=== PATIENT | male | born 1945 | race Caucasian/White ===

== ENCOUNTER → 2016-10-17 | Outpatient (CLI) | payer BC ==
[~2016-10-17] VITALS: Ht 172.7 cm; Wt 77.1 kg
[~2016-10-17] MED LIST: AMLO5TAB2 PO; HYDR10TAB PO; HYDR12CA PO; LABETALOL HCL 100 MG/20 ML VIAL As Ordered ONE; LIDOCAINE 2% INJ 100 MG/5 ML SDV (FOR ANES.) As Ordered ONE; LR 1,000 ML IV SCH; METF500T PO; PROPOFOL 200 MG/20 ML VIAL As Ordered ONE; SERT25TA85 PO
--- NOTE | 2016-10-17 09:48 | ROOR ---
Patient Name: Timmy Alonso Procedure Date: 10/17/2016 8:48 AM Date of : 1945 Age: 71 Room: [facility] Gender: Male Note Status: Finalized Procedure: Colonoscopy Indications: Rectal bleeding Providers: Pierce Melchor MD Referring MD: Hermila Barba DO Requesting Provider: Medicines: Monitored Anesthesia Care Complications: No immediate complications. Procedure: Pre-Anesthesia Assessment: - Prior to the procedure, a History and Physical was performed, and patient medications and allergies were reviewed. The patient is competent. The risks and benefits of the procedure and the sedation options and risks were discussed with the patient. All questions were answered and informed consent was obtained. Patient identification and proposed procedure were verified by the physician, the nurse and the ear specialist in the procedure room. Mental Status Examination: alert and oriented. Airway Examination: normal oropharyngeal airway and neck mobility. CV Examination: regular rate and rhythm. Prophylactic Antibiotics: The patient does not require prophylactic antibiotics. Prior Anticoagulants: The patient has taken no previous anticoagulant or antiplatelet agents. ASA Grade Assessment: II - A patient with mild systemic disease. After reviewing the risks and benefits, the patient was deemed in satisfactory condition to undergo the procedure. The anesthesia plan was to use monitored anesthesia care (MAC). Immediately prior to administration of medications, the patient was re-assessed for adequacy to receive sedatives. The heart rate, respiratory rate, oxygen saturations, blood pressure, adequacy of pulmonary ventilation, and response to care were monitored throughout the procedure. The physical status of the patient was re-assessed after the procedure. The Colonoscope was introduced through the anus and advanced to the cecum, identified by the ileocecal valve. The colonoscopy was performed without difficulty. The patient tolerated the procedure well. The quality of the bowel preparation was excellent. Findings: The perianal exam findings include an ulcerated mass at the anal verge at the posterior midline. The digital rectal exam revealed a 4 cm (diameter) firm anal mass palpated from the anal verge to about 3-4 cm above the anal verge. The mass was non-circumferential and located predominantly at the posterior bowel wall. A 10 mm polyp was found in the hepatic flexure. The polyp was sessile. The polyp was removed with a cold snare. Resection and retrieval were complete. Many sessile polyps were found in the rectum. The polyps were small in size. These appear consistent with small hyperplastic polyps. An ulcerated non-obstructing medium-sized mass was found at the anus. The mass was non-circumferential. The mass measured four cm in length. In addition, its diameter measured twenty mm. Oozing was present. Biopsies were taken with a cold forceps for histology. Impression: - An ulcerated mass at the anal verge at the posterior midline. found on perianal exam. - Anal mass from the anal verge to about 3-4 cm above from the anal verge. - One 10 mm polyp at the hepatic flexure, removed with a cold snare. Resected and retrieved. - Many small polyps in the rectum. - Malignant tumor at the anus. Biopsied. Recommendation: - Discharge patient to home. - Resume previous diet. - Continue present medications. - Await pathology results. - Return to endoscopist in 1 week. Pierce Melchor MD 10/17/2016 9:48:15 AM Number of Addenda: 0 Note Initiated On: 10/17/2016 8:48 AM Estimated Blood Loss: Estimated blood loss was minimal.
[2016-10-17 10:25] VITALS: BP 158/73
== END | disposition home or self-care (01) ==
LOC: M OPP 07:18
PROVIDERS: ATTEND Surgery
DX: C21.0 Malignant neoplasm of anus, unspecified (principal); D12.3 Benign neoplasm of transverse colon; K62.1 Rectal polyp; I10 Essential (primary) hypertension; E78.00 Pure hypercholesterolemia, unspecified; E11.9 Type 2 diabetes mellitus without complications; J44.9 Chronic obstructive pulmonary disease, unspecified; F17.200 Nicotine dependence, unspecified, uncomplicated; Z97.2 Presence of dental prosthetic device (complete) (partial); Z88.8 Allergy status to other drugs, medicaments and biological substances; Z79.84 Long term (current) use of oral hypoglycemic drugs; Z91.041 Radiographic dye allergy status; Z91.013 Allergy to seafood

== ENCOUNTER → 2016-11-02 | Outpatient (REF) | payer BC, MEDICARE ==
[~2016-11-02] MED LIST changes: -LABETALOL HCL 100 MG/20 ML VIAL As Ordered ONE; -LIDOCAINE 2% INJ 100 MG/5 ML SDV (FOR ANES.) As Ordered ONE; -LR 1,000 ML IV SCH; -PROPOFOL 200 MG/20 ML VIAL As Ordered ONE
[2016-11-02 19:19] LABS: INR 0.97
== END ==
LOC: M LAB REF 17:24
PROVIDERS: ATTEND Internal Medicine Medical Oncology
DX: C21.1 Malignant neoplasm of anal canal (principal)

== ENCOUNTER → 2016-11-02 | Outpatient (CLI) | payer BC, MEDICARE ==
--- NOTE | 2016-11-07 14:29 | RADONC ---
RADIATION ONCOLOGY CONSULTATION NOTE DATE: 11/02/2016 CHART NUMBER: [id number] DIAGNOSIS: Anal cancer. STAGE: In progress. ECOG PERFORMANCE STATUS: 1 CONSULTATION NOTE: Mr. 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 HISTORY OF PRESENT ILLNESS: The patient was in his usual state of health. 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 The patient received external beam radiation therapy for a dose of 6600 cGy in 33 fractions from 10/15/2013 through 12/03/2013. The patient then was lost to followup by all his physicians. Apparently, sometime approximately 8 months ago, the patient began developing rectal pain. Eventually, he presented to his physician and was referred to Dr. Melchor. Evaluation was undertaken, and a 4 cm firm anal mass was palpated from the anal verge to about 4 cm above the anal verge. The lesion was noncircumferential and predominantly located posterior bowel wall. A biopsy was done on 10/17/2016, and fragments of poorly differentiated squamous cell carcinoma were found. The patient is now being referred to myself as well as to medical oncology for discussion of his therapeutic options. PAST MEDICAL HISTORY: The patient's past medical history, as noted above, is positive for his laryngeal carcinoma. In addition, the patient has hypertension and diabetes. ALLERGIES: The patient reports that he is ALLERGIC to CT DYE. SOCIAL HISTORY: The patient continues to smoke cigarettes. He had smoked approximately three packs a day for least 25 years. He drinks alcohol routinely. FAMILY HISTORY: The patient's family history is positive for a father with lung cancer and a brother with leukemia. REVIEW OF SYSTEMS: The patient's review of systems is positive for some rectal pain and bleeding. It is otherwise noncontributory. He denies nausea, vomiting, fevers, chills, night sweats, diplopia, headaches, anxiety or depression, anorexia, weight loss, visual disturbances, chest pain, urinary or bowel difficulties, bone pain, or neurological problems. PHYSICAL EXAMINATION: The patient is a well-developed, well-nourished male in no acute distress. HEENT exam is normocephalic, atraumatic. Extraocular movements are intact. There is no palpable cervical, supraclavicular, infraclavicular, axillary, or inguinal lymphadenopathy present. Lungs are clear to auscultation and percussion. Heart has a regular rate and rhythm. Abdomen is benign with no hepatosplenomegaly, masses, or tenderness. Rectal examination reveals a mass from the anal verge to approximately 4 cm in the posterior section of the anal canal. It is not circumferential. It is tender. His prostate is smooth with no evidence of nodularity. Skeletal examination reveals no tenderness to pressure or percussion of the bony skeleton. Extremities reveal no clubbing, cyanosis, or edema. Neurologic exam is grossly intact, as is the remainder of the physical examination. ASSESSMENT: Clearly, the patient is a candidate for external beam radiation therapy, and I have so informed him. I have discussed with the patient in detail the potential benefits as well as possible acute and chronic sequelae of external beam radiation therapy. We discussed logistics of treatment planning, simulation, and subsequent fractionated daily radiation treatments. I have scheduled the patient for the next available simulation slot, and radiation treatments will begin subsequently. The patient came in today claiming he was not going to do chemotherapy, but I have explained to the patient that if he chooses not to do chemotherapy then we will not radiate him. The standard of care is chemotherapy and radiation together. I explained to him that this is a much more significant cancer than his previous one. I reminded him of the difficult time we had getting him through the previous radiation therapy. It included multiple phone calls begging him to finish therapy. Those phone calls ended up with him hanging up on us on multiple occasions. Most of the complaints had to do with billing. He did not have many side effects from radiation, but did not want to comply with the course fractionation for daily treatments. I made it clear to him that this is a very serious cancer in no uncertain terms. It is unlikely to cure this cancer if he stops treatment in the middle as he did with this laryngeal carcinoma. It is also unlikely to be cured unless he complies with the combination of chemo and radiation. The patient states that he understands this and will come for all of his treatments as prescribed. Once again, in summary, we discussed logistics of treatment planning, simulation, and subsequent fractionated daily radiation treatments. The patient agrees to undergo all of these treatments as prescribed. He is aware of the acute and chronic side effects. He is also aware of the significance of not controlling this disease. Specifically, I have discussed with the patient the need to have regular followup, and salvage may be a consideration if this treatment does not work. He did not come for his scheduled followups following his laryngeal carcinoma and, indeed, has not been evaluated for that in the past 3 years. We have not fully staged this patient at this point, and I have ordered a PET/CT scan to be undertaken for further evaluation. The patient claimed he did not have an appointment with medical oncology, but we called medical oncology today and spoke with them. They reported that he had an appointment scheduled for this afternoon. We retold the patient that we knew he had an appointment for this afternoon and told him to go directly over to medical oncology so that we can begin to coordinate his care. cc: MD Hermila Jarquin DO Tony Chuang, MD Robert Kimball, MD
== END ==
LOC: M ONCR 08:47
PROVIDERS: ATTEND Radiology Radiation Oncology
DX: C18.9 Malignant neoplasm of colon, unspecified (principal)

== ENCOUNTER → 2016-11-08 | Outpatient (CLI) | payer BC | LOC: M RAD 07:45 | PROVIDERS: ATTEND Radiology Radiation Oncology | DX: C21.1 Malignant neoplasm of anal canal (principal) ==

== ENCOUNTER → 2016-11-15 | Outpatient (CLI) | payer BC ==
--- NOTE | 2016-11-15 19:11 | REP ---
PET/CT: History: Initial staging anal carcinoma. Comparisons: Comparison CT scan from [facility] is from 09/19/2016. TECHNIQUE: 80 minutes following the intravenous injection of a 7.6 mCi dose of F-18 FDG, three-dimensional PET scintigraphy is acquired from the skull base to the proximal thighs. Triplanar noncontrast CT scanning is acquired through the same anatomic range for attenuation correction, and image registration with scan parameters optimized to minimize radiation exposure to the patient. PET scintigraphy and CT datasets were fused and displayed on a workstation with multiplanar and projection display capability. PET/CT Findings: The head and neck soft tissues are unremarkable. There are mucous retention cysts in the right maxillary sinus. There is no abnormal hypermetabolic uptake in the lungs. No hilar or mediastinal hypermetabolic uptake is seen. No abnormal hepatic uptake is observed. The spleen is unremarkable. No abnormal elo uptake is seen within the abdomen or pelvis. There is soft tissue fullness in the distal rectum just above the anal verge which is felt to correspond with the location of the biopsy-proven rectal carcinoma. Maximum SUV value here is 9.9 where as the background left colonic uptake is in the range of 2-6. No pelvic hypermetabolic elo uptake is seen. The prostate is enlarged. Intrarenal nephrolithiasis is noted on the right. No abnormal skeletal uptake is seen. Impression: Hypermetabolic uptake noted in the distal rectum at the site of the described rectal mass lesion. No other abnormal hypermetabolic uptake is appreciated. Signed by Geoff Olsen MD 11/16/2016 10:12 A
== END ==
LOC: M RAD 10:01
PROVIDERS: ATTEND Radiology Radiation Oncology
DX: C21.1 Malignant neoplasm of anal canal (principal)

== ENCOUNTER 2016-11-16 08:00 | Outpatient (RCR) | payer BC ==
[~2016-11-16 08:00] MED LIST changes: +SERT25TA PO; -SERT25TA85 PO
--- NOTE | 2016-12-05 12:14 | RADONC ---
RADIATION ONCOLOGY DATE: 12/04/2016 CHART NO.: [id number] Mr. Alonso was taken to the linear accelerator today and underwent his first fraction of 180 cGy to his anus. He tolerated his first fraction quite well with no difficulties. The patient's review of systems is positive for some anal pain but is otherwise noncontributory. He denies nausea, vomiting, fevers, chills, night sweats, diplopia, headaches, anxiety or depression, anorexia, weight loss, visual disturbances, chest pain, urinary or bowel difficulties, bone pain, or neurological problems. PHYSICAL EXAMINATION: The patient's skin shows no evidence of radiation change present. His physical exam remains otherwise unchanged. Mr. Alonso tolerated his first fraction well and radiation will continue as scheduled.
--- NOTE | 2016-12-12 07:57 | RADONC ---
RADIATION ONCOLOGY PROGRESS NOTE DATE: 12/11/2016 CHART NUMBER: [id number] Mr. Alonso is presently at a dose of 360 cGy to his anus and is tolerating treatments quite well at this point with no complaints at this time related to his radiation therapy. Due to machine breakdown the patient has not been treated since 12/04/2016. The patient continues to complain of anal pain but his review of systems is otherwise noncontributory. He denies nausea, vomiting, fevers, chills, night sweats, diplopia, headaches, anxiety or depression, anorexia, weight loss, visual disturbances, chest pain, urinary or bowel difficulties, bone pain, or neurological problems. PHYSICAL EXAMINATION: The patient's skin is in good condition with no evidence of radiation change present. There is no moist or dry desquamation. The remainder of his physical exam remains unchanged. Mr. Alonso is tolerating treatments quite well and radiation will continue as scheduled.
== END 2016-12-15 ==
LOC: M ONCR 08:00
PROVIDERS: ATTEND Radiology Radiation Oncology
DX: C21.0 Malignant neoplasm of anus, unspecified (principal)

== ENCOUNTER → 2016-11-16 | Outpatient (CLI) | payer BC ==
--- NOTE | 2016-11-16 14:15 | RADONC ---
RADIATION ONCOLOGY SIMULATION NOTE DATE: 11/16/2016 CHART NUMBER: [id number] Mr. Alonso was taken to the CT scan for CT simulation of his anal field. CT was accomplished without difficulty or discomfort. Radiation treatment planning is underway, and radiation treatments will begin subsequently. An immobilization device was created without difficulty or discomfort. It will be used throughout the course of treatment. I was physically present throughout the course of CT simulation. edited: 11/17/2016 0724 rene
== END ==
LOC: M RAD 13:30
PROVIDERS: ATTEND Radiology Radiation Oncology
DX: C21.1 Malignant neoplasm of anal canal (principal)

== ENCOUNTER → 2016-11-21 | Day surgery (SDC) | payer BC ==
[~2016-11-21] VITALS: Ht 172.7 cm; Wt 73.5 kg
[~2016-11-21] MED LIST changes: +HEPARIN SOD (PORCINE) 5000 UNITS/ML VIAL As Ordered ONE; +HEPARIN SOD (PORCINE) 5000 UNITS/ML VIAL XX ONE; +LIDOCAINE 1% SDV INJ 30 ML VIAL As Ordered ONE; +LIDOCAINE 1% SDV INJ 30 ML VIAL SC ONE; +LIDOCAINE 2% INJ 100 MG/5 ML SDV (FOR ANES.) As Ordered ONE; +LR 1,000 ML IV SCH; +MIDAZOLAM INJ 2 MG/2 ML VIAL (J2250) As Ordered ONE; +NORCO, ANEXSIA 5/325MG TABLET (HYDROcodone/ACETAMINOPHEN) As Ordered ONE; +NORCO, ANEXSIA 5/325MG TABLET (HYDROcodone/ACETAMINOPHEN) PO PRN; +PROPOFOL 200 MG/20 ML VIAL As Ordered ONE; +fentaNYL 100 MCG/2 ML INJECTION (J3010) As Ordered ONE
--- NOTE | 2016-11-21 16:50 | ECGEPIP ---
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
[2016-11-21 21:52] VITALS: BP 161/89
--- NOTE | 2016-11-22 06:10 | REP ---
C-ARM VIEW OF THE CHEST: C-arm view of the chest is performed. The image shows the inferior right hemithorax. 3 seconds of fluoroscopy time was utilized. Signed by Samuel Barrera MD 11/22/2016 10:13 A
--- NOTE | 2016-11-24 17:46 | RO ---
DATE OF PROCEDURE: 11/21/2016 PREOPERATIVE DIAGNOSIS: Anal carcinoma and need for chemotherapy access. POSTOPERATIVE DIAGNOSIS: Anal carcinoma and need for chemotherapy access. PROCEDURE PERFORMED: Placement of right internal jugular vein [id number] using ultrasound and fluoroscopic guidance. SURGEON: Dr. Pierce Melchor LODE MINER BLASTING: ANESTHESIA: Local with 1% Xylocaine with monitored anesthesia care INDICATIONS FOR PROCEDURE: The patient is a 71-year-old man who was recently diagnosed with anal carcinoma. He will be undergoing combination chemotherapy and radiation therapy and is now for placement of an infusion port. DESCRIPTION OF PROCEDURE: The patient was placed supine on the operating table. He received sedation from anesthesia. The patient's right neck and upper chest were prepped and draped in a sterile fashion. The ultrasound probe was draped and used to inspect the right side of the neck. The carotid artery and jugular vein were both clearly identified. The patient was tilted to a Trendelenburg position to better expand the jugular vein. The site of the vein was marked and local anesthesia was achieved with 1% Xylocaine. Then using ultrasound guidance, an 18 gauge needle was inserted into the vein without difficulty. The guidewire was passed. The skin was nicked with an #11 blade and the peel-away sheath introducer was inserted. The catheter was then inserted through the sheath and the sheath was removed. The catheter flushed readily and blood returned readily as well. The patient was returned to a flat position. The catheter was withdrawn to approximately 15 cm of the skin surface. Fluoroscopic imaging was used to position the catheter. The catheter appeared to be well placed with the 12 cm maximilian at the skin surface. Additional local anesthesia was achieved in the right infraclavicular fossa. A skin incision was made approximately 3 cm in length and a subcutaneous pocket was created for placement of the port. The catheter was tunneled down to the port site subcutaneously. The port was flushed with heparinized saline. The catheter was then cut to length and attached to the port using the locking ring. The port was placed in the subcutaneous pocket and two #3-0 Vicryl sutures were placed to fix the port in position. The subcutaneous tissues were closed with buried #3-0 Vicryl sutures. The skin incisions were then both closed with buried #5-0 Vicryl. The port was accessed and blood aspirated easily and the port was then flushed with 100 units/mL heparin solution. Steri-Strips and small OpSite dressings were applied to both incisions. The patient tolerated the procedure well without apparent complication. The port placed was a Bard port MRI implantable port, reference number [id number], lot number [id number]. The patient was transported to the recovery room in stable condition.
== END | disposition home or self-care (01) ==
LOC: M SDC 13:08
PROVIDERS: ATTEND Surgery
DX: C21.1 Malignant neoplasm of anal canal (principal); C32.9 Malignant neoplasm of larynx, unspecified; J37.0 Chronic laryngitis; J34.3 Hypertrophy of nasal turbinates; J31.0 Chronic rhinitis; J34.2 Deviated nasal septum; K21.9 Gastro-esophageal reflux disease without esophagitis; K59.00 Constipation, unspecified; K92.1 Melena; K64.8 Other hemorrhoids; D12.6 Benign neoplasm of colon, unspecified; I10 Essential (primary) hypertension; E78.00 Pure hypercholesterolemia, unspecified; E11.9 Type 2 diabetes mellitus without complications; R19.7 Diarrhea, unspecified; J44.9 Chronic obstructive pulmonary disease, unspecified; C44.92 Squamous cell carcinoma of skin, unspecified; R23.3 Spontaneous ecchymoses; F41.9 Anxiety disorder, unspecified; R06.2 Wheezing; Z91.041 Radiographic dye allergy status; Z79.899 Other long term (current) drug therapy; Z92.3 Personal history of irradiation
CPT/HCPCS: 36561; 76000; 93005; C1788; J0690; J2250; J3010

== ENCOUNTER 2016-12-18 08:33 | Outpatient (RCR) | payer BC ==
[~2016-12-18 08:33] MED LIST changes: -HEPARIN SOD (PORCINE) 5000 UNITS/ML VIAL As Ordered ONE; -HEPARIN SOD (PORCINE) 5000 UNITS/ML VIAL XX ONE; -LIDOCAINE 1% SDV INJ 30 ML VIAL As Ordered ONE; -LIDOCAINE 1% SDV INJ 30 ML VIAL SC ONE; -LIDOCAINE 2% INJ 100 MG/5 ML SDV (FOR ANES.) As Ordered ONE; -LR 1,000 ML IV SCH; -MIDAZOLAM INJ 2 MG/2 ML VIAL (J2250) As Ordered ONE; -NORCO, ANEXSIA 5/325MG TABLET (HYDROcodone/ACETAMINOPHEN) As Ordered ONE; -NORCO, ANEXSIA 5/325MG TABLET (HYDROcodone/ACETAMINOPHEN) PO PRN; -PROPOFOL 200 MG/20 ML VIAL As Ordered ONE; -fentaNYL 100 MCG/2 ML INJECTION (J3010) As Ordered ONE
--- NOTE | 2016-12-19 08:31 | RADONC ---
RADIATION ONCOLOGY PROGRESS NOTE DATE: 12/18/2016 CHART NUMBER: [id number]. PROGRESS NOTE: Mr. Alonso is presently at a dose of to 1080 cGy to his anus and was last treated on 12/15/2016. He was not treated today secondary to machine breakdown. As of Sunday, he had been tolerating his treatments quite well without difficulty. Mr. Alonso is scheduled to reinitiate treatment tomorrow.
[2016-12-21] MEDS ORDERED: AMOX-CLAV PO (16:23)
[2016-12-21] MEDS ORDERED: SITA50TAB PO (18:36)
--- NOTE | 2016-12-26 08:00 | RADONC ---
RADIATION ONCOLOGY PROGRESS NOTE DATE: 12/25/2016 CHART NUMBER: [id number] Mr. Alonso initially contacted our office saying he was too dizzy and weak to stand up or come in for radiation or chemotherapy. We instructed him at that time to call an ambulance and come to the emergency room. Throughout the day, we have been calling him periodically. The patient still has not come in. I did contact his medical oncologist, Dr. Pires, and expressed my concern. As of my last phone call with him, he had spoken with Dr. Pires and says he is feeling better. He does not wish to take an ambulance in. He said the dizziness has resolved. Our chief therapist, Chastity Brand, has also called him and instructed him to take an ambulance to come in. At least as of 3:30, during my most recent call, he established that he is feeling much better now and he is keeping food down. He is up and around. He said he felt much better after a nap. He guaranteed me that he would come into the emergency room if his feelings of weakness and dizziness return. I expressed once again my concerns and we will continue to follow him closely. He does report that he is going to be seeing Dr. Barba on Sunday.
--- NOTE | 2016-12-28 11:46 | RADONC ---
RADIATION ONCOLOGY PROGRESS NOTE: DATE OF SERVICE: 12/27/2016 CHART NO: [id number]. Mr. Alonso once again did not show up for treatment today. That is the third time this week. We have been calling him on a daily basis. He is aware that he is losing clinical efficacy of radiation treatments. The nurse Cory Alvarez and myself have tried to call him today. We received an answering machine and he has not yet call back. I am concerned that he is missing significant portions of his treatments at this point. We will continue to follow up with this tomorrow. Clearly we cannot make this patient come in for treatment or for that matter come to the emergency room or to the medical oncology office. Once again in summary, we will continue to contact this patient and leave messages on his machine if necessary. I am concerned with his poor compliance with daily treatments. If this continues we will have a significant decrease in our ability to control his cancer.
[2016-12-28] MEDS ORDERED: TRAZ50TA4 PO (13:13)
[2016-12-28] MEDS ORDERED: HYDR-3713 PO (13:13)
[2016-12-28] MEDS ORDERED: SITA50TAB PO (17:43)
[2016-12-28] MEDS ORDERED: ASPI1TAB PO (17:43)
--- NOTE | 2016-12-30 09:41 | RADONC ---
RADIATION ONCOLOGY DATE: 12/28/2016 PROGRESS NOTE CHART NUMBER: [id number] We contacted Mr. Alonso today and instructed him to come to the emergency room. The patient said he was quite weak and said he felt like he was on his "deathbed". We have checked and the patient is now in our emergency department undergoing workup for syncope. Clearly, he will remain on rest until he stabilizes.
--- NOTE | 2017-01-02 08:01 | RADONC ---
RADIATION ONCOLOGY PROGRESS NOTE DATE: 01/01/2017 CHART NUMBER: PROGRESS NOTE: Mr. Alonso is thus far at a dose of only 1400 cGy to his anus and was last treated on 12/20/2016. He received a total of only 8 fractions of radiation since 12/14/2016 for a total of 8 fractions over the past month. The patient is presently hospitalized with pneumonia. He had been staying home with pneumonia for a significant period of time. We went up to see the patient today and he reported that he did not wish to undergo treatment, specifically he did not wish to undergo chemotherapy treatment. We explained to the patient that his treatment is already compromised. To treat the remainder of the radiation without chemotherapy would be a significant compromising of his potential cure. If the patient really does not wish to continue with these treatments, I have recommended surgical intervention be considered. We would be more than happy to refer him to a client resolution specialist who may be able to deliver curative surgery. I did make clear to the patient however that, that would need a colostomy. After considering the colostomy, the patient reported that he would consider returning to us for chemotherapy and radiation with curative intent. Once again, I am concerned that 8 fractions of radiation of the delivered over a period of 1 month and we are now at great risk of losing efficacy of treatment. Surgery for salvage may be necessary.
[2017-01-02] MEDS ORDERED: AVEL1TAB PO (10:04)
[2017-01-02] MEDS ORDERED: GUAI60TA PO (10:07)
--- NOTE | 2017-01-09 10:04 | RADONC ---
RADIATION ONCOLOGY PROGRESS NOTE DATE: 01/08/2017 CHART NUMBER: [id number] Mr. Alonso is presently at a dose of 2160 cGy to his anus and is tolerating treatments quite well at this point with no complaints at this time related to his radiation treatments. The patient does report he is beginning to not feel well again. He said that he is beginning to feel like he did when he first developed pneumonia. He also says he is coughing up a clear productive sputum. The patient's review of systems is positive for his cough and sputum production but is otherwise noncontributory. Denies nausea, vomiting, fevers, chills, night sweats, diplopia, headaches, anxiety or depression, anorexia, weight loss, visual disturbances, chest pain, urinary or bowel difficulties, bone pain, or neurological problems. PHYSICAL EXAMINATION: The patient's skin is in good condition with no evidence of radiation change present. There is no moist or dry desquamation. His lungs are generally clear to auscultation and percussion. The remainder of his physical exam remains unchanged. Mr. Alonso is tolerating radiation treatments and will continue as scheduled at this point. He has already lost a significant amount of time of these treatments. I explained to him the need to continue with radiation as scheduled or it will be futile. I asked him to immediately contact Dr. Barba as well as his medical oncologist so that this can be worked up. Clearly, if he develops pneumoniae again and the treatments are interrupted, we will have to seek a surgical opinion with regards to his malignancy. The patient did guarantee me that he will be contacting both his primary care physician as well as his medical oncologist to discuss the next step with regards to his lungs.
== END 2017-01-14 ==
LOC: M ONCR 08:33
PROVIDERS: ATTEND Radiology Radiation Oncology
DX: C21.0 Malignant neoplasm of anus, unspecified (principal)

== ENCOUNTER 2016-12-21 13:51 | Emergency (ER) | payer BC ==
[~2016-12-21] VITALS: Ht 172.7 cm; Wt 77.1 kg
--- NOTE | 2016-12-21 15:30 | REP ---
Chest two views HISTORY: Wheezing Comparison: 11/03/2015 The lungs are clear. The heart is normal in size. The pulmonary vasculature is normal in appearance. The bony structure is intact. An Glrxet-Q-Uzni catheter is present in the superior vena cava. IMPRESSION: No acute disease. Signed by Jared Fair MD 12/21/2016 03:21 P
[2016-12-21 15:57] LABS: ALBUMIN 3.4 GM/DL (3.2-5.2); ALKALINE PHOSPHATASE 46 U/L (45-117); ALT/SGPT 24 U/L (12-78); ANION GAP 6 MEQ/L (8-16); AST/SGOT 16 U/L (15-37); BILIRUBIN,TOTAL 1.1 MG/DL (0.2-1.0); BLOOD UREA NITROGEN 15 MG/DL (7-18); CALCIUM LEVEL 8.8 MG/DL (8.8-10.2); CARBON DIOXIDE LEVEL 28 MEQ/L (21-32); CHLORIDE LEVEL 96 MEQ/L (98-107); CREATININE FOR GFR 1.07 MG/DL (0.70-1.30); GLOMERULAR FILTRATION RATE > 60.0 (>42); GLUCOSE, FASTING 341 MG/DL (83-110); POTASSIUM SERUM 4.3 MEQ/L (3.5-5.1); SODIUM LEVEL 130 MEQ/L (136-145); TOTAL PROTEIN 6.8 GM/DL (6.4-8.2)
[2016-12-21 15:59] LABS: DIFF SLIDE NUMBER 259; MEAN CORPUSCULAR HEMOGLOBIN 30.4 pg (27.0-33.0); MEAN CORPUSCULAR HGB CONC 35.7 g/dl (32.0-36.5); PLATELET COUNT, AUTOMATED 106 k/mm3 (150-450); RED CELL DISTRIBUTION WIDTH 13.3 % (11.5-14.5)
[2016-12-21] MEDS ORDERED: NS 1,000 ML IV ONE (16:00)
[2016-12-21] MEDS ORDERED: AMOX-CLAV PO (16:23)
[2016-12-21 16:31] LABS: BANDS 24 % (< 11); NUCLEATED RED BLOOD CELL 3 % (0-0); TOXIC VACUOLATION 1+
[2016-12-21 16:35] LABS: SCHISTOCYTES 1+; TEAR DROP CELLS 1+
[2016-12-21 16:36] LABS: POLYCHROMASIA 1+
[2016-12-21] MEDS ORDERED: SITA50TAB PO (18:36)
[2016-12-21 18:53] VITALS: BP 137/72
--- NOTE | 2016-12-21 19:12 | ECGEPIP ---
Stationary ECG Study 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
== END 2016-12-21 18:54 | disposition home or self-care (01) ==
LOC: M ED 16:16
DX: E11.65 Type 2 diabetes mellitus with hyperglycemia (principal); E86.0 Dehydration; C21.0 Malignant neoplasm of anus, unspecified; I10 Essential (primary) hypertension; Z79.899 Other long term (current) drug therapy; Z79.82 Long term (current) use of aspirin; Z79.84 Long term (current) use of oral hypoglycemic drugs; Z91.013 Allergy to seafood; Z91.041 Radiographic dye allergy status; F17.210 Nicotine dependence, cigarettes, uncomplicated

== ENCOUNTER 2016-12-28 12:58 | Inpatient (IN) | payer MEDICARE, BC ==
[~2016-12-28] VITALS: Ht 172.7 cm; Wt 79.9 kg
[~2016-12-28 12:58] MED LIST changes: +AMOX-CLAV PO; +SITA50TAB PO
[2016-12-28] MEDS ORDERED: TRAZ50TA4 PO (13:13)
[2016-12-28] MEDS ORDERED: HYDR-3713 PO (13:13)
[2016-12-28 14:25] LABS: ABG BASE EXCESS 0.7 (-2.0-2.0); ABG HCO3 22.7 MEQ/L (22.0-26.0); ABG PARTIAL PRESSURE CO2 27.8 mmHg (35.0-45.0); ABG PARTIAL PRESSURE O2 71.3 mmHg (75.0-100.0); ABG STANDARD HCO3 25.1 MEQ/L (22.0-26.0); ABG TOTAL CO2 23.5 MEQ/L (23.0-31.0); ABG pH (ARTERIAL) 7.529 UNITS (7.350-7.450)
[2016-12-28 14:58] LABS: ANION GAP 8 MEQ/L (8-16); BASO % 0.2 % (0.0-1.0); BLOOD UREA NITROGEN 16 MG/DL (7-18); CALCIUM LEVEL 8.5 MG/DL (8.8-10.2); CARBON DIOXIDE LEVEL 28 MEQ/L (21-32); CHLORIDE LEVEL 101 MEQ/L (98-107); CREATININE FOR GFR 0.86 MG/DL (0.70-1.30); EOS % 0.4 % (0.0-3.0); GLOMERULAR FILTRATION RATE > 60.0 (>42); GLUCOSE, FASTING 288 MG/DL (83-110); LARGE UNSTAINED CELL # 0.1 K/mm3 (0.0-0.4); LYMPH # 0.4 K/mm3 (1.5-4.5); LYMPH % 2.8 % (24.0-44.0); MEAN CORPUSCULAR HEMOGLOBIN 30.1 pg (27.0-33.0); MEAN CORPUSCULAR HGB CONC 34.3 g/dl (32.0-36.5); MEAN CORPUSCULAR VOLUME 87.6 fl (80.0-96.0); MONO # 0.5 K/mm3 (0.0-0.8); MONO % 4.1 % (0.0-5.0); NEUTROPHILS # 10.4 K/mm3 (1.8-7.7); NEUTROPHILS % 91.5 % (36.0-66.0); PLATELET COUNT, AUTOMATED 293 k/mm3 (150-450); POTASSIUM SERUM 3.8 MEQ/L (3.5-5.1); RED CELL DISTRIBUTION WIDTH 14.1 % (11.5-14.5); SODIUM LEVEL 137 MEQ/L (136-145); WHITE BLOOD COUNT 11.3 K/mm3 (4.0-10.0)
--- NOTE | 2016-12-28 15:33 | REP ---
TWO VIEW CHEST: Two views of the chest are performed. Comparison 12/21/2016. There is acute left lower lobe infiltrate. Right lung remains clear. Heart is normal in size. Right Mediport catheter is again noted unchanged. There are mild degenerative changes of the spine. IMPRESSION: Left lower lobe infiltrate. Signed by Samuel Barrera MD 12/29/2016 03:17 P
[2016-12-28] MEDS ORDERED: LevoFLOXacin IV 750 MG in APPROPRIATE DILUENT 1 EA IV ONE (15:45)
[2016-12-28] MEDS ORDERED: IPRATROPIUM 0.5MG/ALBUTEROL 2.5MG INH SOL UD 3ML (DUONEB)(J7620) NEB ONE (16:15)
[2016-12-28] MEDS ORDERED: ASPI1TAB PO (17:43)
[2016-12-28] MEDS ORDERED: SITA50TAB PO (17:43)
[2016-12-28] MEDS ORDERED: IPRATROPIUM 0.5MG/ALBUTEROL 2.5MG INH SOL UD 3ML (DUONEB)(J7620) NEB PRN (19:45)
[2016-12-28] MEDS ORDERED: DEXTROSE 50% 50 ML SYRINGE IV PRN (19:45)
[2016-12-28] MEDS ORDERED: GLUCOSE 4 GM CHEW TABLET PO PRN (19:45)
[2016-12-28] MEDS ORDERED: GLUCAGON FOR INJ 1 MG VIAL (J1610) SC PRN (19:45)
[2016-12-28] MEDS ORDERED: NORCO, ANEXSIA 5/325MG TABLET (HYDROcodone/ACETAMINOPHEN) PO PRN (19:45)
[2016-12-28] MEDS: IPRATROPIUM 0.5MG/ALBUTEROL 2.5MG INH SOL UD 3ML (DUONEB)(J7620) NEB SCH (20:00)
[2016-12-28 21:05] VITALS: BP 121/81
[2016-12-28] MEDS: HumaLOG INSULIN (NovoLOG) PER UNIT SC SCH (21:44)
[2016-12-28] MEDS: cefTRIAXone SOD 1 GM in D5W MINI-BAG PLUS 50 ML IV SCH (21:59)
[2016-12-28] MEDS: AZITHROMYCIN INJ 500 MG, VIAL MATE ADAPTER 1 EACH in D5W 250 ML IV SCH (22:39)
--- NOTE | 2016-12-28 22:40 | HPE ---
DATE OF ADMISSION: 12/28/2016 REASON FOR ADMISSION: Shortness of breath. 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 He stated he cannot walk or talk, feeling very weak and faint and is complaining of a cough with productive sputum. The patient presented in the emergency room, underwent a chest x-ray which showed left lower lobe infiltrate. He was started on intravenous (IV) antibiotics and admitted under hospitalist service. REVIEW OF SYSTEMS: 12-point review of systems was obtained all which was negative except for those mentioned above. PAST MEDICAL HISTORY: Significant for: Anal cancer. Vocal cord squamous cell carcinoma. Diabetes. Hypertension. Insomnia. Chronic pain. PAST SURGICAL HISTORY: Significant for: Port placement. Colonoscopy. ALLERGIES: Significant to IV CONTRAST, reaction swelling. SOCIAL HISTORY: The patient smoked 3-1/2 packs for 50 years but currently is cutting back to one cigarette a day. Denies alcohol use. Lives at home alone. MEDICATIONS: Include: - [place] one tablet every 6 hours as needed for pain - amlodipine 10 mg by mouth daily - aspirin 81 mg by mouth daily - Januvia 50 mg at bedtime FAMILY HISTORY: Noncontributory. PHYSICAL FINDINGS: Vital Signs: On admission, temperature 99.7, pulse 97, respiratory rate 16, blood pressure is 130/59, pulse oximetry 91% on room air. HEENT: Pupils equal, round, reactive to light and accommodation. Neck: Supple. No jugular venous distention (JVD). Lungs: Clear to auscultation bilaterally. Abdomen: Soft, nontender, nondistended. Extremities: No clubbing, cyanosis or edema. Neurologic: Cranial nerves II-XII grossly intact. No focal deficits. LABORATORY FINDINGS: Sodium 137, potassium 3.8, chloride 101, BUN 16, creatinine 0.86, fasting glucose 288, lactic acid 1.8, troponin less than 0.02, TSH 1.49. WBC is 11.3, hemoglobin 10.8, hematocrit 31.6, platelet count 293. Urinalysis showed trace leukocyte esterase, 17 WBCs. D-dimer was 3354. Blood gas: pH 7.52, pO2 71.3, pCO2 is 27.8, IMAGING STUDIES: Chest x-ray showed left lower lobe infiltrate. ASSESSMENT AND PLAN: 1. Shortness of breath likely secondary to left lower lobe infiltrate, pneumonia. Will continue ceftriaxone, azithromycin. The patient has elevated D-dimer but we are unable to do a CT angiogram at this time due to allergy to IV contrast. Will continue to monitor. Patient is currently saturating 91% on room air. Continue incentive spirometer and Acapella. Will obtain sputum cultures. 2. 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 The patient follows up with Dr. Pires 3. History of anal cancer, status post radiation. The patient follows up with Dr. Springer. 4. Diabetes. Continue insulin sliding scale and consistent carbohydrate diet. 5. History of hypertension. Continue the patient's amlodipine 10 mg by mouth daily and continue to monitor vital signs. 6. History of chronic pain. We will resume the patient's home medication. 7. Deep vein thrombosis (DVT) prophylaxis. Lovenox subcutaneously daily.
[2016-12-29] MEDS: IPRATROPIUM 0.5MG/ALBUTEROL 2.5MG INH SOL UD 3ML (DUONEB)(J7620) NEB SCH ×4 (01:43→20:26)
[2016-12-29 06:00] VITALS: BP 155/68
[2016-12-29 06:17] LABS: MEAN CORPUSCULAR HGB CONC 33.7 g/dl (32.0-36.5); WHITE BLOOD COUNT 7.5 K/mm3 (4.0-10.0)
[2016-12-29 06:32] LABS: ALBUMIN 2.2 GM/DL (3.2-5.2); ALBUMIN/GLOBULIN RATIO 0.61 (1.00-1.93); ALKALINE PHOSPHATASE 46 U/L (45-117); ALT/SGPT 28 U/L (12-78); ANION GAP 8 MEQ/L (8-16); AST/SGOT 21 U/L (15-37); BILIRUBIN,TOTAL 0.3 MG/DL (0.2-1.0); BLOOD UREA NITROGEN 12 MG/DL (7-18); CALCIUM LEVEL 8.3 MG/DL (8.8-10.2); CARBON DIOXIDE LEVEL 30 MEQ/L (21-32); CHLORIDE LEVEL 102 MEQ/L (98-107); GLOMERULAR FILTRATION RATE > 60.0 (>42); GLUCOSE, FASTING 185 MG/DL (83-110); MAGNESIUM LEVEL 2.2 MG/DL (1.8-2.4); POTASSIUM SERUM 3.4 MEQ/L (3.5-5.1); SODIUM LEVEL 140 MEQ/L (136-145); TOTAL PROTEIN 5.8 GM/DL (6.4-8.2)
[2016-12-29] MEDS ORDERED: POTASSIUM CHLORIDE 10 MEQ SR TABLET PO ONE (07:15)
[2016-12-29] MEDS: ASPIRIN 81 MG ENTERIC TAB PO SCH (08:46)
[2016-12-29] MEDS: HumaLOG INSULIN (NovoLOG) PER UNIT SC SCH ×4 (08:47→20:47)
[2016-12-29] MEDS: ENOXAPARIN 40 MG/0.4 ML SYRINGE (J1650) SC SCH (08:47)
[2016-12-29] MEDS: amLODIPine 10 MG TAB PO SCH (08:53)
[2016-12-29] MEDS ORDERED: ACETAMINOPHEN TAB 650MG DOSE (2X325MG) PO PRN (09:00)
--- NOTE | 2016-12-29 11:35 | IPNPDOC ---
Text Note Date of Service The patient was seen on 12/29/16. NOTE Subjective: Patient is a 71 year old male with a PMHx of Anal Squamaous cell CA ( on chemo and radiation), Vocal cord CA (s/p chemo), NIDDM2, HTN, Insomnia and chronic pain who presented to the ER with complaints of SOB adn productive cough. He was found to have an new LLL infiltrate and admitted for pneumonia. Patient was seen and examined at the bedside. Objective: Vitals (See below) General: Lying in bed, no acute distress, comfortable, AAOx3 HEENT: NC, AT CVS: RRR, +S1S2 Lungs: Poor inspiratory effort, no appreciable wheezing / rhonchi Abdomen: Soft, ND, NT, +BSx4 Extremities: +PPx4, - Edema, - Calf tenderness Assessment and plan: 1. Shortness of breath and productive cough - likely 2/2 LLL infiltrate - likely 2/2 CAP, less likely 2/2 pulmonary embolism - Presented with worsening shortness of breath and productive cough - Physical unrevealing - Mild leukocytosis on admission that has been resolving - Elevation in D-dimer; however he has a history of cancer and clinical picture that is not consistent with pulmonary embolism - CXR 12/28: Left lower lobe infiltrate - Sputum culture pending, Blood culture pending, Respiratory panel negative - Continue to monitor oxygenation - c/w Incentive spirometry and Acapella - c/w Ceftriaxone and Azithromycin (Day #2) 2. Hx of Squamous cell cancer of vocal cords - s/p chemotherapy - Follows with Dr. Pires 3. History of anal squamosu cell carcinoma - On chemotherapy, last session on 12/04/2016 - Receives radiation therapy - Follows with Dr. Springer. 4. NIDDM2 - c/w ISS 5. HTN - c/w amlodipine with holding parameters 6. Chronic pain - c/w Tylenol 7. DVT prophylaxis - c/w Lovenox VS,Fishbone, I+O VS, Fishbone, I+O Laboratory Tests 12/28/16 14:12 Calcium Level 8.5 L, Total Creatine Kinase 324 H, Red Blood Count 3.61 L, Mean Corpuscular Volume 87.6, Mean Corpuscular Hemoglobin 30.1, Mean Corpuscular Hemoglobin Concent 34.3, Red Cell Distribution Width 14.1, Neutrophils (%) (Auto ) 91.5 H, Lymphocytes (%) (Auto) 2.8 L, Monocytes (%) (Auto) 4.1, Eosinophils (% ) (Auto) 0.4, Basophils (%) (Auto) 0.2, Neutrophils # (Auto) 10.4 H, Lymphocytes # (Auto) 0.4 L, Monocytes # (Auto) 0.5, Eosinophils # (Auto) 0.0, Basophils # (Auto) 0.0 12/29/16 05:51 Calcium Level 8.3 L, Total Creatine Kinase 300, Red Blood Count 3.41 L, Mean Corpuscular Volume 89.0, Mean Corpuscular Hemoglobin 30.0, Mean Corpuscular Hemoglobin Concent 33.7, Red Cell Distribution Width 14.0, Aspartate Amino Transf (AST/SGOT) 21, Alanine Aminotransferase (ALT/SGPT) 28, Alkaline Phosphatase 46, Total Bilirubin 0.3, Total Protein 5.8 L, Albumin 2.2 L Vital Signs Date Time Temp Pulse Resp B/P Pulse Ox O2 Delivery O2 Flow Rate FiO2 12/29/16 08:53 98 155/79 12/29/16 06:00 97.7 22 97 Nasal Cannula 2.0 I&O- Last 24 Hours up to 6 AM 12/29/16 06:00 Intake Total 690 ml Output Total 700 ml Balance -10 ml CINDY HOLLAND MD Dec 29, 2016 11:35
[2016-12-29] MEDS: ONDANSETRON 4MG/2ML VIAL (J2405) IV PRN (12:53)
[2016-12-29 14:00] VITALS: BP 133/70
[2016-12-29] MEDS: traZODone 50 MG TAB PO PRN (21:34)
[2016-12-29] MEDS: guaiFENesin ER 600 MG TAB PO SCH (21:34)
[2016-12-29] MEDS: cefTRIAXone SOD 1 GM in D5W MINI-BAG PLUS 50 ML IV SCH (21:34)
[2016-12-29 22:00] VITALS: BP 109/55
[2016-12-29] MEDS: AZITHROMYCIN INJ 500 MG, VIAL MATE ADAPTER 1 EACH in D5W 250 ML IV SCH (22:24)
[2016-12-30] MEDS: IPRATROPIUM 0.5MG/ALBUTEROL 2.5MG INH SOL UD 3ML (DUONEB)(J7620) NEB SCH ×4 (02:00→20:09)
[2016-12-30 06:00] VITALS: BP 112/55
[2016-12-30 06:33] LABS: MEAN CORPUSCULAR HEMOGLOBIN 29.7 pg (27.0-33.0); MEAN CORPUSCULAR VOLUME 90.1 fl (80.0-96.0); RED CELL DISTRIBUTION WIDTH 14.1 % (11.5-14.5); WHITE BLOOD COUNT 6.4 K/mm3 (4.0-10.0)
[2016-12-30 06:53] LABS: ALBUMIN 2.1 GM/DL (3.2-5.2); ALKALINE PHOSPHATASE 42 U/L (45-117); ALT/SGPT 27 U/L (12-78); ANION GAP 6 MEQ/L (8-16); AST/SGOT 17 U/L (15-37); BILIRUBIN,TOTAL 0.3 MG/DL (0.2-1.0); BLOOD UREA NITROGEN 7 MG/DL (7-18); CALCIUM LEVEL 8.3 MG/DL (8.8-10.2); CARBON DIOXIDE LEVEL 29 MEQ/L (21-32); CHLORIDE LEVEL 106 MEQ/L (98-107); CREATININE FOR GFR 0.76 MG/DL (0.70-1.30); GLOMERULAR FILTRATION RATE > 60.0 (>42); GLUCOSE, FASTING 169 MG/DL (83-110); MAGNESIUM LEVEL 2.3 MG/DL (1.8-2.4); POTASSIUM SERUM 3.7 MEQ/L (3.5-5.1); SODIUM LEVEL 141 MEQ/L (136-145); TOTAL PROTEIN 5.6 GM/DL (6.4-8.2)
[2016-12-30 07:24] VITALS: O2SAT 90
[2016-12-30] MEDS: HumaLOG INSULIN (NovoLOG) PER UNIT SC SCH ×4 (07:30→21:00)
[2016-12-30] MEDS: ASPIRIN 81 MG ENTERIC TAB PO SCH (08:55)
[2016-12-30] MEDS: amLODIPine 10 MG TAB PO SCH (08:55)
[2016-12-30] MEDS: guaiFENesin ER 600 MG TAB PO SCH ×2 (08:55→22:13)
[2016-12-30] MEDS: ENOXAPARIN 40 MG/0.4 ML SYRINGE (J1650) SC SCH (08:56)
--- NOTE | 2016-12-30 10:54 | IPNPDOC ---
Text Note Date of Service The patient was seen on 12/30/16. NOTE Subjective: Patient is a 71 year old male with a PMHx of Anal Squamaous cell CA ( on chemo and radiation), Vocal cord CA (s/p chemo), NIDDM2, HTN, Insomnia and chronic pain who presented to the ER with complaints of SOB adn productive cough. He was found to have an new LLL infiltrate and admitted for pneumonia. Patient was seen and examined at the bedside. He reports improvement in his chest congestion, notes that he is able to expectorate more and has a clearer voice now. Objective: Vitals (See below) General: Lying in bed, no acute distress, comfortable, AAOx3 HEENT: NC, AT CVS: RRR, +S1S2 Lungs: Poor inspiratory effort, mild rhonchi appreciated at L lung base Abdomen: Soft, ND, NT, +BSx4 Extremities: +PPx4, - Edema, - Calf tenderness Assessment and plan: 1. Shortness of breath and productive cough - likely 2/2 LLL infiltrate - likely 2/2 CAP, less likely 2/2 pulmonary embolism - Presented with worsening shortness of breath and productive cough - Physical reveals rhonchi at LLL - Leukocytosis continues to resolve - Elevation in D-dimer; less likely PE given clinical picture - CXR 12/28: Left lower lobe infiltrate - Sputum culture, Blood culture pending and Respiratory panel negative - Continue to monitor oxygenation - c/w Incentive spirometry and Acapella - c/w Ceftriaxone and Azithromycin (Day #3) 2. Hx of Squamous cell cancer of vocal cords - s/p chemotherapy - Follows with Dr. Pires 3. History of anal squamosu cell carcinoma - On chemotherapy, last session on 12/04/2016 - Receives radiation therapy - Follows with Dr. Springer. 4. NIDDM2 - c/w ISS 5. HTN - c/w amlodipine with holding parameters 6. Chronic pain - c/w Tylenol 7. DVT prophylaxis - c/w Lovenox Disposition: - Will need home with services when stable - Possible discharge by Sunday GARCIA,Talisha, I+O VS, Talisha, I+O Laboratory Tests 12/30/16 05:55 Calcium Level 8.3 L, Aspartate Amino Transf (AST/SGOT) 17, Alanine Aminotransferase (ALT/SGPT) 27, Alkaline Phosphatase 42 L, Total Bilirubin 0.3, Total Protein 5.6 L, Albumin 2.1 L 12/30/16 05:56 Red Blood Count 3.48 L, Mean Corpuscular Volume 90.1, Mean Corpuscular Hemoglobin 29.7, Mean Corpuscular Hemoglobin Concent 33.0, Red Cell Distribution Width 14.1 Vital Signs Date Time Temp Pulse Resp B/P Pulse Ox O2 Delivery O2 Flow Rate FiO2 12/30/16 08:55 84 112/55 12/30/16 07:24 90 Nasal Cannula 1.0 12/30/16 06:00 98.6 18 I&O- Last 24 Hours up to 6 AM 12/30/16 05:59 Intake Total 1760 ml Output Total 2150 ml Balance -390 ml CINDY HOLLAND MD Dec 30, 2016 10:54
[2016-12-30] MEDS: ONDANSETRON 4MG/2ML VIAL (J2405) IV PRN (11:28)
[2016-12-30 14:00] VITALS: BP 125/66
--- NOTE | 2016-12-30 16:29 | ECGEPIP ---
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
[2016-12-30 22:00] VITALS: BP 117/57
[2016-12-30] MEDS: cefTRIAXone SOD 1 GM in D5W MINI-BAG PLUS 50 ML IV SCH (22:13)
[2016-12-30] MEDS: traZODone 50 MG TAB PO PRN (22:15)
[2016-12-30] MEDS: AZITHROMYCIN INJ 500 MG, VIAL MATE ADAPTER 1 EACH in D5W 250 ML IV SCH (22:56)
[2016-12-31] MEDS: IPRATROPIUM 0.5MG/ALBUTEROL 2.5MG INH SOL UD 3ML (DUONEB)(J7620) NEB SCH ×4 (02:00→19:41)
[2016-12-31 06:00] VITALS: BP 138/67
[2016-12-31] MEDS: ONDANSETRON 4MG/2ML VIAL (J2405) IV PRN (06:15)
[2016-12-31 06:33] LABS: MEAN CORPUSCULAR HEMOGLOBIN 29.5 pg (27.0-33.0); MEAN CORPUSCULAR HGB CONC 33.2 g/dl (32.0-36.5); MEAN CORPUSCULAR VOLUME 88.6 fl (80.0-96.0); RED CELL DISTRIBUTION WIDTH 14.1 % (11.5-14.5); WHITE BLOOD COUNT 5.8 K/mm3 (4.0-10.0)
[2016-12-31 06:55] LABS: ALBUMIN 2.1 GM/DL (3.2-5.2); ALKALINE PHOSPHATASE 40 U/L (45-117); ALT/SGPT 27 U/L (12-78); ANION GAP 7 MEQ/L (8-16); AST/SGOT 20 U/L (15-37); BILIRUBIN,TOTAL 0.3 MG/DL (0.2-1.0); BLOOD UREA NITROGEN 8 MG/DL (7-18); CARBON DIOXIDE LEVEL 29 MEQ/L (21-32); CHLORIDE LEVEL 104 MEQ/L (98-107); CREATININE FOR GFR 0.76 MG/DL (0.70-1.30); GLOMERULAR FILTRATION RATE > 60.0 (>42); GLUCOSE, FASTING 172 MG/DL (83-110); MAGNESIUM LEVEL 2.2 MG/DL (1.8-2.4); POTASSIUM SERUM 3.7 MEQ/L (3.5-5.1); SODIUM LEVEL 140 MEQ/L (136-145); TOTAL PROTEIN 5.6 GM/DL (6.4-8.2)
[2016-12-31] MEDS: ENOXAPARIN 40 MG/0.4 ML SYRINGE (J1650) SC SCH (08:03)
[2016-12-31] MEDS: HumaLOG INSULIN (NovoLOG) PER UNIT SC SCH ×4 (08:04→21:00)
[2016-12-31] MEDS: ASPIRIN 81 MG ENTERIC TAB PO SCH (08:05)
[2016-12-31] MEDS: guaiFENesin ER 600 MG TAB PO SCH ×2 (08:05→21:12)
[2016-12-31] MEDS: amLODIPine 10 MG TAB PO SCH (08:05)
[2016-12-31] MEDS ORDERED: METOCLOPRAMIDE INJ 10MG/2ML VIAL (J2765) IV PRN (09:45)
--- NOTE | 2016-12-31 10:01 | IPNPDOC ---
Text Note Date of Service The patient was seen on 12/31/16. NOTE Subjective: Patient is a 71 year old male with a PMHx of Anal Squamaous cell CA ( on chemo and radiation), Vocal cord CA (s/p chemo), NIDDM2, HTN, Insomnia and chronic pain who presented to the ER with complaints of SOB adn productive cough. He was found to have an new LLL infiltrate and admitted for pneumonia. Patient was seen and examined at the bedside. Patient notes improvement in his breathing. Denies any additional problems today. Objective: Vitals (See below) General: Lying in bed, no acute distress, comfortable, AAOx3 HEENT: NC, AT CVS: RRR, +S1S2 Lungs: Poor inspiratory effort, mild wheezing at bilateral lung bases Abdomen: Soft, ND, NT, +BSx4 Extremities: +PPx4, - Edema, - Calf tenderness Assessment and plan: 1. Shortness of breath and productive cough - likely 2/2 LLL infiltrate - likely 2/2 CAP, less likely 2/2 pulmonary embolism - Presented with worsening shortness of breath and productive cough - Leukocytosis improving - Elevation in D-dimer; less likely PE given clinical picture - CXR 12/28: Left lower lobe infiltrate - Sputum culture, Blood culture pending and Respiratory panel negative - Continue to monitor oxygenation - c/w Incentive spirometry and Acapella - c/w Ceftriaxone and Azithromycin (Day #4) 2. Hx of Squamous cell cancer of vocal cords - s/p chemotherapy - Follows with Dr. Pires 3. History of anal squamous cell carcinoma - On chemotherapy, last session on 12/04/2016 - Receives radiation therapy - Follows with Dr. Springer 4. NIDDM2 - c/w ISS 5. HTN - c/w amlodipine with holding parameters 6. Chronic pain - c/w Tylenol 7. DVT prophylaxis - c/w Lovenox Disposition: - Will need home with services when stable - Continue with antibiotics; will transition to PO on Sunday VS,Fishbone, I+O VS, Fishbone, I+O Laboratory Tests 12/31/16 06:09 Calcium Level 8.0 L, Aspartate Amino Transf (AST/SGOT) 20, Alanine Aminotransferase (ALT/SGPT) 27, Alkaline Phosphatase 40 L, Total Bilirubin 0.3, Total Protein 5.6 L, Albumin 2.1 L, Red Blood Count 3.33 L, Mean Corpuscular Volume 88.6, Mean Corpuscular Hemoglobin 29.5, Mean Corpuscular Hemoglobin Concent 33.2, Red Cell Distribution Width 14.1 Vital Signs Date Time Temp Pulse Resp B/P Pulse Ox O2 Delivery O2 Flow Rate FiO2 12/31/16 08:05 85 138/67 12/31/16 07:28 Nasal Cannula 1.0 12/31/16 06:00 98.9 18 90 I&O- Last 24 Hours up to 6 AM 12/31/16 06:00 Intake Total 2760 ml Output Total 475 ml Balance 2285 ml CINDY HOLLAND MD Dec 31, 2016 10:01
[2016-12-31 14:00] VITALS: BP 119/57
[2016-12-31] MEDS: cefTRIAXone SOD 1 GM in D5W MINI-BAG PLUS 50 ML IV SCH (21:12)
[2016-12-31 22:00] VITALS: BP 136/63
[2016-12-31] MEDS: AZITHROMYCIN INJ 500 MG, VIAL MATE ADAPTER 1 EACH in D5W 250 ML IV SCH (22:02)
[2016-12-31] MEDS: traZODone 50 MG TAB PO PRN (22:07)
[2017-01-01] MEDS: IPRATROPIUM 0.5MG/ALBUTEROL 2.5MG INH SOL UD 3ML (DUONEB)(J7620) NEB SCH ×4 (01:57→20:43)
[2017-01-01 06:00] VITALS: BP 126/59
[2017-01-01 07:17] LABS: MEAN CORPUSCULAR HEMOGLOBIN 30.1 pg (27.0-33.0); MEAN CORPUSCULAR HGB CONC 33.6 g/dl (32.0-36.5); MEAN CORPUSCULAR VOLUME 89.7 fl (80.0-96.0); WHITE BLOOD COUNT 3.8 K/mm3 (4.0-10.0)
[2017-01-01 07:59] LABS: ALBUMIN 2.1 GM/DL (3.2-5.2); ALBUMIN/GLOBULIN RATIO 0.57 (1.00-1.93); ALKALINE PHOSPHATASE 42 U/L (45-117); ALT/SGPT 33 U/L (12-78); ANION GAP 4 MEQ/L (8-16); AST/SGOT 27 U/L (15-37); BILIRUBIN,TOTAL 0.2 MG/DL (0.2-1.0); BLOOD UREA NITROGEN 7 MG/DL (7-18); CALCIUM LEVEL 8.3 MG/DL (8.8-10.2); CARBON DIOXIDE LEVEL 32 MEQ/L (21-32); CHLORIDE LEVEL 106 MEQ/L (98-107); CREATININE FOR GFR 0.75 MG/DL (0.70-1.30); GLOMERULAR FILTRATION RATE > 60.0 (>42); GLUCOSE, FASTING 158 MG/DL (83-110); MAGNESIUM LEVEL 2.4 MG/DL (1.8-2.4); POTASSIUM SERUM 4.4 MEQ/L (3.5-5.1); SODIUM LEVEL 142 MEQ/L (136-145); TOTAL PROTEIN 5.8 GM/DL (6.4-8.2)
[2017-01-01] MEDS: HumaLOG INSULIN (NovoLOG) PER UNIT SC SCH ×4 (08:49→21:00)
[2017-01-01] MEDS: guaiFENesin ER 600 MG TAB PO SCH ×2 (08:50→21:02)
[2017-01-01] MEDS: ASPIRIN 81 MG ENTERIC TAB PO SCH (08:50)
[2017-01-01] MEDS: amLODIPine 10 MG TAB PO SCH (08:52)
[2017-01-01] MEDS: ENOXAPARIN 40 MG/0.4 ML SYRINGE (J1650) SC SCH (08:53)
--- NOTE | 2017-01-01 11:17 | IPNPDOC ---
Text Note Date of Service The patient was seen on 01/01/17. NOTE Subjective: Patient is a 71 year old male with a PMHx of Anal Squamaous cell CA ( on chemo and radiation), Vocal cord CA (s/p chemo), NIDDM2, HTN, Insomnia and chronic pain who presented to the ER with complaints of SOB adn productive cough. He was found to have an new LLL infiltrate and admitted for pneumonia. Patient was seen and examined at the bedside. Is currently off supplementation oxygen while at rest. Will go for physical therapy evaluation and ambulating oxygenation. Objective: Vitals (See below) General: Lying in bed, no acute distress, comfortable, AAOx3 HEENT: NC, AT CVS: RRR, +S1S2 Lungs: Fair air entry b/l, no appreciable wheezing / rhonchi Abdomen: Soft, ND, NT, +BSx4 Extremities: +PPx4, - Edema, - Calf tenderness Assessment and plan: 1. Shortness of breath and productive cough - likely 2/2 LLL infiltrate - likely 2/2 CAP, less likely 2/2 pulmonary embolism - Clinical improvement in cough / SOB; Leukocytosis resolved - Elevation in D-dimer; less likely PE given clinical picture - CXR 12/28: Left lower lobe infiltrate - Sputum culture, Blood culture pending and Respiratory panel negative - Titrate off oxygen today; determine ambulation saturation - c/w Incentive spirometry and Acapella - c/w Ceftriaxone and Azithromycin (Day #5) 2. Hx of Squamous cell cancer of vocal cords - s/p chemotherapy - Follows with Dr. Pires 3. History of anal squamous cell carcinoma - Last session of chemotherapy on 12/04/2016 - s/p radiation therapy - Advised that he does not want any further chemotherapy - Follows with Dr. Springer 4. NIDDM2 - c/w ISS 5. HTN - c/w amlodipine with holding parameters 6. Chronic pain - c/w Tylenol 7. DVT prophylaxis - c/w Lovenox Disposition: - Will need home with services when stable - Evaluation with PT / OT - Continue with antibiotics; will transition to Levaquin upon discharge VS,Fishbone, I+O VS, Fishbone, I+O Laboratory Tests 01/01/17 06:59 Calcium Level 8.3 L, Aspartate Amino Transf (AST/SGOT) 27, Alanine Aminotransferase (ALT/SGPT) 33, Alkaline Phosphatase 42 L, Total Bilirubin 0.2, Total Protein 5.8 L, Albumin 2.1 L, Red Blood Count 3.32 L, Mean Corpuscular Volume 89.7, Mean Corpuscular Hemoglobin 30.1, Mean Corpuscular Hemoglobin Concent 33.6, Red Cell Distribution Width 14.0 Vital Signs Date Time Temp Pulse Resp B/P Pulse Ox O2 Delivery O2 Flow Rate FiO2 01/01/17 11:06 91 Room Air 01/01/17 08:52 86 112/54 01/01/17 06:00 97.9 17 2.0 I&O- Last 24 Hours up to 6 AM 01/01/17 06:00 Intake Total 2100 ml Output Total 1125 ml Balance 975 ml CINDY HOLLAND MD Jan 01, 2017 11:17
[2017-01-01] MEDS: AZITHROMYCIN 250 MG TAB PO SCH (13:26)
[2017-01-01 14:00] VITALS: BP 114/59
[2017-01-01] MEDS: cefTRIAXone SOD 1 GM in D5W MINI-BAG PLUS 50 ML IV SCH (21:02)
[2017-01-01 22:00] VITALS: BP 136/64
[2017-01-02] MEDS: traZODone 50 MG TAB PO PRN (00:08)
[2017-01-02] MEDS: IPRATROPIUM 0.5MG/ALBUTEROL 2.5MG INH SOL UD 3ML (DUONEB)(J7620) NEB SCH ×2 (02:07→08:44)
[2017-01-02 06:00] VITALS: BP 112/56
[2017-01-02 06:52] LABS: MEAN CORPUSCULAR HEMOGLOBIN 29.5 pg (27.0-33.0); MEAN CORPUSCULAR HGB CONC 32.9 g/dl (32.0-36.5); MEAN CORPUSCULAR VOLUME 89.6 fl (80.0-96.0); WHITE BLOOD COUNT 3.4 K/mm3 (4.0-10.0)
[2017-01-02 07:12] LABS: ALBUMIN 2.2 GM/DL (3.2-5.2); ALBUMIN/GLOBULIN RATIO 0.63 (1.00-1.93); ALKALINE PHOSPHATASE 45 U/L (45-117); ALT/SGPT 32 U/L (12-78); ANION GAP 8 MEQ/L (8-16); AST/SGOT 21 U/L (15-37); BILIRUBIN,TOTAL 0.2 MG/DL (0.2-1.0); BLOOD UREA NITROGEN 6 MG/DL (7-18); CALCIUM LEVEL 8.1 MG/DL (8.8-10.2); CARBON DIOXIDE LEVEL 28 MEQ/L (21-32); CHLORIDE LEVEL 107 MEQ/L (98-107); CREATININE FOR GFR 0.77 MG/DL (0.70-1.30); GLOMERULAR FILTRATION RATE > 60.0 (>42); GLUCOSE, FASTING 174 MG/DL (83-110); MAGNESIUM LEVEL 2.1 MG/DL (1.8-2.4); POTASSIUM SERUM 4.2 MEQ/L (3.5-5.1); SODIUM LEVEL 143 MEQ/L (136-145); TOTAL PROTEIN 5.7 GM/DL (6.4-8.2)
--- NOTE | 2017-01-02 09:23 | IPN ---
DATE OF SERVICE: 01/02/2017 The patient seen and examined at the bedside. Chart has been reviewed. This morning, the patient complains of generalized weakness. "I'm already to go home." He denies any worsening shortness of breath, chest pain, pressure, tightness, cough productive of sputum. Denies dizziness, lightheadedness, and decreased oral intake. No diarrhea, bright red blood per rectum. Currently, on room air 91% to 97%. Temperature 96.6, pulse 91, respiratory rate 16, blood pressure is 112/56, 93% on room air. Generally, awake, alert, oriented times three. Answering questions appropriately. Anicteric sclerae. No jaundice. Lying in bed. In no distress. No respiratory accessory muscle use. Speaks in full sentences. Heart: S1, S2. Sinus rhythm. Regular rate and rhythm. Lungs: Decreased air entry bilaterally. No wheezing. Abdomen is soft, nontender, nondistended. Positive bowel sounds. Extremities: No cyanosis or clubbing. No pitting edema or calf tenderness. LABORATORY DATA: White count 3.4, hemoglobin 10, hematocrit 30, platelet count 342. Sodium 142, potassium 4.2, chloride 107, bicarbonate 28, BUN 6, creatinine 0.77, glucose 174, calcium 8.1, magnesium 2.1, total bilirubin 0.2, AST 21, ALT 32, alkaline phosphatase 45. MICROBIOLOGY: 12/30/2016 urine culture: No growth. Two sets of blood cultures 12/28/2016 no growth after 72 hours. Respiratory panel on 12/28/2016 shows negative by multiplexed nucleic acid. Sputum culture: Normal paul present. IMAGING STUDIES: Chest x-ray 12/28/2016: Left lower lobe infiltrate. ASSESSMENT AND PLAN: This is a 71-year-old male with history of anal squamous cell carcinoma on chemotherapy and radiation, vocal cord cancer status post chemotherapy, noninsulin type 2 diabetes, hypertension, insomnia, and chronic pain, presented to the emergency room (ER) with shortness of breath and productive cough and was found to have a new left lower lobe infiltrate, admitted for pneumonia. The patient had completed 6 days of antibiotics, still with generalized weakness. IMPRESSION: 1. Left lower lobe pneumonia, community-acquired. His sputum culture is negative. Blood cultures are negative. Respiratory panel negative. The patient is off of oxygen. Currently, on day #6 of ceftriaxone, azithromycin. Continue with incentive spirometry and acapella. 2. History of squamous cell cancer of the vocal cords, status post chemotherapy. Follows with Dr. Pires, medical oncologist, as outpatient. 3. History of anal squamous cell cancer. Last session of chemotherapy was on 12/04/2016, status post radiation. Advised that he does not want any further chemotherapy. Follows with Dr. Springer. 4. Type 2 diabetes. Continue with consistent-carbohydrate diet and insulin sliding scale for now. Fingersticks have been adequate at 107-232. The patient's oral intake has been stable. 5. Hypertension. Continue with Norvasc with holding parameters. 6. Chronic pain. As-needed pain medications. 7. Deep venous thrombosis (DVT) prophylaxis with Lovenox. DISPOSITION: Awaiting physical therapy (PT) clearance prior to discharge home. The patient lives alone and is quite reluctant to be discharged, as he would not have any help. He is not interested in home care referral as outpatient. TIMOTHY
[2017-01-02] MEDS: HumaLOG INSULIN (NovoLOG) PER UNIT SC SCH (09:27)
[2017-01-02 09:28] VITALS: BP 134/65
[2017-01-02] MEDS: ASPIRIN 81 MG ENTERIC TAB PO SCH (09:28)
[2017-01-02] MEDS: ENOXAPARIN 40 MG/0.4 ML SYRINGE (J1650) SC SCH (09:28)
[2017-01-02] MEDS: AZITHROMYCIN 250 MG TAB PO SCH (09:28)
[2017-01-02] MEDS: guaiFENesin ER 600 MG TAB PO SCH (09:28)
[2017-01-02] MEDS: amLODIPine 10 MG TAB PO SCH (09:28)
[2017-01-02] MEDS ORDERED: AVEL1TAB PO (10:04)
[2017-01-02] MEDS ORDERED: GUAI60TA PO (10:07)
[2017-01-02] MEDS ORDERED: MOXIFLOXACIN 400 MG TAB PO ONE (10:30)
--- NOTE | 2017-01-02 11:32 | DSES ---
DATE OF ADMISSION: 12/28/2016 DATE OF DISCHARGE: 01/02/2017 PRIMARY DISCHARGE DIAGNOSIS: 1. Left lower lobe community acquired pneumonia. 2. Acute hypoxic respiratory failure requiring supplemental oxygen on admission secondary to community acquired pneumonia. 3. History of anal squamous cell cancer. 4. History of vocal cord cancer. 5. Type 2 diabetes. 6. Hypertension. 7. Chronic pain. DISCHARGE MEDICATIONS: - Avelox 400 mg daily - Mucinex 600 mg twice a day - hydrocodone/acetaminophen one tablet every 6 as needed - Norvasc 10 daily - aspirin 81 daily - Januvia 50 at bedtime HOSPITAL COURSE: This is a 71-year-old male with history of anal squamous cell cancer and chemotherapy and radiation of vocal cord cancer status post chemotherapy, type 2 diabetes, hypertension, insomnia, chronic pain presents with shortness of breath and productive cough and was found to have a left lower lobe infiltrate. Patient was initially hypoxic and required supplement oxygen, currently at 93-97% on room air. Patient has had no fevers. White count of 11.3 improved to 5.8 and 3.4 on discharge. Blood sputum and urine cultures were negative. Respiratory panel was also negative. Chest x-ray showed left lower lobe infiltrate. Patient passed a home safety evaluation and was safely discharged to home. He has refused home care referral. White count 3.4, hemoglobin 10, hematocrit 30, platelet count 342, sodium 143, potassium 4.2, chloride 107, bicarbonate 28, BUN 6, creatinine 0.77, glucose 174, calcium 8.1. MICROBIOLOGY: Urine culture negative. Sputum culture negative. Two sets of blood cultures negative after 72 hours. RSV panel negative. Chest x-ray 12/28 left lower lobe infiltrate. TIME SPENT ON DISCHARGE: 30 minutes.
== END 2017-01-02 11:10 | disposition home or self-care (01) | DRG 194 ==
LOC: EDBD 12:58 → M ED 13:46 → M ED INP 19:32 → M MSPAV 21:03
PROVIDERS: ADMIT Internal Medicine; ATTEND General Practice
DX: J18.9 Pneumonia, unspecified organism (principal); C21.0 Malignant neoplasm of anus, unspecified; E11.9 Type 2 diabetes mellitus without complications; I10 Essential (primary) hypertension; D72.829 Elevated white blood cell count, unspecified; G47.00 Insomnia, unspecified; G89.29 Other chronic pain; Z85.818 Personal history of malignant neoplasm of other sites of lip, oral cavity, and pharynx; Z91.041 Radiographic dye allergy status; Z79.891 Long term (current) use of opiate analgesic; Z79.82 Long term (current) use of aspirin; Z79.84 Long term (current) use of oral hypoglycemic drugs; Z79.899 Other long term (current) drug therapy

== ENCOUNTER 2017-01-15 10:39 | Outpatient (RCR) | payer MEDICARE, BC ==
[~2017-01-15 10:39] MED LIST changes: +ASPI1TAB PO; +AVEL1TAB PO; +GUAI60TA PO; +HYDR-3713 PO; +TRAZ50TA4 PO
--- NOTE | 2017-01-16 07:15 | RADONC ---
RADIATION ONCOLOGY PROGRESS NOTE: DATE OF SERVICE: 01/15/2017 CHART NO: [id number] Mr. Alonso is presently at a dose of 3060 cGy to his anus and is tolerating treatments quite well at this point with no complaints related to his radiation therapy other than fatigue and weakness. The patient's review of systems is positive for to be fatigue and weakness but is otherwise largely noncontributory. He denies nausea, vomiting, fevers, chills, night sweats, diplopia, headaches, anxiety or depression, anorexia, weight loss, visual disturbances, chest pain, urinary or bowel difficulties, bone pain, or neurological problems. PHYSICAL EXAMINATION: The patient's skin overall is in good condition with no evidence of moist or dry desquamation. The remainder of his physical exam remains unchanged. Mr. Alonso is tolerating treatments quite well and radiation will continue as scheduled. He is receiving chemotherapy at this time.
--- NOTE | 2017-01-22 14:44 | RADONC ---
RADIATION ONCOLOGY PROGRESS NOTE DATE: 01/22/2017 CHART NUMBER: [id number] Mr. Alonso is thus far at a dose of only 3780 cGy to his anus for a total of 21 fractions over 46 elapsed days from 12/04/2016 through 01/19/2017. Over the past month or so I have had innumerable conversations with this patient with regards to the need for compliance with his daily treatment schedule. I have continuously made clear to the patient the loss of the efficacy of treatment if there are continued treatment breaks and a protracted treatment course. Apparently the patient showed up at his medical oncologists office today saying that he could not handle any more radiation for at least the next week or so. He told the medical oncologist that he did not wish to speak to me at this point because he was aware I would tell him he needed to come in for treatment and he does not wish to do so. The patient is fully aware of the risks of not continuing as scheduled with his therapy. Indeed we have gone through this very issue in the past when we treated his larynx. I cannot force the patient to come in and continue his treatments as planned. Last week he wanted to discontinue treatment for a week and we had a very lengthy discussion where I outlined the risks of local failure and the need for resection and a colostomy. At that time he seemed to begrudgingly continue with treatment. Clearly we cannot make this patient come in on a daily basis. We will be here and hopefully he will change his mind and come in for further radiation later this week. My staff and I at this point feel we can do nothing much further but to continue to encourage him to come in as scheduled. What makes this more frustrating is the fact that this is a quite curable disease.
[2017-01-29] MEDS ORDERED: SILV-4 TOP (14:02)
--- NOTE | 2017-01-29 14:43 | RADONC ---
RADIATION ONCOLOGY PROGRESS NOTE DATE: 01/29/2017 CHART NUMBER: [id number] Mr. Alonso is thus far at a dose of 3780 cGy to his anus and was last treated on January 19, 2017. He has so far had 21 fractions in almost 2 months time. He took off all of last week and is now presenting complaining of skin reaction in the perianal area, the perineum and the inner thighs. PHYSICAL EXAMINATION: On physical exam, there is erythema and some dry desquamation as well as some areas of moist desquamation in these regions. I asked the patient if he had pain medicine and he does, but he does not wish to take it. He appears to be in quite a bit of discomfort at this time. He reports that he has been in pain since September and has been incontinent of stool since that time. I asked the patient if he wishes to restart radiation at this point. He only has seven fractions left. The patient reported that when he feels he has to stop he has to stop and he does not want to treatments to kill him. Unfortunately at this point I am quite pessimistic with regards to the curative potential of this treatment. Indeed, he has had the equivalent of 4-5 weeks off already throughout the course of this short therapy. Unfortunately, the patient does not come in to see us when he has issues. This occurred with his pneumonia when he refused to come in or come to the emergency room for a significant period of time. Apparently the patient has had desquamation of the skin and has not come in to see me. He is therefore not using any Silvadene. I am now sending in a prescription for Silvadene to be applied topically if he picks it up and complies. Once again, the patient has only seven fractions left and hopefully he will come consistently to receive his treatments.
--- NOTE | 2017-02-06 06:41 | RADONC ---
RADIATION ONCOLOGY PROGRESS NOTE DATE: 02/05/2017 CHART NUMBER: [id number] Mr. Alonso is presently at a dose of 4860 cGy to his anus and has been tolerating his treatments with difficulty. He continues to have perianal and perineal pain as well as some fecal discharge. The patient's review of systems is positive for her head anal and perianal pain as well as discomfort of the skin over the treated blanchard but is otherwise noncontributory. Denies nausea, vomiting, fevers, chills, night sweats, diplopia, headaches, anxiety or depression, anorexia, weight loss, visual disturbances, chest pain, urinary or bowel difficulties, bone pain, or neurological problems. PHYSICAL EXAMINATION: The patient's skin shows erythema and brisk reaction throughout the area of treatment. His physical exam is otherwise unchanged. Mr. Alonso is scheduled for completion tomorrow.
--- NOTE | 2017-02-07 08:37 | RADONC ---
RADIATION ONCOLOGY TREATMENT SUMMARY: DATE: 02/06/2017 CHART NUMBER: [id number]. DIAGNOSIS: Anal cancer. STAGE: II, T2N0M0. ECOG PERFORMANCE STATUS: 1. TREATMENT SUMMARY: Mr. 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 We treated the patient to his anus for a total dose of 5040 cGy delivered in 28 fractions of 180 cGy each over 64 elapsed days from 12/04/2016 through 02/06/2017. The patient's anus was treated on a linear accelerator utilizing a 6MV photon beam via IMRT/IGRT. In addition, the patient's lymph nodes were treated for a total dose of 4200 cGy concurrently at a dose of 150 cGy each also utilizing the 6MV photon beam for via IMRT/IGRT. Mr. Alonso developed many issues and difficulty tolerating treatments throughout the course of therapy for which multiple treatment interruptions were taken. Indeed for period of time the patient did not come in, apparently had pneumonia, but would not come to be seen or seen by his primary care doctor or medical oncologist. This went on for at least 10 days or so before he finally presented to the emergency room. He subsequently developed a brisk skin reaction and refused come in for treatments at that point as well. I attempted to make clear to him that these issues should be addressed early so that they can be treated rather than before they get out of hand. I also expressed on multiple occasions my concern with the interruption of treatment and the loss of local control. He was able to complete therapy, however and the last 7 fractions were delivered uninterrupted. I have scheduled the patient to see me again in 1 month for routine followup and he is scheduled to see his other physicians for followup as well. I have made clear the patient the need for followup especially in this compromised radiation area. 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 He did not therefore undergo any routine laryngoscopic evaluations. Fortunately, he appears to be tumor free and has done quite well nonetheless. I have made clear to him that this is a much more serious issue and that intervention may be needed if we have not achieved optimum result. He is to be seen by his other physicians as well. cc: MD Hermila Jarquin DO Tony Chuang, MD Robert Kimball, MD
== END 2017-02-14 ==
LOC: M ONCR 10:39
PROVIDERS: ATTEND Radiology Radiation Oncology
DX: C21.0 Malignant neoplasm of anus, unspecified (principal)

== ENCOUNTER → 2017-03-08 | Outpatient (REF) | payer BC ==
[~2017-03-08] MED LIST changes: +SILV-4 TOP
[2017-03-08 14:28] LABS: BASOPHILS 1 % (0-4); EOSINOPHILS 8 % (0-5)
== END ==
LOC: M LAB REF 13:29
PROVIDERS: ATTEND Internal Medicine
DX: D72.9 Disorder of white blood cells, unspecified (principal)

== ENCOUNTER → 2017-03-14 | Outpatient (CLI) | payer BC ==
[~2017-03-14] MED LIST changes: -AVEL1TAB PO; +AVEL1TAB3 PO; -GUAI60TA PO; -METF500T PO; +METF500T13 PO; +MUCI600T31 PO; +TRAZ50TA11 PO; -TRAZ50TA4 PO
--- NOTE | 2017-03-15 09:59 | RADONC ---
RADIATION ONCOLOGY FOLLOWUP NOTE: DATE: 03/14/2017 CHART NUMBER: [id number]. DIAGNOSIS: Anal cancer. STAGE: II, T2N0M0. ECOG PERFORMANCE STATUS: 1. FOLLOWUP NOTE: Mr. Alonso is a very pleasant, 71-year-old white male with the diagnosis of a stage II, T2N0M0, poorly differentiated squamous cell carcinoma of the anus who is presenting to us today for routine followup visit 1 month post completion of external beam radiation therapy. The patient presents today reporting that generally he is doing much better. He does still have some discomfort upon bowel movements. REVIEW OF SYSTEMS: The patient's review of systems is positive for some discomfort with bowel movements but is otherwise noncontributory. Denies nausea, vomiting, fevers, chills, night sweats, diplopia, headaches, anxiety or depression, anorexia, weight loss, visual disturbances, chest pain, urinary or bowel difficulties, bone pain, or neurological problems. PHYSICAL EXAMINATION: The patient is a well-developed, well-nourished male in no acute distress. HEENT exam is normocephalic, atraumatic. Extraocular movements are intact. There is no palpable cervical, supraclavicular, infraclavicular, axillary, or inguinal lymphadenopathy present. Lungs are clear to auscultation and percussion. Heart has a regular rate and rhythm. Abdomen is benign with no hepatosplenomegaly, masses, or tenderness. Rectal examination reveals the perianal skin to be smooth with no evidence of nodularity or evidence of disease. There is no moist or dry desquamation and his skin has healed nicely. The anal canal is free of nodularity. I do not appreciate any lesion at this time. Skeletal examination reveals no tenderness to pressure or percussion of the bony skeleton. Extremities reveal no clubbing, cyanosis, or edema. Neurologic exam is grossly intact, as is the remainder of the physical examination. ASSESSMENT: The patient is clinically doing quite well now 4 weeks post radiation. He has what appears to be a complete response. I have scheduled the patient to see me again in 3 months for further followup. I have instructed him that he needs continued followup with his medical oncologist and other physicians as well. Apparently, he is scheduled to see Dr. Melchor in the near future. He also has an appointment to see Dr. Garcia. cc: MD Hermila Jarquin DO Tony Chuang, MD Robert Kimball, MD
== END ==
LOC: M ONCR 13:14
PROVIDERS: ATTEND Radiology Radiation Oncology
DX: C21.0 Malignant neoplasm of anus, unspecified (principal)

== ENCOUNTER → 2017-06-20 | Outpatient (CLI) | payer BC ==
--- NOTE | 2017-06-21 07:08 | RADONC ---
RADIATION ONCOLOGY FOLLOWUP NOTE DATE: 06/20/2017 CHART NUMBER: [id number] DIAGNOSIS: Anal cancer. STAGE: II, T2N0M0. ECOG PERFORMANCE STATUS: 1 FOLLOWUP NOTE: Mr. 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 The patient came in today complaining about various issues with his knees and legs, that he relates to agent orange, but having no complaints according to the patient with regards to his anal cancer. He does not report any bleeding. REVIEW OF SYSTEMS: The patient's review of systems is positive for some time knee and joint pain and some difficulty that he has had since he is exposed to agent orange, but does not have any complaints related to his radiation at this point. He denies nausea, vomiting, fevers, chills, night sweats, diplopia, headaches, anxiety, depression, anorexia, visual disturbances, chest pain. PHYSICAL EXAMINATION: The patient absolutely refused any physical examination. ASSESSMENT: I am not quite sure why the patient came in for followup. He refuses to see any of his other physicians including his medical oncologist to discuss the anal cancer. He does not wish to discuss the anal cancer. He absolutely refuses to undergo physical examination, or any type of anal evaluation. I made clear to him that he is here for evaluation of his anal cancer and that if there is residual or recurrent disease, this needs to be addressed without delay. He nonetheless has decided against any further followup at this time for his anal cancer, although he has asked to come back to our office in six months' time. Since he has requested to come back here in 6 months time, I have set up a followup for him although I really am not doing anything at this point. He does not wish to discuss the issue, nor does he wish to have any observation or analysis of what is going on in the treated area. cc: MD Hermila Jarquin DO Tony Chuang, MD Robert Kimball, MD
== END ==
LOC: M ONCR 13:34
PROVIDERS: ATTEND Radiology Radiation Oncology
DX: C21.0 Malignant neoplasm of anus, unspecified (principal)

== ENCOUNTER → 2017-08-29 | Outpatient (CLI) | payer BC ==
--- NOTE | 2017-08-29 16:51 | RADONC ---
RADIATION ONCOLOGY FOLLOWUP NOTE DATE: 08/29/2017 CHART NUMBER: [id number]. DIAGNOSIS: Anal cancer. STAGE: II, T2N0M0. ECOG PERFORMANCE STATUS: Zero. FOLLOWUP NOTE: Mr. 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 Of note, the patient was quite noncompliant with his radiation treatments. Despite numerous long conversations of the need to come in for routine therapy, the patient did not show up and the treatment was quite protracted. He was made aware on practically a daily basis when he did show up of the need to come in and the risks of not controlling his rectal carcinoma. The same occurred during his laryngeal treatments in 2013, but fortunately he did overall well with that. Following completion of therapy, the patient did show up to a followup visit in June but refused all physical examination. For further information, please refer to my previous notes. We received a call from this patient the other day reporting that he believes the cancer is back and he is having pain. He is therefore, presenting to us now for complaints of possible recurrence. REVIEW OF SYSTEMS: The patient's review of systems is positive for some anal/rectal discomfort. It is otherwise positive for some upon swallowing. It is otherwise noncontributory. REVIEW OF SYSTEMS: The patient's review of systems is noncontributory. Denies nausea, vomiting, fevers, chills, night sweats, diplopia, headaches, anxiety or depression, anorexia, weight loss, visual disturbances, chest pain, urinary or bowel difficulties, bone pain, or neurological problems. PHYSICAL EXAMINATION: The patient is a well-developed, well-nourished male in no acute distress. HEENT exam is normocephalic, atraumatic. Extraocular movements are intact. There is no palpable cervical, supraclavicular, infraclavicular, axillary, or inguinal lymphadenopathy present. Lungs are clear to auscultation and percussion. Heart has a regular rate and rhythm. Abdomen is benign with no hepatosplenomegaly, masses, or tenderness. Rectal examination reveals normal skin in the perirectal area. There is however what appears to be a lesion in the anal canal posteriorly, which may be several centimeters in size. It is quite tender. Skeletal examination reveals no tenderness to pressure or percussion of the bony skeleton. Extremities reveal no clubbing, cyanosis, or edema. Neurologic exam is grossly intact, as is the remainder of the physical examination. ASSESSMENT: I suspect this patient has a local recurrence of his squamous cell anal carcinoma. I am referring him to the [facility] in [place] for further evaluation, workup and treatment as indicated. In the meantime, I have set this patient up for routine followup in our office. He will continue his followup with his other physicians as well. cc: [facility] cc: MD Hermila Jarquin DO Tony Chuang, MD Robert Kimball, MD
== END ==
LOC: M ONCR 08:25
PROVIDERS: ATTEND Radiology Radiation Oncology
DX: C21.0 Malignant neoplasm of anus, unspecified (principal)

== ENCOUNTER → 2017-08-31 | Outpatient (CLI) | payer BC ==
--- NOTE | 2017-08-31 08:58 | REP ---
CT internal auditory canal without contrast: History: Pulsatile tinnitus right ear. Comparison is made with images from CT study of the neck dated May 27, 2013. Technique: Helical scanning is acquired and 1 mm axial images are reformatted. Bone targeted high resolution axial and coronal images are generated. CT findings: There are two mucous retention cysts occupying the lower half of the right maxillary sinus. The left maxillary sinus is clear. No ethmoid, frontal or sphenoid opacification is seen. Mastoid air cells are symmetrically aerated and clear. There is vascular calcification in the distal carotid artery bilaterally, moderate in degree. Incidental note is made of a leftward deviated lower nasal septum with a septal beak. There is mild diffuse intracranial atrophy. No intraorbital abnormality is seen. The internal auditory canals are normal in size and shape and symmetric. Cochlear and vestibular apparatus appear intact on both sides. Middle ear cavity is fully aerated bilaterally. No bony erosion or abnormal soft tissue density is seen. External auditory canals are unremarkable and symmetric. Internal jugular foramina are symmetric. Impression: Bilateral distal internal carotid artery vascular calcification at the skull base. Nasal septal deviation. Mucous retention cysts in the right maxillary sinus. Otherwise negative CT study of the petrous bones and internal auditory canals. Signed by Geoff Olsen MD 08/31/2017 04:13 P
== END ==
LOC: M RAD 07:27
PROVIDERS: ATTEND Otolaryngology
DX: H93.A1 Pulsatile tinnitus, right ear (principal); I65.23 Occlusion and stenosis of bilateral carotid arteries; J34.2 Deviated nasal septum; J34.1 Cyst and mucocele of nose and nasal sinus

== ENCOUNTER → 2017-11-09 | Outpatient (CLI) | payer BC ==
[~2017-11-09] MED LIST changes: -AMLO5TAB2 PO; -AMOX-CLAV PO; -ASPI1TAB PO; -AVEL1TAB3 PO; +GASTROGRAFIN SOLUTION 30ML (Q9963) As Ordered; -HYDR-3713 PO; -HYDR10TAB PO; -HYDR12CA PO; +ISOVUE-370 76% 100ML VIAL (Q9967) As Ordered; -METF500T13 PO; -MUCI600T31 PO; -SERT25TA PO; -SILV-4 TOP; -SITA50TAB PO; -TRAZ50TA11 PO
== END ==
LOC: M RAD 12:04
DX: C21.0 Malignant neoplasm of anus, unspecified (principal)
CPT/HCPCS: Q9963

== ENCOUNTER → 2019-03-18 | Outpatient (CLI) | payer OTHER ==
[~2019-03-18] MED LIST changes: +AMLO5TAB6 PO; +AMOX-CLAV PO; +ASPI81TA26 PO; +AVEL1TAB3 PO; -GASTROGRAFIN SOLUTION 30ML (Q9963) As Ordered; +HYDR-3713 PO; +HYDR10TAB PO; +HYDR12CA PO; -ISOVUE-370 76% 100ML VIAL (Q9967) As Ordered; +METF500T13 PO; +MUCI600T31 PO; +SERT25TA85 PO; +SILV-4 TOP; +SITA50TAB PO; +TRAZ-252 PO
--- NOTE | 2019-03-31 15:08 | REP ---
PET/CT: HISTORY: Diagnosing lung nodule. COMPARISONS: Comparison CT study of the abdomen pelvis is retrieved from the [facility] dated February 06, 2019. This was read as showing a 3 cm mass in the right posterior lung sulcus new from prior CT study. Comparison CT study is also reviewed from November 09, 2017. Comparison PET/CT study is reviewed from November 15, 2016. TECHNIQUE: 46 minutes following the intravenous injection of a 7.89 mCi dose of F-18 FDG, three-dimensional PET scintigraphy is acquired from the skull base to the proximal thighs. Triplanar noncontrast CT scanning is acquired through the same anatomic range for attenuation correction, and image registration with scan parameters optimized to minimize radiation exposure to the patient. PET scintigraphy and CT datasets were fused and displayed on a workstation with multiplanar and projection display capability. PET/CT FINDINGS: There is mildly hypermetabolic uptake in the cavitary oval-shaped density seen in the right lower lobe in the posterior lung sulcus on today's PET/CT. Maximum standard uptake value is 3.05. There are some parenchymal opacities medial and lateral to this. There are small air bubbles within this lesion. There is also an infiltrate in the left lower lobe posterolaterally which is hypermetabolic as well. Maximum standard uptake value is 3.17. This left lower lobe infiltrate was not present on CT study February 06, 2019 and may be inflammatory. There is no other abnormal hypermetabolic uptake in the thorax. No other infiltrate is appreciated. There is no abnormal uptake in either adrenal gland. There is a right renal cyst. No abnormal hypermetabolic uptake is seen within the liver. No retroperitoneal or abdominal adenopathy is seen. Left lower quadrant colostomy and abdominoperineal resection is visualized. No abnormal hypermetabolic uptake seen in the abdomen or pelvis. IMPRESSION: The right posterior lung lower lobe opacity shows mildly hypermetabolic uptake. This is nonspecific. There is a infiltrate in the left lower lobe today, which shows mildly hypermetabolic uptake as well. This was not present on recent chest CT and is presumed to be an inflammatory infiltrate. Electronically Signed by Geoff Olsen MD 03/31/2019 03:10 P
== END ==
LOC: M PLARAD 09:13
PROVIDERS: ATTEND Physician Assistant Medical
DX: R91.8 Other nonspecific abnormal finding of lung field (principal)
CPT/HCPCS: 78815; A9552

== ENCOUNTER 2019-06-05 16:54 | Inpatient (IN) | payer OTHER, MEDICARE, BC ==
[~2019-06-05] VITALS: Ht 172.7 cm; Wt 75.6 kg
[2019-06-05] MEDS ORDERED: OXYC1TAB23 PO (17:20)
[2019-06-05] MEDS ORDERED: TRAZ-252 PO (17:20)
[2019-06-05] MEDS ORDERED: CILO100T PO (17:20)
--- NOTE | 2019-06-05 17:43 | REP ---
CHEST, PORTABLE: AP portable view of the chest is performed. There appears to be a moderate to large right effusion with associated right basilar consolidation. Right apex is sparred. Left lung is clear. Heart size is not well evaluated. Electronically Signed by Samuel Barrera MD 06/05/2019 05:59 P
[2019-06-05] MEDS ORDERED: NS 500 ML IV ONE (17:45)
[2019-06-05 17:48] LABS: VENOUS BASE EXCESS -3.9 (-2.0-2.0); VENOUS HCO3 19.6 MEQ/L (23.0-27.0); VENOUS O2 SATURATION 93.7 % (60.0-80.0); VENOUS PARTIAL PRESSURE CO2 31.4 mmHg (38.0-50.0); VENOUS PH 7.413 UNITS (7.330-7.430); VENOUS STANDARD HCO3 21.1 MEQ/L; VENOUS TOTAL CO2 20.6 MEQ/L (24.0-28.0)
[2019-06-05 17:52] LABS: BASO % 0.4 % (0.0-1.0); EOS % 0.1 % (0.0-3.0); HEMATOCRIT 35.8 % (42.0-52.0); HEMOGLOBIN 11.9 g/dl (13.5-17.5); LYMPH # 0.4 10^3/uL (1.5-5.0); LYMPH % 4.1 % (24.0-44.0); MEAN CORPUSCULAR HEMOGLOBIN 26.9 pg (27.0-33.0); MEAN CORPUSCULAR HGB CONC 33.2 g/dl (32.0-36.5); MEAN CORPUSCULAR VOLUME 80.8 fl (80.0-96.0); MONO # 0.7 10^3/uL (0.0-0.8); MONO % 7.4 % (0.0-5.0); NEUTROPHILS # 8.3 10^3/uL (1.5-8.5); NEUTROPHILS % 83.9 % (36.0-66.0); PLATELET COUNT, AUTOMATED 416 10^3/uL (150-450); RED BLOOD COUNT 4.43 10^6/uL (4.30-6.10); WHITE BLOOD COUNT 9.8 10^3/uL (4.0-10.0)
[2019-06-05 18:03] LABS: INR 1.2; PROTHROMBIN TIME 14.9 SECONDS (11.8-14.0)
[2019-06-05] MEDS ORDERED: AMLO10TA5 PO (18:14)
[2019-06-05] MEDS ORDERED: METF-839 PO (18:14)
[2019-06-05] MEDS ORDERED: HYDR12CA PO (18:15)
[2019-06-05 18:19] LABS: INFLUENZA A AMPLIFICATION NEGATIVE (NEGATIVE); INFLUENZA B AMPLIFICATION NEGATIVE (NEGATIVE)
[2019-06-05 18:34] LABS: ALT/SGPT 40 U/L (12-78); BILIRUBIN,DIRECT < 0.1 MG/DL (0.0-0.2); BILIRUBIN,TOTAL 0.4 MG/DL (0.2-1.0); BLOOD UREA NITROGEN 10 MG/DL (7-18); CALCIUM LEVEL 8.5 MG/DL (8.8-10.2); CARBON DIOXIDE LEVEL 19 MEQ/L (21-32); CHLORIDE LEVEL 96 MEQ/L (98-107); CK-MB VALUE MASS < 1.0 NG/ML (<3.6); CPK CREATINE PHOSPHOKINASE 41 U/L (39-308); GLOMERULAR FILTRATION RATE > 60.0 (>42); GLUCOSE, FASTING 312 MG/DL (70-100); MB/CK RELATIVE INDEX 2.44 (< OR =4); NT-PRO BNP 111 PG/ML (<450); POTASSIUM SERUM 3.8 MEQ/L (3.5-5.1); SODIUM LEVEL 135 MEQ/L (136-145); TOTAL PROTEIN 5.8 GM/DL (6.4-8.2); TROPONIN I < 0.02 NG/ML (< 0.10)
--- NOTE | 2019-06-05 18:55 | REPVR ---
PROCEDURE INFORMATION: Exam: CT Chest Without Contrast Exam date and time: 06/05/2019 5:51 PM Clinical history: 74 years old, male; Other: Pleural effusion TECHNIQUE: Imaging protocol: Computed tomography of the chest without contrast. 3D rendering: MIP reconstructed images were created and reviewed. Radiation optimization: All CT scans at this facility use at least one of these dose optimization techniques: automated exposure control; mA and/or kV adjustment per patient size (includes targeted exams where dose is matched to clinical indication); or iterative reconstruction. COMPARISON: CT Chest with contrast 11/09/2017 1:28 PM FINDINGS: Lungs: Large complex fluid collection in the right hemithorax with scatterd gas locules, air fluid levels, and surrounding wall thickening measuring approximately 18 cm, concerning for large right sided pulmonary/pleural abscess. Near complete atelectatic collapse of the right middle lower lobes with scattered pleural-parenchymal calcifications throughout the right lower lobe. Centrilobular emphysematous changes. Heart: Moderate calcifications of the coronary arteries. Aorta: Moderate atherosclerotic calcifications of the aorta. Lymph nodes: No enlarged lymph nodes. Bones/joints: No acute osseus lesion or fracture. Multilevel degenerative changes of the visualized spine. Soft tissues: Unremarkable. Kidneys and ureters: 4.7 cm fluid density cyst in the right kidney. Non-obstructive calculus in the right kidney. IMPRESSION: 1. Findings concerning for large 18 cm complex right pulmonary/pleural abscess with air-fluid levels. Recommend thoracic surgery consultation. 2. Near complete atelectatic collapse of the right middle and lower lobes with scattered pleural-parenchymal calcifications throughout the right lower lobe. 3. Other chronic findings, as above. Electronically signed by: Jordy Bartlett On 06/05/2019 18:55:28 PM
[2019-06-05] MEDS ORDERED: MAALOX 30 ML SUSP *UDC PO PRN (20:00)
[2019-06-05] MEDS ORDERED: MOM 30ML SUSPENSION UDC PO PRN (20:00)
[2019-06-05] MEDS ORDERED: hydroCHLOROthiazide 12.5 MG CAPSULE PO PRN (20:00)
--- NOTE | 2019-06-05 21:44 | ECGEPIP ---
[facility] - ED Test Date: 2019-06-05 Pat Name: ROXY HENDERSON Department: Room: - Gender: Male [employer]per: : 1945 Requested By: Slime Thorpe Order Number: [id number] Reading MD: Slime Thorpe Measurements Intervals [place] Rate: 125 P: 35 CA: 153 QRS: 243 QRSD: 90 T: 44 QT: 312 QTc: 450 Interpretive Statements SINUS TACHYCARDIA POSSIBLE RIGHT VENTRICULAR HYPERTROPHY LOW VOLTAGE LIMB INCREASED RATE 12/28/16 Electronically Signed on 06-05-2019 21:44:07 EDT by Slime Thorpe
--- NOTE | 2019-06-05 22:04 | HPEPDOC ---
General Date of Admission Jun 05, 2019 at 16:55 Date of Service: Jun 05, 2019 Chief Complaint The patient is a 74-year-old male admitted with a reason for visit of Pleural Effusion. Source: Patient Exam Limitations: No limitations Timing/Duration: Week(s) Severity: Moderate History of Present Illness Mr. Guardado is a 74 years old man who presents to Er with c/o progressive SOB for about 2 weeks. He also reports cough productive of white sputum which is not new. Denies chest pain, fever or chills. In the ER, CXR showed moderate-large right pleural effusion. He had mild sinus tachycardia; normal BP;; afebrile. O2 sat was 96% in RA. CT chest from Oct 2017 was normal, without any effusion. PAST MEDICAL HISTORY: Anal cancer. Vocal cord squamous cell carcinoma. Diabetes. Hypertension. Insomnia. Chronic pain. PAST SURGICAL HISTORY: Port placement. Colonoscopy. ALLERGIES: Significant to IV CONTRAST, reaction swelling. SOCIAL HISTORY: The patient smoked 3-1/2 packs for 50 years. Denies alcohol use. Lives at home alone. Home Medications Scheduled Amlodipine Besylate (Amlodipine Besylate) 10 Mg Tablet, 10 MG PO DAILY, (Reported) Aspirin (Aspirin EC) 81 Mg Tab, 81 MG PO DAILY, (Reported) Cilostazol (Cilostazol) 100 Mg Tablet, 100 MG PO BID, (Reported) Metformin HCl (Metformin HCl) 500 Mg Tablet, 500 MG PO BID, (Reported) Trazodone HCl (Trazodone HCl) 50 Mg Tablet, 50 MG PO QHS, (Reported) Scheduled PRN Hydrochlorothiazide (Hydrochlorothiazide) 12.5 Mg Capsule, 12.5 MG PO DAILY PRN for EDEMA, (Reported) Oxycodone HCl/Acetaminophen (Oxycodone-Acetaminophen 5-325) 1 Each Tablet, 0.5 TAB PO TID PRN for PAIN, (Reported) Allergies Coded Allergies: Contrast Media (Verified Allergy, Unknown, 10/06/16) SEAFOOD (Verified Allergy, Unknown, 10/06/16) A-FIB/CHADSVASC A-FIB History Current/History of A-Fib/PAF?: No Review of Systems Constitutional: Denies: Chills, Fever, Malaise Eyes: Denies: Pain ENT: Denies: Head Aches, Ear Pain Skin: Denies: Rash, Lesions Pulmonary: Reports: Dyspnea, Cough; Denies: Pleuritic Chest Pain Cardiovascular: Denies: Chest Pain, Palpitations, Edema Gastrointestinal: Denies: Nausea, Vomiting, Abdominal Pain, Diarrhea Genitourinary: Denies: Dysuria, Frequency Hematologic: Denies: Bruising Endocrine: Denies: Polydipsia, Polyphagia Musculoskeletal: Denies: Neck Pain, Back Pain Neurological: Denies: Weakness, Numbness, Change in speech, Confusion, Seizures Psych: Reports: Mood Normal, Anxiety; Denies: Depression Physical Examination General Exam: Positive: Alert, Cooperative, No Acute Distress Eye Exam: Positive: PERRLA, Conjunctiva & lids normal ENT Exam: Positive: Atraumatic Neck Exam: Positive: Supple; Negative: JVD Chest Exam: Positive: Diminished (on RLL) Heart Exam: Positive: Tachycardic, Regular Rhythm Abdomen Exam: Positive: Normal bowel sounds, Soft; Negative: Tenderness Extremity Exam: Positive: Normal pulses; Negative: Edema Skin Exam: Positive: Nl turgor and temperature; Negative: Rash, Breakdown Neuro Exam: Positive: Normal Speech, Strength at 5/5 X4 ext, Normal Tone Psych Exam: Positive: Mental status NL, Mood NL, Anxiety Vital Signs Vital Signs Date Time Temp Pulse Resp B/P (MAP) Pulse Ox O2 Delivery O2 Flow Rate FiO2 06/05/19 21:00 102 141/62 (88) 96 06/05/19 20:30 98.6 22 06/05/19 16:54 Room Air Laboratory Data Labs 24H Laboratory Tests 2 06/05/19 17:32: Immature Granulocyte % (Auto) 4.1H, White Blood Count 9.8, Red Blood Count 4.43, Hemoglobin 11.9L, Hematocrit 35.8L, Mean Corpuscular Volume 80.8, Mean Corpuscular Hemoglobin 26.9L, Mean Corpuscular Hemoglobin Concent 33.2, Red Cell Distribution Width 14.6H, Platelet Count 416, Neutrophils (%) (Auto) 83.9H, Lymphocytes (%) (Auto) 4.1L, Monocytes (%) (Auto) 7.4H, Eosinophils (%) (Auto) 0.1, Basophils (%) (Auto) 0.4, Neutrophils # (Auto) 8.3, Lymphocytes # (Auto) 0.4L, Monocytes # (Auto) 0.7, Eosinophils # (Auto) 0.0, Basophils # (Auto) 0.0, Nucleated Red Blood Cells % (auto) 0.0, Prothrombin Time 14.9H, Prothromb Time International Ratio 1.20, Blood Gas Bicarbonate Standard 21.1, Venous Blood pH 7.413, Venous Blood Partial Pressure CO2 31.4L, Venous Blood Partial Pressure O2 69.0H, Venous Blood Total Carbon Dioxide 20.6L, Venous Blood HCO3 19.6L, Venous Blood Oxygen Saturation 93.7H, Venous Blood Base Excess -3.9L, Anion Gap 20H, Glomerular Filtration Rate > 60.0, Lactic Acid Level 2.0, Calcium Level 8.5L, Aspartate Amino Transf (AST/SGOT) 22, Alanine Aminotransferase (ALT/SGPT) 40, Alkaline Phosphatase 126H, Total Bilirubin 0.4, Direct Bilirubin < 0.1, Total Creatine Kinase 41, Creatine Kinase MB < 1.0, Creatine Kinase MB Relative Index 2.44, Troponin I < 0.02, CD-Rgy-D-Type Natriuretic Peptide 111, Total Protein 5.8L, Albumin 2.0L, Albumin/Globulin Ratio 0.53L, Thyroid Stimulating Hormone (TSH) 2.390, Influenza Type A (RT-PCR) NEGATIVE, Influenza Type B (RT-PCR) NEGATIVE CBC/BMP Laboratory Tests 06/05/19 17:32 Red Blood Count 4.43, Mean Corpuscular Volume 80.8, Mean Corpuscular Hemoglobin 26.9 L, Mean Corpuscular Hemoglobin Concent 33.2, Red Cell Distribution Width 14 .6 H, Neutrophils (%) (Auto) 83.9 H, Lymphocytes (%) (Auto) 4.1 L, Monocytes (%) (Auto) 7.4 H, Eosinophils (%) (Auto) 0.1, Basophils (%) (Auto) 0.4, Neutrophils # (Auto) 8.3, Lymphocytes # (Auto) 0.4 L, Monocytes # (Auto) 0.7, Eosinophils # (Auto) 0.0, Basophils # (Auto) 0.0 Microbiology Microbiology 06/05/19 Blood Culture, Received Pending 06/05/19 Blood Culture, Received Pending Assessment/Plan Symptomatic Right Pleural Effusion - keep in Observation overnight - Diagnostic and therapeutic thoracentesis tomorrow AM - No signs of infectious process; will hold antibiotic for now Continue home meds for other chronic conditions. Plan / VTE VTE Prophylaxis Ordered?: No VTE Exclusion Mechanical Proph: Low Risk for VTE VTE Exclusion Pharmacological: At Low Risk for VTE Plan Activity: Encourage Ambulation Anticipated Discharge: Home ALEX KAUR MD Jun 05, 2019 22:04
[2019-06-05] MEDS: traZODone 50 MG TAB PO SCH (22:15)
[2019-06-05] MEDS: CILOSTAZOL 100 MG TAB (PLETAL) PO SCH (22:15)
[2019-06-05 22:50] VITALS: BP 142/78
[2019-06-06] MEDS: PERCOCET 5MG/325MG TAB PO PRN ×3 (03:18→22:24)
[2019-06-06 06:00] VITALS: BP 141/78
[2019-06-06 06:48] LABS: BASO # 0.1 10^3/uL (0.0-0.2); BASO % 0.7 % (0.0-1.0); EOS % 0.1 % (0.0-3.0); HEMATOCRIT 33.8 % (42.0-52.0); HEMOGLOBIN 11.3 g/dl (13.5-17.5); LYMPH # 0.6 10^3/uL (1.5-5.0); MEAN CORPUSCULAR HEMOGLOBIN 27.4 pg (27.0-33.0); MEAN CORPUSCULAR HGB CONC 33.4 g/dl (32.0-36.5); MONO # 0.9 10^3/uL (0.0-0.8); MONO % 9.6 % (0.0-5.0); NEUTROPHILS # 7.2 10^3/uL (1.5-8.5); NEUTROPHILS % 79.6 % (36.0-66.0); PLATELET COUNT, AUTOMATED 335 10^3/uL (150-450); RED BLOOD COUNT 4.12 10^6/uL (4.30-6.10)
[2019-06-06 07:15] LABS: ALBUMIN 1.7 GM/DL (3.2-5.2); ALT/SGPT 32 U/L (12-78); BILIRUBIN,TOTAL 0.3 MG/DL (0.2-1.0); BLOOD UREA NITROGEN 10 MG/DL (7-18); CALCIUM LEVEL 8.4 MG/DL (8.8-10.2); CARBON DIOXIDE LEVEL 23 MEQ/L (21-32); CHLORIDE LEVEL 97 MEQ/L (98-107); CREATININE FOR GFR 0.61 MG/DL (0.70-1.30); GLOMERULAR FILTRATION RATE > 60.0 (>42); GLUCOSE, FASTING 271 MG/DL (70-100); LDH LACTATE DEHYDROGENASE 147 U/L (87-241); POTASSIUM SERUM 3.1 MEQ/L (3.5-5.1); SODIUM LEVEL 133 MEQ/L (136-145)
[2019-06-06] MEDS ORDERED: POTASSIUM CHLORIDE 10 MEQ SR TABLET PO ONE (08:00)
[2019-06-06] MEDS: CILOSTAZOL 100 MG TAB (PLETAL) PO SCH ×2 (09:28→22:24)
[2019-06-06] MEDS: ASPIRIN 81 MG ENTERIC TAB PO SCH (09:28)
[2019-06-06] MEDS: ACETAMINOPHEN TAB 650MG DOSE (2X325MG) PO PRN ×2 (09:29→18:19)
[2019-06-06] MEDS: amLODIPine 10 MG TAB PO SCH (09:30)
[2019-06-06 10:00] VITALS: BP 162/82
[2019-06-06] MEDS: AMPICILLIN SOD/SULBACTAM SOD 3 GM in D5W MINI-BAG PLUS 100 ML IV SCH ×3 (11:38→22:23)
[2019-06-06] MEDS ORDERED: DEXTROSE 50% 50 ML SYRINGE IV PRN (11:45)
[2019-06-06] MEDS ORDERED: GLUCOSE 4 GM CHEW TABLET PO PRN (11:45)
[2019-06-06] MEDS ORDERED: GLUCAGON FOR INJ 1 MG VIAL (J1610) SC PRN (11:45)
[2019-06-06] MEDS: HumaLOG INSULIN (NovoLOG) PER UNIT SC SCH ×3 (13:33→22:25)
[2019-06-06 14:00] VITALS: BP 154/88
--- NOTE | 2019-06-06 18:13 | IPN ---
DATE: 06/06/2019 ADDENDUM I agree with the history and physical exam already dictated by Elton REGAN after my personal interview and physical exam. Mr. Alonso is a very pleasant 74-year-old male with a large abnormality in the right lower lobe. He presented yesterday with increased shortness of breath and chest discomfort, feeling as if he could not breathe. He had a recent episode of self-limited hemoptysis. Currently he is not having hemoptysis. My overall impression is that this is likely a very large abscess. It is intraparenchymal. It is not a pleural effusion. I feel this is an anaerobic abscess versus staphylococcal abscess. He does have a history of having Clostridium (C) difficile, so we will place him on c.diff therapy to avoid complications. Therefore, I have added per tube vancomycin. He has already been started on ampicillin sulbactam, which I agree with. We will continue to follow him radiologically. There is a possibility bronchoscopy may be needed if this does not improve over time. He does not recall choking on food. It does not appear that there is an endobronchial obstructing lesion. If there is continued improvement, can be converted to oral or per tube medications later in the week. In the meantime, will perform chest physiotherapy, nebulized therapy, Acapella, obtain sputum cultures. Also obtain sputum cytology in the rare instance that this could be malignancy. I am performing tuberculosis testing, although this would be atypical for a tuberculosis presentation, as it is mostly in the base of the lung, although does have some parenchymal destruction. Going back to a PET scan in March, I believe the patient has had a focus of infection at that time in the right lower lobe, and it has basically formed into a very large abscess. He had not been on any antibiotics in March that he can recall. I will continue to follow this patient on a daily basis. Will continue to follow imaging. The patient is at risk for developing sepsis and will be monitored. TIMOTHY
--- NOTE | 2019-06-06 18:18 | IPNPDOC ---
Subjective Date Seen The patient was seen on 06/06/19. Subjective Chief Complaint/HPI Timmy is resting in bed, he has a non-productive cough. c/o hemoptysis. Afebrile. Pulmonary: Reports: Dyspnea, Cough, Pleuritic Chest Pain, Other Symptoms (hemoptysis) Objective Physical Examination General Exam: Positive: Alert, Cooperative, No Acute Distress Eye Exam: Positive: PERRLA, Conjunctiva & lids normal ENT Exam: Positive: Atraumatic Neck Exam: Positive: Supple; Negative: JVD Chest Exam: Positive: Diminished (on RLL) Heart Exam: Positive: Tachycardic, Regular Rhythm Abdomen Exam: Positive: Normal bowel sounds, Soft; Negative: Tenderness Extremity Exam: Positive: Normal pulses; Negative: Edema Skin Exam: Positive: Nl turgor and temperature; Negative: Rash, Breakdown Neuro Exam: Positive: Normal Speech, Strength at 5/5 X4 ext, Normal Tone Psych Exam: Positive: Mental status NL, Mood NL, Anxiety Assessment /Plan Assessment # Large Left lung Abscess with pleuritic CP - start unasyn 3 gm IV q6 - Pulmonary consulted work up in progress, case d/w Dr. Ocampo - Patient does not have a drainable pleural effusion - sputum cx, cytology, and afb smears pending - norco prn # NIDDM type 2 - metformin on hold - continue with humalog sliding scale, check a1c level # HTN - holding HCTZ due to hypokalemia, monitor SBP - continue norvasc - bmp in am # Hypokalemia - kDur 40 MEQ x 1 today - BM in am # Chronic pain syndrome - norco prn # H/o C. Diff - on prophylactic oral vancomycin while receiving IV abx - # Hx of anal and vocal cancers # DVT prophylaxis - SCDs Plan/VTE VTE Prophylaxis Ordered?: Yes VTE Exclusion Mechanical Proph: N/A:VTE Prophy Ordered VTE Exclusion Pharmacological: Active Bleeding (hemoptysis associated with large lung abscess) Plan Anticipated Discharge: Home VS, I&O, 24H, [place] Vital Signs/I&O Vital Signs Date Time Temp Pulse Resp B/P (MAP) Pulse Ox O2 Delivery O2 Flow Rate FiO2 06/06/19 12:07 16 06/06/19 10:00 97.9 92 162/82 (108) 94 06/05/19 16:54 Room Air I&O- Last 24 Hours up to 6 AM 06/06/19 05:59 Intake Total 920 ml Output Total 600 ml Balance 320 ml Laboratory Data 24H LABS Laboratory Tests 2 06/05/19 21:59: Bedside Glucose (Misc Panel) 290H 06/06/19 05:57: Immature Granulocyte % (Auto) 3.0, White Blood Count 9.0, Red Blood Count 4.12L, Hemoglobin 11.3L, Hematocrit 33.8L, Mean Corpuscular Volume 82.0, Mean Corpuscular Hemoglobin 27.4, Mean Corpuscular Hemoglobin Concent 33.4, Red Cell Distribution Width 14.6H, Platelet Count 335, Neutrophils (%) (Auto) 79.6H, Lymphocytes (%) (Auto) 7.0L, Monocytes (%) (Auto) 9.6H, Eosinophils (%) (Auto) 0.1, Basophils (%) (Auto) 0.7, Neutrophils # (Auto) 7.2, Lymphocytes # (Auto) 0.6L, Monocytes # (Auto) 0.9H, Eosinophils # (Auto) 0.0, Basophils # (Auto) 0.1, Nucleated Red Blood Cells % (auto) 0.0, Anion Gap 13, Glomerular Filtration Rate > 60.0, Blood Urea Nitrogen 10, Creatinine 0.61L, Sodium Level 133L, Potassium Level 3.1L, Chloride Level 97L, Carbon Dioxide Level 23, Calcium Level 8.4L, Aspartate Amino Transf (AST/SGOT) 28, Alanine Aminotransferase (ALT/SGPT) 32, Lactate Dehydrogenase 147, Alkaline Phosphatase 98, Total Bilirubin 0.3, Total Protein 6.0L, Albumin 1.7L, Albumin/Globulin Ratio 0.40L 06/06/19 07:44: Bedside Glucose (Misc Panel) 280H 06/06/19 11:46: Bedside Glucose (Misc Panel) 388H 06/06/19 16:37: 06/06/19 17:23: Bedside Glucose (Misc Panel) 218H CBC/BMP Laboratory Tests 06/06/19 05:57 Red Blood Count 4.12 L, Mean Corpuscular Volume 82.0, Mean Corpuscular Hemoglobin 27.4, Mean Corpuscular Hemoglobin Concent 33.4, Red Cell Distribution Width 14.6 H, Neutrophils (%) (Auto) 79.6 H, Lymphocytes (%) (Auto) 7.0 L, Monocytes (%) (Auto) 9.6 H, Eosinophils (%) (Auto) 0.1, Basophils (%) (Auto) 0.7, Neutrophils # (Auto) 7.2, Lymphocytes # (Auto) 0.6 L, Monocytes # (Auto) 0.9 H, Eosinophils # (Auto) 0.0, Basophils # (Auto) 0.1, Calcium Level 8.4 L, Aspartate Amino Transf (AST/SGOT) 28, Alanine Aminotransferase (ALT/SGPT) 32, Lactate Dehydrogenase 147, Alkaline Phosphatase 98, Total Bilirubin 0.3, Total Protein 6.0 L, Albumin 1.7 L Microbiology Microbiology 06/05/19 Blood Culture - Preliminary, Resulted No growth after 24 hours . All specim... 06/05/19 Blood Culture - Preliminary, Resulted No growth after 24 hours . All specim... SELAM GARCIA MD Jun 06, 2019 18:18
[2019-06-06] MEDS: VANCOMYCIN ORAL SOL 250MG/5ML ORAL SYRINGE PO SCH ×2 (18:19→23:11)
[2019-06-06 19:05] LABS: HEMOGLOBIN A1c 11.1 %
[2019-06-06] MEDS: ALBUTEROL SULFATE 2.5 MG/0.5 ML INH NEB SOLN NEB SCH (20:05)
[2019-06-06 22:00] VITALS: BP 155/87
[2019-06-06] MEDS: traZODone 50 MG TAB PO SCH (22:25)
[2019-06-07] MEDS: ALBUTEROL SULFATE 2.5 MG/0.5 ML INH NEB SOLN NEB SCH ×4 (00:48→19:40)
[2019-06-07] MEDS: VANCOMYCIN ORAL SOL 250MG/5ML ORAL SYRINGE PO SCH ×4 (05:25→23:14)
[2019-06-07] MEDS: MORPHINE 4 MG/ML 1ML VIAL/SYRINGE (J2270) IV PRN (05:26)
[2019-06-07] MEDS: AMPICILLIN SOD/SULBACTAM SOD 3 GM in D5W MINI-BAG PLUS 100 ML IV SCH ×4 (05:27→22:18)
[2019-06-07 06:00] VITALS: BP 156/77
[2019-06-07] MEDS: CILOSTAZOL 100 MG TAB (PLETAL) PO SCH ×2 (06:28→22:17)
[2019-06-07 06:46] LABS: HEMATOCRIT 35.3 % (42.0-52.0); HEMOGLOBIN 11.5 g/dl (13.5-17.5); MEAN CORPUSCULAR HEMOGLOBIN 26.3 pg (27.0-33.0); MEAN CORPUSCULAR HGB CONC 32.6 g/dl (32.0-36.5); MEAN CORPUSCULAR VOLUME 80.6 fl (80.0-96.0); PLATELET COUNT, AUTOMATED 339 10^3/uL (150-450); RED BLOOD COUNT 4.38 10^6/uL (4.30-6.10); WHITE BLOOD COUNT 8.4 10^3/uL (4.0-10.0)
[2019-06-07 07:09] LABS: BLOOD UREA NITROGEN 8 MG/DL (7-18); CALCIUM LEVEL 8.3 MG/DL (8.8-10.2); CARBON DIOXIDE LEVEL 25 MEQ/L (21-32); CHLORIDE LEVEL 95 MEQ/L (98-107); CREATININE FOR GFR 0.74 MG/DL (0.70-1.30); GLOMERULAR FILTRATION RATE > 60.0 (>42); GLUCOSE, FASTING 296 MG/DL (70-100); POTASSIUM SERUM 3.3 MEQ/L (3.5-5.1); SODIUM LEVEL 133 MEQ/L (136-145)
[2019-06-07] MEDS ORDERED: POTASSIUM CHLORIDE 10 MEQ SR TABLET PO ONE (07:45)
[2019-06-07] MEDS: ASPIRIN 81 MG ENTERIC TAB PO SCH (08:07)
[2019-06-07] MEDS: PERCOCET 5MG/325MG TAB PO PRN ×2 (08:08→17:30)
[2019-06-07] MEDS: amLODIPine 10 MG TAB PO SCH (08:08)
[2019-06-07] MEDS: HumaLOG INSULIN (NovoLOG) PER UNIT SC SCH ×4 (08:09→22:18)
--- NOTE | 2019-06-07 10:01 | REP ---
CHEST, TWO VIEWS: Two views of the chest are performed. Air fluid collection in the right lower hemithorax appears essentially unchanged. Left lung is clear. There is calcification of the thoracic aorta. IMPRESSION: Stable exam. Electronically Signed by Samuel Barrera MD 06/08/2019 05:49 P
[2019-06-07 14:00] VITALS: BP 143/78
--- NOTE | 2019-06-07 15:31 | IPNPDOC ---
Subjective Date Seen The patient was seen on 06/07/19. Subjective Chief Complaint/HPI Patient expressed passive suicidal ideation during his visit with Dr. Ocampo, he tells me that he was just kidding. Reports that pleurisy pain is better, remains sob. Lying in the left lateral decub position General: Reports: Fatigue; Denies: Chills, Night Sweats Skin: Denies: Rash Pulmonary: Reports: Dyspnea, Cough, Pleuritic Chest Pain Endocrine: Reports: Polydipsia, Polyuria Objective Physical Examination General Exam: Positive: Alert, Cooperative, No Acute Distress, Other (temoral and proximal muscle wasting) Eye Exam: Positive: PERRLA, Conjunctiva & lids normal ENT Exam: Positive: Atraumatic Neck Exam: Positive: Supple; Negative: JVD Chest Exam: Positive: Clear to auscultation (Left lung only), Diminished (RLL ) Heart Exam: Positive: Tachycardic, Regular Rhythm Abdomen Exam: Positive: Normal bowel sounds, Soft; Negative: Tenderness Extremity Exam: Positive: Normal pulses; Negative: Edema Skin Exam: Positive: Nl turgor and temperature; Negative: Rash, Breakdown Neuro Exam: Positive: Normal Speech, Strength at 5/5 X4 ext, Normal Tone Psych Exam: Positive: Mental status NL, Mood NL, Anxiety RAD Interpretation STUDY: CXR Rad Actions: Report Reviewed, Films Reviewed RAD Interpretation: Other Result Comments: (internal improvement) Assessment /Plan Assessment Assessment # Large Left lung Abscess with pleuritic CP - Day # 2 unasyn 3 gm IV q6 - d/w Dr. Ocampo this am - Gram stain + GPC in pairs, AFB smear is negative - sputum cx, cytology, Fungal smear, fungal cx, Mycoplasma cx, Quantiferon gold- TB test and afb cultures are pending - norco prn pleurisy # Passive Suicidal Ideation/Depression - Dr Pineda consulted - no active plan, I don't feel that the patient is a threat to himself at this time. # NIDDM type 2 poorly controlled (A1c 11.1%) - start antus 10 units qhs, uptitrate as needed - metformin on hold - continue with humalog sliding scale - add vasotec 5 mg for DM renal protection # HTN - holding HCTZ due to hypokalemia, monitor SBP - continue norvasc - added vasotec 5 mg day # Hypokalemia - K 3.1 to 3.3 - given an additional K-Dur 40 mEQ x 1 today - BMP in am # Chronic pain syndrome - norco prn # H/o C. Diff - on prophylactic oral vancomycin (day # 2)while receiving IV abx - # Hx of anal and vocal cancers # Moderate to Severe Protein Calorie Malnutrition - Dietary consult # DVT prophylaxis - SCDs + lovenox Plan/VTE VTE Prophylaxis Ordered?: Yes VTE Exclusion Mechanical Proph: N/A:VTE Prophy Ordered VTE Exclusion Pharmacological: N/A:VTE Prophy Ordered Plan Anticipated Discharge: Home VS, I&O, 24H, [place] Vital Signs/I&O Vital Signs Date Time Temp Pulse Resp B/P (MAP) Pulse Ox O2 Delivery O2 Flow Rate FiO2 06/07/19 10:03 Room Air 06/07/19 08:38 16 06/07/19 08:08 116 152/77 06/07/19 06:00 97.6 95 I&O- Last 24 Hours up to 6 AM 06/07/19 06:00 Intake Total 660 ml Output Total 1200 ml Balance -540 ml Laboratory Data 24H LABS Laboratory Tests 2 06/06/19 16:37: 06/06/19 17:23: Bedside Glucose (Misc Panel) 218H 06/06/19 18:20: Estimated Mean Plasma Glucose 272H, Hemoglobin A1c 11.1 06/06/19 22:03: Bedside Glucose (Misc Panel) 304H 06/07/19 05:56: Nucleated Red Blood Cells % (auto) 0.0, Anion Gap 13, Glomerular Filtration Rate > 60.0, Blood Urea Nitrogen 8, Creatinine 0.74, Sodium Level 133L, Potassium Level 3.3L, Chloride Level 95L, Carbon Dioxide Level 25, Calcium Level 8.3L 06/07/19 12:56: Bedside Glucose (Misc Panel) 295H CBC/BMP Laboratory Tests 06/07/19 05:56 Red Blood Count 4.38, Mean Corpuscular Volume 80.6, Mean Corpuscular Hemoglobin 26.3 L, Mean Corpuscular Hemoglobin Concent 32.6, Red Cell Distribution Width 14.6 H, Calcium Level 8.3 L Microbiology Microbiology 06/05/19 Blood Culture - Preliminary, Resulted No growth after 24 hours . All specim... 06/05/19 Blood Culture - Preliminary, Resulted No growth after 24 hours . All specim... 06/06/19 Acid Fast Stain - Final, Resulted 06/06/19 Mycobacterial Culture, Resulted Pending 06/06/19 Fungal Smear, Resulted Pending 06/06/19 Fungal Culture, Resulted Pending 06/06/19 Mycoplasma pneumoniae Culture, Resulted Pending 06/06/19 Gram Stain - Final, Resulted 06/06/19 Sputum Culture, Resulted Pending SELAM GARCIA MD Jun 07, 2019 15:31
[2019-06-07] MEDS: ENOXAPARIN 40 MG/0.4 ML SYRINGE (J1650) SC SCH (15:44)
[2019-06-07] MEDS: ACETAMINOPHEN TAB 650MG DOSE (2X325MG) PO PRN (15:44)
--- NOTE | 2019-06-07 18:21 | CCN ---
DATE: 06/06/2019 HISTORY OF PRESENT ILLNESS: On my arrival to the room, the patient is actually receiving chest physiotherapy and nebulizing. He states he had an episode where he felt he cannot breathe at night. He states he just wanted to be put out and Percocet. I am not sure if this was reported or not . This morning he states he is breathing okay. Currently, not having any productive sputum, but was able to provide sputum samples yesterday. The patient expresses some depressive symptoms. He does not have a suicidal plan and has not attempted suicide in the past; but at times, he states he just feels like ending it. He did say to me that he would not attempted suicide; and that if he felt suicidal, he would let me know. Therefore, I had a discussion with the primary attending, requesting a psychiatric evaluation for recommendations for treatment and management. PHYSICAL EXAM: He continues to remain afebrile with a temperature of 97.6, pulse is slightly elevated at 116; however this is during a time of nebulized therapy, respiratory rate is 16, blood pressure is slightly elevated at 152/77, oxygen saturation is 95% on room air. General: Awake, alert, appears slightly anxious this morning, but consolable. He has no tangential speech and thought pattern is fairly normal. HEENT: Sclerae clear and anicteric. Pupils equal and react to light. Mucous membranes are moist without lesion. Tongue is midline. Neck is supple. No tracheal deviation or mass. Lymph: No cervical, supraclavicular, axillary adenopathy. Cardiac: Distant S1-S2 without murmur, rub or gallop. I do not see any elevated JVP. No systemic edema. Pulmonary: No breath sounds 2/3 of the right base. There is dullness to percussion 2/3 of the right base. I do not auscultate any rales, rhonchi or wheezes in the other lung blanchard. Of note, the exam was done just after his nebulized therapy. There is no accessory muscle use at this point in time. AP diameter is fairly normal. Abdomen: Soft, nontender, has a colostomy. No blood in colostomy. Extremities: No cyanosis, clubbing or edema. LABORATORY EVALUATION: White blood cell count is down to 8.4, hemoglobin 11.5, platelet count of 339. He remains hyponatremia with a sodium 133, potassium of 3.3 chloride 95, BUN of 8, creatinine of 0.74, fasting glucose of 296 and a calcium 8.3. IMPRESSION: 1. Lung abscess probable underlying staphylococcal infection. Extensive involvement on the right nearly 2/3 of his lung field. He is at risk for pneumothorax. He is at risk for sepsis. He has been having intermittent symptoms of feeling impending doom. Will therefore continue to monitor him in the hospital, continue IV antibiotics, likely repeat CT imaging early next week. Chest x-ray this morning does show some more air fluid level likely a good sign of improvement. Will continue mucociliary clearance measures, continue monitoring results of sputum cultures. 2. Hyponatremia may be secondary to pneumonic process. There have been no significant swings in sodium level. 3. Nicotine dependence. Consulted on the need to quit smoking. 4. Depression with possible suicidal thoughts without suicidal plan. Recommend psychiatric consultation. TIMOTHY
[2019-06-07] MEDS ORDERED: LEVEMIR (INSULIN DETEMIR) 1 UNITS/0.01ML SC SCH (21:00)
[2019-06-07 22:00] VITALS: BP 149/62
[2019-06-07] MEDS: traZODone 50 MG TAB PO SCH (22:17)
--- NOTE | 2019-06-08 00:06 | ECGEPIP ---
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
[2019-06-08] MEDS ORDERED: NS 250 ML IV ONE (00:15)
[2019-06-08] MEDS ORDERED: METOPROLOL TART 25 MG TABLET PO ONE (01:15)
[2019-06-08] MEDS: ALBUTEROL SULFATE 2.5 MG/0.5 ML INH NEB SOLN NEB SCH ×4 (02:55→20:14)
[2019-06-08] MEDS: PERCOCET 5MG/325MG TAB PO PRN ×2 (03:20→20:47)
[2019-06-08] MEDS: AMPICILLIN SOD/SULBACTAM SOD 3 GM in D5W MINI-BAG PLUS 100 ML IV SCH ×4 (05:49→23:27)
[2019-06-08] MEDS: VANCOMYCIN ORAL SOL 250MG/5ML ORAL SYRINGE PO SCH ×3 (05:50→17:39)
[2019-06-08 06:00] VITALS: BP 141/81
[2019-06-08 06:27] LABS: HEMOGLOBIN 11.4 g/dl (13.5-17.5); MEAN CORPUSCULAR HEMOGLOBIN 26.3 pg (27.0-33.0); MEAN CORPUSCULAR HGB CONC 32.6 g/dl (32.0-36.5); MEAN CORPUSCULAR VOLUME 80.6 fl (80.0-96.0); PLATELET COUNT, AUTOMATED 299 10^3/uL (150-450); RED BLOOD COUNT 4.34 10^6/uL (4.30-6.10); WHITE BLOOD COUNT 8.1 10^3/uL (4.0-10.0)
[2019-06-08] MEDS: CILOSTAZOL 100 MG TAB (PLETAL) PO SCH ×2 (06:53→20:45)
[2019-06-08 06:54] LABS: BLOOD UREA NITROGEN 8 MG/DL (7-18); CALCIUM LEVEL 8.6 MG/DL (8.8-10.2); CARBON DIOXIDE LEVEL 29 MEQ/L (21-32); CHLORIDE LEVEL 97 MEQ/L (98-107); CREATININE FOR GFR 0.76 MG/DL (0.70-1.30); GLOMERULAR FILTRATION RATE > 60.0 (>42); GLUCOSE, FASTING 202 MG/DL (70-100); POTASSIUM SERUM 3.6 MEQ/L (3.5-5.1); SODIUM LEVEL 134 MEQ/L (136-145)
[2019-06-08] MEDS: ENOXAPARIN 40 MG/0.4 ML SYRINGE (J1650) SC SCH (09:19)
[2019-06-08] MEDS: HumaLOG INSULIN (NovoLOG) PER UNIT SC SCH ×4 (09:19→20:52)
[2019-06-08] MEDS: amLODIPine 10 MG TAB PO SCH (09:20)
[2019-06-08] MEDS: ASPIRIN 81 MG ENTERIC TAB PO SCH (09:20)
[2019-06-08] MEDS: ACETAMINOPHEN TAB 650MG DOSE (2X325MG) PO PRN (09:20)
--- NOTE | 2019-06-08 09:29 | REP ---
CHEST, TWO VIEWS: Two views of the chest are performed and compared to prior study of 06/07/2019. Large air fluid collection in the right lower hemithorax is essentially unchanged. No acute infiltrate is seen on the left. Heart and mediastinum are unchanged. IMPRESSION: Stable exam. Electronically Signed by Samuel Barrera MD 06/08/2019 05:57 P
[2019-06-08] MEDS: MORPHINE 4 MG/ML 1ML VIAL/SYRINGE (J2270) IV PRN (10:37)
--- NOTE | 2019-06-08 11:10 | IPNPDOC ---
Subjective Date Seen The patient was seen on 06/08/19. Subjective Chief Complaint/HPI c/o pleurisy. has not seen psychiatrist yet. afebrile, tachy per RN. Ostomy with output. Objective Physical Examination General Exam: Positive: Alert, Cooperative, No Acute Distress, Other (temoral and proximal muscle wasting) Eye Exam: Positive: PERRLA, Conjunctiva & lids normal ENT Exam: Positive: Atraumatic Neck Exam: Positive: Supple; Negative: JVD Chest Exam: Positive: Clear to auscultation (Left lung only), Diminished (RLL ) Heart Exam: Positive: Tachycardic, Regular Rhythm Abdomen Exam: Positive: Normal bowel sounds, Soft, Other (ostomy bag with fecal matter); Negative: Tenderness Extremity Exam: Positive: Normal pulses; Negative: Edema Skin Exam: Positive: Nl turgor and temperature; Negative: Rash, Breakdown Neuro Exam: Positive: Normal Speech, Strength at 5/5 X4 ext, Normal Tone Psych Exam: Positive: Mental status NL, Mood NL, Anxiety Assessment /Plan Assessment # Large Right lung Abscess with pleuritic CP - Day # 3 unasyn 3 gm IV q6 - d/w pulmonary, plan for CT chest in am - Gram stain + GPC in pairs, AFB smear is negative - sputum cx, cytology, Fungal smear, fungal cx, Mycoplasma cx, Quantiferon gold- TB test and afb cultures are pending - percocet, and morphine prn pleurisy # Passive Suicidal Ideation/Depression - Dr Pineda consulted - no active plan, I don't feel that the patient is a threat to himself at this time. # NIDDM type 2 poorly controlled (A1c 11.1%) - increase antus 15 units qhs, uptitrate as needed - metformin on hold - continue with humalog sliding scale - add vasotec 5 mg for DM renal protection # HTN - holding HCTZ due to hypokalemia, monitor SBP - continue norvasc - added vasotec 5 mg day # Hypokalemia - K 3.6 - resolved # Chronic pain syndrome - norco prn # H/o C. Diff - on prophylactic oral vancomycin (day # 3)while receiving IV abx - # Hx of anal and vocal cancers # Moderate to Severe Protein Calorie Malnutrition with poorly controlled DM type 2, and muscle wasting - Dietary consult # Sinus Tachy - likely physiologic due to acute infection and pain - TSH 2.3 on admission - start NS with 20 KCL at 75 ml/hr # DVT prophylaxis - SCDs + lovenox Plan/VTE VTE Prophylaxis Ordered?: Yes VTE Exclusion Mechanical Proph: N/A:VTE Prophy Ordered VTE Exclusion Pharmacological: N/A:VTE Prophy Ordered Plan Anticipated Discharge: Home VS, I&O, 24H, Fishbone Vital Signs/I&O Vital Signs Date Time Temp Pulse Resp B/P (MAP) Pulse Ox O2 Delivery O2 Flow Rate FiO2 06/08/19 10:37 16 06/08/19 09:20 124 119/76 06/08/19 06:00 98.4 98 06/07/19 10:03 Room Air I&O- Last 24 Hours up to 6 AM 06/08/19 06:00 Intake Total 1610 ml Output Total 700 ml Balance 910 ml Laboratory Data 24H LABS Laboratory Tests 2 06/07/19 12:56: Bedside Glucose (Misc Panel) 295H 06/07/19 16:32: Bedside Glucose (Misc Panel) 313H 06/07/19 20:46: Bedside Glucose (Misc Panel) 328H 06/08/19 05:56: Nucleated Red Blood Cells % (auto) 0.0, Anion Gap 8, Glomerular Filtration Rate > 60.0, Blood Urea Nitrogen 8, Creatinine 0.76, Sodium Level 134L, Potassium Level 3.6, Chloride Level 97L, Carbon Dioxide Level 29, Calcium Level 8.6L CBC/BMP Laboratory Tests 06/08/19 05:56 Red Blood Count 4.34, Mean Corpuscular Volume 80.6, Mean Corpuscular Hemoglobin 26.3 L, Mean Corpuscular Hemoglobin Concent 32.6, Red Cell Distribution Width 14.9 H, Calcium Level 8.6 L Microbiology Microbiology 06/05/19 Blood Culture - Preliminary, Resulted No Growth after 48 hours. All Specime... 06/05/19 Blood Culture - Preliminary, Resulted No Growth after 48 hours. All Specime... 06/06/19 Acid Fast Stain - Final, Resulted 06/06/19 Mycobacterial Culture, Resulted Pending 06/06/19 Fungal Smear, Resulted Pending 06/06/19 Fungal Culture, Resulted Pending 06/06/19 Mycoplasma pneumoniae Culture, Resulted Pending 06/06/19 Gram Stain - Final, Resulted 06/06/19 Sputum Culture, Resulted Pending SELAM GARCIA MD Jun 08, 2019 11:10
--- NOTE | 2019-06-08 12:12 | IPN ---
DATE OF SERVICE: 06/08/2019 At bedside this morning the patient was awake, appeared slightly anxious. He states he had a good night but is having continued pain on the right side of his chest that radiates into his right shoulder. He has been afebrile overnight. He continues with cough, is having chest PT and nebulized therapy. Chest x-ray obtained this morning reviewed as outlined below. The patient has complained that his ostomy requires changing. PHYSICAL EXAM: Temperature 98.4, pulse is 104, respiratory rate is 19, blood pressure is 141/81 with oxygen saturation 98% on room air. General: Patient anxious, has pressured speech. Speech is non-tangential. HEENT: Sclerae are clear, anicteric. Pupils equal, round, react to light. Mucous membranes are moist without lesions. Tongue is midline. Neck is supple. No tracheal deviation or mass. Lymphs: No cervical, supraclavicular or axillary adenopathy. Cardiac: Distant S1, S2 without audible murmur or gallop. No elevated jugular venous pulse (JVP). Pulmonary: Fairly clear on the left side without rales, rhonchi or wheezes. On the right there is no air entry into the base of the lung approximately two-thirds of the posterior thorax. There is dullness to percussion two-thirds of the posterior thorax. There is actually decreased tactile fremitus on the right. I do not auscultate any rhonchi. No wheeze. No accessory muscle use. Abdomen: Soft, nontender, nondistended. There is an ostomy on the left. No erythema. Extremities: No cyanosis, clubbing or edema. Skin is pale without rash, jaundice, bruising. Laboratory evaluation shows a white blood cell count of 8.1, hemoglobin 11.4, hematocrit of 35.0 with a platelet count of 299. Sodium is 134, potassium of 3.6, chloride 97, bicarbonate is 29, BUN is 8, creatinine is 0.76 with a glucose of 202. As of now AFB staining shows no evidence of Mycobacterium. No evidence of fungal mycoplasma has been negative. QuantiFERON Gold is pending. Calcium is 8.6. Sputum culture gram stain showing gram-positive cocci in pairs. Chest x-ray shows a persistent air fluid level, which is slightly more air and possibly minimal decrease in infiltrate compared to yesterday. IMPRESSION: 74-year-old male with 1. lung abscess likely Staphylococcus lung abscess. Awaiting further culture data. On antibiotics with ampicillin-sulbactam. Having clinical improvement. No fever. No evidence of sepsis. No hypotension. He remains at risk for developing sepsis. He remains at risk for developing pneumothorax, and therefore, should be monitored in the hospital. Pain treated with narcotic therapy due to the severity of the pain. This will help promote better inhalation and pulmonary mechanics. Due to the severity of the abscess and the changes on the chest x-ray, chest CT will be performed tomorrow to evaluate for extension or pleural disease. No contrast needed for the study. 2. Hyponatremia, unchanged. No significant swings in sodium. May be from pulmonary process. Patient appears euvolemic. Will continue to follow the patient due to the severity of this lung abscess. Overall the patient will require at least 6 weeks of antibiotic therapy due to his history of Clostridium (C) difficile remains on po vancomycin. MTDD
[2019-06-08] MEDS: KCL 20MEQ in NS 1000ML 1,000 ML IV SCH (12:38)
[2019-06-08 14:00] VITALS: BP 138/78
[2019-06-08] MEDS ORDERED: SERT-155 PO (14:41)
[2019-06-08] MEDS: SERTRALINE HCL 25 MG TABLET PO SCH (17:39)
[2019-06-08] MEDS: traZODone 50 MG TAB PO SCH (20:45)
[2019-06-08] MEDS: LEVEMIR (INSULIN DETEMIR) 1 UNITS/0.01ML SC SCH (20:59)
[2019-06-09] MEDS: VANCOMYCIN ORAL SOL 250MG/5ML ORAL SYRINGE PO SCH ×5 (00:05→23:35)
[2019-06-09] MEDS: ALBUTEROL SULFATE 2.5 MG/0.5 ML INH NEB SOLN NEB SCH ×4 (00:57→20:59)
[2019-06-09] MEDS: KCL 20MEQ in NS 1000ML 1,000 ML IV SCH ×2 (02:57→19:24)
[2019-06-09] MEDS: AMPICILLIN SOD/SULBACTAM SOD 3 GM in D5W MINI-BAG PLUS 100 ML IV SCH ×4 (05:49→22:53)
[2019-06-09] MEDS: PERCOCET 5MG/325MG TAB PO PRN ×3 (05:51→21:35)
[2019-06-09 06:00] VITALS: BP 117/76
[2019-06-09 06:50] LABS: HEMATOCRIT 32.1 % (42.0-52.0); HEMOGLOBIN 10.5 g/dl (13.5-17.5); MEAN CORPUSCULAR HEMOGLOBIN 26.8 pg (27.0-33.0); MEAN CORPUSCULAR HGB CONC 32.7 g/dl (32.0-36.5); MEAN CORPUSCULAR VOLUME 81.9 fl (80.0-96.0); PLATELET COUNT, AUTOMATED 292 10^3/uL (150-450); RED BLOOD COUNT 3.92 10^6/uL (4.30-6.10)
[2019-06-09 07:15] LABS: BLOOD UREA NITROGEN 9 MG/DL (7-18); CARBON DIOXIDE LEVEL 26 MEQ/L (21-32); CHLORIDE LEVEL 100 MEQ/L (98-107); CREATININE FOR GFR 0.65 MG/DL (0.70-1.30); GLOMERULAR FILTRATION RATE > 60.0 (>42); GLUCOSE, FASTING 158 MG/DL (70-100); POTASSIUM SERUM 3.4 MEQ/L (3.5-5.1); SODIUM LEVEL 135 MEQ/L (136-145)
[2019-06-09] MEDS ORDERED: POTASSIUM CHLORIDE 10 MEQ SR TABLET PO ONE (07:30)
[2019-06-09] MEDS: amLODIPine 10 MG TAB PO SCH (07:47)
[2019-06-09] MEDS: ASPIRIN 81 MG ENTERIC TAB PO SCH (07:47)
[2019-06-09] MEDS: SERTRALINE HCL 25 MG TABLET PO SCH (07:47)
[2019-06-09] MEDS: HumaLOG INSULIN (NovoLOG) PER UNIT SC SCH ×4 (07:48→21:33)
[2019-06-09] MEDS: CILOSTAZOL 100 MG TAB (PLETAL) PO SCH ×2 (07:48→21:33)
[2019-06-09] MEDS: ENOXAPARIN 40 MG/0.4 ML SYRINGE (J1650) SC SCH (07:49)
--- NOTE | 2019-06-09 08:27 | REP ---
PA and PA and lateral chest: Comparison is 06/08/2019. The large air-fluid collection inferiorly in the right hemithorax is unchanged. Lung blanchard otherwise clear and unchanged. The andrea, mediastinum, skeletal structures are unremarkable. Cardiac size cannot be determined, the right cardiac margin is obscured. Impression: There is no interval change. Electronically Signed by Samuel Brewer MD 06/09/2019 08:19 A
--- NOTE | 2019-06-09 08:33 | REP ---
CT of the chest without IV contrast: Comparison is 06/05/2019. There is a large fluid collection in the right lower lobe and a air-fluid level at multiple tiny air bubbles. This is unchanged. There is compression atelectasis of the right middle lobe and right upper lobe. This is unchanged. Left lung is clear. This is unchanged. The ascending thoracic aorta is dilated measuring up to 4.6 cm diameter. This is unchanged. The unenhanced thoracic aorta is otherwise, unremarkable except for calcified atheroma. Cardiac size is normal. There is no pericardial effusion. Calcified atheroma is noted in the coronary arteries, unchanged. Upper abdomen: There is a right renal upper pole 4.90 cm cyst, unchanged. There is a non obstructive right renal calculus, unchanged. There is vascular atheroma in the renal arteries bilaterally, unchanged. There is a left renal cyst, partially visualized measuring 2.0 cm, unchanged. The visualized liver, gallbladder, pancreas and spleen are unremarkable. Impression: The large right pleural fluid collection containing an air-fluid level and multiple air bubbles resulting in compression atelectasis of the right middle lobe and right upper lobe is unchanged. Electronically Signed by Samuel Brewer MD 06/09/2019 08:25 A
--- NOTE | 2019-06-09 09:30 | CCN ---
DATE OF SERVICE: 06/09/2019 Mr. Alonso is seen on the medical floor. He is being treated for a pleural abscess and is on ampicillin. He does report that he slowly feels that he is starting to improve with less shortness of breath. He is using a vest as well as Acapella and getting nebulized therapy. He still does have some right upper chest discomfort which he states improves with pain meds. He has been afebrile. Sputum culture showed normal paul. Fungal culture, mycoplasma culture and AFB cultures are all currently pending. The patient just returned from CT. PHYSICAL EXAMINATION: Vitals: Temperature is 97.4, pulse 115, respiratory rate 16, blood pressure 117/76, pulse ox 95% on room air. General: The patient is alert and oriented. He is sitting up on the side of his bed. He speaks in complete sentences. HEENT: Head is normocephalic, atraumatic. Sclerae clear. Mucous membranes are moist. Tongue is midline. Neck: Neck is supple. No cervical lymphadenopathy. Trachea is midline. Pulmonary: Diminished breath sounds on the right with clear breath sounds on the left. Without wheezing, rales or rhonchi. There is dullness to percussion to approximately 2/3 of the posterior thorax on the right side. No accessory muscle use. Heart: Regular rate and rhythm. No murmurs. Abdomen: Positive bowel sounds. Soft. Nontender. No rebound or guarding. The patient has ostomy on the left side. Extremities: No edema. Skin: Skin is warm and dry. LABORATORY DATA: WBC 7.0, hemoglobin 10.5, hematocrit 32.1, platelets 292. Chemistry: Sodium is 135, potassium 3.4, chloride 100, carbon dioxide is 26, BUN 9, creatinine 0.65, glucose is 15, calcium is 8.0. Blood cultures are negative after 72 hours times two. Sputum cultures showed normal paul. Fungal culture, mycoplasma and AFB cultures are all pending currently. Chest CT done today on 06/09/2019 continues to show a large right pleural abscess with some minimal improvement with more aeration within the abscess compared to prior chest CT from 06/05/2019. ASSESSMENT AND PLAN: Lung abscess. Likely Staphylococcus lung abscess. The patient remains on IV ampicillin and will continue with IV antibiotics. He is also getting oral vancomycin for history of Clostridium difficile and will continue with that. No indication of sepsis at present time, but he does continue to remain at risk for developing sepsis. Continue monitoring closely. Continue with the nebs as well Kevin.
--- NOTE | 2019-06-09 09:32 | CR ---
DATE OF CONSULTATION: 06/06/2019 PULMONARY CRITICAL CARE NOTE REASON FOR CONSULTATION: Pulmonary critical care team were asked by medicine team to consult on Mr. Timmy Alonso for a pleural abscess. HISTORY OF PRESENT ILLNESS: Mr. Alonso is a 74-year-old male who was admitted with shortness of breath and possible right-sided chest pain. Patient states that he has been having increasing shortness of breath. He was kind of unclear as to how long it has been going on, but states it has been worse at least over the last week or so. 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 Patient was uncertain as to what actually was being worked up, but he states that about five or six weeks ago he had hemoptysis for a period of time, but was unclear as to how long it had lasted. He states he has not had any more recent hemoptysis. He states that he has had intermittent dyspnea that has been progressively worsening and it culminated in him contacting a friend to take him to the emergency room yesterday, when he states he felt like he was dying from difficulty breathing. Patient states that he does not think that he has had fevers or chills, but he was somewhat of a poor historian in recalling his exact medical history or even recent medical complaints. Chest imaging studies that were done in the emergency room (ER) including a CT did show a large right pleural abscess with air fluid levels mostly at the base. There was also emphysema. Patient states that he was told many years ago that he had chronic obstructive pulmonary disease (COPD), but he states he had been on inhaled therapy for a very brief period time and had no further issues and for one reason or another, was not continued on inhaled therapy. He is a former smoker, stating that he quit two or three years ago after smoking 3-1/2 packs a day for about 50 years. He was in [place] and states he was exposed to agent orange. 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 Patient also underwent radiation and chemotherapy treatment. 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 He apparently did have a PET scan of his chest done on 03/18/2019 in which the radiologist noted a right posterior lower lobe opacity showing mildly hypermetabolic uptake and a left lower lobe infiltrate with mild hypermetabolic uptake in which the radiologist stated that these were not present on a prior CT and they are presumed to be inflammatory infiltrates. Patient was admitted for the dyspnea and the abscess that was not a pleural effusion. Pulmonary Medicine was consulted as noted. REVIEW OF SYSTEMS: GENERAL: Patient denies fevers, chills. He states that his appetite has been poor, although he does not know if he has had any significant weight loss recently. HEENT: Patient denies headaches or changes in vision. Denies sore throat or difficulty swallowing. PULMONARY: Patient does have shortness of breath and coughing. Does have some intermittent right-sided chest discomfort that radiates into the right shoulder. CARDIAC: Patient denies any current anginal symptoms. Denies any diaphoresis or paroxysmal nocturnal dyspnea (PND). GASTROINTESTINAL (GI): Patient states that he was nauseated and vomiting yesterday prior to coming in. He denies any hematemesis. Patient does have a colostomy. He states his stool has been normal with no blood or diarrhea. GENITOURINARY (): Patient denies any urinary symptoms. Denies dysuria or hematuria. HEMATOLOGY: Patient denies any bleeding issues. 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 Denies any seizures, but states he has been very lethargic and has been falling. MUSCULOSKELETAL: Patient denies any joint swelling. PAST MEDICAL HISTORY: 1. 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 Also treated with chemotherapy and radiation therapy. 2. History of vocal cord squamous cell carcinoma. 3. Diabetes. 4. Hypertension. 5. History of tobacco use. SOCIAL HISTORY: Patient former smoker who quit 2 years ago after smoking 3-1/2 packs a day for 50 years. Patient drinks 3-4 beers a night. Patient denies any illicit drug use. Patient had been in the in [place] and states he was exposed to agent orange in the 1960s. FAMILY MEDICAL HISTORY: Noncontributory. MEDICATIONS: Current medications: - Norvasc 10 mg by mouth daily - aspirin 81mg by mouth daily - Pletal 100 mg by mouth twice a day - trazodone 50 mg at bedtime as needed - Tylenol as needed - milk of magnesia as needed - Mylanta as needed - morphine 2 mg every 3 hours intravenous (IV) as needed - Percocet as needed - insulin sliding scale - ampicillin 3 grams IV every 6 hours - Zofran as needed ALLERGIES: CONTRAST MEDIA and SEAFOOD. PHYSICAL EXAMINATION: VITAL SIGNS: Temperature 97.9, pulse 92, respiratory rate 16, blood pressure is 162/82, pulse oximetry 94% on room air. GENERAL: Patient is alert and oriented. He knows the year. He knows where he is. He is sitting upright in bed. Somewhat difficult to elicit specifics, but overall patient is able to answer most questions and does speak in complete sentences. HEENT: Head is normocephalic, atraumatic. Patient is edentulous on top. Bottom teeth are in fair dental condition. Posterior pharynx without erythema. Mallampati 1. Tongue is midline. NECK: Neck is supple. No cervical lymphadenopathy. No jugular venous distention (JVD). No carotid bruits. CHEST: No tenderness to palpation over the chest wall. Patient is dull to percussion at the right base, up about 2[address] the right side. Patient does have diminished breath sounds on the right, most notably at the right base. Good breath sounds on the left. No wheezes, rales, rhonchi or crackles appreciated. Patient does have some decreased tactile fremitus on the right. CARDIAC: Regular rate and rhythm. S1, S2. No murmurs, rubs or gallops. ABDOMEN: Positive bowel sounds. Soft, nontender. No rebound or guarding. Patient has a colostomy bag on the left. No erythema of the skin around the colostomy. EXTREMITIES: No clubbing, cyanosis or edema. SKIN: Skin is warm and dry. NEUROLOGIC: Neuro is nonfocal grossly. LABORATORY DATA: WBC 9.0, hemoglobin 11.3, hematocrit 33.8, platelets 335. Sodium is 133, potassium 3.1, chloride is 97, carbon dioxide is 23, BUN 10, creatinine is 0.61, glucose 271, calcium is 8.4. Total bilirubin 0.3, AST is 28, ALT is 32, alkaline phosphatase 98, LD is 147, total protein 6.0, albumin 1.7. Chest CT shows a right pleural abscess at the base with air fluid levels noted. Emphysema noted. There is some pretracheal lymphadenopathy. Chest x-ray shows a large right effusion. Blood cultures are pending. ASSESSMENT AND PLAN: Right pleural abscess. Patient has a large right pleural abscess. He has been started on Unasyn. He does have a history of Clostridium (C) difficile infection and therefore we will add oral vancomycin. Blood cultures are pending. We will add orders for sputum culture as well as sputum cytology given the fact that there is some concern of an abnormal chest CT and concern for malignancy based on patient's history, although patient's respiratory issues may be all from the pleural abscess. Plan will be to see how he responds to the antibiotics. May consider bronchoscopy depending on how he does and if there is any concern for malignancy after treatment for the abscess is initiated. Additionally, to the sputum culture and sputum cytology, we will order fungal studies as well as acid-fast bacilli (AFB) and mycoplasma studies on the sputum. Will order QuantiFERON Gold testing. Patient will be started on nebulizers as well as acapella. We will also ordered chest PT. We will follow along with this patient on the floor. Thank you for this consultation. TIMOTHY
[2019-06-09] MEDS: ACETAMINOPHEN TAB 650MG DOSE (2X325MG) PO PRN (10:26)
[2019-06-09 14:00] VITALS: BP 124/75
[2019-06-09 14:44] LABS: MAGNESIUM LEVEL 1.8 MG/DL (1.8-2.4); POTASSIUM SERUM 4.2 MEQ/L (3.5-5.1)
--- NOTE | 2019-06-09 14:46 | IPNPDOC ---
Subjective Date Seen The patient was seen on 06/09/19. Subjective Chief Complaint/HPI Feels alot better today than when he arrived. States that the pulm vest makes him feel worse, then he has to spend a few hours recovering. Pleurisy controlled with meds. Tells me that he has to leave by this in order to exercise his stock options otherwise he is at risk for a significant financial loss. Objective Physical Examination General Exam: Positive: Alert, No Acute Distress, Other (temporal and proximal muscle wasting) Eye Exam: Positive: PERRLA, Conjunctiva & lids normal ENT Exam: Positive: Atraumatic, Mucous membr. moist/pink, Pharynx Normal Neck Exam: Positive: Supple; Negative: JVD Chest Exam: Positive: Clear to auscultation (Left lung only), Diminished (RLL ) Heart Exam: Positive: Tachycardic, Regular Rhythm Abdomen Exam: Positive: Normal bowel sounds, Soft, Other (ostomy bag with fecal matter); Negative: Tenderness Extremity Exam: Positive: Normal pulses; Negative: Edema Skin Exam: Positive: Nl turgor and temperature; Negative: Rash, Breakdown Neuro Exam: Positive: Normal Speech, Strength at 5/5 X4 ext, Normal Tone Psych Exam: Positive: Mental status NL, Anxiety Assessment /Plan Assessment # Large Right lung Abscess with pleuritic CP - Day # 4 unasyn 3 gm IV q6 - d/w pulmonary this morning, repeat CT chest (06/09) There is a large fluid collection in the right lower lobe and a air-fluid level at multiple tiny air bubbles. This is unchanged. There is compression atelectasis of the right middle lobe and right upper lobe. This is unchanged. - Gram stain + GPC in pairs, AFB smear is negative, and sputum cx final (normal paul) - cytology, Fungal smear, fungal cx, Mycoplasma cx, Quantiferon gold-TB test and afb cultures are pending - percocet, and morphine prn pleurisy - Chest PT - nebs prn # Asymptomatic NSVT 3 beats - check ECHO - recheck K + mag levels now # Passive Suicidal Ideation/Depression - Dr Pineda consulted, Zoloft increased from 25 mg to 75 mg daily yesterday. - not threat to himself or others # NIDDM type 2 poorly controlled (A1c 11.1%) - lantus 15 units qhs has brought down BG 118 this am - metformin on hold - continue with humalog sliding scale - added vasotec 5 mg for DM renal protection # HTN - holding HCTZ due to hypokalemia, monitor SBP - continue norvasc - added vasotec 5 mg day # Hypokalemia - K 3.4, K-dur 40 mEQ ordered # Chronic pain syndrome - norco prn # H/o C. Diff - on prophylactic oral vancomycin (day # 4)while receiving IV abx - # Hx of anal and vocal cancers - previously treated # Moderate to Severe Protein Calorie Malnutrition with poorly controlled DM type 2, and muscle wasting - Dietary consult # Sinus Tachy - likely physiologic due to acute infection and pain, less tachy this am - TSH 2.3 on admission - NS with 20 KCL at 75 ml/hr # DVT prophylaxis - SCDs + lovenox Plan/VTE VTE Prophylaxis Ordered?: Yes VTE Exclusion Mechanical Proph: N/A:VTE Prophy Ordered VTE Exclusion Pharmacological: N/A:VTE Prophy Ordered Plan Anticipated Discharge: Home VS, I&O, 24H, [facility] Vital Signs/I&O Vital Signs Date Time Temp Pulse Resp B/P (MAP) Pulse Ox O2 Delivery O2 Flow Rate FiO2 06/09/19 13:45 18 06/09/19 07:47 115 117/76 06/09/19 06:00 97.4 95 06/07/19 10:03 Room Air I&O- Last 24 Hours up to 6 AM 06/09/19 06:00 Intake Total 2847.5 ml Output Total 550 ml Balance 2297.5 ml Laboratory Data 24H LABS Laboratory Tests 2 06/08/19 16:47: Bedside Glucose (Misc Panel) 224H 06/08/19 20:33: Bedside Glucose (Misc Panel) 176H 06/09/19 06:26: Nucleated Red Blood Cells % (auto) 0.0, Anion Gap 9, Glomerular Filtration Rate > 60.0, Blood Urea Nitrogen 9, Creatinine 0.65L, Sodium Level 135L, Potassium Level 3.4L, Chloride Level 100, Carbon Dioxide Level 26, Calcium Level 8.0L 06/09/19 11:12: Bedside Glucose (Misc Panel) 118H 06/09/19 14:08: CBC/BMP Laboratory Tests 06/09/19 06:26 Red Blood Count 3.92 L, Mean Corpuscular Volume 81.9, Mean Corpuscular Hemoglobin 26.8 L, Mean Corpuscular Hemoglobin Concent 32.7, Red Cell Distribution Width 14.9 H, Calcium Level 8.0 L Microbiology Microbiology 06/05/19 Blood Culture - Preliminary, Resulted No Growth after 72 hours. All specime... 06/05/19 Blood Culture - Preliminary, Resulted No Growth after 72 hours. All specime... 06/06/19 Acid Fast Stain - Final, Resulted 06/06/19 Mycobacterial Culture, Resulted Pending 06/06/19 Fungal Smear, Resulted Pending 06/06/19 Fungal Culture, Resulted Pending 06/06/19 Mycoplasma pneumoniae Culture, Resulted Pending 06/06/19 Gram Stain - Final, Complete 06/06/19 Sputum Culture - Final, Complete SELAM GARCIA MD Jun 09, 2019 14:46
[2019-06-09] MEDS ORDERED: MAG SULF 1GM/100ML (MAG RUN) 2 GM in IV 1 EA IV SCH (15:15)
--- NOTE | 2019-06-09 19:12 | CR ---
DATE OF CONSULTATION: 06/08/2019 CHIEF COMPLAINT: Feels depressed. SUBJECTIVE: He is 74 years old, is single, has a son, who he is estranged from. The patient lives on his own. I have been asked to see him by the hospitalist, to make an assessment regarding the patient's emotional state, as he had mentioned to Dr. Ocampo, the railway patrol officer, that he had suicidal thoughts occasionally, did not suggest any plans. The chart is reviewed, the patient is interviewed. He has several medical problems, several cancers, was diagnosed with post-traumatic stress disorder from his [place] experiences. He says he does not see any therapist or psychiatrist, and he is not sure if he has in the past either. Does say he has been on Zoloft, prescribed by Dr. Barba, his primary care, he is not sure of the dose, but he takes a half a tablet. He suggests it may be half a tablet of 100 mg (in other words 50 mg a day). The Zoloft is not included in the medication regimen from the emergency room (ER) from review of the chart, as far as I can tell. He says he has not received it since he has been here. Also says he has noted that it has tended to help. Has been more depressed, as his health has deteriorated, says at times feels hopeless, and that he gets suicidal thoughts, but generally distracts himself; for example, turning on the television or may start to cook something. He denies that he has had active plans of taking his own life, does say he had had some thoughts about a few weeks ago, when he was on the floor at home and had a hard time with mobility. Has a history of cancers, has been treated for colon cancer, anal cancer, cancer of the vocal cords. Has had surgery this year, says it took place in January, with colostomy, has also had radiation therapy for the cancers. Has been diagnosed with a lung abscess, which is why he has been admitted, with pleural effusion. Has pains as well. He does not think that he would act on the thoughts of hurting himself, says the thoughts come and go, denies any at present. Says he stays on his own, and as his health is deteriorating, has been making arrangements regarding his , including a will, and organizing his belongings. He says he plans to write his son, asking him what to do with the possessions he has. He and his son have been estranged for the last 20 years. The patient did not want to go into any of those details, reasons for estrangement, or the difficulties. He says he suspects his son is aware that the patient is in the hospital, "through my ex." He says he tended to do his own cooking, and has had help come in via the PA, for a few weeks. He seems to suggest that none come in now. Says his operation was performed early in the summer for anal cancer, this was at [facility], and upon his return home, was readmitted, as he says there was infection. He says he has friends, maintains some contact with them, but no one visits. He says he has what he suggests are nightmares, related to his experiences in [place], and suggests there are times when he gets the impression that he , and then wakes up with a startle, says that tends to happen fairly often. He also suggests that some of those symptoms have tended to increase in the last few months, as he has been struggling with his health. [place] is also making arrangements to prepare for the aftermath of his , in terms of a Will, and belongings, says is estranged from his son, who lives near [place], and he suggests they have not had any relationship for 20 years, but he plans to write to him, also indicating how he would wish to dispose of the belongings. PAST PSYCHIATRIC HISTORY: As indicated above. No history of inpatient hospitalizations nor of any suicide attempts. MEDICAL HISTORY: Please see above. Has several medical problems, currently pleural effusion, lung abscess, history of cancers, anal cancer, vocal cord squamous cell carcinoma, diabetes, hypertension, chronic pain. He had a colonoscopy as well. ALLERGIES: IV CONTRAST. SOCIAL HISTORY: Stays on his own. He suggested that he does not have a partner, and has a son, who he does not have any contact with for the last 20 years. The patient suggests that there were things that had happened, but he did not go into details. MEDICATIONS: These show amlodipine, aspirin, metformin, trazodone, cilostazol. He also takes oxycodone as needed. He is neat, lying in bed, then tends to sit up, appears in some mild distress, because of pain. No agitation, no psychomotor retardation, good eye contact. He is coherent, affect is restricted but reactive, at times mildly tearful. Denies any suicidal thoughts or intent. No homicidal ideas or intents. No evidence of any psychosis. Does not appear to be internally preoccupied. No delusional ideations elicited. Intellect average. No fluctuation of consciousness. He is alert, oriented to place and person, almost fully to time - he knew he had his birthday a few days ago. Cognition grossly intact, though I did not formally test for short-term recall. Judgment is good. Insight is good overall. VITAL SIGNS: Blood pressure 119/76, pulse was 124 early today, temperature 98.4. ASSESSMENT: Other specified depressive disorder. Post-traumatic stress disorder. History of several cancers. Lung abscess. Limited supports. He has a history of post-traumatic stress disorder from his [place] experience, and several cancers, apparently secondary to that as well, herbicides, Agent Trigg, etc. Deterioration in his health, his pain all have an impact on his emotional state. A recent sense of helplessness, and mostly passive suicidal thoughts. Denies any active thoughts of harming himself, or any such plans at present. Has poor social supports, limited ones, and this also exacerbates his situation. He is estranged from his son, he suggests it is for about 20 years. Says has been taking Zoloft, prescribed by Dr. Barba, and that he has been on it for awhile, and that it has helped. He is not sure of the dose, thinks it may be 50 mg (100 mg half a tablet). He has not been receiving it here, and it does not show in the ER record either. RECOMMENDATIONS: Optimize current care and pain. Confirm if he is on the Zoloft. If he is, increase the dose by 50 mg daily. The daily dose of Zoloft should not exceed 200 mg. Consider supports when he is discharged, such as social worker psychiatric visiting him at home; for example, from [facility], or any other agencies that may be available. He would consider an outpatient referral to see a counselor or psychiatry, but does not wish to be referred to a [facility] facility. Thank you for the consult. If there are any questions, please call. The assessment took 45 minutes.
[2019-06-09] MEDS: traZODone 50 MG TAB PO SCH (21:32)
[2019-06-09] MEDS: LEVEMIR (INSULIN DETEMIR) 1 UNITS/0.01ML SC SCH (21:34)
[2019-06-09 22:00] VITALS: BP 140/70
[2019-06-10] VITALS (8 sets, daily range): BP systolic 107–153; BP diastolic 56–71
[2019-06-10] MEDS: ALBUTEROL SULFATE 2.5 MG/0.5 ML INH NEB SOLN NEB SCH ×4 (01:46→19:43)
[2019-06-10 02:12] LABS: BLOOD UREA NITROGEN 9 MG/DL (7-18); CARBON DIOXIDE LEVEL 29 MEQ/L (21-32); CHLORIDE LEVEL 99 MEQ/L (98-107); CREATININE FOR GFR 0.78 MG/DL (0.70-1.30); GLOMERULAR FILTRATION RATE > 60.0 (>42); GLUCOSE, FASTING 243 MG/DL (70-100); MAGNESIUM LEVEL 2.3 MG/DL (1.8-2.4); POTASSIUM SERUM 4.2 MEQ/L (3.5-5.1); SODIUM LEVEL 134 MEQ/L (136-145)
[2019-06-10] MEDS ORDERED: METOPROLOL 5 MG/5 ML VIAL IV STA (02:17)
--- NOTE | 2019-06-10 02:33 | IPNPDOC ---
Date Seen The patient was seen on 06/10/19. Progress Note Was called for patient having multiple beats non NSVT longest was 32 beats for 9 seconds. EKG was done three printed , one showed afib with heart rate of 111bpm. ordered 5mg iv metoprolol and 25mg po q6h . ordered bmp, cardiac markers and mag pending result. consider cardio consult in the AM. will continue to monitor in case patient need to be started on Amiodarone. If he continues to have nsvt despite receiving BB, will start 400mg po amiodarone. ordered echo VS, I&O, 24H, Fishbone Vital Signs/I&O Vital Signs Date Time Temp Pulse Resp B/P (MAP) Pulse Ox O2 Delivery O2 Flow Rate FiO2 06/09/19 22:05 16 06/09/19 14:00 97.1 98 124/75 (91) 94 06/07/19 10:03 Room Air I&O- Last 24 Hours up to 6 AM 06/10/19 06:00 Intake Total 1775 ml Output Total 2400 ml Balance -625 ml Laboratory Data 24H LABS Laboratory Tests 2 06/09/19 06:26: Nucleated Red Blood Cells % (auto) 0.0, Anion Gap 9, Glomerular Filtration Rate > 60.0, Blood Urea Nitrogen 9, Creatinine 0.65L, Sodium Level 135L, Potassium Level 3.4L, Chloride Level 100, Carbon Dioxide Level 26, Calcium Level 8.0L 06/09/19 11:12: Bedside Glucose (Misc Panel) 118H 06/09/19 14:08: Magnesium Level 1.8 06/09/19 16:34: Bedside Glucose (Misc Panel) 193H 06/09/19 20:32: Bedside Glucose (Misc Panel) 277H 06/10/19 01:43: Anion Gap 6L, Glomerular Filtration Rate > 60.0, Blood Urea Nitrogen 9, Creatinine 0.78, Sodium Level 134L, Potassium Level 4.2, Chloride Level 99, Carbon Dioxide Level 29, Calcium Level 8.0L, Magnesium Level 2.3 CBC/BMP Laboratory Tests 06/09/19 06:26 Red Blood Count 3.92 L, Mean Corpuscular Volume 81.9, Mean Corpuscular Hemoglobin 26.8 L, Mean Corpuscular Hemoglobin Concent 32.7, Red Cell Distribution Width 14.9 H, Calcium Level 8.0 L 06/09/19 14:08 06/10/19 01:43 Calcium Level 8.0 L Microbiology Microbiology 06/05/19 Blood Culture - Preliminary, Resulted No Growth after 72 hours. All specime... 06/05/19 Blood Culture - Preliminary, Resulted No Growth after 72 hours. All specime... 06/06/19 Acid Fast Stain - Final, Resulted 06/06/19 Mycobacterial Culture, Resulted Pending 06/06/19 Fungal Smear, Resulted Pending 06/06/19 Fungal Culture, Resulted Pending 06/06/19 Mycoplasma pneumoniae Culture, Resulted Pending 06/06/19 Gram Stain - Final, Complete 06/06/19 Sputum Culture - Final, Complete ALLY HOLLY MD Jun 10, 2019 02:33
[2019-06-10 02:59] LABS: CPK CREATINE PHOSPHOKINASE 52 U/L (39-308); MB/CK RELATIVE INDEX 1.92 (< OR =4); TROPONIN I < 0.02 NG/ML (< 0.10)
[2019-06-10] MEDS: AMPICILLIN SOD/SULBACTAM SOD 3 GM in D5W MINI-BAG PLUS 100 ML IV SCH ×4 (05:27→22:58)
[2019-06-10] MEDS: VANCOMYCIN ORAL SOL 250MG/5ML ORAL SYRINGE PO SCH ×4 (05:27→23:42)
[2019-06-10 05:38] LABS: HEMATOCRIT 31.9 % (42.0-52.0); HEMOGLOBIN 10.6 g/dl (13.5-17.5); MEAN CORPUSCULAR HEMOGLOBIN 26.8 pg (27.0-33.0); MEAN CORPUSCULAR HGB CONC 33.2 g/dl (32.0-36.5); MEAN CORPUSCULAR VOLUME 80.8 fl (80.0-96.0); PLATELET COUNT, AUTOMATED 318 10^3/uL (150-450); RED BLOOD COUNT 3.95 10^6/uL (4.30-6.10); WHITE BLOOD COUNT 6.9 10^3/uL (4.0-10.0)
[2019-06-10 05:52] LABS: BLOOD UREA NITROGEN 9 MG/DL (7-18); CALCIUM LEVEL 7.9 MG/DL (8.8-10.2); CARBON DIOXIDE LEVEL 25 MEQ/L (21-32); CHLORIDE LEVEL 101 MEQ/L (98-107); CREATININE FOR GFR 0.72 MG/DL (0.70-1.30); GLOMERULAR FILTRATION RATE > 60.0 (>42); GLUCOSE, FASTING 175 MG/DL (70-100); POTASSIUM SERUM 4.4 MEQ/L (3.5-5.1); SODIUM LEVEL 133 MEQ/L (136-145)
[2019-06-10] MEDS: PERCOCET 5MG/325MG TAB PO PRN ×3 (06:06→22:15)
[2019-06-10] MEDS: METOPROLOL TART 25 MG TABLET PO SCH ×4 (06:06→23:42)
[2019-06-10] MEDS: CILOSTAZOL 100 MG TAB (PLETAL) PO SCH ×2 (07:30→21:00)
--- NOTE | 2019-06-10 08:24 | REP ---
PA and lateral chest: Comparison is 06/09/2019. The large air-fluid level inferiorly in the right hemithorax as a change. The right upper lung zone is clear. Left lung is clear. Mediastinum and skeletal structures are unremarkable. Left hilus is unremarkable. The right hilus and right cardiac margin are obscured. Impression: There is no interval change. Electronically Signed by Samuel Brewer MD 06/10/2019 08:15 A
[2019-06-10] MEDS: HumaLOG INSULIN (NovoLOG) PER UNIT SC SCH ×4 (08:56→21:00)
[2019-06-10] MEDS: SERTRALINE HCL 25 MG TABLET PO SCH (08:57)
[2019-06-10] MEDS: ENOXAPARIN 40 MG/0.4 ML SYRINGE (J1650) SC SCH (08:57)
[2019-06-10] MEDS: ASPIRIN 81 MG ENTERIC TAB PO SCH (08:57)
[2019-06-10] MEDS: amLODIPine 10 MG TAB PO SCH (08:58)
[2019-06-10] MEDS: ONDANSETRON 4MG/2ML VIAL (J2405) IV PRN (09:12)
[2019-06-10] MEDS: KCL 20MEQ in NS 1000ML 1,000 ML IV SCH ×2 (10:00→22:17)
--- NOTE | 2019-06-10 12:00 | CCN ---
DATE OF SERVICE: 06/10/2019 Mr. Alonso is seen in the progressive care unit (PCU). He denies any new issues. However, in reviewing the progress note from the medicine team, it was noted by the medicine team that he had 32 beats of V-tach sometime during the night and was given metoprolol and an echocardiogram has been ordered as well. The patient denies any current chest pain or palpitations. He states he still will have intermittent chest pain that is relieved by pain medications. He also continues to have shortness of breath which he states has been progressively improving. He is being treated for a pleural abscess and is on Unasyn. He has had no fevers or chills. The patient is very concerned about trying to go home on as he states he needs to make a financial transaction. Patient and Family Service (PFS) has been consulted to help discuss options with the patient in order for him to figure out a plan. PHYSICAL EXAMINATION: Vitals: Temperature 96.8, pulse 93, respiratory rate 20, blood pressure 146/68, pulse ox 94%. General: The patient is alert and oriented. He speaks in complete sentences. HEENT: Head is normocephalic, atraumatic. Moist mucous membranes. Tongue is midline. Neck: Neck is supple. No cervical lymphadenopathy. Trachea is midline. Pulmonary: Diminished breath sounds on the right with a little bit better movement of air, but still significantly reduced compared to that of the left which is normal. Slight rhonchi on the right. No wheezing, rales or rhonchi on the left. Dullness to percussion on the right to approximately 2/3 up the posterior thorax on the right side. No accessory muscle use. Heart: Regular rate and rhythm. S1 and S2. No murmurs. Abdomen: Positive bowel sounds, soft, nontender No rebound or guarding. The patient has ostomy on the left side. Extremities: No edema. Skin: Skin is warm and dry. LABORATORY DATA: WBC 6.9, hemoglobin 10.6, hematocrit 31.9, platelets 318. Sodium is 133, potassium 4.4, chloride 101, carbon dioxide 25, BUN 9, creatinine 0.72, glucose 175, calcium 7.9. A chest x-ray from 06/10/2019 shows a large right pulmonary abscess with a large air-fluid level. No significant change compared to 06/09/2019. ASSESSMENT/PLAN: Right lung abscess, likely Staphylococcus lung abscess. The patient is on IV ampicillin. He is also getting oral vancomycin for history of Clostridium difficile. There is no indication of sepsis at the present time. He does continue to remain at risk for developing sepsis. Continue to monitor closely. Mycoplasma culture pending, fungal culture pending, AFB culture pending.
--- NOTE | 2019-06-10 14:59 | IPNPDOC ---
Text Note Date of Service The patient was seen on 06/10/19. NOTE Subjective: -had an episode of NSVT (32 beats) overnight that lasted 9 sec, asymptomatic, hemodynamically stable, lytes within normal limits, EKG with AF given metop - Feels better today, however with continued pleurisy that is kept under control by meds. Reports that pain control is adequate at this time. - Otherwise afebrile, no new cough, no hypoxemia, no hemoptysis 12 point ROS was reviewed and grossly negative Objective Physical Examination General Exam: Alert, No Acute Distress Eye Exam: PERRLA, EOMI, anicteric, no pallor ENT Exam: Atraumatic, MMM, Pharynx Normal Neck Exam: Supple; no JVD Chest Exam: Left lung clear to auscultation, the right remains diminished Heart Exam: RRR Abdomen Exam: Normoactivel bowel sounds, soft, ostomy bag with brown well formed soft fecal matter, nontender Extremity Exam: 2+ DP pulses, no edema Neuro Exam: Normal Speech, Strength at 5/5 X4 extremities Psych Exam: AOx3, normal affect, reports better mood since he has had better pleurisy pain control Assessment /Plan 74 yo M with a history of Vocal cord squamous cell carcinoma, Anal cancer, Diabetes and Chronic pain who presented with progressive SOB and pleurisy and found to have a large right lung abscess who remains hemodynamically stable on room air while on unasyn, with pending pulm infectious studies whose course has been c/b asymptomatic NSVT now pending repeat EKG, TTE and cardiology consult. Assessment # Large Right lung Abscess with pleuritic CP - Day # 5 unasyn 3 gm IV q6 - repeat CT chest (06/09) showed stable unchanged large fluid collection in the right lower lobe and a air-fluid level and multiple tiny air bubbles, as well as compression atelectasis of the right middle lobe and right upper lobe - Gram stain + GPC in pairs, AFB smear is negative, and sputum cx final (normal paul) - cytology, Fungal smear, fungal cx, Mycoplasma cx, Quantiferon gold-TB test and afb cultures are pending - percocet, and morphine prn pleurisy - Chest PT - nebs prn -pulm onboard, appreciate recs # Asymptomatic NSVT, 32 beats for 9 sec. - follow up EKG, since AFib was noted by overnight team and TTE - cardiology consult -replete lytes aggressively PRN # Passive Suicidal Ideation/Depression - Dr Pineda consulted, Per Dr. Barba, was last on Zoloft 50 in November. Agrees with increase to 75 mg - no SI or HI at this time # NIDDM type 2 poorly controlled (A1c 11.1%) - lantus 15 units qhs - metformin on hold - continue with humalog sliding scale - vasotec 5 mg for DM renal protection # HTN - holding HCTZ in the setting of hypokalemia, monitor SBP - continue norvasc - added vasotec 5 mg day # Hypokalemia - repleted # Chronic pain syndrome - norco prn # H/o C. Diff - on prophylactic oral vancomycin (day # 4)while receiving IV abx - # Hx of anal and vocal cancers - previously treated # Moderate to Severe Protein Calorie Malnutrition with poorly controlled DM type 2, and muscle wasting - Dietary consult placed # DVT prophylaxis - SCDs + lovenox Plan Anticipated Discharge: Home after cardiology consult, TTE and switch to augmentin. VS,Fishbone, I+O VS, Fishbone, I+O Laboratory Tests 06/09/19 14:08 06/10/19 01:43 Calcium Level 8.0 L, Total Creatine Kinase 52 06/10/19 05:08 Calcium Level 7.9 L, Red Blood Count 3.95 L, Mean Corpuscular Volume 80.8, Mean Corpuscular Hemoglobin 26.8 L, Mean Corpuscular Hemoglobin Concent 33.2, Red Cell Distribution Width 15.0 H Vital Signs Date Time Temp Pulse Resp B/P (MAP) Pulse Ox O2 Delivery O2 Flow Rate FiO2 06/10/19 13:49 16 06/10/19 12:00 98.3 94 127/64 (85) 92 06/07/19 10:03 Room Air I&O- Last 24 Hours up to 6 AM 06/10/19 06:00 Intake Total 2287.5 ml Output Total 2400 ml Balance -112.5 ml TORY RUIZ MD Jun 10, 2019 14:59
[2019-06-10] MEDS: MORPHINE 4 MG/ML 1ML VIAL/SYRINGE (J2270) IV PRN (20:46)
[2019-06-10] MEDS: traZODone 50 MG TAB PO SCH (22:16)
[2019-06-10] MEDS: LEVEMIR (INSULIN DETEMIR) 1 UNITS/0.01ML SC SCH (22:17)
[2019-06-11] MEDS: ALBUTEROL SULFATE 2.5 MG/0.5 ML INH NEB SOLN NEB SCH ×4 (00:36→20:00)
[2019-06-11 04:00] VITALS: BP 143/75
[2019-06-11] MEDS: AMPICILLIN SOD/SULBACTAM SOD 3 GM in D5W MINI-BAG PLUS 100 ML IV SCH (04:35)
[2019-06-11] MEDS: MORPHINE 4 MG/ML 1ML VIAL/SYRINGE (J2270) IV PRN ×3 (04:35→19:12)
[2019-06-11] MEDS: KCL 20MEQ in NS 1000ML 1,000 ML IV SCH ×2 (05:55→12:49)
[2019-06-11 05:57] LABS: HEMATOCRIT 32.7 % (42.0-52.0); HEMOGLOBIN 10.3 g/dl (13.5-17.5); MEAN CORPUSCULAR HGB CONC 31.5 g/dl (32.0-36.5); MEAN CORPUSCULAR VOLUME 82.6 fl (80.0-96.0); PLATELET COUNT, AUTOMATED 360 10^3/uL (150-450); RED BLOOD COUNT 3.96 10^6/uL (4.30-6.10)
--- NOTE | 2019-06-11 05:58 | ECGEPIP ---
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
--- NOTE | 2019-06-11 06:10 | ECGEPIP ---
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
[2019-06-11 06:20] LABS: BLOOD UREA NITROGEN 7 MG/DL (7-18); CARBON DIOXIDE LEVEL 26 MEQ/L (21-32); CHLORIDE LEVEL 102 MEQ/L (98-107); CREATININE FOR GFR 0.79 MG/DL (0.70-1.30); GLOMERULAR FILTRATION RATE > 60.0 (>42); GLUCOSE, FASTING 129 MG/DL (70-100); MAGNESIUM LEVEL 2.1 MG/DL (1.8-2.4); POTASSIUM SERUM 4.1 MEQ/L (3.5-5.1); SODIUM LEVEL 136 MEQ/L (136-145)
[2019-06-11 07:00] VITALS: BP 146/76
--- NOTE | 2019-06-11 07:22 | IPNPDOC ---
Text Note Date of Service The patient was seen on 06/11/19. NOTE Subjective: - asymptomatic - Feels better about the same as yesterday. Anxious about discharge by tomorrow to handle finances - Otherwise afebrile, no new cough, no hypoxemia, no hemoptysis 12 point ROS was reviewed and grossly negative Objective Physical Examination General Exam: Alert, No Acute Distress Eye Exam: PERRLA, EOMI, anicteric, no pallor ENT Exam: Atraumatic, MMM, Pharynx Normal Neck Exam: Supple; no JVD Chest Exam: Left lung clear to auscultation, the right remains diminished Heart Exam: RRR, no murmurs, rubs or gallops Abdomen Exam: Normoactivel bowel sounds, soft, ostomy bag with brown formed soft stool, nontender Extremity Exam: 2+ DP pulses, no edema Neuro Exam: Normal Speech, Strength at 5/5 X4 extremities, walking in his room with normal gait Psych Exam: AOx3, normal affect, anxious about discharge plan Assessment /Plan 74 yo M with a history of Vocal cord squamous cell carcinoma, Anal cancer, Diabetes and Chronic pain who presented with progressive SOB and pleurisy and found to have a large right lung abscess who remains hemodynamically stable on room air while on unasyn, with pending pulm infectious studies, thus far sputum with GPCs in pairs and negative AFB smear whose course has been c/b asymptomatic NSVT with repeat EKG in NSR, TTE pending and cardiology consulted. Assessment # Large Right lung Abscess with pleuritic CP: CT chest (06/09) showed stable unchanged large fluid collection in the right lower lobe and a air-fluid level and multiple tiny air bubbles, as well as compression atelectasis of the right middle lobe and right upper lobe - Day # 6 unasyn 3 gm IV q6 --> consider switch to augmentin today - Gram stain + GPC in pairs, AFB smear is negative, and sputum cx final (normal paul) - cytology, Fungal smear, fungal cx, Mycoplasma cx, Quantiferon gold-TB test and afb cultures are pending - percocet, and morphine prn for pleurisy - Chest PT - nebs prn - pulm onboard, appreciate recs # Asymptomatic NSVT - EKG showing NSR, although AFib was reported on night of 06/09 - cardiology consulted given significant ectopy, suggested 200 Q6H amio if ectopy persists but has been stably in NSR on telemetry so will watch closely for now. Appreciate recs. - replete lytes aggressively PRN # Passive Suicidal Ideation/Depression - Dr Pineda consulted, Per Dr. Barba, was last on Zoloft 50 in November, increased to 75 mg - no SI or HI at this time # NIDDM type 2 poorly controlled (A1c 11.1%) - lantus 15 units qhs - metformin on hold - continue with humalog sliding scale - vasotec 5 mg for DM renal protection # HTN - holding HCTZ in the setting of hypokalemia, monitor SBP - continue norvasc - added vasotec 5 mg day # Hypokalemia - repleted # Chronic pain syndrome - norco prn # H/o C. Diff - on prophylactic oral vancomycin (day # 5)while receiving IV abx - # Hx of anal and vocal cancers - previously treated # Moderate to Severe Protein Calorie Malnutrition with poorly controlled DM type 2, and muscle wasting - Dietary consult placed # DVT prophylaxis - SCDs + lovenox Plan Anticipated Discharge: Home after cardiology consult evaluation, TTE and switch to augmentin. VS,Fishbone, I+O VS, Fishbone, I+O Laboratory Tests 06/11/19 05:30 Red Blood Count 3.96 L, Mean Corpuscular Volume 82.6, Mean Corpuscular Hemoglobin 26.0 L, Mean Corpuscular Hemoglobin Concent 31.5 L, Red Cell Distribution Width 15.2 H, Calcium Level 8.0 L Vital Signs Date Time Temp Pulse Resp B/P (MAP) Pulse Ox O2 Delivery O2 Flow Rate FiO2 06/11/19 04:45 18 1.0 06/11/19 04:00 97.5 83 143/75 (97) 92 06/07/19 10:03 Room Air I&O- Last 24 Hours up to 6 AM 06/11/19 06:00 Intake Total 2375 ml Output Total 1675 ml Balance 700 ml TORY RUIZ MD Jun 11, 2019 07:22
[2019-06-11] MEDS: PERCOCET 5MG/325MG TAB PO PRN ×2 (07:32→21:31)
[2019-06-11] MEDS: METOPROLOL TART 25 MG TABLET PO SCH ×4 (07:33→23:58)
[2019-06-11] MEDS: VANCOMYCIN ORAL SOL 250MG/5ML ORAL SYRINGE PO SCH ×4 (07:33→23:57)
[2019-06-11] MEDS: ONDANSETRON 4MG/2ML VIAL (J2405) IV PRN (08:27)
[2019-06-11] MEDS: ASPIRIN 81 MG ENTERIC TAB PO SCH (08:52)
[2019-06-11] MEDS: HumaLOG INSULIN (NovoLOG) PER UNIT SC SCH ×4 (08:52→20:48)
[2019-06-11] MEDS: ENOXAPARIN 40 MG/0.4 ML SYRINGE (J1650) SC SCH (08:53)
[2019-06-11] MEDS: SERTRALINE HCL 25 MG TABLET PO SCH (08:53)
[2019-06-11] MEDS: amLODIPine 10 MG TAB PO SCH (08:53)
[2019-06-11] MEDS: CILOSTAZOL 100 MG TAB (PLETAL) PO SCH ×2 (08:53→21:32)
--- NOTE | 2019-06-11 09:27 | REP ---
CHEST X-RAY: Two views. HISTORY: Lung abscess. COMPARISON CHEST X-RAY: June 10, 2019. Comparison chest CT June 09, 2019. CHEST X-RAY FINDINGS: A large air-fluid level persists in the known right chest abscess cavity. This occupies the lower two-thirds of the right hemithorax in a "lower lobe" distribution. There is pleural thickening along the remaining aerated upper lobe laterally and posteriorly. This is unchanged. Left lung remains clear. The size of the air-fluid level and its accompanying opacity are unchanged. IMPRESSION: Large right thoracic abscess with a large air-fluid level persists essentially unchanged. Electronically Signed by Geoff Olsen MD 06/11/2019 11:12 A
--- NOTE | 2019-06-11 09:43 | CCN ---
DATE OF SERVICE: 06/11/2019 Mr. Alonso is seen in the progressive care unit (PCU). He is being monitored on telemetry and has had some nonsustained ventricular tachycardiac (V-tach). The hospitalist from the medical team has consulted cardiology. Apparently, the patient had a couple more unsustained beats of V-tach throughout the night and this morning. He denies any other new symptoms with the exception of some gagging and nausea, but no vomiting. He is being followed for a large right lung abscess and is currently on IV ampicillin. He is also getting oral vancomycin due to his history of Clostridium difficile. The patient has been afebrile. His white count has been within normal limits. Additionally, the patient does have some swelling in his right upper extremity, but denies any significant pain. PHYSICAL EXAMINATION: Vitals: Temperature 98.0, pulse 101, respiratory rate 18, blood pressure is 146/76, pulse oximetry 96% on 1 liter. General: The patient is alert and oriented. He speaks in complete sentences. HEENT: Head is normocephalic, atraumatic. Moist mucous membranes. Tongue is midline. Neck: Neck is supple. No cervical lymphadenopathy. No jugular venous distention (JVD). Trachea is midline. Pulmonary: Diminished breath sounds on the right. No wheezing, rales or rhonchi appreciated. Heart: Regular rate and rhythm. S1 and S2. No murmurs. Abdomen: Positive bowel sounds, soft, nontender. No rebound or guarding. The patient does have an ostomy on the left side. Lower Extremities: No edema. Right upper extremity is with some edema. No significant erythema. LABORATORY DATA: WBC 7.0, hemoglobin 10.3, hematocrit 32.7, platelets 360. Sodium 136, potassium 4.1, chloride 102, carbon dioxide 26, BUN 7, creatinine 0.79, glucose 129, calcium 8.0, magnesium 2.1. Chest x-ray done on 06/11/2019 was reviewed and appears to be unchanged compared to chest x-ray from yesterday. There remains a significant right-sided pleural abscess with air fluid level that is unchanged compared to yesterday's chest x-ray. ASSESSMENT/PLAN: 1. Right lung abscess. This is likely Staphylococcus lung abscess. Sputum cultures for mycoplasma, fungus and AFB are currently pending. The patient is getting IV ampicillin. Plan will be to change him to oral Augmentin today. He will need to be oral Augmentin for a total of 6 weeks. He is also getting oral vancomycin for his history of Clostridium difficile. He will need to be on that for 6 weeks as well. No indication for sepsis at the present time. The patient is being worked up for the V-tach and apparently cardiology has been consulted. From a pulmonary standpoint, if the patient continues show some improvement and has no further respiratory issues and if he is stable from a cardiology perspectivem, he can possibly be discharged home tomorrow with instructions for 6 weeks of antibiotic therapy with Augmentin along with 6 weeks of oral vancomycin with close followup with pulmonary. The patient would need to see Dr. Ocampo within 2 weeks of discharge and likely will need continued close followup every couple weeks to continue monitoring his lung abscess. The patient was also instructed if he is discharged and goes home, he will need to go immediately to the emergency room if he develops any chest pain. Dr. Ocampo discussed the possibility of rupture from the abscess which would require the patient to seek out immediate medical attention in the emergency department. The patient voiced understanding. The patient will need to be stable and doing well from the rest of his medical standpoint in order to consider discharge home tomorrow.
[2019-06-11 12:00] VITALS: BP 136/67
[2019-06-11] MEDS ORDERED: AMIODARONE 200 MG TAB (PACERONE) PO SCH (12:00)
--- NOTE | 2019-06-11 13:36 | REP ---
RIGHT UPPER EXTREMITY DUPLEX DOPPLER VENOUS ULTRASOUND: Real-time sonographic evaluation and duplex Doppler interrogation of right upper extremity deep venous system is performed. The jugular, subclavian, axillary, and brachial veins are fully compressible where accessible with transducer pressure and demonstrate normal internal flow with no evidence of intraluminal thrombus. There is thrombus seen in the peripheral right cephalic vein at the site of a prior IV site. IMPRESSION: No DVT right upper extremity. There is thrombus in the peripheral right cephalic vein. Electronically Signed by Samuel Barrera MD 06/11/2019 03:21 P
[2019-06-11 16:00] VITALS: BP 110/60
[2019-06-11] MEDS: AMIODARONE 200 MG TAB (PACERONE) PO SCH ×2 (17:30→23:58)
--- NOTE | 2019-06-11 19:52 | ECHO ---
DATE OF PROCEDURE: 06/11/2019 AGE: 74 GENDER: Male HEIGHT: 68 inches WEIGHT: 165 pounds BODY SURFACE AREA: 1.89 m2 PATIENT LOCATION: Inpatient, PCU, room 3211 REFERRING PHYSICIAN: Char Sutherland MD INDICATION: Cardiac dysrhythmias. 2-D MEASUREMENTS: RV: 4.3 cm LV: 4.5 cm Septum: 1.1 cm Posterior wall: 1.0 cm Aortic root: 3.7 cm LA: 3.6 cm LVEF: 75% DOPPLER MEASUREMENTS: AV: 1.24 m/s LVOT: 0.89 m/s LVOT diameter: 2.0 cm MV-E: 111, A: 116, EA ratio: 1.0 Early mitral deceleration time: 190 ms E prime: 5, A prime: 10, E/E prime ratio: 22 PCWP: 24 mmHg PV: 0.9 m/s Pulmonary artery acceleration time: 100 ms PASP: 37 mmHg IVC: 1.7 cm COMMENTS Normal sinus rhythm without interventricular conduction disturbance. M-mode and two-dimensional echocardiography was performed with pulsed, continuous wave, color flow and tissue Doppler studies. Normal left ventricular size and wall thickness with subtle septal flattening but other left ventricular schaeffer were hyperkinetic. Left atrial size upper limits of normal with Doppler evidence of an impairment of LV diastolic function and currently elevated mean left atrial pressure. Mildly dilated right heart chambers with normal wall motion and at least mild pulmonary hypertension. Normal IVC size and collapse against an elevated central venous pressure at this time. Mild aortic valvular sclerosis without stenosis and only very mild insufficiency. Moderate mitral annular calcification without inflow tract obstruction or insufficiency. Normal appearing tricuspid valve with mild insufficiency. No apparent intracardiac mass or pericardial effusion.
[2019-06-11 20:00] VITALS: BP 132/67
[2019-06-11] MEDS: AUGMENTIN 875 MG TAB PO SCH (21:31)
[2019-06-11] MEDS: LEVEMIR (INSULIN DETEMIR) 1 UNITS/0.01ML SC SCH (21:31)
[2019-06-11] MEDS: traZODone 50 MG TAB PO SCH (21:31)
[2019-06-11 23:59] VITALS: BP 119/64
[2019-06-12] MEDS: ALBUTEROL SULFATE 2.5 MG/0.5 ML INH NEB SOLN NEB SCH ×4 (02:00→20:00)
[2019-06-12] MEDS: MORPHINE 4 MG/ML 1ML VIAL/SYRINGE (J2270) IV PRN ×3 (02:22→17:53)
[2019-06-12 04:00] VITALS: BP 107/53
[2019-06-12] MEDS: VANCOMYCIN ORAL SOL 250MG/5ML ORAL SYRINGE PO SCH ×4 (05:51→23:06)
[2019-06-12] MEDS: AMIODARONE 200 MG TAB (PACERONE) PO SCH ×4 (05:51→23:05)
[2019-06-12] MEDS: PERCOCET 5MG/325MG TAB PO PRN ×3 (05:51→22:37)
[2019-06-12] MEDS: METOPROLOL TART 25 MG TABLET PO SCH ×4 (05:57→23:05)
[2019-06-12] MEDS: ONDANSETRON 4MG/2ML VIAL (J2405) IV PRN (06:03)
[2019-06-12 07:00] LABS: HEMATOCRIT 31.3 % (42.0-52.0); HEMOGLOBIN 9.9 g/dl (13.5-17.5); MEAN CORPUSCULAR HEMOGLOBIN 27.1 pg (27.0-33.0); MEAN CORPUSCULAR HGB CONC 31.6 g/dl (32.0-36.5); MEAN CORPUSCULAR VOLUME 85.8 fl (80.0-96.0); PLATELET COUNT, AUTOMATED 318 10^3/uL (150-450); RED BLOOD COUNT 3.65 10^6/uL (4.30-6.10)
[2019-06-12 07:25] LABS: BLOOD UREA NITROGEN 7 MG/DL (7-18); CALCIUM LEVEL 8.2 MG/DL (8.8-10.2); CARBON DIOXIDE LEVEL 26 MEQ/L (21-32); CHLORIDE LEVEL 106 MEQ/L (98-107); CREATININE FOR GFR 0.62 MG/DL (0.70-1.30); GLOMERULAR FILTRATION RATE > 60.0 (>42); GLUCOSE, FASTING 102 MG/DL (70-100); SODIUM LEVEL 138 MEQ/L (136-145)
[2019-06-12] MEDS: HumaLOG INSULIN (NovoLOG) PER UNIT SC SCH ×4 (07:48→21:00)
[2019-06-12] MEDS: CILOSTAZOL 100 MG TAB (PLETAL) PO SCH ×2 (07:49→20:35)
[2019-06-12 08:00] VITALS: BP 134/58
[2019-06-12] MEDS ORDERED: AMOX875T2 PO (08:10)
[2019-06-12] MEDS ORDERED: FIRV50SO PO (08:10)
[2019-06-12] MEDS: AUGMENTIN 875 MG TAB PO SCH ×2 (08:16→22:34)
[2019-06-12] MEDS: ASPIRIN 81 MG ENTERIC TAB PO SCH (08:16)
[2019-06-12] MEDS: ENOXAPARIN 40 MG/0.4 ML SYRINGE (J1650) SC SCH (08:16)
[2019-06-12] MEDS: SERTRALINE HCL 25 MG TABLET PO SCH (08:17)
[2019-06-12] MEDS: KCL 20MEQ in NS 1000ML 1,000 ML IV SCH (08:19)
[2019-06-12] MEDS: amLODIPine 10 MG TAB PO SCH (08:19)
[2019-06-12] MEDS ORDERED: LOSARTAN 25 MG TAB PO SCH (09:00)
--- NOTE | 2019-06-12 09:30 | CCN ---
DATE: 06/12/2019 Mr. Alonso is seen on progressive care unit (PCU). He reports that he is not doing well this morning. He still is having some shortness of breath and is overall somewhat agitated this morning. He denies fevers or chills. He is being treated for a large right lung abscess and was switched over from IV ampicillin to oral Augmentin yesterday. He does have a history of Clostridium difficile and has been on oral vancomycin due to the history of the C diff. Medical team has been following for ventricular tachycardia (V-tach). The patient did have an ultrasound of the right upper extremity for swelling yesterday that was negative for deep venous thrombosis (DVT) but did show a thrombosis at the former IV site. The patient is getting heat applied to the area of thrombus. PHYSICAL EXAMINATION: Vital signs: Temperature is 96.5, pulse 83, respiratory rate 20, blood pressure is 138/52, pulse oximetry 95% on room air. General: The patient is alert and oriented. He is speaking in complete sentences. He is somewhat anxious. HEENT: Head is normocephalic, atraumatic. Moist mucous membranes. Tongue is midline. Neck: Neck is supple. No cervical lymphadenopathy. No jugular venous distention (JVD). Trachea is midline. Pulmonary: Diminished breath sounds on the right. No wheezing, rales or rhonchi. Heart: Regular rate and rhythm. S1, S2. No murmurs. Abdomen: Positive bowel sounds. Soft. Nontender., No rebound or guarding. Ostomy on the left. Extremities: No lower extremity edema. The right upper extremity with trace edema. ASSESSMENT AND PLAN: Right lung abscess. Likely Staphylococcus lung abscess. Sputum cultures for mycoplasma fungus and AFB are currently pending. A sputum culture grew normal paul. The patient had been on IV ampicillin and was changed to oral Augmentin yesterday. The plan will be for antibiotic therapy for a total of 6 weeks. He is also getting oral vancomycin for his history of Clostridium difficile and should be on the oral vancomycin for the 6 week total as well. No indication for sepsis at present time. The patient has been afebrile and white count has been within normal limits. From a pulmonary standpoint, if the patient continues to show improvement and has no further respiratory issues then he will likely be able to be discharged home when he is cleared from a medical standpoint for his other medical issues, with close followup, and therefore, should be seen by Dr. Ocampo within 2 weeks of discharge with a chest x-ray. He will need continued close followup for continued monitoring of the lung abscess. The patient has also been instructed that upon discharge if he develops any significant chest pain he needs to go immediately to the emergency department for a possibility of rupture from the abscess. The medicine team will continue to determine when the patient will be safe for discharge from a medical standpoint. We will order a chest x-ray for review for tomorrow.
[2019-06-12 12:00] VITALS: BP 131/66
[2019-06-12] MEDS ORDERED: SLF 3 ML SYR IV PRN (14:15)
[2019-06-12 16:00] VITALS: BP 141/67
[2019-06-12 20:00] VITALS: BP 96/55
[2019-06-12] MEDS: traZODone 50 MG TAB PO SCH (20:34)
[2019-06-12] MEDS: LEVEMIR (INSULIN DETEMIR) 1 UNITS/0.01ML SC SCH (20:36)
--- NOTE | 2019-06-12 22:08 | CR ---
DATE OF CONSULTATION: 06/12/2019 CARDIOLOGY CONSULTATION REFERRING PHYSICIAN: Dr. Diana Olson INDICATION: Recurrent nonsustained ventricular tachycardia. HISTORY: This 74-year-old father of one, estranged son, lives by himself in [place], [place]. Despite his multiple medical problems, including smoking-induced chronic bronchitis, cancer of the colon and cancer of the vocal cords, continues to live by himself and does his own cooking. Has home therapy clinician through the [employer] [facility] that comes several times a week.. History of abnormal EKG dating back to at least August 2013, but denies any history of angina, prior heart attack, known cardiac enlargement or heart failure. Claims to have never been aware of his heart action. No previously documented rhythm disturbance. Presented to the emergency room June 05, 2019 with a 4-week history of increasing shortness of breath, cough and cough syncope. Admitted with radiographic evidence of right lower lobe consolidation/effusion/abscess with initial vital signs showing a pulse rate of 125 beats per minute, blood pressure 133/97, respiratory rate 32, oxygen (O2) saturation 96% on supplemental oxygen. EKG showed sinus tachycardia with evidence suggestive of pulmonary disease but could not rule out prior septal or inferior infarction. The appearance was unchanged from December 28, 2016 other than faster rate. He was placed on monitor/telemetry. Serial EKGs showed no evolutionary changes and serial Troponin I levels were negative. Pulmonary consultation was placed for possible pleurocentesis, but procedure not performed following review of his radiographic studies, which showed a large pulmonary abscess without drainable pleural effusion. He was placed on combination antibiotic therapy. June 09, 2019, his monitor showed recurrent nonsustained runs of monomorphic ventricular tachycardia with up to 12 beats. Admission potassium was normal at 3.8, but he developed a degree of hypokalemia with IV fluids and his hydrochlorothiazide therapy. Despite correcting his hypokalemia, he continued to have recurrent bouts prompting cardiology consultation. The patient himself was not aware of any rhythm disturbance. EKG did not show a prolonged QT interval or repolarization abnormalities. Serum potassium measured 4.2, magnesium 1.8. KNOWN PAST CARDIAC DISEASE/EVENTS/TESTS: As mentioned, the patient has not been aware of his abnormal EKG that has dated back at least 6 years. Despite history of hypertension, no clinical or radiographic cardiomegaly but chest CT scan October 2017 reportedly showed evidence of coronary artery calcification and ascending thoracic aortic aneurysm of 4.6 cm. CORONARY RISK FACTORS: Male gender, advanced age, longstanding heavy smoker, hypertension, hypercholesterolemia, type 2 diabetes mellitus. FAMILY HISTORY: Not relevant. OTHER PAST MEDICAL HISTORY: Degenerative disc disease. Kidney stones. 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 Insomnia, long-term use of opiates for chronic pain. Hemoptysis. REVIEW OF SYSTEMS: Unfortunately it was challenging to try obtain a history from the patient who appeared to be slightly confused and moaning having received analgesic therapy, but according to his admission history and consultants, he apparently had been free of fevers, chills or night sweats despite his pulmonary abscess. Claims his appetite has been poor but unaware of any weight loss. Denies lateralizing neurological symptoms. Chronic hoarseness. Denies dysphagia. Shortness of breath, coughing and intermittent pleuritic right-sided chest pain that will radiate into his right shoulder. Denies orthopnea or nocturnal dyspnea. Denies any urinary complaints. 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 Admits to drinking 3-4 bottles of beer a night. Smoked for 50 years up to three packs daily, quit 2 years ago. CURRENT MEDICATIONS: Amiodarone 200 mg four times a day, metoprolol tartrate 25 mg by mouth every 6 hours, aspirin 81 mg daily, insulin Levemir 15 units subcu nightly and Humalog insulin according to sliding scale, fingersticks before food and bedtime. Lovenox 40 mg subcu daily, Augmentin 875 mg by mouth twice a day, Zoloft 75 mg daily, vancomycin 125 mg by mouth every 6 hours, Norvasc 10 mg by mouth daily, Pletal 100 mg by mouth twice a day, trazodone 50 mg nightly, morphine sulfate 2 mg IV every 3 hours as needed for pain with Percocet one-half tablet by mouth three times a day for pain, Zofran 4 mg every 6 hours IV as needed for nausea and milk of magnesia. ALLERGIES: IV CONTRAST DYE. SEAFOOD. PHYSICAL EXAMINATION: Constitutional: Elderly male, appearing in some distress - moaning, complaining of shortness of breath and some right-sided chest pain. Extremely vague and tangential historian. Vital signs: Heart rate 82 beats per minute and regular, blood pressure 126/76 supine, unchanged upon sitting with legs dependent, respiratory rate 18 per minute, O2 saturation 91% on room air. Afebrile. Weight 184 pounds, height 68 inches. According to the electronic medical record (EMR), he has gained some 12 kg with IV fluid in hospital. Eyes: Normal conjunctivae without pallor or icterus. No xanthelasma. ENT/mouth: Normal oral moisture. No central cyanosis. Neck: Trachea midline. Neck veins appeared to be elevated 6 cm above the sternal angle. Thyroid was not enlarged. Respiratory: Increased anteroposterior chest diameter with reduced chest excursion. Obvious well-healed vena port site from prior chemotherapy, right subclavian region. Dullness and reduced air entry over the entire right lower lobe, slight prolongation of expiration but no current audible wheeze. Cardiovascular: Apical impulse not palpable. Heart sounds slightly distant. Unable to detect S2 splitting. S4 gallop but no murmur. No pericardial rub. Normal carotid upstrokes and volume with no bruits. Upper extremity and femoral pulses were symmetrical and normal. Pedal pulses were challenging in light of dependent edema. Abdominal aorta was not palpable. No abdominal bruits. Fairly gross systemic edema of both lower extremities, sacrum, lumbar spine and upper arms. No obvious varicose veins. Extremities: No clubbing, peripheral cyanosis or splinter hemorrhages. Skin: Degenerative skin changes both lower legs and forearms. Erythema over IV site, currently bandaged. GI: Soft, nontender with normal bowel sounds, palpable liver edge right costal margin, uncertain of the upper border with his right lower lobe abscess/consolidation. No palpable spleen. Rectal examination not appropriate. Has colostomy. Neuro/psych: Somewhat tangential historian, moaning. Eye, facial, and extremity movements appear to be symmetrical and normal. No involuntary movements. Musculoskeletal: No obvious joint deformities. Muscular strength and tone appear to be normal. Normal spine curvature. INVESTIGATIONS: Chest x-ray on admission, June 05, 2019, showed obvious consolidated right lower lobe, unable to assess heart size, slightly unfolded thoracic aorta. Pulmonary vasculature appeared to be normal. The left lung was clear with no pleural effusion. Chest x-ray June 11, 2019 again shows opacification of the right lower lung with air-filled abscess cavity, unable to specify cardiac chamber size. Slightly unfolded thoracic aorta with some calcification of the aortic arch. No evidence of pulmonary venous congestion. Left lung remains clear without pleural effusion. Chest CT scan: Reviewed independently from June 09, 2019 shows atherosclerotic change of the thoracic aorta with aneurysmal dilatation of the ascending aorta measuring 4.4 cm-4.6 cm in diameter. The pulmonary trunk was also slightly dilated at 2.7 cm. The left atrium and left ventricles appeared to be normal in size with right ventricle upper limits of normal, right atrium upper limits of normal and inferior vena cava mildly dilated at 2.3 cm. There was no pericardial effusion but obvious calcification of the coronary arteries. There was a large right pleural fluid collection with air fluid level and compressive atelectasis. The left lung was clear. Serial EKGs: Studies from June 05 to June 10 were reviewed and showed no evolutionary repolarization changes. Heart rate slowing from 125 on admission to 97, reduced voltages in keeping with his lung disease, poor precordial R wave progression. Echocardiogram: June 11, 2019 performed because of his cardiac arrhythmias and abnormal EKG, showed normal left ventricular size, wall thickness with septal wall motion abnormality suspected to be a reflection of right ventricular pressure overload, yet preserved global resting left ventricular systolic function. Ejection fraction estimated 75%. Left atrium was normal in size with degree of impaired left ventricular (LV) diastolic dysfunction and elevated mean left atrial pressure. Mildly dilated right heart chambers with normal motion and at least mild pulmonary hypertension at the time of the study. His inferior vena cava was upper limits of normal in size. There was moderate mitral annular calcification and mild aortic valvular sclerosis with no more than very mild aortic insufficiency. No pericardial effusion. LABORATORY DATA: Blood work today shows a hemoglobin of 9.9 down from 11.9 on admission, likely dilutional. Normocytic, normochromic. Normal white blood cell count of 6000 and platelet count. Admission PT/INR showed a PT of 14.9/1.2. Chemistry today shows electrolyte balance with potassium 4.0, magnesium 2.0, BUN down from 10 on admission to 7, creatinine 0.62, fasting glucose 102. Calcium 8.2, last albumin 1.7 June 06, 2019. Other liver function studies were normal. Normal ultrasensitive TSH of 2.34. Admission BNP level was normal. Serology for influenza was negative. TB test was negative. Blood cultures were negative. Sputum culture showed few gram-positive cocci in pairs, the culture was normal paul. Acid-fast smear was negative. IMPRESSION/PLAN: 1. Recurrent nonsustained ventricular tachycardia: Monomorphic in nature that persisted despite correction of mild hypokalemia. Suspected to be related to his intrathoracic infectious process and respiratory distress. Have recommended empiric amiodarone 200 mg four times a day in light of these findings and evidence of structural heart disease. I do not believe his coughing-induced near syncope/syncope is related to his arrhythmia but his chronic bronchitis. Long-term antiarrhythmic therapy would not be deemed necessary. 2. Heart failure (diastolic/acute on chronic). With IV fluid, has gained an impressive amount of weight - at least 10 pounds. This may well be due to congestive failure, but his albumin of 1.7 is certainly not helping. I have placed him on a modest salt and fluid intake restriction and have ordered low-dose diuretic, torsemide, to start tonight. He will be also started on low-dose spironolactone 12.5 mg daily. His calcium channel damaris, amlodipine, will be discontinued in favor of at least low-dose losartan. 3. Abnormal EKG: Despite his impressive coronary artery calcification and multiple coronary risk factors, has no symptom to suggest angina pectoris. Serial EKGs have failed to show any significant repolarization change and Troponin I levels have been negative. Remains on low-dose protective metoprolol and aspirin and will be starting him on losartan. 4. Hypertensive heart disease (benign with heart failure): Shortness of breath is primarily believed to be related to his pulmonary disease but could not discount an element of congestion with his recent echocardiographic/Doppler findings. Likely aggravated by IV fluid administration in hospital. Current blood pressure would be considered adequately controlled, and I am convinced combination metoprolol and losartan with low-dose spirolactone and torsemide will achieve similar adequate control off nifedipine. His chemistry will be monitored closely. 6. Cor pulmonale/right heart failure: Has CT scan and echocardiographic evidence of significant pulmonary hypertension accounting for the disparity in his congested (more obvious systemic and pulmonary edema). [facility] management remains that of his pulmonary disease. We will plan on following him closely with you for the time being and appreciate the opportunity to participate in his care. TIMOTHY
[2019-06-12] MEDS: SLF 3 ML SYR IV SCH (22:35)
[2019-06-12] MEDS: TORSEMIDE 10 MG TABLET PO SCH (22:51)
[2019-06-12] MEDS: SPIRONOLACTONE 12.5MG PER 1/2 TABLET PO SCH (22:51)
[2019-06-12 23:14] VITALS: BP 166/88
[2019-06-13] MEDS: ALBUTEROL SULFATE 2.5 MG/0.5 ML INH NEB SOLN NEB SCH ×4 (01:25→19:54)
[2019-06-13 03:55] VITALS: BP 131/62
[2019-06-13] MEDS: MORPHINE 4 MG/ML 1ML VIAL/SYRINGE (J2270) IV PRN (04:15)
[2019-06-13] MEDS: AMIODARONE 200 MG TAB (PACERONE) PO SCH ×4 (05:24→23:57)
[2019-06-13] MEDS: VANCOMYCIN ORAL SOL 250MG/5ML ORAL SYRINGE PO SCH ×4 (05:24→23:58)
[2019-06-13] MEDS: METOPROLOL TART 25 MG TABLET PO SCH ×4 (05:24→23:57)
[2019-06-13] MEDS: SLF 3 ML SYR IV SCH ×3 (05:26→21:42)
[2019-06-13 06:12] LABS: ALBUMIN 1.6 GM/DL (3.2-5.2); BLOOD UREA NITROGEN 7 MG/DL (7-18); CARBON DIOXIDE LEVEL 30 MEQ/L (21-32); CHLORIDE LEVEL 102 MEQ/L (98-107); CREATININE FOR GFR 0.74 MG/DL (0.70-1.30); GLOMERULAR FILTRATION RATE > 60.0 (>42); GLUCOSE, FASTING 103 MG/DL (70-100); MAGNESIUM LEVEL 2.1 MG/DL (1.8-2.4); NT-PRO BNP 180 PG/ML (<450); PHOSPHORUS LEVEL 3.6 MG/DL (2.5-4.9); POTASSIUM SERUM 4.5 MEQ/L (3.5-5.1); SODIUM LEVEL 137 MEQ/L (136-145)
[2019-06-13 08:00] VITALS: BP 136/61
--- NOTE | 2019-06-13 08:44 | IPNPDOC ---
Text Note Date of Service The patient was seen on 06/12/19. NOTE THIS IS A NOTE FOR SERVICES RENDERED ON 06/12 Subjective: - asymptomatic - Feels better about the same as yesterday. Anxious about discharge, handled his finances, would rather stay, worried about ostomy bag full this AM concerned that he might get C.diff again and feels too weak to go home. - Otherwise afebrile, no new cough, no hypoxemia, no hemoptysis 12 point ROS was reviewed and grossly negative Objective Physical Examination General Exam: Alert, No Acute Distress Eye Exam: PERRLA, EOMI, anicteric, no pallor ENT Exam: Atraumatic, MMM, Pharynx Normal Neck Exam: Supple; no JVD Chest Exam: Left lung clear to auscultation, the right remains diminished Heart Exam: RRR, no murmurs, rubs or gallops Abdomen Exam: Normoactivel bowel sounds, soft, ostomy bag with brown formed soft stool, nontender Extremity Exam: 2+ DP pulses, no edema Neuro Exam: Normal Speech, Strength at 5/5 X4 extremities, walking in his room with normal gait Psych Exam: AOx3, normal affect, anxious about discharge plan Assessment /Plan 74 yo M with a history of Vocal cord squamous cell carcinoma, Anal cancer, Diabetes and Chronic pain who presented with progressive SOB and pleurisy and found to have a large right lung abscess who remains hemodynamically stable on room air on augmentin with thus far sputum with GPCs in pairs and negative AFB smear whose course has been c/b asymptomatic NSVT with repeat EKG in NSR, TTE without maddy acute pathology. Assessment # Large Right lung Abscess with pleuritic CP: CT chest (06/09) showed stable unchanged large fluid collection in the right lower lobe and a air-fluid level and multiple tiny air bubbles, as well as compression atelectasis of the right middle lobe and right upper lobe - Day # 8 of antibiotics, will take for 6 weeks per pulm, will follow him outpatient, Q2W - Gram stain + GPC in pairs, AFB smear is negative, and sputum cx final (normal paul) - cytology, Fungal smear, fungal cx, Mycoplasma cx, Quantiferon gold-TB test and afb cultures are pending - percocet, and morphine prn for pleurisy - Chest PT - nebs prn - pulm onboard, appreciate recs # Asymptomatic NSVT - EKG showing NSR, although AFib was reported on night of 06/09 - cardiology consulted given significant ectopy, suggested 200 Q6H amio.. Appreciate recs. - replete lytes aggressively PRN # Passive Suicidal Ideation/Depression - Dr Pineda consulted, Per Dr. Barba, was last on Zoloft 50 in November, increased to 75 mg - no SI or HI at this time # NIDDM type 2 poorly controlled (A1c 11.1%) - lantus 15 units qhs - metformin on hold - continue with humalog sliding scale - vasotec 5 mg for DM renal protection # HTN - holding HCTZ in the setting of hypokalemia, monitor SBP - continue norvasc - added vasotec 5 mg day # Hypokalemia - repleted # Chronic pain syndrome - norco prn # H/o C. Diff - on prophylactic oral vancomycin (day # 5)while receiving IV abx - # Hx of anal and vocal cancers - previously treated # Moderate to Severe Protein Calorie Malnutrition with poorly controlled DM type 2, and muscle wasting - Dietary consult placed # DVT prophylaxis - SCDs + lovenox Plan Anticipated Discharge: Home after cardiology consult evaluation and PT evaluation VS,Fishbone, I+O VS, Fishbone, I+O Laboratory Tests 06/13/19 05:02 Anion Gap 5 L Vital Signs Date Time Temp Pulse Resp B/P (MAP) Pulse Ox O2 Delivery O2 Flow Rate FiO2 06/13/19 05:24 87 131/62 06/13/19 04:25 20 06/13/19 03:55 97.3 95 06/11/19 19:12 2.0 06/07/19 10:03 Room Air I&O- Last 24 Hours up to 6 AM 06/13/19 05:59 Intake Total 1500 ml Output Total 1350 ml Balance 150 ml TORY RUIZ MD Jun 13, 2019 08:44
--- NOTE | 2019-06-13 08:52 | IPNPDOC ---
Text Note Date of Service The patient was seen on 06/13/19. NOTE Subjective: - asymptomatic - Feels better about the same as yesterday. - Otherwise afebrile, no new cough, no hypoxemia, no hemoptysis 12 point ROS was reviewed and grossly negative Objective Physical Examination General Exam: Alert, No Acute Distress Eye Exam: PERRLA, EOMI, anicteric, no pallor ENT Exam: Atraumatic, MMM, Pharynx Normal Neck Exam: Supple; no JVD Chest Exam: Left lung clear to auscultation, the right remains diminished Heart Exam: RRR, no murmurs, rubs or gallops Abdomen Exam: Normoactivel bowel sounds, soft, ostomy bag with brown formed soft stool, nontender Extremity Exam: 2+ DP pulses, no edema Neuro Exam: Normal Speech, Strength at 5/5 X4 extremities, walking in his room with normal gait Psych Exam: AOx3, normal affect, anxious about discharge plan Assessment /Plan 74 yo M with a history of Vocal cord squamous cell carcinoma, Anal cancer, Diabetes and Chronic pain who presented with progressive SOB and pleurisy and found to have a large right lung abscess who remains hemodynamically stable on room air on augmentin with thus far sputum with GPCs in pairs and negative AFB smear whose course has been c/b asymptomatic NSVT with repeat EKG in NSR, TTE without maddy acute pathology. Assessment # Large Right lung Abscess with pleuritic CP: CT chest (06/09) showed stable unchanged large fluid collection in the right lower lobe and a air-fluid level and multiple tiny air bubbles, as well as compression atelectasis of the right middle lobe and right upper lobe - Day # 8 of antibiotics, will take for 6 weeks per pulm, will follow him outpatient, Q2W - Gram stain + GPC in pairs, AFB smear is negative, and sputum cx final (normal paul) - cytology, Fungal smear, fungal cx, Mycoplasma cx, Quantiferon gold-TB test and afb cultures are pending - percocet, and morphine prn for pleurisy - Chest PT - nebs prn - pulm onboard, appreciate recs # Asymptomatic NSVT - EKG showing NSR, although AFib was reported on night of 06/09 - Was seen by cardiology, given significant ectopy, suggested 200 Q6H amio. Appreciate recs. -On metop 25Q6 - replete lytes aggressively PRN #Acute on chronic diastolic heart failure: s/p IV fluid, as well as hypoalbuminemic -Was placed on 2g salt diet and fluid intake restriction per cardiology -Also started on torsemide 20 QD by cardiolog as well as spironolactone 12.5 mg daily. -Dc'd amlodipine and started on losartan 25 QD. # Passive Suicidal Ideation/Depression - Dr Pineda consulted, Per Dr. Barba, was last on Zoloft 50 in November, increased to 75 mg - no SI or HI at this time # NIDDM type 2 poorly controlled (A1c 11.1%) - lantus 15 units qhs - metformin on hold - continue with humalog sliding scale - vasotec 5 mg for DM renal protection # HTN - holding HCTZ in the setting of hypokalemia, monitor SBP - continue norvasc - added vasotec 5 mg day # Hypokalemia - repleted # Chronic pain syndrome - norco prn # H/o C. Diff - on prophylactic oral vancomycin (day # 6)while receiving abx for pulm infection - # Hx of anal and vocal cancers - previously treated # Moderate to Severe Protein Calorie Malnutrition with poorly controlled DM type 2, and muscle wasting - Dietary consult placed # DVT prophylaxis - SCDs + lovenox Plan Anticipated Discharge: Home per PT evaluation VS,Talisha, I+O VS, Talisha I+O Laboratory Tests 06/13/19 05:02 Anion Gap 5 L Vital Signs Date Time Temp Pulse Resp B/P (MAP) Pulse Ox O2 Delivery O2 Flow Rate FiO2 06/13/19 05:24 87 131/62 06/13/19 04:25 20 06/13/19 03:55 97.3 95 06/11/19 19:12 2.0 06/07/19 10:03 Room Air I&O- Last 24 Hours up to 6 AM 06/13/19 05:59 Intake Total 1500 ml Output Total 1350 ml Balance 150 ml TORY RUIZ MD Jun 13, 2019 08:45
[2019-06-13] MEDS: ASPIRIN 81 MG ENTERIC TAB PO SCH (08:58)
[2019-06-13] MEDS: CILOSTAZOL 100 MG TAB (PLETAL) PO SCH ×2 (08:58→20:32)
[2019-06-13] MEDS: AUGMENTIN 875 MG TAB PO SCH ×2 (08:58→20:32)
[2019-06-13] MEDS: SPIRONOLACTONE 12.5MG PER 1/2 TABLET PO SCH (08:58)
[2019-06-13] MEDS: LOSARTAN 25 MG TAB PO SCH (08:59)
[2019-06-13] MEDS: TORSEMIDE 10 MG TABLET PO SCH (08:59)
[2019-06-13] MEDS: SERTRALINE HCL 25 MG TABLET PO SCH (08:59)
[2019-06-13] MEDS: ENOXAPARIN 40 MG/0.4 ML SYRINGE (J1650) SC SCH (08:59)
[2019-06-13] MEDS: HumaLOG INSULIN (NovoLOG) PER UNIT SC SCH ×4 (09:00→20:33)
[2019-06-13] MEDS: PERCOCET 5MG/325MG TAB PO PRN ×2 (09:06→23:56)
--- NOTE | 2019-06-13 09:25 | REP ---
PA and lateral chest: Comparisons are the PA and lateral chest of 06/11/[address] of 06/09/2019. There is a persisting large right hydropneumothorax, unchanged. There is widening of the pleural stripe along the right lateral chest wall in the right upper lobe, above the hydropneumothorax, possibly fluid in the pleural space. This is unchanged from the comparison PA and lateral chest. The left lung is clear. Left cardiac margin is unremarkable. Mediastinum and skeletal structures are unremarkable. Impression: No significant interval change from 06/11/2019. Electronically Signed by Samuel Brewer MD 06/13/2019 09:17 A
[2019-06-13 12:00] VITALS: BP 171/75
[2019-06-13 15:00] VITALS: BP 135/71
--- NOTE | 2019-06-13 15:34 | CCN ---
CRITICAL CARE PROGRESS NOTE DATE: 06/13/2019 The patient was seen and examined this morning during rounds. The patient appeared anxious and was complaining of pain despite receiving his as needed dose of Percocet. He was asking for his as needed morphine as he felt that it worked quicker and gave him more relief. He reports once he received the pain medication then his pain and anxiety improved and his shortness of breath also improves. He reports his cough has significantly improved. Has not had any fever or chills. He continues to have edema in his upper extremities as well as mild lower extremity edema. Denies any abdominal pain. No nausea and vomiting recently although he has reported some intermittent nausea episodes. PHYSICAL EXAM: Temperature 97.3, pulse 87, respirations 20, blood pressure 131/62, O2 sat 95% on room air. General: The patient is lying in bed, appears anxious but is alert and oriented times three and in no acute respiratory distress. HEENT: Is normocephalic, atraumatic. Mucous membranes are moist. Tongue is midline. Neck: Supple. No palpable adenopathy. Cardiovascular: There is regular rate and rhythm. Normal S1-S2. No murmurs auscultated. Pulmonary: Diminished breath sounds on the right lung with a few crackles at the left base. No wheezing or rhonchi. Abdomen: Was soft, nontender, nondistended. There is an ostomy in place on the left. Lower extremities: There is mild pitting edema in the lower extremities with more significant pitting edema in the upper extremities bilaterally. LABORATORY DATA: WBC 6.0, hemoglobin is 9.9, platelets are 318. Chemistry - sodium 137, potassium 4.5, chloride 102, bicarb 30, BUN 7, creatinine 0.74, glucose is 103. Micro QuantiFERON was negative. Sputum AFB negative. Sputum culture showed normal paul. Chest x-ray appears unchanged from previous with a large abscess with an air-fluid level in the right lower lobe. There is no infiltrates or opacities in the left lung. ASSESSMENT AND PLAN: Mr. 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 The patient was found on admission to have a large right right-sided abscess almost completely involving his right lower lobe with a significant air fluid level. The patient's sputum cultures and blood cultures have been negative. He does have a previous history of C. difficile. The patient was started on IV antibiotics initially with Unasyn as well as oral vancomycin given his history of C. Difficile. With the antibiotics his cough and hemoptysis has improved. The patient has remained afebrile without any significant leukocytosis. He was deescalated from Unasyn to Augmentin. The patient will need a prolonged course of antibiotics for his lung abscess. - The patient is to continue with Augmentin for at least a 6-week course of antibiotics, possibly longer depending on imaging resolution of his abscess. He would need followup chest x-rays every 2 weeks once discharged and close followup with pulmonary. - would continue with his by mouth vancomycin while on the antibiotics given the risk for recurrent C. Difficile. - Given his significant smoking history can give as needed albuterol nebulizers for shortness of breath. - The patient reports that he has been having desaturation with ambulation. He is currently saturating well on room air. Would ambulate him prior to discharge to see if the patient would require supplemental oxygen. - Continue the rest of his cardiac medications for episodes recurrent nonsustained ventricular tachycardia (NSVT) as per cardiology - continue with diuresis as per cardiology as well. Deep venous thrombosis (DVT) prophylaxis. Lovenox. FULL CODE. The patient can followup with pulmonary in 2 weeks with a repeat chest x-ray after his discharge. While inpatient he does not need daily x-rays. Please do not hesitate to call if any further questions or concerns. MTDD
[2019-06-13] MEDS ORDERED: hydrOXYzine 25 MG TAB PO ONE (16:00)
--- NOTE | 2019-06-13 18:08 | IPN ---
DATE: 06/13/2019 CARDIOLOGY PROGRESS NOTE SUBJECTIVE: The patient feels more relaxed with adjustment of his sedative/analgesic therapy. Continues to have considerable anxiety regarding his large pulmonary abscess. Has remained free of any awareness of his heart action. Is happy with the reduction in his cyst systemic edema with the introduction of diuretic therapy earlier today. OBJECTIVE: Elderly male, slightly barrel-chested and mildly overweight, but much more comfortable lying in bed today. Heart rate 83 bpm and regular, blood pressure 135/71, oxygen saturation 98% with respiratory rate 20 per minute. Remains afebrile. Has generated a negative fluid balance of approximately 1 liter today. Weight earlier was 84.8 kg. Continues to have elevated neck veins and obvious lumbar, sacral and lower leg swelling. Stony dullness and reduced air entry right lower lobe posteriorly. [employer]: On his current amiodarone therapy, his rhythm has considerably regularized. Fortunately, he is tolerating this medication without adverse effect. CHEST X-RAY: PA and left lateral study reviewed earlier today shows impressive opacification of two-thirds of his right chest with air fluid level. Unable to determine precise heart size. Ongoing very clear left lung. BLOOD WORK: No followup of complete blood count today. Electrolytes earlier today showed balance with potassium 4.5, magnesium level 2.1, BUN 7, creatinine 0.7. Curiously his pro-BNP level was normal, despite his obvious congested state. Serum albumin is only 1.6. IMPRESSION/PLAN: 1. Recurrent nonsustained ventricular tachycardia: As mentioned, I believe this is related to his acute complicated pulmonary process and underlying structural heart disease. Continues to tolerate his amiodarone 200 mg four times a day with good effect. As previously mentioned, we anticipate this antiarrhythmic will be able to be discontinued once his pulmonary process has been successfully treated. 2. Heart failure (diastolic/acute on chronic): Continues to have impressive systemic edema attributed to multiple factors including his left ventricular (LV) diastolic dysfunction, cor pulmonale and hypoalbuminemia. Is happy with his response to low-dose diuretic therapy started this morning. Will continue on the same with close monitoring of his chemistry. 3. Abnormal EKG: Remains free of symptoms to suggest myocardial ischemia. Continues on protective low-dose metoprolol, losartan, and aspirin. 4. Hypertensive heart disease (benign with heart failure): As previously mentioned, his shortness of breath is believed to be primarily related to his pulmonary problems, but likely has an element of pulmonary vascular congestion despite his chest x-ray and pro-BNP level, as suggested from his recent echocardiogram/Doppler study showing at least a mildly elevated mean left atrial pressure. His current blood pressure is controlled on his combination medical therapy. Hopefully, with improved nutrition, his hypoalbuminemia will also improve. 5. Cor pulmonale/right heart failure: Aggressive management of his pulmonary abscess continues. At this point, Dr. Yanes, my associate, will be following his cardiology issues.
[2019-06-13 20:00] VITALS: BP 131/65
[2019-06-13] MEDS: traZODone 50 MG TAB PO SCH (20:32)
[2019-06-13] MEDS: LEVEMIR (INSULIN DETEMIR) 1 UNITS/0.01ML SC SCH (20:33)
[2019-06-14] VITALS (7 sets, daily range): BP systolic 126–152; BP diastolic 57–88
[2019-06-14] MEDS: AMIODARONE 200 MG TAB (PACERONE) PO SCH ×4 (05:21→23:24)
[2019-06-14] MEDS: VANCOMYCIN ORAL SOL 250MG/5ML ORAL SYRINGE PO SCH ×4 (05:21→23:23)
[2019-06-14] MEDS: METOPROLOL TART 25 MG TABLET PO SCH ×4 (05:21→23:24)
[2019-06-14] MEDS: SLF 3 ML SYR IV SCH ×3 (05:23→22:13)
[2019-06-14 05:51] LABS: HEMATOCRIT 30.8 % (42.0-52.0); HEMOGLOBIN 9.7 g/dl (13.5-17.5); MEAN CORPUSCULAR HEMOGLOBIN 26.3 pg (27.0-33.0); MEAN CORPUSCULAR HGB CONC 31.5 g/dl (32.0-36.5); MEAN CORPUSCULAR VOLUME 83.5 fl (80.0-96.0); PLATELET COUNT, AUTOMATED 369 10^3/uL (150-450); RED BLOOD COUNT 3.69 10^6/uL (4.30-6.10); WHITE BLOOD COUNT 7.5 10^3/uL (4.0-10.0)
[2019-06-14 06:17] LABS: ALBUMIN 1.6 GM/DL (3.2-5.2); BLOOD UREA NITROGEN 6 MG/DL (7-18); CALCIUM LEVEL 8.5 MG/DL (8.8-10.2); CARBON DIOXIDE LEVEL 31 MEQ/L (21-32); CHLORIDE LEVEL 101 MEQ/L (98-107); CREATININE FOR GFR 0.87 MG/DL (0.70-1.30); GLOMERULAR FILTRATION RATE > 60.0 (>42); GLUCOSE, FASTING 135 MG/DL (70-100); PHOSPHORUS LEVEL 4.1 MG/DL (2.5-4.9); POTASSIUM SERUM 3.4 MEQ/L (3.5-5.1); SODIUM LEVEL 138 MEQ/L (136-145)
[2019-06-14] MEDS: HumaLOG INSULIN (NovoLOG) PER UNIT SC SCH ×5 (07:30→20:30)
[2019-06-14] MEDS: ALBUTEROL SULFATE 2.5 MG/0.5 ML INH NEB SOLN NEB SCH ×3 (08:00→20:11)
--- NOTE | 2019-06-14 08:10 | IPNPDOC ---
Text Note Date of Service The patient was seen on 06/14/19. NOTE Subjective: - had episodes of high anxiety yesterday, was requesting morphine for it to nursing, spoke with him that this was not the best strategy, agreed to hydroxyzine, improved after hydroxyzine 25mg -Worked with PT and walked 25 feet -No complaints this morning -Otherwise afebrile, no new cough, back on minimal supplemental oxygen, no hemoptysis 12 point ROS was reviewed and grossly negative Objective Physical Examination General Exam: Alert, No Acute Distress Eye Exam: PERRLA, EOMI, anicteric, no pallor ENT Exam: Atraumatic, MMM, Pharynx Normal Neck Exam: Supple; no JVD Chest Exam: Left lung clear to auscultation, the right remains diminished, nasal canula in place Heart Exam: RRR, no murmurs, rubs or gallops Abdomen Exam: Normoactive bowel sounds, soft, ostomy bag with brown formed soft stool, nontender Extremity Exam: 2+ DP pulses, bilateral UE edema much improved and LE without edema at this time Neuro Exam: Normal Speech, Strength at 5/5 X4 extremities Psych Exam: AOx3, normal affect, anxious Assessment /Plan 74 yo M with a history of Vocal cord squamous cell carcinoma, Anal cancer, Diabetes and Chronic pain who presented with progressive SOB and pleurisy and found to have a large right lung abscess who remains hemodynamically on augment in with thus far sputum with GPCs in pairs and negative TB workup whose course has been c/b asymptomatic NSVT with repeat EKG in NSR, TTE with some diastolic dysfunction and high anxiety that improved with hydroxyzine. Assessment # Large Right lung Abscess with pleuritic CP: CT chest (06/09) showed stable unchanged large fluid collection in the right lower lobe and a air-fluid level and multiple tiny air bubbles, as well as compression atelectasis of the right middle lobe and right upper lobe - Day # 9 of antibiotics, will take for 6 weeks per pulm, will follow him outpatient Q2W - Gram stain + GPC in pairs, AFB smear and quant gold negative, sputum cx with normal paul - cytology, Fungal smear, fungal cx, Mycoplasma cx and afb cultures are pending - percocet, and morphine prn for pleurisy - Chest PT - nebs prn - pulm onboard, appreciate recs # Asymptomatic NSVT - EKG showing NSR, although AFib was reported on night of 06/09 - Was seen by cardiology, given significant ectopy, placed 200 Q6H amio. Appreciate recs. -On metop 25Q6 - replete lytes aggressively PRN #Acute on chronic diastolic heart failure: s/p IV fluid, as well as hypoalbuminemic -continue 2g salt diet and fluid intake restriction per cardiology -continue torsemide 20 QD per cardiology as well as spironolactone 12.5 mg daily. -continue losartan 25 QD. # Passive Suicidal Ideation/Depression - Dr Pineda consulted, Per Dr. Barba, was last on Zoloft 50 in November, increased to 75 mg - no SI or HI at this time - quite anxious, will place on PRN hydroxyzine 25 BID PRN # NIDDM type 2 poorly controlled (A1c 11.1%) - lantus 15 units qhs - metformin on hold - continue with humalog sliding scale - vasotec 5 mg for DM renal protection # HTN - holding HCTZ in the setting of hypokalemia, monitor SBP - continue norvasc - added vasotec 5 mg day # Hypokalemia - repleted # Chronic pain syndrome - norco prn # H/o C. Diff - on prophylactic oral vancomycin (day # 7)while receiving abx for pulm infection - # Hx of anal and vocal cancers - previously treated # Moderate to Severe Protein Calorie Malnutrition with poorly controlled DM type 2, and muscle wasting - Dietary consult placed # DVT prophylaxis - SCDs + lovenox Plan Anticipated Discharge: per PT evaluation, was able to do 25 feet yesterday. VS,Jasbone, I+O VS, Fishbone, I+O Laboratory Tests 06/14/19 05:27 Red Blood Count 3.69 L, Mean Corpuscular Volume 83.5, Mean Corpuscular Hemoglobin 26.3 L, Mean Corpuscular Hemoglobin Concent 31.5 L, Red Cell Distribution Width 15.4 H, Anion Gap 6 L Vital Signs Date Time Temp Pulse Resp B/P (MAP) Pulse Ox O2 Delivery O2 Flow Rate FiO2 06/14/19 05:21 84 126/66 06/14/19 04:08 2.0 06/14/19 04:00 97.5 20 95 I&O- Last 24 Hours up to 6 AM 06/14/19 05:59 Intake Total 1352 ml Output Total 2200 ml Balance -848 ml TORY RUIZ MD Jun 14, 2019 08:10
[2019-06-14] MEDS ORDERED: POTASSIUM CHLORIDE 10 MEQ SR TABLET PO ONE (08:15)
[2019-06-14] MEDS: ASPIRIN 81 MG ENTERIC TAB PO SCH (08:19)
[2019-06-14] MEDS: CILOSTAZOL 100 MG TAB (PLETAL) PO SCH ×2 (08:20→20:38)
[2019-06-14] MEDS: AUGMENTIN 875 MG TAB PO SCH ×2 (08:20→20:38)
[2019-06-14] MEDS: SERTRALINE HCL 25 MG TABLET PO SCH (08:21)
[2019-06-14] MEDS: LOSARTAN 25 MG TAB PO SCH (08:21)
[2019-06-14] MEDS: TORSEMIDE 10 MG TABLET PO SCH (08:21)
[2019-06-14] MEDS: SPIRONOLACTONE 12.5MG PER 1/2 TABLET PO SCH (08:21)
[2019-06-14] MEDS: hydrOXYzine 25 MG TAB PO PRN ×2 (08:22→23:24)
[2019-06-14] MEDS: ENOXAPARIN 40 MG/0.4 ML SYRINGE (J1650) SC SCH (08:22)
[2019-06-14] MEDS: PERCOCET 5MG/325MG TAB PO PRN ×2 (17:09→23:25)
[2019-06-14] MEDS: traZODone 50 MG TAB PO SCH (20:38)
[2019-06-14] MEDS: LEVEMIR (INSULIN DETEMIR) 1 UNITS/0.01ML SC SCH (20:41)
[2019-06-15] MEDS: ALBUTEROL SULFATE 2.5 MG/0.5 ML INH NEB SOLN NEB SCH ×4 (00:51→19:21)
[2019-06-15 04:00] VITALS: BP 128/60
[2019-06-15 05:32] LABS: HEMATOCRIT 31.6 % (42.0-52.0); HEMOGLOBIN 9.9 g/dl (13.5-17.5); MEAN CORPUSCULAR HEMOGLOBIN 26.7 pg (27.0-33.0); MEAN CORPUSCULAR HGB CONC 31.3 g/dl (32.0-36.5); MEAN CORPUSCULAR VOLUME 85.2 fl (80.0-96.0); PLATELET COUNT, AUTOMATED 345 10^3/uL (150-450); RED BLOOD COUNT 3.71 10^6/uL (4.30-6.10)
[2019-06-15 05:48] LABS: ALBUMIN 1.5 GM/DL (3.2-5.2); BLOOD UREA NITROGEN 6 MG/DL (7-18); CALCIUM LEVEL 8.7 MG/DL (8.8-10.2); CARBON DIOXIDE LEVEL 29 MEQ/L (21-32); CHLORIDE LEVEL 103 MEQ/L (98-107); CREATININE FOR GFR 0.74 MG/DL (0.70-1.30); GLOMERULAR FILTRATION RATE > 60.0 (>42); GLUCOSE, FASTING 129 MG/DL (70-100); MAGNESIUM LEVEL 1.9 MG/DL (1.8-2.4); PHOSPHORUS LEVEL 3.5 MG/DL (2.5-4.9); SODIUM LEVEL 138 MEQ/L (136-145)
[2019-06-15] MEDS: VANCOMYCIN ORAL SOL 250MG/5ML ORAL SYRINGE PO SCH ×3 (05:53→17:40)
[2019-06-15] MEDS: AMIODARONE 200 MG TAB (PACERONE) PO SCH ×3 (05:54→17:39)
[2019-06-15] MEDS: METOPROLOL TART 25 MG TABLET PO SCH ×3 (05:55→17:40)
[2019-06-15] MEDS: SLF 3 ML SYR IV SCH ×3 (05:56→20:53)
[2019-06-15 07:33] VITALS: BP 130/63
[2019-06-15] MEDS: hydrOXYzine 25 MG TAB PO PRN ×2 (07:50→20:53)
[2019-06-15] MEDS: PERCOCET 5MG/325MG TAB PO PRN (07:51)
[2019-06-15] MEDS: HumaLOG INSULIN (NovoLOG) PER UNIT SC SCH ×4 (07:52→20:44)
[2019-06-15] MEDS: AUGMENTIN 875 MG TAB PO SCH ×2 (07:53→20:53)
[2019-06-15] MEDS: ENOXAPARIN 40 MG/0.4 ML SYRINGE (J1650) SC SCH (08:16)
[2019-06-15] MEDS: ASPIRIN 81 MG ENTERIC TAB PO SCH (08:16)
[2019-06-15] MEDS: CILOSTAZOL 100 MG TAB (PLETAL) PO SCH ×2 (08:17→20:53)
[2019-06-15] MEDS: TORSEMIDE 10 MG TABLET PO SCH (08:18)
[2019-06-15] MEDS: LOSARTAN 25 MG TAB PO SCH (08:18)
[2019-06-15] MEDS: SPIRONOLACTONE 12.5MG PER 1/2 TABLET PO SCH (08:18)
[2019-06-15] MEDS: SERTRALINE HCL 25 MG TABLET PO SCH (08:24)
--- NOTE | 2019-06-15 08:39 | IPNPDOC ---
Text Note Date of Service The patient was seen on 06/15/19. NOTE Subjective: -High degree of anxiety, placed on hydroxyzine 25 BID PRN -No complaints this morning, agreeable to STR as he realizes that he will need rehabilitation to get home safely -Otherwise afebrile, no new cough, back on minimal supplemental oxygen, no hemoptysis 12 point ROS was reviewed and grossly negative Objective Physical Examination General Exam: Alert, No Acute Distress Eye Exam: PERRLA, EOMI, anicteric, no pallor ENT Exam: Atraumatic, MMM, Pharynx Normal Neck Exam: Supple; no JVD Chest Exam: Left lung clear to auscultation, the right remains diminished, nasal canula in place Heart Exam: RRR, no murmurs, rubs or gallops Abdomen Exam: Normoactive bowel sounds, soft, ostomy bag with brown formed soft stool, nontender Extremity Exam: 2+ DP pulses, bilateral UE edema much improved and LE without edema at this time Neuro Exam: Normal Speech, Strength at 5/5 X4 extremities Psych Exam: AOx3, normal affect, anxious Assessment /Plan 74 yo M with a history of Vocal cord squamous cell carcinoma, Anal cancer, Diabetes and Chronic pain who presented with progressive SOB and pleurisy and found to have a large right lung abscess who remains hemodynamically on augmentin with thus far sputum with GPCs in pairs and negative TB workup whose course has been c/b asymptomatic NSVT with repeat EKG in NSR, TTE with some diastolic dysfunction and high anxiety that has improved with hydroxyzine. Assessment # Large Right lung Abscess with pleuritic CP: CT chest (06/09) showed stable unchanged large fluid collection in the right lower lobe and a air-fluid level and multiple tiny air bubbles, as well as compression atelectasis of the right middle lobe and right upper lobe - Day # 10 of antibiotics, will take for 6 weeks per pulm, will follow him outpatient Q2W - Gram stain + GPC in pairs, AFB smear and quant gold negative, sputum cx with normal paul - cytology, Fungal smear, fungal cx, Mycoplasma cx and afb cultures are pending - percocet, and morphine prn for pleurisy - Chest PT - nebs prn - pulm onboard, appreciate recs # Asymptomatic NSVT - EKG showing NSR, although AFib was reported on night of 06/09 - Was seen by cardiology, given significant ectopy, placed 200 Q6H amio. Appreciate recs. -On metop 25Q6 - replete lytes aggressively PRN #Acute on chronic diastolic heart failure: s/p IV fluid, as well as hypoalbuminemic -continue 2g salt diet and fluid intake restriction per cardiology -continue torsemide 20 QD per cardiology as well as spironolactone 12.5 mg daily. -continue losartan 25 QD. # Passive Suicidal Ideation/Depression - Dr Pineda consulted, Per Dr. Barba, was last on Zoloft 50 in November, increased to 75 mg - no SI or HI at this time - quite anxious, started on hydroxyzine 25 BID PRN # NIDDM type 2 poorly controlled (A1c 11.1%) - lantus 15 units qhs - metformin on hold - continue with humalog sliding scale - vasotec 5 mg for DM renal protection # HTN - holding HCTZ in the setting of hypokalemia, monitor SBP - continue norvasc - added vasotec 5 mg day # Hypokalemia - repleted # Chronic pain syndrome - norco prn # H/o C. Diff - on prophylactic oral vancomycin (day # 8)while receiving abx for pulm infection - # Hx of anal and vocal cancers - previously treated # Moderate to Severe Protein Calorie Malnutrition with poorly controlled DM type 2, and muscle wasting - Dietary consult placed # DVT prophylaxis - SCDs + lovenox Plan Anticipated Discharge: per PT evaluation, likely STR given deconditioned state VS,Fishbone, I+O VS, Fishbone, I+O Laboratory Tests 06/15/19 04:58 Red Blood Count 3.71 L, Mean Corpuscular Volume 85.2, Mean Corpuscular Hemoglobin 26.7 L, Mean Corpuscular Hemoglobin Concent 31.3 L, Red Cell Distribution Width 15.6 H, Anion Gap 6 L Vital Signs Date Time Temp Pulse Resp B/P (MAP) Pulse Ox O2 Delivery O2 Flow Rate FiO2 06/15/19 07:51 18 06/15/19 07:33 97.5 74 130/63 (85) 100 06/15/19 04:01 2.0 I&O- Last 24 Hours up to 6 AM 06/15/19 06:00 Intake Total 1260 ml Output Total 2800 ml Balance -1540 ml TORY RUIZ MD Jun 15, 2019 08:39
[2019-06-15 11:17] VITALS: BP 123/58
[2019-06-15 15:51] VITALS: BP 118/78
[2019-06-15 20:00] VITALS: BP 115/59
[2019-06-15] MEDS: traZODone 50 MG TAB PO SCH (20:53)
[2019-06-15] MEDS: LEVEMIR (INSULIN DETEMIR) 1 UNITS/0.01ML SC SCH (20:53)
[2019-06-16] VITALS (7 sets, daily range): BP systolic 103–158; BP diastolic 54–74
[2019-06-16] MEDS: VANCOMYCIN ORAL SOL 250MG/5ML ORAL SYRINGE PO SCH ×5 (00:39→23:44)
[2019-06-16] MEDS: PERCOCET 5MG/325MG TAB PO PRN ×3 (00:40→14:25)
[2019-06-16] MEDS: METOPROLOL TART 25 MG TABLET PO SCH ×5 (00:42→23:45)
[2019-06-16] MEDS: ALBUTEROL SULFATE 2.5 MG/0.5 ML INH NEB SOLN NEB SCH ×4 (02:45→19:48)
[2019-06-16] MEDS: SLF 3 ML SYR IV SCH ×3 (05:46→20:19)
[2019-06-16 05:47] LABS: HEMATOCRIT 30.4 % (42.0-52.0); HEMOGLOBIN 9.6 g/dl (13.5-17.5); MEAN CORPUSCULAR HEMOGLOBIN 26.8 pg (27.0-33.0); MEAN CORPUSCULAR HGB CONC 31.6 g/dl (32.0-36.5); MEAN CORPUSCULAR VOLUME 84.9 fl (80.0-96.0); PLATELET COUNT, AUTOMATED 343 10^3/uL (150-450); RED BLOOD COUNT 3.58 10^6/uL (4.30-6.10); WHITE BLOOD COUNT 5.8 10^3/uL (4.0-10.0)
[2019-06-16 06:09] LABS: ALBUMIN 1.6 GM/DL (3.2-5.2); BLOOD UREA NITROGEN 6 MG/DL (7-18); CALCIUM LEVEL 8.6 MG/DL (8.8-10.2); CARBON DIOXIDE LEVEL 28 MEQ/L (21-32); CHLORIDE LEVEL 102 MEQ/L (98-107); CREATININE FOR GFR 0.77 MG/DL (0.70-1.30); GLOMERULAR FILTRATION RATE > 60.0 (>42); GLUCOSE, FASTING 130 MG/DL (70-100); PHOSPHORUS LEVEL 3.7 MG/DL (2.5-4.9); POTASSIUM SERUM 3.4 MEQ/L (3.5-5.1); SODIUM LEVEL 138 MEQ/L (136-145)
[2019-06-16] MEDS: hydrOXYzine 25 MG TAB PO PRN ×2 (08:06→20:17)
[2019-06-16] MEDS ORDERED: POTASSIUM CHLORIDE 10 MEQ SR TABLET PO ONE (09:00)
[2019-06-16] MEDS: ENOXAPARIN 40 MG/0.4 ML SYRINGE (J1650) SC SCH (09:09)
[2019-06-16] MEDS: SERTRALINE HCL 25 MG TABLET PO SCH (09:10)
[2019-06-16] MEDS: HumaLOG INSULIN (NovoLOG) PER UNIT SC SCH ×4 (09:10→20:09)
[2019-06-16] MEDS: SPIRONOLACTONE 12.5MG PER 1/2 TABLET PO SCH (09:11)
[2019-06-16] MEDS: AMIODARONE 200 MG TAB (PACERONE) PO SCH (09:11)
[2019-06-16] MEDS: AUGMENTIN 875 MG TAB PO SCH ×2 (09:11→20:18)
[2019-06-16] MEDS: LOSARTAN 25 MG TAB PO SCH (09:11)
[2019-06-16] MEDS: ASPIRIN 81 MG ENTERIC TAB PO SCH (09:12)
[2019-06-16] MEDS: TORSEMIDE 10 MG TABLET PO SCH (09:12)
[2019-06-16] MEDS: CILOSTAZOL 100 MG TAB (PLETAL) PO SCH ×2 (09:17→20:17)
[2019-06-16] MEDS: ANALGESIC BALM CRM 120 GM TOP PRN ×2 (14:25→23:42)
--- NOTE | 2019-06-16 16:05 | IPNPDOC ---
Text Note Date of Service The patient was seen on 06/16/19. NOTE Subjective: -No complaints this morning, poor sleep in the early part of the night but better by this morning -Otherwise afebrile, no new cough, back on minimal supplemental oxygen, no hemoptysis 12 point ROS was reviewed and grossly negative Objective Physical Examination General Exam: Alert, No Acute Distress Eye Exam: PERRLA, EOMI, anicteric, no pallor ENT Exam: Atraumatic, MMM, Pharynx Normal Neck Exam: Supple; no JVD Chest Exam: Left lung clear to auscultation, the right remains diminished, nasal canula in place Heart Exam: RRR, no murmurs, rubs or gallops Abdomen Exam: Normoactive bowel sounds, soft, ostomy bag with some formed brown stool, nontender Extremity Exam: 2+ DP pulses, bilateral UE edema much improved and LE without edema at this time Neuro Exam: Normal Speech, Strength at 5/5 X4 extremities Psych Exam: AOx3, normal affect, calm, pleasant Assessment /Plan 74 yo M with a history of Vocal cord squamous cell carcinoma, Anal cancer, Diabetes and Chronic pain who presented with progressive SOB and pleurisy and found to have a large right lung abscess who remains hemodynamically on augmentin with sputum growing mixed paul and negative TB workup whose course has been c/b asymptomatic NSVT with repeat EKG in NSR, TTE with some diastolic dysfunction and high anxiety that has improved with hydroxyzine, now pending final PT recs for discharge planning and likely STR placement. Assessment # Large Right lung Abscess with pleuritic CP: CT chest (06/09) showed stable unchanged large fluid collection in the right lower lobe and a air-fluid level and multiple tiny air bubbles, as well as compression atelectasis of the right middle lobe and right upper lobe - Day # 11 of antibiotics, will take for 6 weeks per pulm, will follow him outpatient Q2W - Gram stain + GPC in pairs, AFB smear and quant gold negative, sputum cx with normal paul - cytology, Fungal smear, fungal cx, Mycoplasma cx and afb cultures are pending - percocet, and morphine prn for pleurisy - Chest PT - nebs prn - pulm onboard, appreciate recs # Asymptomatic NSVT - EKG showing NSR, although AFib was reported on night of 06/09 - Was seen by cardiology, given significant ectopy, placed on 200 Q6H amio. Appreciate recs. -Continue metop 25Q6 - replete lytes aggressively PRN #Acute on chronic diastolic heart failure: s/p IV fluid, as well as hypoalbuminemic -continue 2g salt diet and fluid intake restriction per cardiology -continue torsemide 20 QD per cardiology as well as spironolactone 12.5 mg daily. -continue losartan 25 QD. # Passive Suicidal Ideation/Depression - Dr Pineda consulted, Per Dr. Barba, was last on Zoloft 50 in November, increased to 75 mg - no SI or HI at this time - quite anxious, continue on hydroxyzine 25 BID PRN # NIDDM type 2 poorly controlled (A1c 11.1%) - lantus 15 units qhs - metformin on hold - continue with humalog sliding scale - vasotec 5 mg for DM renal protection # HTN - holding HCTZ in the setting of hypokalemia, monitor SBP - continue norvasc - added vasotec 5 mg day # Hypokalemia - repleted # Chronic pain syndrome - norco prn # H/o C. Diff - on prophylactic oral vancomycin (day # 8)while receiving abx for pulm i nfection - # Hx of anal and vocal cancers - previously treated # Moderate to Severe Protein Calorie Malnutrition with poorly controlled DM type 2, and muscle wasting - Dietary consult placed # DVT prophylaxis - SCDs + lovenox Plan Anticipated Discharge: per PT evaluation, likely STR given deconditioned state VS,Fishbone, I+O VS, Fishbone, I+O Laboratory Tests 06/16/19 05:16 Red Blood Count 3.58 L, Mean Corpuscular Volume 84.9, Mean Corpuscular Hemoglobin 26.8 L, Mean Corpuscular Hemoglobin Concent 31.6 L, Red Cell Distribution Width 15.7 H, Anion Gap 8 Vital Signs Date Time Temp Pulse Resp B/P (MAP) Pulse Ox O2 Delivery O2 Flow Rate FiO2 06/16/19 14:25 18 06/16/19 12:45 70 158/70 06/16/19 12:00 97.3 97 2.0 I&O- Last 24 Hours up to 6 AM 06/16/19 06:00 Intake Total 1990 ml Output Total 2650 ml Balance -660 ml TORY RUIZ MD Jun 16, 2019 16:05
[2019-06-16] MEDS: traZODone 50 MG TAB PO SCH (20:17)
[2019-06-16] MEDS: LEVEMIR (INSULIN DETEMIR) 1 UNITS/0.01ML SC SCH (20:19)
[2019-06-17] MEDS: PERCOCET 5MG/325MG TAB PO PRN ×3 (01:02→17:00)
[2019-06-17] MEDS: ALBUTEROL SULFATE 2.5 MG/0.5 ML INH NEB SOLN NEB SCH ×4 (01:43→20:00)
[2019-06-17 04:00] VITALS: BP 152/66
[2019-06-17] MEDS: SLF 3 ML SYR IV SCH ×3 (05:13→20:48)
[2019-06-17] MEDS: METOPROLOL TART 25 MG TABLET PO SCH ×3 (05:13→17:55)
[2019-06-17] MEDS: VANCOMYCIN ORAL SOL 250MG/5ML ORAL SYRINGE PO SCH ×3 (05:13→17:55)
[2019-06-17 06:16] LABS: HEMATOCRIT 31.4 % (42.0-52.0); MEAN CORPUSCULAR HEMOGLOBIN 26.7 pg (27.0-33.0); MEAN CORPUSCULAR HGB CONC 31.8 g/dl (32.0-36.5); MEAN CORPUSCULAR VOLUME 83.7 fl (80.0-96.0); PLATELET COUNT, AUTOMATED 354 10^3/uL (150-450); RED BLOOD COUNT 3.75 10^6/uL (4.30-6.10); WHITE BLOOD COUNT 5.3 10^3/uL (4.0-10.0)
[2019-06-17 06:31] LABS: BLOOD UREA NITROGEN 6 MG/DL (7-18); CALCIUM LEVEL 8.6 MG/DL (8.8-10.2); CARBON DIOXIDE LEVEL 27 MEQ/L (21-32); CHLORIDE LEVEL 105 MEQ/L (98-107); CREATININE FOR GFR 0.69 MG/DL (0.70-1.30); GLOMERULAR FILTRATION RATE > 60.0 (>42); GLUCOSE, FASTING 68 MG/DL (70-100); SODIUM LEVEL 139 MEQ/L (136-145)
[2019-06-17] MEDS: HumaLOG INSULIN (NovoLOG) PER UNIT SC SCH ×4 (07:30→20:41)
[2019-06-17] MEDS: CILOSTAZOL 100 MG TAB (PLETAL) PO SCH ×2 (07:57→20:47)
[2019-06-17 08:00] VITALS: BP 123/62
--- NOTE | 2019-06-17 08:03 | IPNPDOC ---
Text Note Date of Service The patient was seen on 06/17/19. NOTE Subjective: Patient seen and examined at bedside. Anxious this morning. Concerned about his morning blood glucose levels, and shortness of breath. Objective: General Exam: NAD, lying comfortably in bed, anxious HEENT: NC/AT, EOMI, PERRL Neck Exam: Supple; no JVD Chest Exam: CTA B/L, somewhat diminished breath sounds Heart Exam: RRR, no murmurs, rubs or gallops, +S1S2 Abdomen Exam: soft, NT, +BS, ostomy bag with some formed brown stool Extremity Exam: trace peripheral edema, bandages in place RUE forearm Assessment /Plan: 74 yo M with a history of Vocal cord squamous cell carcinoma, Anal cancer, Diabetes and Chronic pain who presented with progressive SOB and pleurisy and found to have a large right lung abscess, with sputum growing mixed paul and negative TB workup. Hospital stay complicated with asymptomatic NSVT, TTE shows some diastolic dysfunction, and anxiety that has improved with hydroxyzine. Now pending final PT recs for discharge planning and likely STR placement. # Large Right lung Abscess with pleuritic CP - CT chest (06/09) showed stable unchanged large fluid collection in the right lower lobe and a air-fluid level and multiple tiny air bubbles, as well as compression atelectasis of the right middle lobe and right upper lobe - Day # 12 of antibiotics - duration 6 weeks per pulm, will follow him outpatient Q2W - Gram stain + GPC in pairs, AFB smear and quant gold negative, sputum cx with normal paul - cytology, Fungal smear, fungal cx, Mycoplasma cx and afb cultures are pending - percocet, and morphine prn for pleurisy - Chest PT - nebs prn - pulm onboard, appreciate recs # Asymptomatic NSVT - EKG showing NSR, although AFib was reported on night of 06/09 - Was seen by cardiology, given significant ectopy, placed on 200 Q6H amio. Appreciate recs. -Continue metop 25Q6 - replete lytes aggressively PRN #Acute on chronic diastolic heart failure: s/p IV fluid, as well as hypoalbuminemic -continue 2g salt diet and fluid intake restriction per cardiology -continue torsemide 20 QD per cardiology as well as spironolactone 12.5 mg daily. -continue losartan 25 QD. # Passive Suicidal Ideation/Depression - Dr Pineda consulted, Per Dr. Barba, was last on Zoloft 50 in November, increased to 75 mg - no SI or HI at this time - quite anxious, continue on hydroxyzine 25 BID PRN # NIDDM type 2 poorly controlled (A1c 11.1%) - lantus 15 units qhs - metformin on hold - continue with humalog sliding scale - vasotec 5 mg for DM renal protection # HTN - holding HCTZ in the setting of hypokalemia, monitor SBP - continue norvasc, vasotec 5 mg day # Hypokalemia - repleted # Chronic pain syndrome - norco prn # H/o C. Diff - on prophylactic oral vancomycin (day # 8)while receiving abx for pulm infection - # Hx of anal and vocal cancers - previously treated # Moderate to Severe Protein Calorie Malnutrition with poorly controlled DM type 2, and muscle wasting - Dietary consult placed # DVT prophylaxis - SCDs + lovenox Plan Anticipated Discharge: per PT evaluation, likely STR given deconditioned state VS,Fishbone, I+O VS, Fishbone, I+O Laboratory Tests 06/17/19 05:21 Calcium Level 8.6 L 06/17/19 06:00 Red Blood Count 3.75 L, Mean Corpuscular Volume 83.7, Mean Corpuscular Hemoglobin 26.7 L, Mean Corpuscular Hemoglobin Concent 31.8 L, Red Cell Distribution Width 15.6 H Vital Signs Date Time Temp Pulse Resp B/P (MAP) Pulse Ox O2 Delivery O2 Flow Rate FiO2 06/17/19 05:13 84 152/66 06/17/19 04:00 97.9 18 94 06/16/19 12:00 2.0 I&O- Last 24 Hours up to 6 AM 06/17/19 05:59 Intake Total 1470 ml Output Total 2050 ml Balance -580 ml THERESA BOWER MD Jun 17, 2019 08:03
[2019-06-17] MEDS: SPIRONOLACTONE 12.5MG PER 1/2 TABLET PO SCH (09:07)
[2019-06-17] MEDS: ASPIRIN 81 MG ENTERIC TAB PO SCH (09:07)
[2019-06-17] MEDS: AUGMENTIN 875 MG TAB PO SCH ×2 (09:07→20:48)
[2019-06-17] MEDS: ENOXAPARIN 40 MG/0.4 ML SYRINGE (J1650) SC SCH (09:07)
[2019-06-17] MEDS: SERTRALINE HCL 25 MG TABLET PO SCH (09:07)
[2019-06-17] MEDS: TORSEMIDE 10 MG TABLET PO SCH (09:08)
[2019-06-17] MEDS: AMIODARONE 200 MG TAB (PACERONE) PO SCH (09:08)
[2019-06-17] MEDS: LOSARTAN 25 MG TAB PO SCH (09:08)
[2019-06-17 12:00] VITALS: BP 115/67
[2019-06-17] MEDS: hydrOXYzine 25 MG TAB PO PRN (12:07)
[2019-06-17 16:00] VITALS: BP 110/55
[2019-06-17 20:00] VITALS: BP 110/64
[2019-06-17] MEDS: LEVEMIR (INSULIN DETEMIR) 1 UNITS/0.01ML SC SCH (20:47)
[2019-06-17] MEDS: traZODone 50 MG TAB PO SCH (20:47)
[2019-06-17 23:59] VITALS: BP 106/55
[2019-06-18] MEDS: VANCOMYCIN ORAL SOL 250MG/5ML ORAL SYRINGE PO SCH ×3 (00:27→12:27)
[2019-06-18] MEDS: hydrOXYzine 25 MG TAB PO PRN (00:27)
[2019-06-18] MEDS: ALBUTEROL SULFATE 2.5 MG/0.5 ML INH NEB SOLN NEB SCH (01:46)
[2019-06-18 04:00] VITALS: BP 124/67
[2019-06-18 05:21] LABS: HEMATOCRIT 31.3 % (42.0-52.0); HEMOGLOBIN 9.7 g/dl (13.5-17.5); MEAN CORPUSCULAR HEMOGLOBIN 25.8 pg (27.0-33.0); MEAN CORPUSCULAR VOLUME 83.2 fl (80.0-96.0); PLATELET COUNT, AUTOMATED 365 10^3/uL (150-450); RED BLOOD COUNT 3.76 10^6/uL (4.30-6.10); WHITE BLOOD COUNT 5.3 10^3/uL (4.0-10.0)
[2019-06-18] MEDS: METOPROLOL TART 25 MG TABLET PO SCH ×3 (06:09→12:27)
[2019-06-18] MEDS: SLF 3 ML SYR IV SCH (06:09)
[2019-06-18] MEDS: PERCOCET 5MG/325MG TAB PO PRN (06:10)
[2019-06-18 08:00] VITALS: BP 133/67
--- NOTE | 2019-06-18 08:01 | IPNPDOC ---
Text Note Date of Service The patient was seen on 06/18/19. NOTE Subjective: Patient seen and examined at bedside. Anxious this morning. Concerned about his morning blood glucose levels, and shortness of breath. Objective: General Exam: NAD, lying comfortably in bed, anxious HEENT: NC/AT, EOMI, PERRL Neck Exam: Supple; no JVD Chest Exam: CTA B/L, somewhat diminished breath sounds Heart Exam: RRR, no murmurs, rubs or gallops, +S1S2 Abdomen Exam: soft, NT, +BS, ostomy bag with some formed brown stool Extremity Exam: trace peripheral edema, bandages in place RUE forearm Assessment /Plan: 74 yo M with a history of Vocal cord squamous cell carcinoma, Anal cancer, Diabetes and Chronic pain who presented with progressive SOB and pleurisy and found to have a large right lung abscess, with sputum growing mixed paul and negative TB workup. Hospital stay complicated with asymptomatic NSVT, TTE shows some diastolic dysfunction, and anxiety that has improved with hydroxyzine. Now pending final PT recs for discharge planning and likely STR placement. # Large Right lung Abscess with pleuritic CP - CT chest (06/09) showed stable unchanged large fluid collection in the right lower lobe and a air-fluid level and multiple tiny air bubbles, as well as compression atelectasis of the right middle lobe and right upper lobe - Day # 13 of antibiotics (Augmentin) - duration 6 weeks per pulm, will follow him outpatient Q2W - Gram stain + GPC in pairs, AFB smear and quant gold negative, sputum cx with normal pual - cytology, Fungal smear, fungal cx, Mycoplasma cx and afb cultures are pending - percocet, and morphine prn for pleurisy - Chest PT - nebs prn - pulm onboard, appreciate recs # Asymptomatic NSVT - EKG showing NSR, although AFib was reported on night of 06/09 - Was seen by cardiology, given significant ectopy, placed on 200 Q6H amio. Appreciate recs. - continue metop 25Q6 - replete lytes aggressively PRN #Acute on chronic diastolic heart failure: s/p IV fluid, as well as hypoalbuminemic -continue 2g salt diet and fluid intake restriction per cardiology -continue torsemide 20 QD per cardiology as well as spironolactone 12.5 mg daily. -continue losartan 25 QD. # Passive Suicidal Ideation/Depression - Dr Pineda consulted, Per Dr. Barba, was last on Zoloft 50 in November, increased to 75 mg - no SI or HI at this time - quite anxious, continue on hydroxyzine 25 BID PRN # NIDDM type 2 poorly controlled (A1c 11.1%) - lantus 15 units qhs - metformin on hold - continue with humalog sliding scale - vasotec 5 mg for DM renal protection # HTN - holding HCTZ in the setting of hypokalemia, monitor SBP - continue norvasc, vasotec 5 mg day # Hypokalemia - repleted # Chronic pain syndrome - norco prn # H/o C. Diff - on prophylactic oral vancomycin (day # 8)while receiving abx for pulm infection - # Hx of anal and vocal cancers - previously treated # Moderate to Severe Protein Calorie Malnutrition with poorly controlled DM type 2, and muscle wasting - Dietary consult placed # DVT prophylaxis - SCDs + lovenox Dispo: per PT evaluation, likely STR given deconditioned state VS,Fishbone, I+O VS, Fishbone, I+O Laboratory Tests 06/18/19 04:51 Red Blood Count 3.76 L, Mean Corpuscular Volume 83.2, Mean Corpuscular Hemoglobin 25.8 L, Mean Corpuscular Hemoglobin Concent 31.0 L, Red Cell Distribution Width 15.6 H Vital Signs Date Time Temp Pulse Resp B/P (MAP) Pulse Ox O2 Delivery O2 Flow Rate FiO2 06/18/19 06:40 18 06/18/19 06:09 86 130/64 06/18/19 04:00 98.3 100 06/17/19 20:01 Room Air 06/16/19 12:00 2.0 I&O- Last 24 Hours up to 6 AM 06/18/19 05:59 Intake Total 1470 ml Output Total 3400 ml Balance -1930 ml THERESA BOWER MD Jun 18, 2019 08:01
[2019-06-18 08:19] LABS: BLOOD UREA NITROGEN 7 MG/DL (7-18); CALCIUM LEVEL 8.4 MG/DL (8.8-10.2); CARBON DIOXIDE LEVEL 29 MEQ/L (21-32); CHLORIDE LEVEL 102 MEQ/L (98-107); CREATININE FOR GFR 0.78 MG/DL (0.70-1.30); GLOMERULAR FILTRATION RATE > 60.0 (>42); GLUCOSE, FASTING 103 MG/DL (70-100); POTASSIUM SERUM 4.1 MEQ/L (3.5-5.1); SODIUM LEVEL 139 MEQ/L (136-145)
[2019-06-18] MEDS: ENOXAPARIN 40 MG/0.4 ML SYRINGE (J1650) SC SCH (08:36)
[2019-06-18] MEDS: HumaLOG INSULIN (NovoLOG) PER UNIT SC SCH ×2 (08:36→12:00)
[2019-06-18] MEDS: SERTRALINE HCL 25 MG TABLET PO SCH (08:37)
[2019-06-18] MEDS: AUGMENTIN 875 MG TAB PO SCH (08:37)
[2019-06-18] MEDS: SPIRONOLACTONE 12.5MG PER 1/2 TABLET PO SCH (08:37)
[2019-06-18] MEDS: AMIODARONE 200 MG TAB (PACERONE) PO SCH (08:37)
[2019-06-18] MEDS: ASPIRIN 81 MG ENTERIC TAB PO SCH (08:37)
[2019-06-18] MEDS: TORSEMIDE 10 MG TABLET PO SCH (08:38)
[2019-06-18] MEDS: LOSARTAN 25 MG TAB PO SCH (08:38)
[2019-06-18] MEDS: ANALGESIC BALM CRM 120 GM TOP PRN (08:43)
[2019-06-18] MEDS ORDERED: hydrOXYzine 25 MG TAB PO PRN (08:45)
[2019-06-18] MEDS: CILOSTAZOL 100 MG TAB (PLETAL) PO SCH (10:36)
[2019-06-18 12:00] VITALS: BP 126/61
--- NOTE | 2019-06-18 12:18 | DS.PDOC ---
Discharge Summary General Date of Admission Jun 06, 2019 at 12:36 Date of Discharge 06/18/19 Specialist/Consultants Involve pulmonology, psychiatry, cardiology dr. desai, dr. phelps, dr. mcmullen Discharge Summary PROCEDURES PERFORMED DURING STAY: thoracentesis ADMITTING DIAGNOSES: Symptomatic right pleural effusion Right lung abscess s/p thoracentesis DISCHARGE DIAGNOSES: Anal cancer. Vocal cord squamous cell carcinoma. Diabetes. Hypertension. Insomnia. Chronic pain. anxiety/depression COMPLICATIONS/CHIEF COMPLAINT: Pleural Effusion. HOSPITAL COURSE: 74 yo M with a history of left vocal cord squamous cell carcinoma, anal cancer s/p resection with colostomy, GERD, depression/anxiety, diabetes and chronic pain presented with progressive SOB, cough, hemoptysis and pleurisy and found to have a large right lung abscess almost completely involving his right lower lobe with a significant air fluid level. Sputum cultures were growing mixed paul and TB workup was negative. He does have a previous history of C.difficile. The patient was started on IV antibiotics initially with Unasyn as well as oral vancomycin given his history of C. Difficile. With the antibiotics his cough and hemoptysis has improved. The patient has remained afebrile without any significant leukocytosis. He was deescalated from Unasyn to Augmentin. He will need a prolonged course of antibiotics for his lung abscess, and is to continue with Augmentin for at least a 6-week course, possibly longer depending on imaging resolution of his abscess. He would need followup chest x-rays every 2 weeks once discharged and close followup with pulmonary. Will continue with his by mouth vancomycin while on the antibiotics given the risk for recurrent C. Difficile. His hospital course was complicated with asymptomatic NSVT, a TTE showed some diastolic dysfunction, and anxiety which improved with hydroxyzine. # Large Right lung Abscess with pleuritic CP: CT chest (06/09) showed stable unchanged large fluid collection in the right lower lobe and a air-fluid level and multiple tiny air bubbles, as well as compression atelectasis of the right middle lobe and right upper lobe - Augmentin - will take for 6 weeks per pulm, will follow him outpatient Q2W including interim chest x-rays - Gram stain + GPC in pairs, AFB smear and quant gold negative, sputum cx with normal paul - cytology, Fungal smear, fungal cx, Mycoplasma cx and afb cultures are pending - percocet, and morphine prn for pleurisy - Chest PT - nebs prn # Asymptomatic NSVT - EKG showing NSR, although AFib was reported on night of 06/09 - Was seen by cardiology, given significant ectopy, placed on 200 Q6H amio. Appreciate recs. -Continue metop 25Q6 #Acute on chronic diastolic heart failure: s/p IV fluid, as well as hypoalbumi nemic -continue 2g salt diet and fluid intake restriction per cardiology -continue torsemide 20 QD per cardiology as well as spironolactone 12.5 mg daily. -continue losartan 25 QD. # Passive Suicidal Ideation/Depression - Dr Pineda consulted, Per Dr. Barba, was last on Zoloft 50 in November, increased to 75 mg - no SI or HI at this time - quite anxious, continue on hydroxyzine 25 TID PRN # NIDDM type 2 poorly controlled (A1c 11.1%) - vasotec 5 mg for DM renal protection # HTN - holding HCTZ in the setting of hypokalemia, monitor SBP - continue norvasc - added vasotec 5 mg day # Hypokalemia # Chronic pain syndrome - norco prn # H/o C. Diff - on prophylactic oral vancomycin while receiving abx for pulm infection # Hx of anal and vocal cancers - previously treated # Moderate to Severe Protein Calorie Malnutrition with poorly controlled DM type 2, and muscle wasting DISCHARGE MEDICATIONS: Please see below. ALLERGIES: Please see below. PHYSICAL EXAMINATION ON DISCHARGE: VITAL SIGNS: Please see below. General Exam: Alert, No Acute Distress Eye Exam: PERRLA, EOMI, anicteric, no pallor ENT Exam: Atraumatic, MMM, Pharynx Normal Neck Exam: Supple; no JVD Chest Exam: Left lung clear to auscultation, the right remains diminished, nasal canula in place Heart Exam: RRR, no murmurs, rubs or gallops Abdomen Exam: Normoactive bowel sounds, soft, ostomy bag with some formed brown stool, nontender Extremity Exam: no edema LABORATORY DATA: Please see below. PROGNOSIS: Guarded ACTIVITY: [As tolerated]. DIET: 2 gram sodium, carb consistent, 1500 cc daily fluid restriction DISPOSITION: Discharge to [facility] DISCHARGE INSTRUCTIONS: 1. Follow up PCP within one week 2. Follow up pulmonary within one week, and every two weeks or as per pulm. DISCHARGE CONDITION: [Stable]. TIME SPENT ON DISCHARGE: 45 minutes. Vital Signs/I&Os Vital Signs Date Time Temp Pulse Resp B/P (MAP) Pulse Ox O2 Delivery O2 Flow Rate FiO2 06/18/19 08:38 133/67 06/18/19 08:00 1.0 06/18/19 08:00 97.3 78 18 92 06/17/19 20:01 Room Air I&O- Last 24 Hours up to 6 AM 06/18/19 05:59 Intake Total 1470 ml Output Total 3400 ml Balance -1930 ml Laboratory Data Labs 24H Laboratory Tests 2 06/17/19 16:58: Bedside Glucose (Misc Panel) 157H 06/17/19 20:34: Bedside Glucose (Misc Panel) 191H 06/18/19 04:51: Nucleated Red Blood Cells % (auto) 0.0, Anion Gap 8, Glomerular Filtration Rate > 60.0, Blood Urea Nitrogen 7, Creatinine 0.78, Sodium Level 139, Potassium Level 4.1, Chloride Level 102, Carbon Dioxide Level 29, Calcium Level 8.4L 06/18/19 11:49: Bedside Glucose (Misc Panel) 93 CBC/BMP Laboratory Tests 06/18/19 04:51 Red Blood Count 3.76 L, Mean Corpuscular Volume 83.2, Mean Corpuscular Hemoglobin 25.8 L, Mean Corpuscular Hemoglobin Concent 31.0 L, Red Cell Distribution Width 15.6 H, Calcium Level 8.4 L FSBS Laboratory Tests Test 06/17/19 16:58 06/17/19 20:34 06/18/19 11:49 Range/Units Bedside Glucose (Misc Panel) 157 191 93 83-110 MG/DL Discharge Medications Scheduled Amlodipine Besylate (Amlodipine Besylate) 10 Mg Tablet, 10 MG PO DAILY, (Reported) Amoxicillin/Potassium Clav (Amox-Clav 875-125 mg Tablet) 1 Each Tablet, 875 MG PO BID Aspirin (Aspirin EC) 81 Mg Tab, 81 MG PO DAILY, (Reported) Cilostazol (Cilostazol) 100 Mg Tablet, 100 MG PO BID, (Reported) Metformin HCl (Metformin HCl) 500 Mg Tablet, 500 MG PO BID, (Reported) Sertraline HCl (Sertraline HCl) 50 Mg Tablet, 25 MG PO DAILY, (Reported) Trazodone HCl (Trazodone HCl) 50 Mg Tablet, 50 MG PO QHS, (Reported) Vancomycin HCl (Firvanq) 50 Mg/1 Ml Soln.recon, 125 MG PO Q6H Scheduled PRN Hydrochlorothiazide (Hydrochlorothiazide) 12.5 Mg Capsule, 12.5 MG PO DAILY PRN for EDEMA, (Reported) Oxycodone HCl/Acetaminophen (Oxycodone-Acetaminophen 5-325) 1 Each Tablet, 0.5 TAB PO TID PRN for PAIN, (Reported) Allergies Coded Allergies: Contrast Media (Verified Allergy, Unknown, 10/06/16) SEAFOOD (Verified Allergy, Unknown, 10/06/16) THERESA BOWER MD Jun 18, 2019 12:18
[2019-06-18 12:27] VITALS: BP 118/63
[2019-06-18] MEDS: ACETAMINOPHEN TAB 650MG DOSE (2X325MG) PO PRN (12:39)
[2019-06-18] MEDS ORDERED: ZOLO25TA PO (15:18)
[2019-06-18] MEDS ORDERED: TORS10TA3 PO (15:18)
== END 2019-06-18 13:21 | DRG 177 ==
LOC: M ED 16:54 → M ED INP 16:55 → M MSPAV 21:37 → OBSVTOIN 06-06 12:36 → M PCU 06-10 03:44
PROVIDERS: ADMIT Internal Medicine; ATTEND Internal Medicine
DX: J86.9 Pyothorax without fistula (principal); E43 Unspecified severe protein-calorie malnutrition; I50.33 Acute on chronic diastolic (congestive) heart failure; R45.851 Suicidal ideations; E87.1 Hypo-osmolality and hyponatremia; I47.2 Ventricular tachycardia; I11.0 Hypertensive heart disease with heart failure; E11.9 Type 2 diabetes mellitus without complications; F41.9 Anxiety disorder, unspecified; F32.9 Major depressive disorder, single episode, unspecified; G47.00 Insomnia, unspecified; K21.9 Gastro-esophageal reflux disease without esophagitis; Z85.21 Personal history of malignant neoplasm of larynx; E87.6 Hypokalemia; G89.29 Other chronic pain; Z79.82 Long term (current) use of aspirin; Z79.899 Other long term (current) drug therapy; Z91.041 Radiographic dye allergy status; Z91.013 Allergy to seafood; Z85.048 Personal history of other malignant neoplasm of rectum, rectosigmoid junction, and anus; Z87.891 Personal history of nicotine dependence; Z93.3 Colostomy status; I27.81 Cor pulmonale (chronic)

== ENCOUNTER → 2019-06-20 | Outpatient (REF) ==
[~2019-06-20] MED LIST changes: +AMLO10TA5 PO; +AMOX875T2 PO; +CILO100T PO; +FARX1TAB3 PO; +FIRV50SO PO; +HYDR-3363 PO; +METF-791 PO; +METF-839 PO; +OXYC1TAB23 PO; +PATIENT COMMENT; +SERT50TA29 PO; +TORS10TA3 PO; +VANC125C3 PO; +ZOLO25TA PO
--- NOTE | 2019-06-20 12:24 | REP ---
RIGHT DECUBITUS FILM: Followup right sided hydropneumothorax. There is a right sided intrathoracic air fluid level which is large and consistent with the patient's known hydropneumothorax. Electronically Signed by Keagan Banegas DO 06/20/2019 02:06 P
--- NOTE | 2019-06-20 13:56 | REP ---
REASON FOR EXAM: Followup. COMPARISON: 06/13/2019 which showed a large right sided hydropneumothorax. PA and lateral views of the chest today show no significant change in appearance of the large right sided hydropneumothorax. Cardiomediastinal silhouette and left lung are unchanged. The left lung remains clear. There is no change in the osseous structures. IMPRESSION: No significant change compared to the prior exam. Electronically Signed by Keagan Banegas DO 06/20/2019 02:07 P
== END ==
LOC: SKLAB2 07:14
PROVIDERS: ATTEND Internal Medicine
DX: J94.8 Other specified pleural conditions (principal)

== ENCOUNTER → 2019-06-23 | Outpatient (REF) ==
[~2019-06-23] MED LIST changes: -FARX1TAB3 PO; -HYDR-3363 PO; -METF-791 PO; -PATIENT COMMENT; +SERT-155 PO; -SERT50TA29 PO; -VANC125C3 PO
[2019-06-23 07:36] LABS: HEMATOCRIT 33.6 % (42.0-52.0); HEMOGLOBIN 10.5 g/dl (13.5-17.5); MEAN CORPUSCULAR HEMOGLOBIN 25.8 pg (27.0-33.0); MEAN CORPUSCULAR HGB CONC 31.3 g/dl (32.0-36.5); MEAN CORPUSCULAR VOLUME 82.6 fl (80.0-96.0); PLATELET COUNT, AUTOMATED 390 10^3/uL (150-450); RED BLOOD COUNT 4.07 10^6/uL (4.30-6.10); WHITE BLOOD COUNT 6.1 10^3/uL (4.0-10.0)
[2019-06-23 07:55] LABS: HEMOGLOBIN A1c 10.6 %
[2019-06-23 07:57] LABS: BLOOD UREA NITROGEN 7 MG/DL (7-18); CALCIUM LEVEL 8.4 MG/DL (8.8-10.2); CARBON DIOXIDE LEVEL 29 MEQ/L (21-32); CHLORIDE LEVEL 103 MEQ/L (98-107); CREATININE FOR GFR 0.77 MG/DL (0.70-1.30); GLOMERULAR FILTRATION RATE > 60.0 (>42); GLUCOSE, FASTING 151 MG/DL (70-100); POTASSIUM SERUM 4.1 MEQ/L (3.5-5.1); SODIUM LEVEL 138 MEQ/L (136-145)
== END ==
LOC: SKLAB2 07:00
PROVIDERS: ATTEND Internal Medicine
DX: E11.9 Type 2 diabetes mellitus without complications (principal); I10 Essential (primary) hypertension; D64.9 Anemia, unspecified

== ENCOUNTER → 2019-06-30 | Outpatient (REF) ==
--- NOTE | 2019-06-30 13:41 | REP ---
INDICATION: Pleural effusion. PROCEDURE: Two-view CXR. 06/30/2019 13:31 COMPARISON STUDIES: 06/20/2019 FINDINGS: The large right hydropneumothorax is stable in. No new fluid levels are detected. The left lung remains clear and stable. CONCLUSION: No significant change compared to earlier this month. Stable right hydropneumothorax. Electronically Signed by Elton Avila DO 06/30/2019 01:33 P
== END ==
LOC: SKLAB2 09:49
PROVIDERS: ATTEND Internal Medicine
DX: I50.9 Heart failure, unspecified (principal); J91.8 Pleural effusion in other conditions classified elsewhere

== ENCOUNTER → 2019-07-14 | Outpatient (CLI) | payer OTHER, MEDICARE, BC ==
[~2019-07-14] MED LIST changes: -SERT-155 PO; +SERT50TA29 PO
--- NOTE | 2019-07-14 09:38 | REP ---
Two-view chest: 07/14/2019. Indication: Hydropneumothorax. Comparison: 06/30/2019. Findings: The right-sided hydropneumothorax has mildly decreased in size. There is a small right upper lobe air space consolidation which is new. The left lung is clear. There is no left-sided pneumothorax. Cardiac silhouette appears normal in size. Impression: Mildly decreased size of the right sided hydropneumothorax. New small right upper lobe air space consolidation which may represent focal pneumonitis. Electronically Signed by Elton Avila DO 07/14/2019 09:29 A
== END ==
LOC: M RAD 08:58
PROVIDERS: ATTEND Nurse Practitioner Family
DX: J94.8 Other specified pleural conditions (principal); J91.8 Pleural effusion in other conditions classified elsewhere

== ENCOUNTER 2019-08-08 10:36 | Inpatient (IN) | payer MEDICARE, BC ==
[~2019-08-08] VITALS: Ht 172.7 cm; Wt 71.8 kg
[2019-08-08] MEDS ORDERED: HYDR-3363 PO (10:47)
[2019-08-08] MEDS ORDERED: FARX1TAB3 PO (10:47)
--- NOTE | 2019-08-08 11:18 | REP ---
Two-view chest: New 08/08/2019. Indication: Dyspnea. Comparison: Chest x-ray dated 07/14/[address] chest dated 06/09/2019. Findings: The right-sided hydropneumothorax is unchanged. There is no shift of the midline structures. There is a new left lower lobe small air space consolidation. The cardiomediastinal silhouette is unremarkable. Impression: Stable right sided hydropneumothorax. Small left lower lobe consolidation consistent with pneumonia. Electronically Signed by Elton Avila DO 08/08/2019 11:10 A
[2019-08-08 11:19] LABS: ABG BASE EXCESS -0.5 (-2.0-2.0); ABG HCO3 23.6 MEQ/L (22.0-26.0); ABG O2 SATURATION 95.9 % (95.0-99.0); ABG PARTIAL PRESSURE CO2 36.9 mmHg (35.0-45.0); ABG PARTIAL PRESSURE O2 82.6 mmHg (75.0-100.0); ABG STANDARD HCO3 24.1 MEQ/L (22.0-26.0); ABG TOTAL CO2 24.7 MEQ/L (23.0-31.0); ABG pH (ARTERIAL) 7.424 UNITS (7.350-7.450)
[2019-08-08 12:09] LABS: BASO % 0.5 % (0.0-1.0); EOS # 0.1 10^3/uL (0.0-0.5); EOS % 1.2 % (0.0-3.0); HEMATOCRIT 38.8 % (42.0-52.0); HEMOGLOBIN 11.9 g/dl (13.5-17.5); LYMPH # 0.7 10^3/uL (1.5-5.0); MEAN CORPUSCULAR HEMOGLOBIN 25.4 pg (27.0-33.0); MEAN CORPUSCULAR HGB CONC 30.7 g/dl (32.0-36.5); MEAN CORPUSCULAR VOLUME 82.7 fl (80.0-96.0); MONO # 0.5 10^3/uL (0.0-0.8); MONO % 7.9 % (0.0-5.0); NEUTROPHILS # 5.1 10^3/uL (1.5-8.5); NEUTROPHILS % 78.9 % (36.0-66.0); PLATELET COUNT, AUTOMATED 377 10^3/uL (150-450); RED BLOOD COUNT 4.69 10^6/uL (4.30-6.10); WHITE BLOOD COUNT 6.4 10^3/uL (4.0-10.0)
[2019-08-08 12:34] LABS: BLOOD UREA NITROGEN 8 MG/DL (7-18); CARBON DIOXIDE LEVEL 30 MEQ/L (21-32); CHLORIDE LEVEL 104 MEQ/L (98-107); CREATININE FOR GFR 0.84 MG/DL (0.70-1.30); GLOMERULAR FILTRATION RATE > 60.0 (>42); GLUCOSE, FASTING 295 MG/DL (70-100); POTASSIUM SERUM 4.3 MEQ/L (3.5-5.1); SODIUM LEVEL 138 MEQ/L (136-145)
[2019-08-08] MEDS ORDERED: PIPERACILLIN/TAZOBACTAM SOD 3.375 GM in D5W MINI-BAG PLUS 50 ML IV ONE (13:00)
[2019-08-08] MEDS ORDERED: METF-791 PO (13:13)
[2019-08-08] MEDS ORDERED: TORS10TA3 PO (13:13)
[2019-08-08] MEDS ORDERED: PATIENT COMMENT (13:13)
[2019-08-08] MEDS ORDERED: SERT50TA29 PO (13:13)
[2019-08-08] MEDS ORDERED: AMOX875T2 PO (13:13)
--- NOTE | 2019-08-08 13:13 | ECGEPIP ---
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
--- NOTE | 2019-08-08 13:19 | REP ---
CT CHEST WITHOUT CONTRAST: HISTORY: Lung abscess. Persistent right hydropneumothorax. Comparison chest x-ray, August 08, 2019. Comparison CT study, June 09, 2019. CT FINDINGS: There is a persistent large abscess cavity in the right inferior hemithorax. This appears to be an intraparenchymal abscess. It contains a large amount of fluid and some air producing an air-fluid level. It is 11.2 cm craniocaudal x 12.3 cm anterior to posterior x 10.8 cm right to left on today's study. Equivalent measurements on the prior chest CT study from June 09, 2019 are 19.1 cm craniocaudal x 16.9 cm anterior to posterior x 14.3 cm right to left. The lesion has decreased somewhat in size. There is a rind of enhancing pleural or parenchymal thickening surrounding the lesion. There is compressive atelectasis in the right lower lobe anteromedial to the lesion. There is an infiltrate in the left lower lobe, which is a new finding, consistent with superimposed pneumonia. Lastly, there is a spiculated nodular density in the right upper lobe measuring 1.5 cm in greatest diameter. This is a new finding. There is a stable subcentimeter nodule more anteriorly in the right upper lobe. Followup imaging is warranted. The ascending aorta is again noted to be dilated 4.7 cm in AP dimension. Vascular calcification is noted. There are cysts in the upper pole of the right kidney. IMPRESSION: 1. Gradually improving large right lower lobe lung abscess. 2. New infiltrate left lower lobe consistent with superimposed pneumonia. 3. New 1.5 cm spiculated nodule right, upper lobe posteriorly. Stable smaller nodule anteriorly in the right upper lobe. 4. Dilated ascending aorta, 4.7 cm AP dimension. Electronically Signed by Geoff Olsen MD 08/08/2019 02:12 P
[2019-08-08 15:18] VITALS: BP 137/73
[2019-08-08] MEDS ORDERED: TORSEMIDE 10 MG TABLET PO PRN (15:30)
[2019-08-08] MEDS ORDERED: PILL CUTTER 1 EACH XX PRN (15:45)
--- NOTE | 2019-08-08 16:20 | CR ---
DATE OF CONSULTATION: 08/08/2019 PULMONARY CONSULTATION: Mr. 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 At that admission, the patient was found to have a large right lower lobe abscess almost completely involving his right lower lobe with a large fluid level. The patient's initial sputum cultures and blood cultures were negative and he was initially on intravenous (IV) antibiotics with Unasyn, which was later de-escalated to Augmentin, and he was discharged with at least a 6 week course of Augmentin with possibly longer depending on imaging resolution and followup with pulmonary as an outpatient. The patient was also on oral vancomycin for prophylaxis given his history of Clostridium (C) difficile. The patient was discharged to [facility] where he was there until the middle of June. Since being discharged from [facility], he has noted episodes of increased coughing fits where he would continue to produce yellow or green mucus. He would have these episodes twice a day he notes where he will have increased rhinorrhea as well as sneezing usually noticing after he takes his Augmentin antibiotics. He has also had some weight loss and decreased appetite during all of this. The patient was seen in our pulmonary office earlier in July with a plan for repeat CT chest for evaluation. He was to have the CT chest done earlier this week but he was unable to make the appointment as he was noticing increased coughing and shortness of breath. The patient has also continued to note significant anxiety symptoms. He denies any significant fevers or chills. Although, he does sometimes report subjective sweats. He denied any increased lower extremity edema. He does continue to have some loose stool in his colostomy bag but does not feel it has significantly worsened recently. He denies noticing any change in the stool odor. The patient does have a history of diabetes as well, which is poorly controlled. He was unable to afford the cost of his previous diabetes medications and so has not been taking it. He did get a new prescription but he has not started them yet. The patient denies any chest pain but he does have some chest pressure when he is lying supine. He has not had any abdominal pain but he does have some nausea, which he was attributing to the prophylactic vancomycin oral as well as some regurgitation, and he has discontinued the oral vancomycin on his own. 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 Status post chemotherapy and radiation. History of vocal cord squamous cell carcinoma. Diabetes, hypertension, history of nicotine dependence. Possible chronic obstructive pulmonary disease (COPD). Right lung abscess. History of nonsustained ventricular tachycardia (NSVT). SOCIAL HISTORY: The patient is a former smoker of 3-1/2 packs a day for 50 years. Reportedly quit 2 years ago. He drinks 3 or 4 beers a night. Denies any illicit drug use. Was previously in the in [place] and was reported exposed Agent [place]. FAMILY HISTORY: Noncontributory. HOME MEDICATIONS: - amlodipine - Augmentin 875 mg twice a day - aspirin - Farxiga - hydroxyzine as needed - metformin - Percocet as needed - sertraline - torsemide 10 mg daily as needed - trazodone 50 mg nightly ALLERGIES: To CONTRAST MEDIA, SEAFOOD. PHYSICAL EXAMINATION: Temperature 98.1, pulse 93, respirations 14, blood pressure 160/74, oxygen saturation 93% on room air. General: The patient is an elderly male, is lying in bed, appears anxious and somewhat agitated. Has some pressured speech noted. The patient will also have tears occasionally during conversation. HEENT: Normocephalic, atraumatic. Mucous membranes are moist. Oropharynx without erythema or exudate. The patient has some coarse voice, which he reports is chronic since his focal cord cancer. Neck: Trachea is midline. No palpable thyroid nodules or cervical adenopathy. Cardiac: Regular, S1, S2. No appreciable murmurs. Pulmonary: There is diminished breath sounds on the right base. On the left, there are a few crackles at the bases but no significant wheezing or rhonchi. Abdomen is soft, nontender, nondistended. There is a possible hernia on the right side where his colostomy is. Colostomy bag appears full of stool. Extremities: There is trace lower extremity edema bilaterally. LABORATORY DATA: WBC 6.4, hemoglobin 11.9, platelets 377. Chemistry: Sodium is 138, potassium 4.3, chloride is 104, bicarbonate is 30, BUN 8, creatinine 0.84, glucose is 295. Lactic acid was 2.7. TSH was 11.7. ABG pH 7.424, pCO2 of 36.9, pO2 of 82.6. IMAGING: CT chest compared to previous CT in and May 2019 the large right lower lobe abscess appears to be improving in size. It is currently measuring 11.2 x 12.3 x 10.8 cm, where previously it had been measuring 19.1 x 16.9 x 14.3 cm. There is some compressive atelectasis in the right lower lobe anterior medially to the lesion with some mild pleural thickening around it. In the right upper lobe there is a resolving infiltrate when compared to the previous CT and not a new spiculated nodule. Suspect this is just a resolving opacity and is actually improving on the CT. The previous subcentimeter nodule more anteriorly to this lesion in the right upper lobe is unchanged from previous imaging. In the left lower lobe there are some new increased alveolar opacities suggestive of possible infectious process. 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 There is some vascular calcification noted and a cyst in the upper pole right kidney. IMPRESSION: Mr. 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 The patient was discharged with Augmentin, which he has taken for 6 weeks and as well as oral vancomycin for his history of C diff for prophylaxis. The patient had self-discontinued the vancomycin on his own but reportedly was compliant with the Augmentin. He presents now with increasing cough and shortness of breath productive of some yellow and green sputum. He denies any fevers or chills. On admission, the patient is afebrile. Does not have any leukocytosis. He did have a repeat CT chest done, which shows improvement in his right lower lobe abscess. There was mention of a possible spiculated lesion in the right upper lobe which is new, but upon review of previous imaging this looks to be actually left over from resolving opacity in the right upper lobe. He does have some new alveolar opacities in the left lower lobe however when compared to previous imaging and suspect he may have an additional infectious process ongoing. As he has been on Augmentin this may represent a possible atypical infectious process. The patient was in [facility] and he did have some possible sick contacts as well. - Would continue with antibiotics for his RLL abscess with anaerobic coverage such as Unasyn while he is admitted. Can always transition him back to Augmentin prior to discharge. Would add azithromycin for atypical coverage. - Would check atypical pneumonia workup with Mycoplasma, Legionella urine antigen. - Would check a sputum culture as well. His respiratory panel swab was negative. - The patient has a history of C diff, was previously on oral vancomycin for prophylaxis, which he self-discontinued. Would restart him on oral vancomycin for prophylaxis. - Continue with nasal cannula oxygen supplementation as needed. Suspect he may need nasal cannula oxygen more with exertion and potentially at night. - As his lung abscess appears to be slowly improving, the patient is afebrile with no leukocytosis and he has not had any episodes of hemoptysis. The patient does not have any indications clinically for any percutaneous drainage or bronchoscopic drainage. With any sort of drainage procedure of his lung abscess there is a risk for bronchopleural fistula with a percutaneous drainage as well as with reseeding with the bronchial drainage into his other lung segments and potentially worsening the infection. The patient will need a prolonged course of antibiotics until there is resolution on imaging. He will also need continued close followup with pulmonary as an outpatient. Deep venous thrombosis (DVT) prophylaxis. FULL CODE. MTDD
[2019-08-08] MEDS: VANCOMYCIN ORAL SOL 250MG/5ML ORAL SYRINGE PO SCH ×2 (16:30→20:50)
[2019-08-08] MEDS: ENOXAPARIN 40 MG/0.4 ML SYRINGE (J1650) SC SCH (17:36)
[2019-08-08] MEDS: AZITHROMYCIN 250 MG TAB PO SCH (17:36)
--- NOTE | 2019-08-08 18:05 | HPE ---
DATE OF ADMISSION: 08/08/2019 CHIEF COMPLAINT: Shortness of breath, sent from Dr. Barba' office. This is a 74-year-old male who was originally admitted to [facility] in May for a right-sided lung abscess. During the patient's stay, he did not have a thoracentesis because, according to the medical record, there was no significant pleural effusion for tapping. He was placed on Augmentin for a total of 6 weeks because of the large pulmonary abscess. He was also put on prophylactic vancomycin because of his history of recurrent Clostridium difficile (C diff) colitis. He was discharged from [facility] and admitted to the [facility] for short-term rehabilitation. He was discharged on 07/04 2019. He states that since his discharge, he has lost 25 pounds. He has been having fits of hacking coughing twice a day around the time that he takes Augmentin. He describes these coughing fits as significant, where he gets watery eyes, coughs up a load of green stuff, starts to choke, and that they last for 6 hours. Today he called his son because he was actually feeling well, went to a local diner for breakfast, and then when he was on his way to Dr. Barba' office, started coughing at the quick stop. He states that he brought up a ton of yellow stuff without blood, and since then has had repeated coughing fits as well as a headache. He was sent directly from Dr. Barba' office to [facility]. PAST MEDICAL HISTORY: Right-sided lung abscess Poorly differentiated squamous cell carcinoma of the anus, status post colostomy. History of vocal cord squamous cell carcinoma. Diabetes. Hypertension. Chronic pain Insomnia. Probable underlying chronic obstructive pulmonary disease (COPD). History of nicotine dependence. HOME MEDICATIONS: - amlodipine 10 mg by mouth daily - Augmentin 875 mg by mouth twice a day - aspirin 81 mg by mouth daily - Farxiga 10 mg by mouth daily (the patient has not started this medication yet, he only picked it up from the pharmacy this morning). - hydroxyzine 25 mg by mouth daily as needed - metformin 500 mg by mouth twice a day - Percocet 5-325, 0.5 tablet by mouth three times a day as needed - sertraline 75 mg by mouth daily - torsemide 10 mg by mouth daily as needed - trazodone 50 mg by mouth nightly ALLERGIES: IV CONTRAST, SHRIMP. SOCIAL HISTORY: He smoked 3-1/2 packs a day for about 50 years and quit 2 years ago. Denies any alcohol use. He lives alone at home. Negative for hepatitis, tuberculosis, HIV, sexually transmitted diseases (STDs) or intravenous (IV) drug use. REVIEW OF SYSTEMS: Constitutional: Denies fevers, chills. Admits to being mildly clammy this morning and a 25-pound weight loss since discharge from the [facility] about a month ago. Eyes: Denies any vision changes, double vision, floaters or feeling like a curtain got pulled down. Ears, Nose, Mouth and Throat: Denies runny nose, epistaxis, sinus pain, tinnitus, gingival bleeding, sore throat or odynophagia. Cardiovascular: Denies chest pain, paroxysmal nocturnal dyspnea (PND), orthopnea, edema, palpitations or claudication. Respiratory: Positive for productive cough with green sputum and shortness of breath. Negative for hemoptysis. Gastrointestinal: Positive for a 25-pound unintentional weight loss. Denies difficulty swallowing, nausea, diarrhea or constipation. Denies obstipation, hematemesis, hematochezia, melena or tenesmus. He does have an ostomy. He does also have some nausea when he coughs, as well as dry heaves. Genitourinary: Denies dysuria, incontinence, nocturia, polyuria, hesitancy or dribbling. Musculoskeletal: Positive for chronic pain. Denies any new stiffness, joint swelling, crepitus or decreased range of motion. Integumentary: Denies any new rashes, pruritus, striae, lesions or wounds. Neurologic: Denies any changes to sight, smell, hearing, taste, seizures, anesthesias or paresthesias. Positive for a headache. Psychiatric: Positive for severe anxiety, post-traumatic stress disorder (PTSD), as well as depression. Denies any paranoia, anhedonia or lack of energy. Denies episodes of radha. Endocrine: Denies mood swings, diarrhea, tremor, palpitations, constipation, dry skin, polydipsia or polyphagia. Hematologic: Denies any anemia, purpura or petechiae. Lymphatic: Denies any new lumps or bumps anywhere. PHYSICAL EXAMINATION: Temperature 98.1 degrees, pulse is 92 and regular, respiratory rate is 14. Blood pressure 146/71. Pulse oximetry is 98% on 2 liters via nasal cannula. General: The patient appears stated age, he is quite agitated in the stretcher in the emergency department. He does not seem to have a position of comfort, he is constantly changing position and fidgeting. He speaks with pressured speech, and seems to have vague and tangential thought processes. Speaks in six-word sentences with a hoarse voice. HEENT: Atraumatic, normocephalic. No conjunctival pallor. No facial drooping. Extraocular eye movements are intact. Posterior pharynx is free of exudates or erythema. The patient has his own teeth and dentition is fair. Neck: No stridor, tracheal deviation or mass. Jugular veins are not distended. Carotid upstroke is brisk without bruits. Thyroid is normal in size. No cervical, supraclavicular or submandibular adenopathy is palpated. Cardiac: Regular rate and rhythm. No murmurs, gallops or rubs. Point of maximum impulse (PMI) is nondisplaced. Pulmonary: The left upper lobe is clear to auscultation as is the apex of the right upper lobe. There are no audible breath sounds in the right base to approximately half of the posterior chest. There is dullness to percussion on the right. The left base has some faint crackles. Abdomen: Soft, nontender, nondistended. No pain to palpation. There is a colostomy in the left upper quadrant full of stool, which is a light brown in color, no blood was noted. Extremities: No peripheral edema is noted in the bilateral lower extremities. Peripheral pulses are 2+ in all four extremities and symmetric. There is no clubbing or cyanosis. Skin: No rashes, jaundice or bruising. Neurological: No focal deficits are noted. He does answer questions appropriately. No diminished sensation. Muscle strength is 5/5 throughout. Psychiatric: Talks with pressured speech, is clearly agitated,. Psychomotor activity is increased, but there are no tics, no paranoia is noted. However, the patient does fixate on how terrible he thinks his condition is and says multiple times throughout the interview that he thinks it is going to kill him. LABORATORY DATA: CBC: WBC 6.4, hemoglobin 11.9, hematocrit 38.3, platelets 377. Differential: Neutrophils 79%, lymphocytes 11%, monocytes 8%. Chemistry: Sodium 138, potassium 4.3, chloride 104, carbon dioxide 30, anion gap 4, BUN 8, creatinine 0.84, fasting glucose 295, lactic acid 2.7, calcium 9.0, procalcitonin pending. TSH 11.7. Free T4 pending. ABG: pH 7.42, pCO2 of 37, pO2 of 83, base access -0.5. Microbiology: Respiratory virus panel negative. Blood culture is pending. Chest x-ray: Stable right-sided hydropneumothorax. No shift of the midline structures. New left lower lobe small air space consolidation consistent with pneumonia. Chest CT: Independently reviewed with Dr. Ontiveros. In comparison to CT study June 09, 2019, shows a new Infiltrate in the left lower lobe, improvement of the right lung abscess, as well as resolving right upper lobe pneumonia from the one he had in May. EKG compared to 06/10/2019. Sinus rhythm at 81 beats per minute, normal axis, normal MD, QT intervals, poor R-wave progression in the precordial leads. Unchanged from 06/10/2019. No alarming ST-segment changes. ASSESSMENT: This is a 74-year-old male with a history of right lung abscess who has been on continuous Augmentin, with new onset left lower lobe pneumonia. PLAN: 1. Left lower lobe pneumonia. May be seeded from his right lung abscess, however, as there has been an outbreak of Mycoplasma pneumonia in the community, will cover him for atypicals. Sputum culture, Mycoplasma and Legionella have been ordered. Will continue on Zosyn for anaerobe coverage as well. Oxygen orders to maintain saturation 88-92%, however, can be increased for patient comfort. Currently he is afebrile and does not have leukocytosis, most likely because of his long course of Augmentin. Respiratory virus panel was negative, though he did have exposure at [facility] on the second, which did recently undergo quarantine for a respiratory outbreak. 2. Right lung abscess. Clinically improved from CT scan in May. According to the medical record, at the time it was discovered there was no significant pleural effusion for tapping. Work up in May was negative for acid-fast bacilli, Mycoplasma pneumonia, fungal causes. We have consulted pulmonology to see if he would be a candidate for drainage. Continue with antibiotic coverage as above. 3. Lactic acidosis. Probably from underlying lung infection. Will obtain repeat to see if there is a trend. Procalcitonin has been ordered by Dr. Ontiveros. The patient does not look septic on exam, he is not tachycardiac, nor is he tachypneic. He is quite agitated, however, that may be due to underlying anxiety. He does not have leukocytosis, nor is he febrile. 4. Anxiety. The patient is quite agitated on exam with pressured speech. We will continue his home sertraline, and I have increased his Atarax to 25 mg three times a day. He was seen in consultation with psych during his last visit. I may be able to increase his Zoloft if this does not help, he is not sure the last time he took his medication. He also has an extensive history of PTSD as he was in the [place] and says he got exposed to Agent [place]. Because he has a lung abscess and has had cancer, he is understandably depressed, however I do not think that benzodiazepines would be helpful just in case they suppresses his cough reflex and sedate him too much. Will try to manage with other medications at this time. 5. History of diabetes, apparently this has not been very well controlled. Last hemoglobin A1c was 11.1 in May. His primary care doctor initiated him on , however, he did not pick it up until today. He states that during his last hospitalization, he became very hypoglycemic because he was not eating after his before food (a.c.) coverage was given to him. Will start with basal insulin nightly with fingersticks at bedtime and first thing in the morning fasting. Will adjust his coverage from there. 6. Hypertension, blood pressure seemed relatively well controlled in the emergency department, will continue his home amlodipine 10 mg daily as well as his 10 mg torsemide daily. 7. Insomnia. The patient has been on trazodone for sleep, will continue this. 8. Peripheral vascular disease, continue aspirin 81 mg. 9. Deep vein thrombosis (DVT) prophylaxis. Lovenox 40 mg subcutaneous daily. DISPOSITION: We expect the patient to be here for greater than two midnights, so he will be admitted to medical-surgical. Patient was seen and examined by me this morning with the residents. Agree with the above assessment and plan This is an elderly patient who was diagnosed with lung abscess and was put on oral antibiotics with Augmentin which he has it for 8 weeks. He went to the PCPs office. He was complaining of shortness of breath and then they sent him to the hospital. Apparently patient has had a big abscess in the lung which was worked up initially he has more than 6 cm of this lung abscess. CT surgery and Pulm. He had seen the patient in the remote past and just recommended oral antibiotics. This time the patient comes and gets a repeat CAT scan done which is also showing continued big abscess, stable from the last time. The patient is hemodynamically stable and has been coughing up Big M amounts of sputum which is greenish in color. CT surgery and pulmonary were consulted from the ER as in my opinion, the patient might require an intervention because of the size of the abscess. Current data the patient has been kept on IV vancomycin and azithromycin. MRSA screen will be done and if positive. Vancomycin will be started. We will continue to follow the pulmonary and CT surgery medications. Chest physiotherapy to induce the sputum.. Continue following the cultures NUZHAT AGUIRRE
[2019-08-08] MEDS ORDERED: AMPICILLIN SOD/SULBACTAM SOD 3 GM in D5W MINI-BAG PLUS 100 ML IV SCH (19:30)
[2019-08-08] MEDS: traZODone 50 MG TAB PO SCH (20:49)
[2019-08-08] MEDS: PIPERACILLIN/TAZOBACTAM SOD 3.375 GM in D5W MINI-BAG PLUS 50 ML IV SCH (20:50)
[2019-08-08] MEDS: LEVEMIR (INSULIN DETEMIR) 1 UNITS/0.01ML SC SCH (21:44)
[2019-08-08 22:00] VITALS: BP 136/70
[2019-08-08 22:41] LABS: FREE T4 0.99 NG/DL (0.76-1.46)
[2019-08-08] MEDS: PERCOCET 5MG/325MG TAB PO PRN (23:34)
[2019-08-08] MEDS: hydrOXYzine 25 MG TAB PO PRN (23:35)
[2019-08-09] MEDS: PIPERACILLIN/TAZOBACTAM SOD 3.375 GM in D5W MINI-BAG PLUS 50 ML IV SCH ×4 (02:26→20:41)
[2019-08-09 06:00] VITALS: BP 111/57
[2019-08-09 06:05] LABS: HEMATOCRIT 36.6 % (42.0-52.0); HEMOGLOBIN 11.4 g/dl (13.5-17.5); MEAN CORPUSCULAR HEMOGLOBIN 25.3 pg (27.0-33.0); MEAN CORPUSCULAR HGB CONC 31.1 g/dl (32.0-36.5); MEAN CORPUSCULAR VOLUME 81.2 fl (80.0-96.0); PLATELET COUNT, AUTOMATED 361 10^3/uL (150-450); RED BLOOD COUNT 4.51 10^6/uL (4.30-6.10); WHITE BLOOD COUNT 5.9 10^3/uL (4.0-10.0)
[2019-08-09 06:24] LABS: BLOOD UREA NITROGEN 5 MG/DL (7-18); CARBON DIOXIDE LEVEL 29 MEQ/L (21-32); CHLORIDE LEVEL 105 MEQ/L (98-107); GLOMERULAR FILTRATION RATE > 60.0 (>42); GLUCOSE, FASTING 108 MG/DL (70-100); POTASSIUM SERUM 3.6 MEQ/L (3.5-5.1); SODIUM LEVEL 140 MEQ/L (136-145)
[2019-08-09 08:42] LABS: C REACTIVE PROTEIN QUANTITATIV 5.84 MG/DL (0.00-0.30)
[2019-08-09] MEDS: ASPIRIN 81 MG ENTERIC TAB PO SCH (09:26)
[2019-08-09] MEDS: guaiFENesin ER 600 MG TAB PO SCH ×2 (09:26→20:41)
[2019-08-09] MEDS: SERTRALINE HCL 25 MG TABLET PO SCH (09:26)
[2019-08-09] MEDS: VANCOMYCIN ORAL SOL 250MG/5ML ORAL SYRINGE PO SCH ×2 (09:26→20:42)
[2019-08-09] MEDS: ENOXAPARIN 40 MG/0.4 ML SYRINGE (J1650) SC SCH (09:26)
[2019-08-09] MEDS: AZITHROMYCIN 250 MG TAB PO SCH (09:26)
[2019-08-09] MEDS: amLODIPine 10 MG TAB PO SCH (10:22)
--- NOTE | 2019-08-09 11:36 | IPNPDOC ---
Text Note Date of Service The patient was seen on 08/09/19. NOTE SUBJECTIVE: Mr. Alonso is seen at bedside on [facility]. He states that he continues to have a productive cough with green sputum but no blood, and would like some Mucinex. He has been afebrile overnight, and his anxiety is better on his antianxiety medication, which he has been able to keep down. He denies fevers, chills, nausea, vomiting. OBJECTIVE: Vitals: as below Pulse oximetry is 98% on 2 liters via nasal cannula. General: Resting comfortably in bed, in no acute distress. Is able to speak in full and complete sentences. HEENT: Atraumatic, normocephalic. No conjunctival pallor. Neck: No stridor, tracheal deviation or mass. Jugular veins are not distended. Cardiac: Regular rate and rhythm. No murmurs, gallops or rubs. Pulmonary: Left and right upper lobes are clear to auscultation bilaterally. There are no audible breath sounds in the right base to approximately half of the posterior chest with dullness to percussion. The left base still has some faint crackles. Abdomen: Soft, nontender, nondistended. No pain to palpation. There is a colostomy in the left upper quadrant full of stool, which is a light brown in color, no blood was noted. Extremities: No peripheral edema, clubbing, or cyanosis. Skin: No skin lesions Neurological: No focal deficits are noted Psychiatric: Talks with normal speech, mood is much better today Laboratory data: Repeat lactic acid to 1.8. CRP is elevated at 5.84. Pro- calcitonin still pending. MRSA screen negative, so vancomycin is not indicated. Sputum Gram stain showed few gram-positive cocci in pairs, chains and clusters as well as few gram-negative rods. Culture pending. ASSESSMENT: This is a 74-year-old male with a history of right lung abscess who has been on continuous Augmentin, with new onset left lower lobe pneumonia. Hospital day #2, IV antibiotics day #2 with IV Zosyn and azithromycin. PLAN: 1. Left lower lobe pneumonia. May be seeded from his right lung abscess. Sputum culture is pending, Gram stain positive for gram-positive cocci in pairs, chains, and clusters as well as few gram-negative rods. MRSA screen negative, will continue on Zosyn for anaerobe coverage as well as azithromycin for atypical coverage. Mycoplasma pending. Oxygen orders to maintain saturation 88-92%, however on Venturi mask for comfort. Currently he is afebrile and does not have leukocytosis, most likely because of his long course of Augmentin. Respiratory virus panel was negative. Pulmonology consulted, appreciate their help. Because of his coughing and bringing up sputum, he has requested Mucinex, this has been added for him. 2. Right lung abscess. Clinically improved from CT scan in May. According to the medical record, at the time it was discovered there was no significant pleural effusion for tapping. Work up in May was negative for acid-fast bacilli, Mycoplasma pneumonia, fungal causes. Pulmonology on board, discussed with Dr. Mercer (thoracic surgery) who would prefer to treat with antibiotics rather than drain the abscess (no official consultation for thoracic surgery). 3. Elevated lactic acid. Probably from underlying lung infection. Repeat was within normal limits. Procalcitonin has been ordered by Dr. Ontiveros. The patient does not look septic on initial exam, he is not tachycardiac, nor is he tachypneic. He does not have leukocytosis, nor has he been febrile since admission. 4. Anxiety. Improved on his home medications. He has an extensive history of PTSD from serving in [place]. Because he has a lung abscess and has had cancer, he is understandably depressed, however his affect is much improved this morning. 5. History of diabetes. 10 units of basal insulin was started last night. His morning blood glucose was 108. Of note, he has lost approximately 25 pounds since his heaviest weight during his last admission. We'll continue twice a day fingersticks and adjust basal insulin accordingly. At this point I do not think that he needs sliding scale coverage. 6. Hypertension, blood pressure seems relatively well controlled, will continue his home amlodipine 10 mg daily with holding parameters, as well as his prn 10 mg torsemide daily. 7. Insomnia. The patient has been on trazodone for sleep, will continue this. 8. Peripheral vascular disease, continue aspirin 81 mg. 9. Deep vein thrombosis (DVT) prophylaxis. Lovenox 40 mg subcutaneous daily. DISPOSITION: Pending sputum culture and clinical improvement VS,Talisha, I+O VS, Talisha, I+O Laboratory Tests 08/08/19 11:41 08/09/19 05:36 Vital Signs Date Time Temp Pulse Resp B/P (MAP) Pulse Ox O2 Delivery O2 Flow Rate FiO2 08/09/19 10:22 91 108/58 08/09/19 06:00 97.3 22 97 Venturi Mask 3.0 24 I&O- Last 24 Hours up to 6 AM 08/09/19 06:00 Intake Total 870 ml Output Total 1310 ml Balance -440 ml GME ATTESTATION GME ATTESTATION My faculty preceptor for this patient encounter was physically present during the encounter and was fully available. All aspects of the patient interview, examination, medical decision making process, and medical care plan development were reviewed and approved by the faculty preceptor. The faculty preceptor is aware and concurs with the plan as stated in the body of this note and will attest to such by his/her cosignature. GME ATTESTATION GME ATTESTATION My faculty preceptor for this patient encounter was physically present during the encounter and was fully available. All aspects of the patient interview, examination, medical decision making process, and medical care plan development were reviewed and approved by the faculty preceptor. The faculty preceptor is aware and concurs with the plan as stated in the body of this note and will attest to such by his/her cosignature. ATTENDING NOTE Patient was seen and examined by me this morning with the residents. Agree with the above assessment and plan This is an elderly patient who was diagnosed with lung abscess and was put on oral antibiotics with Augmentin which he has it for 8 weeks. He went to the PCPs office. He was complaining of shortness of breath and then they sent him to the hospital. Apparently patient has had a big abscess in the lung which was worked up initially he has more than 6 cm of this lung abscess. CT surgery and Pulm. He had seen the patient in the remote past and just recommended oral antibiotics. This time the patient comes and gets a repeat CAT scan done which is also showing continued big abscess, stable from the last time. The patient is hemodynamically stable and has been coughing up Big M amounts of sputum which is greenish in color. CT surgery and pulmonary were consulted from the ER as in my opinion, the patient might require an intervention because of the size of the abscess. Current data the patient has been kept on IV vancomycin and azithromycin. MRSA screen is negative . we will continue to follow the pulmonary and CT surgery medications. Chest physiotherapy to induce the sputum.. Continue following the cultures BERNARDO CEBALLOS MD, D.O. Aug 09, 2019 11:36 AMARIS NOLAND MD Aug 09, 2019 14:09
[2019-08-09 14:00] VITALS: BP 146/75
--- NOTE | 2019-08-09 17:11 | CCN ---
DATE: 08/09/2019 The patient was seen, examined this morning during bedside rounds. He reports feeling better overnight. He was given Mucinex, and he thinks his cough has loosened up a bit and he is not noticing asthma, shortness of breath, or difficulty breathing. The patient is on a Venturi mask, which he is using intermittently. He places it over part of his face, as he feels suffocation with something covering his face entirely. PHYSICAL EXAMINATION: Temperature 97.3, pulse 71, respirations 22, blood pressure 111/57, oxygen saturation 97% on 24% FiO2, in 770 out 1310. GENERAL: The patient is an elderly male who is lying in bed. Appears awake, alert, and oriented. Is calm today. HEENT: Normocephalic, atraumatic. Mucous membranes are moist. Oropharynx without erythema or exudate. The patient has a hoarse voice, which is chronic. NECK: Trachea is midline. No palpable thyroid nodules or cervical adenopathy. CARDIAC: Regular rate and rhythm. Normal S1, S2. No appreciable murmurs. PULMONARY: Decreased breath sounds on the right base. On the left there are improved breath sounds with no wheezing, rhonchi, or crackles noted. ABDOMEN: Soft, nontender, nondistended. There is a right-sided colostomy bag in place. EXTREMITIES: There is no significant lower extremity edema bilaterally. LABORATORY DATA: WBC 5.90, hemoglobin 11.4, platelets 361. Chemistry: Sodium is 140, potassium 3.6, chloride is 105, bicarbonate 29, BUN 5, creatinine 0.80, glucose is 108. Lactic acid trending down to 1.8. Microbiology:; Methicillin-resistant Staphylococcus aureus (MRSA) screen negative. Sputum culture is pending. Procalcitonin is pending. ASSESSMENT AND PLAN: Mr. 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 The patient was discharged with Augmentin for a prolonged course, which he has been on for 6 weeks, as well as with oral vancomycin for prophylaxis with his history of Clostridium (C) difficile The patient presents now with increased cough and shortness of breath as well as with increased sputum productive of yellow and green color. He denied any fevers or chills. The patient was afebrile on admission without any significant leukocytosis. A repeat CT chest done on this admission showed improvement in the size of his right lower lobe abscess. There was mention of a possible spiculated lesion in his right upper lobe, which upon review shows this to be residual resolving opacity in the right upper lobe from a previous consolidation. He does have some new alveolar opacities in the left lower lobe, however, when compared to previous imaging and suspect he may have additional infectious process ongoing or additional aspiration in that left lower lobe. Continue with antibiotics for his right lower lobe abscess with anaerobic coverage. He was started on Zosyn intravenous (IV). He can always be transitioned back to Augmentin prior to his discharge. Continue with azithromycin for atypical pneumonia coverage and followup results for Mycoplasma and Legionella urine antigen Followup results of sputum culture. His respiratory panel swab was negative. Continue with aspiration precautions. Continue with oral vancomycin for prophylaxis given his history of C. diff and with his long-term antibiotic use currently. Continue with oxygen supplementation with Venturi mask or nasal cannula supplementation as needed. As he continues to be slowly improving clinically without any fever, no leukocytosis or hemoptysis, and his right lung abscess appears to be improving on imaging, the patient is not indicated at this time for any percutaneous drainage procedures given the increased risk of more permanent complications, such as a chronic bronchopleural fistula. The patient will need a prolonged course of antibiotics until there is resolution on imaging with continued followup with pulmonary as an outpatient. Deep vein thrombosis (DVT) prophylaxis. Full code.
[2019-08-09] MEDS: traZODone 50 MG TAB PO SCH (20:42)
[2019-08-09] MEDS: LEVEMIR (INSULIN DETEMIR) 1 UNITS/0.01ML SC SCH (20:44)
[2019-08-09 22:00] VITALS: BP 147/57
[2019-08-09] MEDS: hydrOXYzine 25 MG TAB PO PRN (23:24)
[2019-08-09] MEDS: PERCOCET 5MG/325MG TAB PO PRN (23:25)
[2019-08-10] MEDS: PIPERACILLIN/TAZOBACTAM SOD 3.375 GM in D5W MINI-BAG PLUS 50 ML IV SCH ×4 (01:59→19:50)
[2019-08-10 06:00] VITALS: BP 143/57
[2019-08-10 06:43] LABS: HEMATOCRIT 38.4 % (42.0-52.0); HEMOGLOBIN 11.9 g/dl (13.5-17.5); MEAN CORPUSCULAR HEMOGLOBIN 25.5 pg (27.0-33.0); MEAN CORPUSCULAR VOLUME 82.4 fl (80.0-96.0); PLATELET COUNT, AUTOMATED 355 10^3/uL (150-450); RED BLOOD COUNT 4.66 10^6/uL (4.30-6.10)
[2019-08-10 07:02] LABS: BLOOD UREA NITROGEN 8 MG/DL (7-18); CALCIUM LEVEL 9.2 MG/DL (8.8-10.2); CARBON DIOXIDE LEVEL 30 MEQ/L (21-32); CHLORIDE LEVEL 103 MEQ/L (98-107); CREATININE FOR GFR 0.84 MG/DL (0.70-1.30); GLOMERULAR FILTRATION RATE > 60.0 (>42); GLUCOSE, FASTING 197 MG/DL (70-100); POTASSIUM SERUM 3.9 MEQ/L (3.5-5.1); SODIUM LEVEL 140 MEQ/L (136-145)
[2019-08-10] MEDS: AZITHROMYCIN 250 MG TAB PO SCH (09:02)
[2019-08-10] MEDS: guaiFENesin ER 600 MG TAB PO SCH ×2 (09:02→20:55)
[2019-08-10] MEDS: VANCOMYCIN ORAL SOL 250MG/5ML ORAL SYRINGE PO SCH ×2 (09:02→20:55)
[2019-08-10] MEDS: ASPIRIN 81 MG ENTERIC TAB PO SCH (09:02)
[2019-08-10] MEDS: SERTRALINE HCL 25 MG TABLET PO SCH (09:02)
[2019-08-10] MEDS: ENOXAPARIN 40 MG/0.4 ML SYRINGE (J1650) SC SCH (09:03)
[2019-08-10] MEDS: amLODIPine 10 MG TAB PO SCH (09:06)
[2019-08-10] MEDS: PERCOCET 5MG/325MG TAB PO PRN (11:02)
[2019-08-10] MEDS: LEVEMIR (INSULIN DETEMIR) 1 UNITS/0.01ML SC SCH (12:07)
[2019-08-10 14:00] VITALS: BP 128/70
--- NOTE | 2019-08-10 14:28 | IPN ---
DATE: 08/10/2019 The patient was seen and examined this morning during bedside rounds. The patient reports he does continue have a cough productive of yellow to austin sputum, although he thinks his congestion is improved and he has noticed is easier to bring up mucus. He denies any significant shortness of breath. No wheezing. Has not had any chest pain. The patient did report overnight having an episode of hypoglycemia. He did have episodes of hypoglycemia with his previous admission at [facility], particularly overnight. He was eating popsicles during his last admission overnight and he is planning to ask for popsicles again overnight for his episodes of hypoglycemia. PHYSICAL EXAMINATION: Temperature 97.3, pulse 67, respirations 20, blood pressure 143/57, oxygen sat 95% on Venti mask at 24% FiO2. In 1969, out 0. General: The patient is an elderly male who is lying in bed, appears awake, alert and oriented. Is not in any acute respiratory distress. HEENT: Normocephalic, atraumatic. Mucous membranes are moist. Oropharynx without erythema or exudate. The patient has a hoarse voice, which is reportedly chronic. NECK: Trachea is midline. No palpable thyroid nodules or cervical adenopathy. Cardiovascular: Regular rate and rhythm. Normal S1, S2. No appreciable murmurs. Pulmonary: Decreased breath sounds at the right base. On the left there are improved breath sounds with no wheezing nor crackles. Occasional rare rhonchi noted. Abdomen is soft, nontender, nondistended. There is a right sided colostomy bag in place. Extremities: There is no significant lower extremity edema bilaterally. LABORATORY DATA: WBC 7.0, hemoglobin 11.9, platelets 65. Chemistry: Sodium is 146, potassium is 3.9, chloride is 103, bicarbonate 30, BUN 8, creatinine 0.84, glucose is 197, procalcitonin was 0.04. Microbiology: Sputum culture showed normal paul. ASSESSMENT AND PLAN: Mr. 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 He was treated initially with IV antibiotics and then discharged with Augmentin for prolonged course of antibiotics. He had completed 6 weeks as an outpatient; however, presents now with increased cough and shortness of breath and an increase sputum productive of a yellow to green color. He has not noticed fevers or chills and since his admission he has been afebrile without any significant leukocytosis. A repeat chest CT done on this admission showed improvement in the size of his right lower lobe abscess. There was mention of possible spiculated lesion in his right upper lobe, which upon review shows this to be a residual resolving opacity in the right upper lobe from a previous consolidation. He did have some new alveolar opacities in the left lower lobe. However, when compared to previous imaging, suspect he may have had additional infectious process ongoing or aspiration in that left lower lobe. - The patient was started on IV antibiotics on admission with Zosyn. With his negative procalcitonin and no leukocytosis, he can likely be transitioned back to Augmentin. - Continue with azithromycin for now for atypical pneumonia coverage pending results of Mycoplasma and Legionella urine antigen - The patient's sputum culture showed normal paul and his respiratory panel swab was negative. - Continue with aspiration precautions. - Continue with oral vancomycin for prophylaxis given his history of Clostridium (C.) difficile and a with long-term antibiotic use currently. - Continue with oxygen supplementation as needed with Venturi mask or nasal cannula. - The patient will need a prolonged course of antibiotics as an outpatient until there is resolution on imaging. Continue followup with pulmonary. He does not have any indications at this time for any percutaneous drainage procedures. Deep vein thrombosis (DVT) prophylaxis. FULL CODE.
--- NOTE | 2019-08-10 18:50 | IPN ---
DATE: 08/10/2019 The patient says that he has had antibiotics for the past 3 months due to chronic lung infection. He says that he has had usually three changes during the day of his colostomy bag but recently has been much more increased. No abdominal pain. Last evening, the patient's glucose was lower. He is requesting decreasing the insulin because of diaphoresis and not feeling well around 2:00 a.m. this morning. Said that this is a similar episode from when he was hospitalized. He normally takes metformin twice a day, managed by Dr. Hermila Barba as an outpatient. He is compliant with his diet with a good appetite, had pork chops and mashed potatoes yesterday, but due to not having his dentures, which he left in his truck since he called an ambulance, he is unable to eat anything that is hard to chew. At this time, the patient is continued on IV Zosyn. He is afebrile overnight. Sputum culture final on 08/08/2019 showed normal paul. He continues to have cough productive of white-austin sputum at the bedside, very thick. His quantity has decreased since he has been hospitalized. Per Dr. Ontiveros, no need to aspirate at this time due to risk of bronchopleural fistulas. PHYSICAL EXAMINATION: VITAL SIGNS: Temperature 97.3, pulse 67, respiratory rate 20, blood pressure 143/57, 95% on 3 liters Venturi Mask 22 FiO2. GENERAL: Able to speak in full sentences, edentulous on his top teeth. No jugular venous distention (JVD). No thyromegaly. LUNGS: Unequal breath sounds with decreased breath sounds on the right. Left has no wheezing. No crackles. HEART: S1, S2. Sinus rhythm. ABDOMEN: Soft, nontender, nondistended. Positive bowel sounds. EXTREMITIES: No cyanosis, clubbing or any pitting edema. Fingersticks overnight: 69 at 2:22 a.m.. White count 7, hemoglobin 11, hematocrit 38, platelet count 355. Sodium 140, potassium 3.9, chloride 103, bicarbonate 30, BUN 8, creatinine 0.84, glucose of 197. Sputum culture showed normal paul. Blood culture on 08/08/2019, two sets, negative. Respiratory panel on 08/08/2019 negative. 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 ACTIVE ISSUES: 1. Right lower lobe abscess, currently on Zosyn for gram-negative and anaerobic coverage, azithromycin for typical coverage, awaiting urine Legionella, mycoplasma. Followed by Dr. Ontiveros i[employer]. No plans for aspiration due to risk of bronchopleural fistula. Outpatient followup with pulmonary once medically stable. 2. History of Clostridium (C.) difficile. Currently on vancomycin [address] Valentine in the morning due to persistent need for IV antibiotics for lung abscess and history of recurrent C diff as outpatient. 3. Hypoglycemia. Usually on metformin twice a day. Currently on Levemir insulin with episodes of hypoglycemia. The patient is requesting insulin to be decreased. We will discontinue 10 units of insulin at night and give Levemir insulin in the morning 5 units. Hypoglycemic protocol and hold for a glucose less than 180. MTDD
[2019-08-10] MEDS: traZODone 50 MG TAB PO SCH (20:55)
[2019-08-10 22:00] VITALS: BP 137/70
[2019-08-11] MEDS: PIPERACILLIN/TAZOBACTAM SOD 3.375 GM in D5W MINI-BAG PLUS 50 ML IV SCH ×4 (01:15→19:43)
[2019-08-11] MEDS: hydrOXYzine 25 MG TAB PO PRN (01:15)
[2019-08-11 06:00] VITALS: BP 130/70
[2019-08-11] MEDS: ASPIRIN 81 MG ENTERIC TAB PO SCH (09:00)
[2019-08-11] MEDS: amLODIPine 10 MG TAB PO SCH (09:00)
[2019-08-11] MEDS: AZITHROMYCIN 250 MG TAB PO SCH (09:00)
[2019-08-11] MEDS: guaiFENesin ER 600 MG TAB PO SCH ×2 (09:00→20:35)
[2019-08-11] MEDS: LEVEMIR (INSULIN DETEMIR) 1 UNITS/0.01ML SC SCH (09:00)
[2019-08-11] MEDS: SERTRALINE HCL 25 MG TABLET PO SCH (09:00)
[2019-08-11] MEDS: ENOXAPARIN 40 MG/0.4 ML SYRINGE (J1650) SC SCH (09:01)
[2019-08-11] MEDS: VANCOMYCIN ORAL SOL 250MG/5ML ORAL SYRINGE PO SCH ×2 (09:01→20:35)
[2019-08-11] MEDS ORDERED: IPRATROPIUM 0.5MG/ALBUTEROL 2.5MG INH SOL UD 3ML (DUONEB)(J7620) NEB PRN (10:45)
--- NOTE | 2019-08-11 11:42 | IPNPDOC ---
Text Note Date of Service The patient was seen on 08/11/19. NOTE Mr. Alonso was seen this morning and reported improvements in his SOB, productive cough, and sleeplessness. He states he no longer feels any chest pressure and that he has been coughing up less sputum. He does state he has been emptying his colostomy bag more frequently since his antibiotic coverage was increased. He also sates that he does not was to continue his thickened liquid diet due to disliking the taste and consistency. He asked about starting nebulizer treatments but was unsure about exactly what treatment he wanted or why he wanted it. He denies overnight fevers, chills, chest pain, SOB, or new- onset abdominal pain. Physical Exam: Vitals: See below HEENT: Atraumatic, normocephalic, no scleral icterus, thyroid midline Respiratory: Mild inspiratory and expiratory wheezing noted B/L with mild rales noted in his lower left lung field. 93% saturation at rest on RA (not wearing his oxygen mask) CV: +S1, S2 noted. No murmurs, no rubs, no extra heart sounds appreciated. Regular rate and rhythm noted Abdominal Exam: Colostomy bag noted on left abdomen. No bruising, organomegaly, ascites, or guarding noted. Extremities: No peripheral edema, no rashes or ulcerations seen. Psych: Patient cooperative to exam with full emotional range and overall normal affect. Assessment: This is a 74 year old male with a pMHx of right sided lung abscess, squamous cell carcinoma of the anus s/p colostomy, squamous cell carcinoma of the vocal cord, COPD, and PTSD who is receiving antibiotic therapy for increased productive cough from baseline w/ SOB. Plan: #Left lower lobe opacity likely 2/2 aspiration vs atypical infectious process -Recommend restarting Augmentin pending ID recommendations. -Recommend discontinuing Zosyn as repeat sputum cultures were negative and Augmentin was effective in reducing abscess diameter -Continue Azithromycin pending Mycoplasma and Legionella screening results -Patient is reporting decreased SOB and decreased sputum production and has remained afebrile during his stay -Continue aspiration precautions patient is refusing thickened liquid diet, nursing has been made aware. -Patient continues to have normal WBC count and had negative procalcitonin -Sputum culture showed normal paul and respiratory virus panel was negative -Start Duoneb PRN SOB -Continue 3L O2 supplementation PRN Venturi mask or nasal cannula #Right lung abscess -Continue long-term antibiotic treatment, recommend restarting Augmentin pending ID recommendations -CT shows improvement in abscess dimensions from previous imaging -Patient has remained afebrile with normal procalcitonin and WBC count during his stay -Follow up imaging recommended pending discharge with pulmonology follow-up for antibiotic management. #Hx of C. Diff -Continue PO Vancomycin 125 mg #General Anxiety w/ Hx of PTSD -Continue Hydroxyzine 25 mg and Sertraline 75 mg -Patient states his anxiety has been improving on his current medications and as his SOB has improved #DM -Continue consistent carbohydrate diet -FSBS BID -FBS has been dynamic during his stay. Was 195 yesterday -Continue Levemir 5U with hold parameters glucose <180 #Hypertension -Continue Amlodipine 10 mg and Torsemide 10 mg -BP appears well controlled #Insomnia -Continue Trazodone -Patient reports sleeping well last night-likely due to decreased anxiety as his condition improves #Peripheral vascular disease -Continue Aspirin 81 mg #DVT prophylaxis -Lovenox 40 mg subcutaneous daily. Please do not hesitate to call if any further questions or concerns VS,Fishbone, I+O VS, Fishbone, I+O Vital Signs Date Time Temp Pulse Resp B/P (MAP) Pulse Ox O2 Delivery O2 Flow Rate FiO2 08/11/19 09:00 76 130/70 08/11/19 08:00 3.0 24 08/11/19 06:00 97.6 16 93 Room Air I&O- Last 24 Hours up to 6 AM 08/11/19 06:00 Intake Total 1180 ml Output Total 800 ml Balance 380 ml LUZ WILLIAMSON S-3 Aug 11, 2019 11:42 VIKTOR FOX MD Aug 12, 2019 10:41
[2019-08-11 14:00] VITALS: BP 117/60
[2019-08-11 14:07] LABS: MYCOPLASMA PNEUMONIAE IgG 2039 U/mL (0-99); MYCOPLASMA PNEUMONIAE IgM <770 U/mL (0-769)
--- NOTE | 2019-08-11 14:07 | IPNPDOC ---
Date Seen The patient was seen on 08/11/19. Progress Note SUBJECTIVE: 74-year-old male patient examined bedside, he reports his cough is reduced since admission with decreased amount of sputum light yellow in color, no blood. He has no shortness of breath or difficulty breathing, but reports having pressure over his left side of the chest with cough. He denies having any hypoglycemic episodes during the night, fever, chills, nausea, or vomiting. OBJECTIVE PHYSICAL EXAMINATION: VITAL SIGNS: Please see below. GENERAL Patient sitting up in bed awake alert oriented speaking in complete sentences no acute distress. HEENT: Normocephalic atraumatic, pupils are equal and reactive to light. Oral mucosa is moist without any erythema or exudates. 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 CARDIOVASCULAR: S1 S2 regular no additional heart sounds appreciated. RESPIRATORY: Decreased breath sounds on the right lower base, normal breath sounds on the left side, mild crackles on right lower base, no audible wheezing, rhonchi,rales. . ABDOMINAL: Bowel sounds present abdomen soft and nontender, nondistended on the left side colostomy bag in place. EXTREMITIES: No clubbing cyanosis or edema NEUROLOGICAL: Spontaneously moves all 4 extremities cranial 2 through 12 grossly intact no gross focal deficits appreciated LABORATORY DATA & MICROBIOLOGY:: Please see below. IMAGING STUDIES: CT chest without contrast: (08/08/19): Gradually improving large right lower lobe lung syhlzkw87.2cm x 12.3 cm x10.8cm new infiltrate to left lower lobe consistent with superimposed pneumonia, 1.5 cm spiculated nodule right upper lobe posteriorly stable small nodule anterior in the right upper lobe, dilated ascending aorta 4.7 cm. ASSESSMENT AND PLAN: This is a 74-year-old male admitted for shortness of breath secondary to known lung abscess. 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 difficle: - Due to the history of C. difficile infection and prolonged use of antibiotics will continue with vancomycin PO. Type 2 diabetes mellitus -Because of history of hypoglycemia in previous admissions will continue with FSBS BID -c/w 5 units Levemir daily (with holding parameters if BS <180) Hypertension -c/w amlodipine 10 mg daily and torsemide 10 mg PRN Anxiety: -c/w sertraline, hydroxyzine, trazodone. History of chronic pain : -c/w Percocet 5 mg 3 times a day History of peripheral vascular disease: -c/w aspirin DVT prophylaxis: Lovenox 40 mg. DISPOSITION: Continue his current medications. ID was consulted for management of antibiotics. Will discharge him in 24-48 hours. MEDICAL ATTENDING PHYSICIAN ADDENDUM: I have independently interviewed and examined the patient, and agree with the physical findings, assessment, and management plan as documented above by my Resident physician. VS, I&O, 24H, [facility] Vital Signs/I&O Vital Signs Date Time Temp Pulse Resp B/P (MAP) Pulse Ox O2 Delivery O2 Flow Rate FiO2 08/11/19 09:00 76 130/70 08/11/19 08:00 3.0 24 08/11/19 06:00 97.6 16 93 Room Air I&O- Last 24 Hours up to 6 AM 08/11/19 06:00 Intake Total 1180 ml Output Total 800 ml Balance 380 ml Laboratory Data 24H LABS Laboratory Tests 2 08/11/19 07:13: Bedside Glucose (Misc Panel) 161H Microbiology Microbiology 08/08/19 Gram Stain - Final, Complete 08/08/19 Sputum Culture - Final, Complete 08/08/19 Blood Culture - Preliminary, Resulted No Growth after 72 hours. All specime... 08/08/19 Respiratory Virus Panel (PCR) (DEV[facility]) - Final, Complete 08/08/19 Blood Culture - Preliminary, Resulted No Growth after 72 hours. All specime... EDER WILLINGHAM DO Aug 11, 2019 13:15 YOVANY TORRES MD Aug 11, 2019 16:27
[2019-08-11] MEDS: traZODone 50 MG TAB PO SCH (20:35)
[2019-08-11] MEDS: ONDANSETRON 4 MG ORAL DISINTEGRATING TAB (Q0162 PER 1MG) PO PRN (20:35)
[2019-08-11 22:00] VITALS: BP 137/65
[2019-08-12] MEDS: PIPERACILLIN/TAZOBACTAM SOD 3.375 GM in D5W MINI-BAG PLUS 50 ML IV SCH ×3 (02:28→14:46)
[2019-08-12] MEDS: hydrOXYzine 25 MG TAB PO PRN ×2 (02:31→17:39)
[2019-08-12 06:00] VITALS: BP 138/64
[2019-08-12] MEDS: LEVEMIR (INSULIN DETEMIR) 1 UNITS/0.01ML SC SCH (07:35)
[2019-08-12] MEDS: ENOXAPARIN 40 MG/0.4 ML SYRINGE (J1650) SC SCH (08:45)
[2019-08-12] MEDS ORDERED: AZITHROMYCIN 250 MG TAB PO ONE (09:00)
[2019-08-12 09:10] VITALS: BP 134/66
[2019-08-12] MEDS: VANCOMYCIN ORAL SOL 250MG/5ML ORAL SYRINGE PO SCH ×2 (09:38→20:39)
[2019-08-12] MEDS: guaiFENesin ER 600 MG TAB PO SCH ×2 (09:39→20:40)
[2019-08-12] MEDS: ASPIRIN 81 MG ENTERIC TAB PO SCH (09:39)
[2019-08-12 09:40] VITALS: BP 134/66
[2019-08-12] MEDS: amLODIPine 10 MG TAB PO SCH (09:40)
[2019-08-12] MEDS: SERTRALINE HCL 25 MG TABLET PO SCH (09:41)
[2019-08-12] MEDS: ONDANSETRON 4 MG ORAL DISINTEGRATING TAB (Q0162 PER 1MG) PO PRN (09:51)
--- NOTE | 2019-08-12 11:57 | CR ---
DATE OF CONSULTATION: 08/11/2019 REASON FOR CONSULTATION: I was asked to consult by the hospitalist for evaluation of large right sided lung abscess. HISTORY OF PRESENT ILLNESS: Mr. Alonso is a pleasant 74-year-old gentleman smoker, of [place], who presented to the hospital on 06/06 with chest pain and cough for about 6 weeks prior to admission when he had developed hemoptysis. The patient was treated with IV Unasyn from 06/06 to 06/11, and then switched to p.o. Augmentin. He has remained on p.o. Augmentin since then and was slowly improving. He has a history of C. difficile colitis in 2017 and therefore he was started on p.o. vancomycin as he was going to be on long-term antibiotics even though he has not had any recurrence. The patient was at [facility] from 06/18 to 07/04 for rehabilitation, discharged home to continue with Augmentin and he followed up with Dr. Ocampo as an outpatient. He was seen by his primary care provider on the day of admission. He states he was very weak, stumbling into schaeffer, could not walk straight, was short of breath and therefore they called the ambulance for him to be hospitalized this time. He still has a cough productive of yellow phlegm with shortness of breath. On 06/05/2019 he had an influenza PCR that was negative for A and B. 08/08/2019 mycoplasma IgG was positive. IgM negative. QuantiFERON TB Gold was done on 06/06/2019 was negative. Methicillin-resistant Staphylococcus aureus (MRSA) screen was negative. The patient was started on IV Zosyn along with Zithromax, which he received four doses of. He states he is feeling a little better since he has been in the hospital again. He denies any fever, chills, nausea, vomiting or diarrhea. PAST MEDICAL HISTORY: Significant for chronic obstructive pulmonary disease (COPD), but had not been on regular inhaled treatment. History of tobacco abuse. He smokes 3-1/2 packs a day for about 50 years. Now he smokes maybe one cigarette a day because of anxiety. Exposure to Agent [place]. 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 Colonoscopy, polypectomy of adenomatous hyperplastic polyp. 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 History of C. difficile colitis in 2017 when he had anal cancer. Hypertension. PAST SURGICAL HISTORY: Colonoscopy. Colostomy for anal cancer. REVIEW OF SYSTEMS: He denies any fever or chills. Said his appetite has been poor. He denies any headache or visual changes. No sore throat. He had radiation to his neck. He has chronic shortness of breath and coughing, yellow phlegm but no more hemoptysis. He had right-sided chest discomfort radiating to his shoulder. He has a colostomy. No nausea or vomiting recently. He denies any dysuria or hematuria. No flank pain. PHYSICAL EXAMINATION: He is a thin looking gentleman in no acute distress. HEART: Normal S1-S2. No murmurs, rubs or gallops. LUNGS: No tenderness to palpation. Decreased breath sounds at the right base. Good breath sounds on the left side. No wheezes or rhonchi. ABDOMEN: Soft, nontender. No hepatosplenomegaly. He has a colostomy on the left lower quadrant. EXTREMITIES: No clubbing, cyanosis or edema. NEUROLOGIC EXAM: Anxious gentleman but alert and oriented times three. Motor strength normal. ALLERGIES: 1. CONTRAST MEDIA. MEDICATIONS: - albuterol/Atrovent nebs every 4 hours p.r.n. - Levemir 5 units subcu daily - amlodipine 10 mg by mouth daily - aspirin 81 mg by mouth daily - Zoloft 75 mg by mouth daily - Mucinex 1200 mg by mouth b.i.d. - trazodone 50 mg by mouth q.h.s. - Zosyn 3.375 grams IV every 6 hours - Zofran p.r.n. - hydroxyzine 25 mg p.o. every 6 hours p.r.n. - Percocet 0.5 mg by mouth t.i.d. p.r.n. - Torsemide 10 mg by mouth daily - vancomycin 125 by mouth every 12 hours - Lovenox 40 mg subcu every 12 hours LABORATORY DATA: White count has been normal throughout this admission, white count 7, hemoglobin 11.9, hematocrit 38.4, platelets 355. Sodium 140, potassium 3.9, chloride 103, bicarb 30, BUN 8, creatinine 0.84, glucose 197, calcium 9.2, CRP was 5.84. Procalcitonin 0.04. TSH 11.73, free T4 0.99. Blood cultures two sets were negative. Sputum has many white cells, few epithelial cells, few gram positive cocci in pairs, chains and clusters. Normal paul present. IMAGING: Chest CT was reviewed with Dr. Mercer showing a gradually improving large right lower lobe lung abscess, new infiltrate in the left lower lobe consistent with superimposed pneumonia. New 1.5 cm spiculated nodule right upper lobe posteriorly. Dilated ascending aorta 4.7 cm. Right lung abscess measures on June 09 was 19 x 17 x 14.3 cm. 08/08/2019 respiratory panel was negative. Methicillin-resistant Staphylococcus aureus (MRSA) screen was negative. Mycoplasma IgG 2038, IgM negative. 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 Augmentin for the past 2 months. The patient has persistent abscess but has definitely decreased in size. He was readmitted this time for a new left lower lobe pneumonia. Respiratory panel was negative. Procalcitonin interestingly was normal, but the patient has slowly improved with IV Zosyn. There is concern also of a new spiculated (cut off). PLAN: Continue IV Zosyn until I discuss the case with pulmonary. I have already discussed the case with Dr. Mercer who was reviewed the CT with me. We will obtain a urine legionnaire antigen, pneumococcal antigen and histoplasma antigen as well. Will finish the course of Zithromax times five days for atypical coverage and then discontinue Zithromax. Would suggest obtaining HIV and hepatitis C testing if not previously done as they are not available and [employer].
[2019-08-12] MEDS ORDERED: MUCI600T31 PO (16:48)
[2019-08-12] MEDS ORDERED: HYDR-3363 PO (17:33)
[2019-08-12] MEDS ORDERED: AMOX875T2 PO (17:33)
--- NOTE | 2019-08-12 18:42 | IPNPDOC ---
Date Seen The patient was seen on 08/12/19. Progress Note SUBJECTIVE: 74-year-old male patient examined bedside, he reports having more cough with increased amount of sputum light yellow in color than yesterday, no blood. He has no shortness of breath or difficulty breathing. He fears to stay alone and was anxious when talking to him about possible discharge tomorrow. He denies having any hypoglycemic episodes during the night, fever, chills, nausea, or vomiting. OBJECTIVE PHYSICAL EXAMINATION: VITAL SIGNS: Please see below. GENERAL Patient sitting up in bed awake alert oriented speaking in complete sentences no acute distress. HEENT: Normocephalic atraumatic, pupils are equal and reactive to light. Oral mucosa is moist without any erythema or exudates. 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 CARDIOVASCULAR: S1 S2 regular no additional heart sounds appreciated. RESPIRATORY: Decreased breath sounds on the right lower base, normal breath sounds on the left side, mild crackles on right lower base, no audible wheezing, rhonchi,rales. . ABDOMINAL: Bowel sounds present abdomen soft and nontender, nondistended on the left side colostomy bag in place. EXTREMITIES: No clubbing cyanosis or edema NEUROLOGICAL: Spontaneously moves all 4 extremities cranial 2 through 12 grossly intact no gross focal deficits appreciated LABORATORY DATA & MICROBIOLOGY:: Please see below. IMAGING STUDIES: CT chest without contrast: (08/08/19): Gradually improving large right lower lobe lung [id number] x 12.3 cm x10.8cm new infiltrate to left lower lobe consistent with superimposed pneumonia, 1.5 cm spiculated nodule right upper lobe posteriorly stable small nodule anterior in the right upper lobe, dilated ascending aorta 4.7 cm. ASSESSMENT AND PLAN: This is a 74-year-old male admitted for shortness of breath secondary to known lung abscess. PROBLEMS: Right lung abscess: -Imaging improved from original CT scan in May -s/p antibiotics and discharged with Augmentin for 6 weeks in May 2019 -Current admission: Sputum culture + for Gram stain positive for gram-positive cocci in pairs, chains and clusters as well as few gram-negative rods, -MRSA screen negative,Mycoplasma IgG 2038. 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 Valentine requested for urine histoplasma antigen, HIV and Hepatitic C C. difficle: - Due to the history of C. difficile infection and prolonged use of antibiotics will continue with vancomycin PO. Type 2 diabetes mellitus -Because of history of hypoglycemia in previous admissions will continue with FSBS BID -c/w 5 units Levemir daily (with holding parameters if BS <180) Hypertension -c/w amlodipine 10 mg daily and torsemide 10 mg PRN Anxiety: He was anxious when talking about discharge. -c/w sertraline, hydroxyzine, trazodone. History of chronic pain : -c/w Percocet 5 mg 3 times a day History of peripheral vascular disease: -c/w aspirin DVT prophylaxis: Lovenox 40 mg. DISPOSITION: Discharge in the morning. ATTENDING NOTE I have personally evaluated and examined the patient. Discussed with residents and student regarding plan of care and agree with the above assessment and plan. VS, I&O, 24H, [facility] Vital Signs/I&O Vital Signs Date Time Temp Pulse Resp B/P (MAP) Pulse Ox O2 Delivery O2 Flow Rate FiO2 08/12/19 10:56 3.0 24 08/12/19 09:40 76 134/66 08/12/19 09:10 98.0 24 96 Venturi Mask I&O- Last 24 Hours up to 6 AM 08/12/19 06:00 Intake Total 1450 ml Output Total 300 ml Balance 1150 ml Laboratory Data 24H LABS Laboratory Tests 2 08/11/19 16:17: Bedside Glucose (Misc Panel) 175H 08/11/19 18:23: 08/11/19 21:00: Bedside Glucose (Misc Panel) 271H 08/12/19 06:48: Bedside Glucose (Misc Panel) 135H Microbiology Microbiology 08/11/19 Acid Fast Stain - Final, Resulted 08/11/19 Mycobacterial Culture, Resulted Pending 08/08/19 Gram Stain - Final, Complete 08/08/19 Sputum Culture - Final, Complete 08/08/19 Blood Culture - Preliminary, Resulted No Growth after 72 hours. All specime... 08/08/19 Respiratory Virus Panel (PCR) ([facility]) - Final, Complete 08/08/19 Blood Culture - Preliminary, Resulted No Growth after 72 hours. All specime... EDER WILLINGHAM DO Aug 12, 2019 13:26 CORY TOUSSAINT MD Aug 12, 2019 18:48
[2019-08-12] MEDS: traZODone 50 MG TAB PO SCH (20:39)
[2019-08-12] MEDS: PERCOCET 5MG/325MG TAB PO PRN (20:47)
[2019-08-12 22:00] VITALS: BP 135/74
--- NOTE | 2019-08-12 23:09 | IPN ---
DATE: 08/12/2019 Timmy is doing well except for severe anxiety. His cough has improved. He does not have any pleuritic chest pain. He has had no fever or chills. LABORATORY DATA White count is 7, hemoglobin 11.9, hematocrit 38.4, platelets 355. Sodium 140, potassium 3.9, chloride 103, bicarb 30, BUN 8, creatinine 0.84, glucose 197, calcium 9.2. Procalcitonin was 0.04, CRP 5.84. Sputum culture was no growth on 08/08 and AFB sputum smear was negative. Culture is pending to rule out atypical mycobacteria. Blood cultures have been negative. Chest CT on 08/08 showed improvement in an abscess with a decrease in size to 11.2 x 12.3 cm down from 16.9 x 19.1 cm. New left lower lobe pneumonia. PHYSICAL EXAMINATION: Temperature is 98, pulse 76, respirations 24, blood pressure 134/66, O2 sat 96% on 3 liters nasal cannula. Heart: Normal S1, S2. No murmurs. Lungs: Diminished breath sounds at the right base, but otherwise clear. Abdomen: Soft, nontender. No hepatosplenomegaly. Extremities: No edema. IMPRESSION 1. Right lung abscess on Augmentin since June 11 with improving lung abscess. 2. Left lower lobe pneumonia treated with IV Zosyn and by mouth Zithromax, improved symptoms. Sputum culture has remained negative. Procalcitonin was negative so it could have been a viral pneumonia versus aspiration of gastric contents. 3. Severe anxiety only treated with Zoloft 75 mg daily and hydroxyzine. 4. History of C difficile colitis in 2017, on prophylactic vancomycin 125 mg every 12 hours with no recurrent diarrhea. PLAN Continue with Augmentin. The patient will follow up with Dr. Ocampo on 08/18. I do not need to see him for followup.
[2019-08-13 06:00] VITALS: BP 118/64
[2019-08-13] MEDS ORDERED: AUGMENTIN 875 MG TAB PO ONE (08:00)
[2019-08-13] MEDS: LEVEMIR (INSULIN DETEMIR) 1 UNITS/0.01ML SC SCH (08:11)
[2019-08-13] MEDS: SERTRALINE HCL 25 MG TABLET PO SCH (08:44)
[2019-08-13] MEDS: guaiFENesin ER 600 MG TAB PO SCH (08:44)
[2019-08-13] MEDS: ASPIRIN 81 MG ENTERIC TAB PO SCH (08:44)
[2019-08-13] MEDS: hydrOXYzine 25 MG TAB PO PRN (08:44)
[2019-08-13] MEDS: VANCOMYCIN ORAL SOL 250MG/5ML ORAL SYRINGE PO SCH (08:45)
[2019-08-13] MEDS: amLODIPine 10 MG TAB PO SCH (08:45)
[2019-08-13] MEDS: ENOXAPARIN 40 MG/0.4 ML SYRINGE (J1650) SC SCH (08:45)
--- NOTE | 2019-08-13 10:40 | DS.PDOC ---
Discharge Summary General Date of Admission Aug 08, 2019 at 13:44 Date of Discharge 08/13/2019 Discharge Summary DISCHARGE DIAGNOSIS: Right lung abscess. SECONDARY DIAGNOSIS: 1.Type 2 diabetes mellitus 2.Hypertension 3.Anxiety 4.peripheral vascular disease PROCEDURES PERFORMED DURING STAY: None CONSULTANTS: Dr. Mónica Ontiveros, pulmonology Dr. Michelle Nickerson, infectious disease HOSPITAL COURSE: While he was admitted he was placed on antibiotics. His anxiety symptoms are controlled with his home medication but his hydroxyzine dose was increased . Discharge the patient was stable to go home and advised that he can continue his home Augmentin and by mouth vancomycin. He was advised to follow-up with pulmonary as scheduled. He was agreeable to the plan stated to him the day of discharge. DISCHARGE MEDICATIONS: Please see below. ALLERGIES: Please see below. SUBJECTIVE: 74-year-old male patient examined bedside, he reports having cough with increased amount of sputum light yellow in color since 2 days, no blood. He has no shortness of breath or difficulty breathing. He is feel good and ready to go home. Denies having fever, chills, nausea, or vomiting. OBJECTIVE: PHYSICAL EXAMINATION: VITAL SIGNS: Please see below. GENERAL Patient sitting up in bed awake alert oriented speaking in complete sentences no acute distress. HEENT: Normocephalic atraumatic, pupils are equal and reactive to light. Oral mucosa is moist without any erythema or exudates. 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 CARDIOVASCULAR: S1 S2 regular no additional heart sounds appreciated. RESPIRATORY: Normal breath sounds heard in upper lobes bilaterally, decreased crackles on right lower base, no audible wheezing, rhonchi, rales. ABDOMINAL: Bowel sounds present abdomen soft and non-tender, non-distended on the left side colostomy bag in place. EXTREMITIES: No clubbing cyanosis or edema NEUROLOGICAL: Spontaneously moves all 4 extremities cranial 2 through 12 grossly intact no gross focal deficits appreciated LABORATORY DATA, MICROBIOLOGY: Please see below. IMAGING STUDIES: CT chest without contrast: (08/08/19): Gradually improving large right lower lobe lung psqqyep34.2cm x 12.3 cm x10.8cm new infiltrate to left lower lobe consistent with superimposed pneumonia, 1.5 cm spiculated nodule right upper lobe posteriorly stable small nodule anterior in the right upper lobe, dilated ascending aorta 4.7 cm. ASSESSMENT AND PLAN: This is a 74-year-old male admitted for shortness of breath secondary to known lung abscess. PROBLEMS: Right lung abscess: -Imaging improved from original CT scan in May -s/p antibiotics and discharged with Augmentin for 6 weeks in May 2019 -Current admission: Sputum culture + for Gram stain positive for gram-positive cocci in pairs, chains and clusters as well as few gram-negative rods, -MRSA screen negative,Mycoplasma IgG 2038. 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 Valentine requested for urine histoplasma antigen, HIV and Hepatitic C C. difficle: - Due to the history of C. difficile infection and prolonged use of antibiotics will continue with vancomycin PO. Type 2 diabetes mellitus -Because of history of hypoglycemia in previous admissions will continue with FSBS BID -c/w 5 units Levemir daily (with holding parameters if BS <180) Hypertension -c/w amlodipine 10 mg daily and torsemide 10 mg PRN Anxiety: He was anxious when talking about discharge. -c/w sertraline, hydroxyzine, trazodone. History of chronic pain : -c/w Percocet 5 mg 3 times a day History of peripheral vascular disease: -c/w aspirin DVT prophylaxis: Lovenox 40 mg. DISPOSITION: Home DISCHARGE CONDITION: Improved and Stable FOLLOW UP: 1. Follow with the primary care provider in 7-10 days 2. Follow-up with pulmonology as scheduled 3. Continue to take Augmentin and vancomycin tablets as scheduled. 4. New prescription of Mucinex tablets twice a day has been sent to the pharmacy to help produce cough. Take as scheduled. 5. All anxiety medications are to be continued as scheduled no new meds were added. 6. If symptoms return or worsen please call your primary care provider or return to the ER for further evaluation. ACTIVITY: As prior to admission DIET: As prior to admission TIME SPENT ON DISCHARGE: 35 minutes Vital Signs/I&Os Vital Signs Date Time Temp Pulse Resp B/P (MAP) Pulse Ox O2 Delivery O2 Flow Rate FiO2 08/13/19 06:00 97.6 68 16 118/64 (82) 97 Room Air 08/12/19 10:56 3.0 24 I&O- Last 24 Hours up to 6 AM 08/13/19 06:00 Intake Total 930 ml Output Total 2100 ml Balance -1170 ml Laboratory Data Labs 24H Laboratory Tests 2 08/12/19 20:37: Bedside Glucose (Misc Panel) 274H 08/13/19 07:41: Bedside Glucose (Misc Panel) 154H FSBS Laboratory Tests Test 08/12/19 20:37 08/13/19 07:41 Range/Units Bedside Glucose (Misc Panel) 274 154 83-110 MG/DL Microbiology Microbiology 08/11/19 Acid Fast Stain - Final, Resulted 08/11/19 Mycobacterial Culture, Resulted Pending 08/08/19 Gram Stain - Final, Complete 08/08/19 Sputum Culture - Final, Complete 08/08/19 Blood Culture - Preliminary, Resulted No Growth after 72 hours. All specime... 08/08/19 Respiratory Virus Panel (PCR) ([facility]) - Final, Complete 08/08/19 Blood Culture - Preliminary, Resulted No Growth after 72 hours. All specime... Discharge Medications Scheduled Amlodipine Besylate (Amlodipine Besylate) 10 Mg Tablet, 10 MG PO DAILY, (Reported) Amoxicillin/Potassium Clav (Amox-Clav 875-125 mg Tablet) 1 Each Tablet, 875 MG PO BID Aspirin (Aspirin EC) 81 Mg Tab, 81 MG PO DAILY, (Reported) Dapagliflozin Propanediol (Farxiga) 10 Mg Tablet, 10 MG PO DAILY, (Reported) Guaifenesin (Mucinex) 600 Mg Tab.er.12h, 1,200 MG PO BID Metformin HCl (Metformin HCl ER) 500 Mg Tab.er.24h, 500 MG PO BID, (Reported) Sertraline HCl (Sertraline HCl) 50 Mg Tablet, 75 MG PO DAILY, (Reported) Trazodone HCl (Trazodone HCl) 50 Mg Tablet, 50 MG PO QHS, (Reported) Vancomycin Hcl (Vancomycin HCl) 125 Mg Capsule, 1 CAP PO BID Scheduled PRN Hydroxyzine HCl (Hydroxyzine HCl) 25 Mg Tablet, 25 MG PO Q6HP PRN for ANXIETY Oxycodone HCl/Acetaminophen (Oxycodone-Acetaminophen 5-325) 1 Each Tablet, 0.5 TAB PO TID PRN for PAIN, (Reported) Torsemide (Torsemide) 10 Mg Tablet, 10 MG PO DAILY PRN for EDEMA, (Reported) Miscellaneous Medications [Patient Comment] , (Reported) PATIENT HAS NOT TAKEN MEDICATIONS IN ABOUT ONE WEEK DUE TO FEELING ILL Allergies Coded Allergies: Contrast Media (Verified Allergy, Severe, facial swelling-years ago, 08/08/19) ATTENDING NOTE I have personally evaluated and examined the patient. Discussed with residents/students regarding plan of care and agree with the above assessment and plan. EDER WILLINGHAM DO Aug 13, 2019 09:54 CORY TOUSSAINT MD Aug 15, 2019 16:14
[2019-08-13] MEDS ORDERED: VANC125C3 PO (11:19)
[2019-08-15 00:09] LABS: BODY FLUID CULTURE Not Indicated (.); HISTOPLASMA GAL'MANNAN AG UR <0.5 (<0.5 ng/mL); LEGIONELLA ANTIGEN URINE Negative (Negative); ORGANISM ID Not indicated. (.); SPECIMEN SOURCE Urine (.); URINE STREP PNEUMONIAE ANTIGEN Negative (Negative)
== END 2019-08-13 13:00 | disposition home or self-care (01) | DRG 177 ==
LOC: M ED 10:36 → M ED INP 13:44 → M MSPAV 15:18
PROVIDERS: ADMIT Internal Medicine; ATTEND Student in an Organized Health Care Education/Training Program
DX: J85.1 Abscess of lung with pneumonia (principal); J12.9 Viral pneumonia, unspecified; E87.2 Acidosis; E11.65 Type 2 diabetes mellitus with hyperglycemia; I10 Essential (primary) hypertension; F41.9 Anxiety disorder, unspecified; F43.10 Post-traumatic stress disorder, unspecified; G47.00 Insomnia, unspecified; G89.29 Other chronic pain; I73.9 Peripheral vascular disease, unspecified; J44.9 Chronic obstructive pulmonary disease, unspecified; N28.1 Cyst of kidney, acquired; Z79.2 Long term (current) use of antibiotics; Z86.19 Personal history of other infectious and parasitic diseases; Z85.21 Personal history of malignant neoplasm of larynx; Z77.098 Contact with and (suspected) exposure to other hazardous, chiefly nonmedicinal, chemicals; Z91.041 Radiographic dye allergy status; Z91.013 Allergy to seafood; Z79.82 Long term (current) use of aspirin; Z87.891 Personal history of nicotine dependence; Z92.3 Personal history of irradiation; Z92.21 Personal history of antineoplastic chemotherapy; Z91.14 Patient's other noncompliance with medication regimen; Z93.3 Colostomy status; Z79.899 Other long term (current) drug therapy; Z91.82 Personal history of military deployment; Z79.84 Long term (current) use of oral hypoglycemic drugs; Z85.048 Personal history of other malignant neoplasm of rectum, rectosigmoid junction, and anus

== ENCOUNTER → 2019-08-22 | Outpatient (REF) | payer BC ==
[~2019-08-22] MED LIST changes: +FARX1TAB3 PO; +HYDR-3363 PO; +METF-791 PO; +PATIENT COMMENT; +VANC125C3 PO
== END ==
LOC: M LAB REF 12:21
PROVIDERS: ATTEND Internal Medicine
DX: J85.1 Abscess of lung with pneumonia (principal); R06.02 Shortness of breath

== ENCOUNTER → 2019-09-24 | Outpatient (CLI) | payer BC ==
--- NOTE | 2019-09-25 11:30 | REP ---
Clinical: Follow up lung abscess and abnormal opacities. Technique: Axial noncontrast images from the thoracic inlet to the upper abdomen with coronal and sagittal re-formations. Comparison: 08/08/2019. Findings: The 1.5 cm spiculated nodule in the posterior segment right upper lobe has resolved with only minimal residual ground-glass opacity and linear scarring remaining. The 2.5 mm nodule in the anterior right upper lobe remains unchanged. Previous left lower lobe pneumonia has essentially resolved with only minimal residual ground-glass opacities remaining. Lung abscess in the right lower lung zone with air-fluid level is considerably decreased in size when compared to prior examination. Adjacent areas of consolidation/passive atelectasis are again noted. No new acute pulmonary parenchymal process, effusion or pneumothorax is appreciated. Tracheobronchial tree is patent. No significant adenopathy. Mediastinum demonstrates stable atherosclerotic changes to the thoracic aorta and coronary arteries. The ascending aorta is moderately dilated to 4.6 cm maximal diameter and unchanged. Musculoskeletal structures are intact. Limited upper abdomen demonstrates stable bilateral adrenal glands and incompletely evaluated right renal cysts. Impression: 1. Lung abscess in the right lower lung zone with air-fluid level is considerably decreased in size. 2. Previously noted right upper lobe and left lower lobe opacities/infiltrates have essentially completely resolved. 3. No new acute process. 4. Stable ascending thoracic aortic aneurysm. Electronically Signed by Duglas Ro MD 09/25/2019 10:28 A
== END ==
LOC: M RAD 15:04
PROVIDERS: ATTEND Internal Medicine Pulmonary Disease
DX: R91.8 Other nonspecific abnormal finding of lung field (principal); J85.2 Abscess of lung without pneumonia; I71.2 Thoracic aortic aneurysm, without rupture

== ENCOUNTER → 2019-11-12 | Outpatient (REF) | payer BC ==
[2019-11-12 12:59] LABS: INFLUENZA A AMPLIFICATION NEGATIVE (NEGATIVE); INFLUENZA B AMPLIFICATION NEGATIVE (NEGATIVE)
== END ==
LOC: M LAB REF 11:50
PROVIDERS: ATTEND Internal Medicine
DX: E50.9 Vitamin A deficiency, unspecified (principal)

== ENCOUNTER → 2019-12-29 | Outpatient (CLI) | payer BC ==
--- NOTE | 2019-12-29 13:18 | REP ---
CHEST, TWO VIEWS: Two views of the chest are performed. Comparison 08/08/2019. There is persistent right pleural fluid collection inferiorly with consolidation. Extent is similar to the prior exam. Left lung is clear. Heart is not enlarged. There is calcification of the thoracic aorta. There are mild degenerative changes of the spine. IMPRESSION: Persistent right inferior pleural fluid collection with consolidation. Extent is similar to the prior study. Electronically Signed by Samuel Barrera MD 12/29/2019 07:45 P
== END ==
LOC: M RAD 11:10
PROVIDERS: ATTEND Internal Medicine Pulmonary Disease
DX: J85.2 Abscess of lung without pneumonia (principal)

== ENCOUNTER → 2020-01-02 | Outpatient (REF) | payer BC | LOC: M LAB REF 11:37 | PROVIDERS: ATTEND Internal Medicine Pulmonary Disease | DX: J85.2 Abscess of lung without pneumonia (principal) ==

== ENCOUNTER → 2020-01-06 | Outpatient (REF) | payer BC | LOC: M LAB REF 09:30 | PROVIDERS: ATTEND Internal Medicine Pulmonary Disease | DX: J85.2 Abscess of lung without pneumonia (principal) ==

== ENCOUNTER → 2020-01-07 | Outpatient (REF) | payer BC | LOC: M LAB REF 09:24 | PROVIDERS: ATTEND Internal Medicine Pulmonary Disease | DX: J85.2 Abscess of lung without pneumonia (principal) ==

== ENCOUNTER → 2020-01-08 | Outpatient (REF) | payer BC | LOC: M LAB REF 09:20 | PROVIDERS: ATTEND Internal Medicine Pulmonary Disease | DX: R09.3 Abnormal sputum (principal) ==

== ENCOUNTER → 2020-01-28 | Outpatient (CLI) | payer MEDICARE, BC ==
[~2020-01-28] MED LIST changes: -METF-791 PO; +METF-838 PO
--- NOTE | 2020-01-29 06:43 | REP ---
Clinical: Follow up pneumonia and cavitary component. Technique: Axial noncontrast images from the thoracic inlet to the upper abdomen with coronal and sagittal re-formations. Comparison: 09/24/2019, 08/08/2019 Findings: There is a complex fluid collection in the right posterior lower hemithorax demonstrating air fluid level and thickened rind. Peripheral and inferior to this collection is surrounding presumed pleural fluid as well as evidence for right lower lobe atelectasis/consolidation with few air bronchograms and small foci of high density material which may reflect scattered calcifications or chronic inspissated contrast material. The fluid collection measures approximately 4.8 x 10.6 x 7.3 cm and appears to be decreased from 07/2019, but relatively unchanged in size as compared to 09/2019. The remainder of lung blanchard demonstrate mild emphysematous changes with minimal scattered age-related interstitial changes. No further significant area of consolidation, obvious nodule or mass lesion. No pneumothorax. Tracheobronchial tree is relatively patent. Mediastinum demonstrates extensive atherosclerotic disease to the thoracic aorta and coronary arteries. No cardiomegaly or pericardial effusion. Reactive mediastinal lymph nodes measuring up to approximately 10 mm cannot be excluded. Musculoskeletal structures without acute osseous abnormality. Impression: 1. Fluid collection in the right lower hemithorax demonstrating thickened rind and internal gas along with small peripheral presumed pleural fluid and right lower lobe atelectasis is again identified and relatively similar to 09/24/2019. Differential diagnosis includes parenchymal abscess as well as empyema. 2. Remainder of lung blanchard are relatively stable and without further significant acute process. Electronically Signed by Duglas Ro MD 01/29/2020 06:35 A
== END ==
LOC: M RAD 09:13
PROVIDERS: ATTEND Internal Medicine Pulmonary Disease
DX: J98.11 Atelectasis (principal); J85.2 Abscess of lung without pneumonia

== ENCOUNTER → 2020-02-10 | Outpatient (REF) | payer BC | LOC: M LAB REF 16:47 | PROVIDERS: ATTEND Internal Medicine Pulmonary Disease | DX: J85.2 Abscess of lung without pneumonia (principal) ==

== ENCOUNTER → 2020-05-10 | Outpatient (CLI) | payer BC ==
[~2020-05-10] MED LIST changes: -AMLO10TA5 PO; +AMLO1TAB24 PO; +AMLO1TAB25 PO; -AMLO5TAB6 PO
--- NOTE | 2020-06-11 14:10 | REP ---
NONCONTRAST CHEST CT: HISTORY: Follow up lung abscess. COMPARISON: 01/28/20 TECHNIQUE: Axial noncontrast images from the thoracic inlet to the upper abdomen with coronal and sagittal reformations. FINDINGS: A cavity in the right lower lung zone with thickened rind and air-fluid level is again identified and decreased in size from prior examination. Current measurements for the presumed lung abscess in the right lower lobe measure 9.0 x 2.9 x 3.5 cm (previously measuring 10.6 x 7.3 x 4.8 cm). A small area of presumed chronic rounded atelectasis anterior to the abscess with calcification versus chronic inspissated contrast material is again noted and relatively stable. A small amount of adjacent pleural fluid is also identified, but decreased from prior examination. The remainder of the lung blanchard demonstrate stable, chronic emphysematous changes and scattered scarring. There are 2 new noncalcified nodular densities in the right upper lobe measuring 7.5 mm (image 27) and 5.3 mm (image 30), which represent change from prior examination. Mediastinal/hilar lymph nodes remain stable. The tracheobronchial tree is relatively patent. Extensive calcified atherosclerotic changes to the thoracic aorta and coronary arteries are again noted and unchanged. No cardiomyopathy or pericardial effusion identified. Musculoskeletal structures demonstrates age-related changes without acute osseous abnormality. Limited upper abdomen again demonstrates stable right renal cyst, measuring approximately 4.5 cm diameter and small left adrenal adenoma measuring 1.1 cm. A small right adrenal adenoma measuring 1.0 cm is also identified. A complex low density lesion in the superior pole of the right kidney measuring approximately 1.7 cm is similar to prior examination in retrospect and may represent mass versus complex cyst. IMPRESSION: 1. Right lower lobe pulmonary abscess slightly decreased in size from prior examination along with slightly decreased adjacent pleural fluid. 2. Two small noncalcified nodules in the right upper lobe are now identified, measuring 5.3 and 7.5 mm, requiring short term 3-6 month follow up. 3. Simple and possible complex right renal cyst may warrant further investigation, including renal ultrasound evaluation. MTDD
== END ==
LOC: M RAD 06:40
PROVIDERS: ATTEND Internal Medicine Pulmonary Disease
DX: R91.8 Other nonspecific abnormal finding of lung field (principal); J85.2 Abscess of lung without pneumonia

== ENCOUNTER 2020-06-14 00:11 | Inpatient (IN) | payer MEDICARE, BC ==
[~2020-06-14] VITALS: Ht 172.7 cm; Wt 76.5 kg
[~2020-06-14 00:11] MED LIST changes: +traZODone 50 MG TAB PO SCH
[2020-06-14] MEDS ORDERED: ASPIRIN 81 MG CHEW TABLET PO ONE (01:00)
[2020-06-14 01:10] LABS: BASO % 0.6 % (0.0-1.0); EOS # 0.1 10^3/uL (0.0-0.5); EOS % 1.7 % (0.0-3.0); HEMATOCRIT 42.3 % (42.0-52.0); HEMOGLOBIN 13.6 g/dl (13.5-17.5); LYMPH # 0.8 10^3/uL (1.5-5.0); LYMPH % 16.1 % (24.0-44.0); MEAN CORPUSCULAR HEMOGLOBIN 26.5 pg (27.0-33.0); MEAN CORPUSCULAR HGB CONC 32.2 g/dl (32.0-36.5); MEAN CORPUSCULAR VOLUME 82.3 fl (80.0-96.0); MONO # 0.5 10^3/uL (0.0-0.8); MONO % 10.1 % (0.0-5.0); NEUTROPHILS # 3.6 10^3/uL (1.5-8.5); NEUTROPHILS % 70.1 % (36.0-66.0); PLATELET COUNT, AUTOMATED 290 10^3/uL (150-450); RED BLOOD COUNT 5.14 10^6/uL (4.30-6.10); WHITE BLOOD COUNT 5.2 10^3/uL (4.0-10.0)
[2020-06-14 01:39] LABS: ALBUMIN 2.6 GM/DL (3.2-5.2); ALT/SGPT 14 U/L (12-78); BILIRUBIN,DIRECT < 0.1 MG/DL (0.0-0.2); BILIRUBIN,TOTAL 0.2 MG/DL (0.2-1.0); BLOOD UREA NITROGEN 17 MG/DL (7-18); CALCIUM LEVEL 8.9 MG/DL (8.8-10.2); CARBON DIOXIDE LEVEL 29 MEQ/L (21-32); CHLORIDE LEVEL 100 MEQ/L (98-107); CK-MB VALUE MASS < 1.0 NG/ML (<3.6); CPK CREATINE PHOSPHOKINASE 45 U/L (39-308); CREATININE FOR GFR 0.89 MG/DL (0.70-1.30); GLOMERULAR FILTRATION RATE > 60.0 (>42); GLUCOSE, FASTING 284 MG/DL (70-100); MB/CK RELATIVE INDEX 2.22 (< OR =4); NT-PRO BNP 160 PG/ML (<450); POTASSIUM SERUM 4.6 MEQ/L (3.5-5.1); SODIUM LEVEL 134 MEQ/L (136-145); TOTAL PROTEIN 6.6 GM/DL (6.4-8.2); TROPONIN I 0.02 NG/ML (< 0.10)
[2020-06-14] MEDS ORDERED: ISOVUE-370 76% 100ML VIAL As Ordered ONE (01:56)
[2020-06-14] MEDS ORDERED: methylPREDNISolone 125MG 2ML VIAL IV ONE (02:00)
[2020-06-14] MEDS ORDERED: diphenhydrAMINE 50MG/ML VIAL (J1200) IV ONE (02:00)
[2020-06-14] MEDS ORDERED: IPRATROPIUM 0.5MG/ALBUTEROL 2.5MG INH SOL UD 3ML (DUONEB) NEB ONE (02:30)
--- NOTE | 2020-06-14 02:53 | REPVR ---
PROCEDURE INFORMATION: Exam: CT Angiography Chest With Contrast Exam date and time: 06/14/2020 2:20 AM Age: 75 years old Clinical indication: Chest pain; Prior surgery; Additional info: Chest pain, HX of lung abscess TECHNIQUE: Imaging protocol: Computed tomographic angiography of the chest with intravenous contrast. 3D rendering (Not supervised by radiologist): MIP and/or 3D reconstructed images were created by the technologist. Radiation optimization: All CT scans at this facility use at least one of these dose optimization techniques: automated exposure control; mA and/or kV adjustment per patient size (includes targeted exams where dose is matched to clinical indication); or iterative reconstruction. Contrast material: ISO 370; Contrast volume: 75 ml; Contrast route: INTRAVENOUS (IV); COMPARISON: CT Chest without contrast 05/10/2020 7:17 AM FINDINGS: Pulmonary arteries: Normal. No pulmonary emboli. Aorta: Unremarkable. No aortic aneurysm. No aortic dissection. Lungs: Persistent airspace consolidation in the left lower lobe. Increasing peribronchial opacities and bronchial wall thickening in the right lung base. Persistent patchy opacities in the left lower lobe. Opacities in the right middle lobe have slightly worsened. Mild emphysematous changes. Pleural space: Peripherally enhancing thick-walled pleural fluid collection in the right costophrenic sulcus has slightly increased in size measuring 11.1 x 4.1 cm. Small amount of non loculated pleural fluid is also present. Heart: Unremarkable. No cardiomegaly. No pericardial effusion. Lymph nodes: Unremarkable. No enlarged lymph nodes. Bones/joints: Unremarkable. No acute fracture. Soft tissues: Unremarkable. IMPRESSION: 1. Slight interval increase in size of loculated air and fluid containing collection in the right costophrenic sulcus. 2. Worsening airspace opacities in the right lung base and to a lesser degree in the right middle lobe. Electronically signed by: Jamar Jones On 06/14/2020 02:52:45 AM
[2020-06-14] MEDS ORDERED: MAALOX 30 ML SUSP *UDC PO ONE (04:30)
[2020-06-14 04:56] LABS: CK-MB VALUE MASS 3.8 NG/ML (<3.6); MB/CK RELATIVE INDEX 5.21 (< OR =4); TROPONIN I 0.72 NG/ML (< 0.10)
--- NOTE | 2020-06-14 05:42 | ECGEPIP ---
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
--- NOTE | 2020-06-14 05:46 | ECGEPIP ---
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
[2020-06-14] MEDS ORDERED: HYDR-3363 PO (05:59)
[2020-06-14] MEDS ORDERED: ACETAMINOPHEN TAB 650MG DOSE (2X325MG) PO PRN (06:00)
--- NOTE | 2020-06-14 06:10 | HPEPDOC ---
General Date of Admission Jun 14, 2020 at 05:49 Date of Service: Jun 14, 2020 Chief Complaint The patient is a 75-year-old male admitted with a reason for visit of Chest Pain, Elevated Troponin, Lung Abcess. History of Present Illness Patient is 75 years old male with past medical history of COPD, chronic right lung abscess, anal cancer, vocal cord squamous cell carcinoma, diabetes, hypertension, chronic pain, insomnia, diabetes presented to the hospital with chest tightness. Patient stated that today he developed chest tightness, substernal and right upper chest pain 5 out of 10, intermittent without radiation. In ER patient was found to have no any acute ischemic changes on the EKG, second troponin 0.7., No leukocytosis. CTA showed Slight interval increase in size of loculated air and fluid containing collection in the right costophrenic sulcus. Worsening airspace opacities in the right lung base and to a lesser degree in the right middle lobe. Of note patient has chronic right lung abscess treated with multiple courses of antibiotics. Dr. Ocampo follows him. Home Medications Scheduled Amlodipine Besylate (Amlodipine Besylate) 10 Mg Tablet, 10 MG PO DAILY, (Reported) Aspirin (Aspirin EC) 81 Mg Tab, 81 MG PO DAILY, (Reported) Dapagliflozin Propanediol (Farxiga) 10 Mg Tablet, 10 MG PO DAILY, (Reported) Metformin HCl (Metformin HCl ER) 500 Mg Tab.er.24h, 500 MG PO BID, (Reported) Trazodone HCl (Trazodone HCl) 50 Mg Tablet, 50 MG PO QHS, (Reported) Scheduled PRN Hydroxyzine HCl (Hydroxyzine HCl) 25 Mg Tablet, 25 MG PO BID PRN for ANXIETY, (Reported) Oxycodone HCl/Acetaminophen (Oxycodone-Acetaminophen 5-325) 1 Each Tablet, 0.5 TAB PO TID PRN for PAIN, (Reported) Miscellaneous Medications [Patient Comment] , (Reported) PATIENT HAS NOT TAKEN MEDICATIONS IN ABOUT ONE WEEK DUE TO FEELING ILL Allergies Coded Allergies: Contrast Media (Verified Allergy, Severe, facial swelling-years ago, 08/08/19) Past Medical History Medical History Significant for chronic obstructive pulmonary disease (COPD), but had not been on regular inhaled treatment. History of tobacco abuse. He smokes 3-1/2 packs a day for about 50 years. Now he smokes maybe one cigarette a day because of anxiety. Exposure to Agent [place]. 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 Colonoscopy, polypectomy of adenomatous hyperplastic polyp. 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 History of C. difficile colitis in 2017 when he had anal cancer. Hypertension. Surgical History Colonoscopy. Colostomy for anal cancer. Family History I personally reviewed family history and found not pertinent Social History * Smoker: current smoker Alcohol: Denies Drugs: denies A-FIB/CHADSVASC A-FIB History Current/History of A-Fib/PAF?: No Current PO Anticoag Therapy: No Review of Systems Constitutional: Reports: Fatigue; Denies: Chills, Fever Eyes: Denies: Pain Skin: Denies: Rash, Lesions Pulmonary: Reports: Dyspnea, Pleuritic Chest Pain Cardiovascular: Denies: Chest Pain, Palpitations Gastrointestinal: Denies: Nausea, Vomiting Genitourinary: Denies: Dysuria, Frequency Hematologic: Denies: Bruising Endocrine: Denies: Polydipsia Musculoskeletal: Denies: Neck Pain, Back Pain Neurological: Denies: Weakness Psych: Reports: Mood Normal Physical Examination General Exam: Positive: Alert, Cooperative Eye Exam: Positive: PERRLA ENT Exam: Positive: Atraumatic Neck Exam: Positive: Supple; Negative: JVD Chest Exam: Positive: Clear to auscultation, Diminished Heart Exam: Positive: Rate Normal Telemetry: Positive: No significant arrhythmia Abdomen Exam: Positive: Normal bowel sounds Extremity Exam: Negative: Clubbing, Cyanosis Skin Exam: Positive: Nl turgor and temperature Neuro Exam: Positive: Strength at 5/5 X4 ext, Cranial Nerves 3-12 NL Psych Exam: Positive: Mental status NL, Oriented x 3 Vital Signs Vital Signs Date Time Temp Pulse Resp B/P (MAP) Pulse Ox O2 Delivery O2 Flow Rate FiO2 06/14/20 05:45 80 165/81 (109) 99 06/14/20 04:15 96.5 18 06/14/20 01:06 Room Air Laboratory Data Labs 24H Laboratory Tests 2 06/14/20 00:59: Immature Granulocyte % (Auto) 1.4, Neutrophils (%) (Auto) 70.1H, Lymphocytes (%) (Auto) 16.1L, Monocytes (%) (Auto) 10.1H, Eosinophils (%) (Auto) 1.7, Basophils (%) (Auto) 0.6, Neutrophils # (Auto) 3.6, Lymphocytes # (Auto) 0.8L, Monocytes # (Auto) 0.5, Eosinophils # (Auto) 0.1, Basophils # (Auto) 0.0, Nucleated Red Blood Cells % (auto) 0.0, Anion Gap 5L, Glomerular Filtration Rate > 60.0, Lactic Acid Level 2.0, Calcium Level 8.9, Total Bilirubin 0.2, Direct Bilirubin < 0.1, Aspartate Amino Transf (AST/SGOT) 8, Alanine Aminotransferase (ALT/SGPT) 14, Alkaline Phosphatase 86, Total Creatine Kinase 45, Creatine Kinase MB < 1.0, Creatine Kinase MB Relative Index 2.22, Troponin I 0.02, IT-Fud-C-Type Natriuretic Peptide 160, Total Protein 6.6, Albumin 2.6L, Albumin/Globulin Ratio 0.7 06/14/20 04:16: Total Creatine Kinase 73, Creatine Kinase MB 3.8H, Creatine Kinase MB Relative Index 5.21H, Troponin I 0.72#H 06/14/20 04:27: Bedside Glucose (Misc Panel) 333H CBC/BMP Laboratory Tests 06/14/20 00:59 Microbiology Microbiology 06/14/20 Gram Stain, Received Pending 06/14/20 Sputum Culture, Received Pending Assessment/Plan Patient is 75 years old male with past medical history of COPD, chronic right lung abscess, anal cancer, vocal cord squamous cell carcinoma, diabetes, hypertension, chronic pain, insomnia, diabetes presented to the hospital with chest tightness. Patient stated that today he developed chest tightness, substernal and right upper chest pain 5 out of 10, intermittent without radiation. In ER patient was found to have no any acute ischemic changes on the EKG, second troponin 0.7., No leukocytosis. CTA showed Slight interval increase in size of loculated air and fluid containing collection in the right costophrenic sulcus. Worsening airspace opacities in the right lung base and to a lesser degree in the right middle lobe. Of note patient has chronic right lung abscess treated with multiple courses of antibiotics. Dr. Ocampo follows him. Problems (1) Chest pain Status: Acute Problem Text: Continue to monitor troponin EKG negative for acute ischemic changes Echo Nitroglycerin 0.4 sublingual when necessary We'll start metoprolol 12.5 twice a day (2) Elevated troponin Status: Acute Problem Text: Most likely demand ischemia Continue to monitor (3) Abscess of right lung without pneumonia Status: Acute Problem Text: History of chronic lung abscess Abscess was not drained, patient received treatment with antibiotics. today CT showed Slight interval increase in size of loculated air and fluid containing collection in the right costophrenic sulcus. Worsening airspace opacities in the right lung base and to a lesser degree in the right middle lobe. Consider property inspector consult in a.m. (4) Diabetes mellitus Status: Chronic Problem Text: Diabetes diet Insulin sliding scale Plan / VTE VTE Prophylaxis Ordered?: Yes STEVE OLIVEROS DO Jun 14, 2020 06:10
[2020-06-14] MEDS ORDERED: hydrOXYzine 25 MG TAB PO PRN (06:15)
[2020-06-14] MEDS ORDERED: GLUCAGON INJ 1MG VIAL SC PRN (06:15)
[2020-06-14] MEDS ORDERED: GLUCOSE 4GM CHEW TABLET PO PRN (06:15)
[2020-06-14] MEDS ORDERED: PERCOCET 5MG/325MG TAB PO PRN (06:15)
[2020-06-14] MEDS ORDERED: DEXTROSE 50% 50 ML SYRINGE IV PRN (06:15)
[2020-06-14] MEDS ORDERED: NITROGLYCERIN 0.3 MG SUBL TAB SL PRN (06:30)
[2020-06-14] MEDS: HumaLOG INSULIN (NovoLOG) PER UNIT SC SCH ×2 (07:18→12:35)
[2020-06-14] MEDS ORDERED: METOPROLOL TART 25 MG TABLET As Ordered ONE (08:11)
[2020-06-14 08:15] VITALS: BP 145/75
--- NOTE | 2020-06-14 08:52 | HPEPDOC ---
General Date of Admission Jun 14, 2020 at 05:49 Chief Complaint The patient is a 75-year-old male admitted with a reason for visit of Chest Rena n, Elevated Troponin, Lung Abcess. Home Medications Scheduled Amlodipine Besylate (Amlodipine Besylate) 10 Mg Tablet, 10 MG PO DAILY, (Reported) Aspirin (Aspirin EC) 81 Mg Tab, 81 MG PO DAILY, (Reported) Dapagliflozin Propanediol (Farxiga) 10 Mg Tablet, 10 MG PO DAILY, (Reported) Metformin HCl (Metformin HCl ER) 500 Mg Tab.er.24h, 500 MG PO BID, (Reported) Trazodone HCl (Trazodone HCl) 50 Mg Tablet, 50 MG PO QHS, (Reported) Scheduled PRN Hydroxyzine HCl (Hydroxyzine HCl) 25 Mg Tablet, 25 MG PO BID PRN for ANXIETY, (Reported) Oxycodone HCl/Acetaminophen (Oxycodone-Acetaminophen 5-325) 1 Each Tablet, 0.5 TAB PO TID PRN for PAIN, (Reported) Miscellaneous Medications [Patient Comment] , (Reported) PATIENT HAS NOT TAKEN MEDICATIONS IN ABOUT ONE WEEK DUE TO FEELING ILL Allergies Coded Allergies: Contrast Media (Verified Allergy, Severe, facial swelling-years ago, 08/08/19) Physical Examination General Exam: Positive: Alert, Cooperative Eye Exam: Positive: PERRLA ENT Exam: Positive: Atraumatic Neck Exam: Positive: Supple; Negative: JVD Chest Exam: Positive: Clear to auscultation, Diminished Heart Exam: Positive: Rate Normal Telemetry: Positive: No significant arrhythmia Abdomen Exam: Positive: Normal bowel sounds Extremity Exam: Negative: Clubbing, Cyanosis Skin Exam: Positive: Nl turgor and temperature Neuro Exam: Positive: Strength at 5/5 X4 ext, Cranial Nerves 3-12 NL Psych Exam: Positive: Mental status NL, Oriented x 3 Vital Signs Vital Signs Date Time Temp Pulse Resp B/P (MAP) Pulse Ox O2 Delivery O2 Flow Rate FiO2 06/14/20 08:30 97.9 77 18 144/79 (100) 97 Room Air Laboratory Data Labs 24H Laboratory Tests 2 06/14/20 00:59: Immature Granulocyte % (Auto) 1.4, Neutrophils (%) (Auto) 70.1H, Lymphocytes (%) (Auto) 16.1L, Monocytes (%) (Auto) 10.1H, Eosinophils (%) (Auto) 1.7, Basophils (%) (Auto) 0.6, Neutrophils # (Auto) 3.6, Lymphocytes # (Auto) 0.8L, Monocytes # (Auto) 0.5, Eosinophils # (Auto) 0.1, Basophils # (Auto) 0.0, Nucleated Red Blood Cells % (auto) 0.0, Anion Gap 5L, Glomerular Filtration Rate > 60.0, Lactic Acid Level 2.0, Calcium Level 8.9, Total Bilirubin 0.2, Direct Bilirubin < 0.1, Aspartate Amino Transf (AST/SGOT) 8, Alanine Aminotransferase (ALT/SGPT) 14, Alkaline Phosphatase 86, Total Creatine Kinase 45, Creatine Kinase MB < 1.0, Creatine Kinase MB Relative Index 2.22, Troponin I 0.02, QK-Nyd-D-Type Natriuretic Peptide 160, Total Protein 6.6, Albumin 2.6L, Albumin/Globulin Ratio 0.7 06/14/20 04:16: Total Creatine Kinase 73, Creatine Kinase MB 3.8H, Creatine Kinase MB Relative Index 5.21H, Troponin I 0.72#H 06/14/20 04:27: Bedside Glucose (Misc Panel) 333H CBC/BMP Laboratory Tests 06/14/20 00:59 Microbiology Microbiology 06/14/20 Gram Stain - Final, Resulted 06/14/20 Sputum Culture, Resulted Pending Jessica Izaguirre DO Jun 14, 2020 08:52
[2020-06-14 09:00] VITALS: BP 144/70
[2020-06-14] MEDS ORDERED: amLODIPine 10 MG TAB PO SCH (09:00)
[2020-06-14] MEDS ORDERED: METOPROLOL TART 12.5 MG PER 1/2 TAB PO SCH (09:00)
[2020-06-14] MEDS ORDERED: ASPIRIN 81 MG ENTERIC TAB PO SCH (09:00)
[2020-06-14] MEDS ORDERED: HEPARIN SOD (PORCINE) 5000UNITS/ML 1ML VIAL/SYRINGE SC SCH (09:00)
[2020-06-14 09:47] LABS: MB/CK RELATIVE INDEX 6.02 (< OR =4); TROPONIN I 1.17 NG/ML (< 0.10)
[2020-06-14] MEDS ORDERED: HEPARIN DRIP 25,000 UNITS in IV 1 EA IV SCH (10:05)
[2020-06-14] MEDS ORDERED: HEPARIN SOD (PORCINE) 5000UNITS/ML 1ML VIAL/SYRINGE IV PRN (10:15)
[2020-06-14 10:35] LABS: HEMATOCRIT 42.5 % (42.0-52.0); HEMOGLOBIN 13.6 g/dl (13.5-17.5); MEAN CORPUSCULAR HEMOGLOBIN 26.4 pg (27.0-33.0); MEAN CORPUSCULAR VOLUME 82.5 fl (80.0-96.0); PLATELET COUNT, AUTOMATED 296 10^3/uL (150-450); RED BLOOD COUNT 5.15 10^6/uL (4.30-6.10)
[2020-06-14] MEDS ORDERED: HEPARIN SOD (PORCINE) 5000UNITS/ML 1ML VIAL/SYRINGE IV ONE (10:45)
--- NOTE | 2020-06-14 10:59 | DS.PDOC ---
Discharge Summary General Date of Admission Jun 14, 2020 at 05:49 Date of Discharge 06/14/20 Discharge Summary Chief Complaint The patient is a 75-year-old male admitted with a reason for visit of Chest Pain , Elevated Troponin, Lung Abcess. Final diagnosis Chest pain Non-STEMI Lung abscess History of Present Illness Patient is 75 years old male with past medical history of COPD, chronic right lung abscess, anal cancer, status post colon resection and a colostomy, vocal cord squamous cell carcinoma, diabetes, hypertension, chronic pain, insomnia, diabetes presented to the hospital with chest tightness. Patient stated that today he developed chest tightness, substernal and right upper chest pain 5 out of 10, intermittent without radiation. In ER patient was found to have no any acute ischemic changes on the EKG, second troponin 0.7. CTA showed Slight interval increase in size of loculated air and fluid containing collection in the right costophrenic sulcus. Worsening airspace opacities in the right lung base and to a lesser degree in the right middle lobe. Of note patient has chronic right lung abscess treated with multiple courses of antibiotics. Dr. Ocampo follows him. Of the second troponin. The patient continued to have mild substernal discomfort, but as per him, it was much better than last night. His third troponin came out to be 1.1 and at that time. 2. Concerns of this being an acute coronary syndrome and possibly a non-STEMI were high. I gave her the options. The patient as we do not have a [facility] facility unit to be transferred to [place] and he agreed. The patient was started on heparin drip after giving the bolus of heparin. The patient already had received 325 of aspirin. No Plavix is given as the patient did complain of some black tarry stools in the colostomy bag. Stool for occult blood was sent at the same time, Coumadin testing were sent as well for possible transfer. I spoke with Dr. Morse at [place], about the possibility of her transfer as this patient might require PCI and the agreed to except the patient. The patient is in agreement for being transferred to the outlying facility. He is hematologically stable at this time with blood pressure 140/77, heart rate of 96 and respiratory rate of 16. His hemoglobin is stable at 13.6 and platelet count 240. His kidney function is normal as well as his electrolytes. He'll be transferred by ambulance on a heparin drip and when necessary nitroglycerin. He agrees and understands the risk of being transferred out. PHYSICAL EXAMINATION: General: The patient is awake, alert, oriented x3, sitting up in the bed in no apparent distress. Head and Neck Exam: Extraocular muscles intact. Pupils equally round and reactive to light. Mucous membranes are moist. Neck is supple. There is no jugular venous distention (JVD). Cardiovascular: S1 and S2, regular rate. Trace edema of the bilateral lower extremities. Respiratory: Rales on the left lower lung base as well as distant breath sounds left lung base. Wheezing, rhonchi Abdomen: Soft. Positive bowel sounds. Nontender. No organomegaly. Colostomy bag with solid stool present Genitourinary: Indwelling Hernandez catheter was noted. Musculoskeletal: Clubbing of the fingernails, no cyanosis was noted. Central Nervous System (ENCEPHALOGRAPHER): No focal deficit. Power is 5/5 in all extremities. Labs reviewed Radiology: Slight interval increase in size of loculated air and fluid containing collection in the right costophrenic sulcus. Worsening airspace opacities in the right lung base and to a lesser degree in the right middle lobe. Mediictations. As per discharge reconciliation medication list And Route heparin drip and sublingual nitroglycerin screen ordered Activity as tolerated Diet.. For now for possible intervention Follow-up appointments. PCP in 1 week and cardiology. Once the patient is being discharged from there. Condition on discharge. Patient is being transferred to the higher level of care Discharge disposition: [place] Total time spent on this discharge including coordination of care, review of chart documentation and actual patient contact is around 35 minutes Excepting physician:Dr Morse ([place]) Vital Signs/I&Os Vital Signs Date Time Temp Pulse Resp B/P (MAP) Pulse Ox O2 Delivery O2 Flow Rate FiO2 06/14/20 09:00 96.2 76 20 144/70 (94) 95 Room Air I&O- Last 24 Hours up to 6 AM 06/14/20 06:00 Output Total 350 ml Balance -350 ml Laboratory Data Labs 24H Laboratory Tests 2 06/14/20 00:59: Immature Granulocyte % (Auto) 1.4, Neutrophils (%) (Auto) 70.1H, Lymphocytes (%) (Auto) 16.1L, Monocytes (%) (Auto) 10.1H, Eosinophils (%) (Auto) 1.7, Basophils (%) (Auto) 0.6, Neutrophils # (Auto) 3.6, Lymphocytes # (Auto) 0.8L, Monocytes # (Auto) 0.5, Eosinophils # (Auto) 0.1, Basophils # (Auto) 0.0, Nucleated Red Blood Cells % (auto) 0.0, Anion Gap 5L, Glomerular Filtration Rate > 60.0, Lactic Acid Level 2.0, Calcium Level 8.9, Total Bilirubin 0.2, Direct Bilirubin < 0.1, Aspartate Amino Transf (AST/SGOT) 8, Alanine Aminotransferase (ALT/SGPT) 14, Alkaline Phosphatase 86, Total Creatine Kinase 45, Creatine Kinase MB < 1.0, Creatine Kinase MB Relative Index 2.22, Troponin I 0.02, TU-Gwf-V-Type Natriuretic Peptide 160, Total Protein 6.6, Albumin 2.6L, Albumin/Globulin Ratio 0.7 06/14/20 04:16: Total Creatine Kinase 73, Creatine Kinase MB 3.8H, Creatine Kinase MB Relative Index 5.21H, Troponin I 0.72#H 06/14/20 04:27: Bedside Glucose (Misc Panel) 333H 06/14/20 09:04: Total Creatine Kinase 83, Creatine Kinase MB 5.0H, Creatine Kinase MB Relative Index 6.02H, Troponin I 1.17#H 06/14/20 10:22: Nucleated Red Blood Cells % (auto) 0.0, Activated Partial Thromboplast Time 24.3L 06/14/20 10:33: CBC/BMP Laboratory Tests 06/14/20 00:59 06/14/20 10:22 FSBS Laboratory Tests Test 06/14/20 04:27 Range/Units Bedside Glucose (Misc Panel) 333 83-110 MG/DL Microbiology Microbiology 06/14/20 Stool Occult Blood (DEVYN) - Final, Complete 06/14/20 Gram Stain - Final, Resulted 06/14/20 Sputum Culture, Resulted Pending Discharge Medications Scheduled Amlodipine Besylate (Amlodipine Besylate) 10 Mg Tablet, 10 MG PO DAILY, (Reported) Aspirin (Aspirin EC) 81 Mg Tab, 81 MG PO DAILY, (Reported) Dapagliflozin Propanediol (Farxiga) 10 Mg Tablet, 10 MG PO DAILY, (Reported) Metformin HCl (Metformin HCl ER) 500 Mg Tab.er.24h, 500 MG PO BID, (Reported) Trazodone HCl (Trazodone HCl) 50 Mg Tablet, 50 MG PO QHS, (Reported) Scheduled PRN Hydroxyzine HCl (Hydroxyzine HCl) 25 Mg Tablet, 25 MG PO BID PRN for ANXIETY, (Reported) Oxycodone HCl/Acetaminophen (Oxycodone-Acetaminophen 5-325) 1 Each Tablet, 0.5 TAB PO TID PRN for PAIN, (Reported) Miscellaneous Medications [Patient Comment] , (Reported) PATIENT HAS NOT TAKEN MEDICATIONS IN ABOUT ONE WEEK DUE TO FEELING ILL Allergies Coded Allergies: Contrast Media (Verified Allergy, Severe, facial swelling-years ago, 08/08/19) AMARIS NOLAND MD Jun 14, 2020 10:59
[2020-06-14] MEDS ORDERED: HumaLOG INSULIN (NovoLOG) PER UNIT SC SCH (21:00)
--- NOTE | 2020-06-18 00:30 | ECGEPIP ---
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 Order Number: [id number] Reading MD: Sean Davis Measurements Intervals [place] Rate: 66 P: 0 WA: 213 QRS: -13 QRSD: 105 T: 86 QT: 395 QTc: 414 Interpretive Statements SINUS RHYTHM WITH BORDERLINE FIRST DEGREE AV BLOCK LOW QRS VOLTAGE IN EXTREMITY LEADS POSSIBLE ANTERIOR MYOCARDIAL INFARCTION, OF INDETERMINATE AGE VS POOR R WAVE PROGRESSION DUE TO LEAD MISPLACEMENT Compared to prior 2 tracings in the system, no significant changes Electronically Signed on 06-18-2020 0:30:01 EDT by Sean Davis
--- NOTE | 2020-06-18 14:37 | ECHO ---
DATE OF PROCEDURE: 06/14/2020 Gender: Male Height: 173 cm Weight: 76 kg REFERRING PHYSICIAN: Dr. Pedraza INDICATION: Chest pain MEASUREMENTS: IV 1.0 LV 4.9 LVPW 0.8 LA 3.2 Aortic 3.6 IVC 1.8 Mitral E wave velocity 62, A wave 116 E prime septal 4.8 E prime lateral 10.4 FINDINGS: The study is of relatively difficult technical quality. The patient is in sinus rhythm. Left ventricle is of normal size. There is extensive wall motion abnormality involving mid and distal septum, distal anterior wall, distal inferior wall and the whole apex. These segments are akinetic. The remaining LV segments have preserved contractility. Overall estimated left ventricular ejection fraction (LVEF) around 35 to 40%. The right ventricle does not appear dilated. Both atria appear normal. Aortic valve is sclerotic, but its 3 cusps and preserved mobility. There are also degenerative abnormalities of mitral valve with mitral annular calcifications. Tricuspid valve appears normal. Pulmonic valve was not seen. No pericardial effusion is present. Inferior vena cava is of normal size. Aortic root and aortic arch were poorly seen. There is apparent atherosclerosis in the abdominal aorta. Doppler interrogation of aorta valve reveals no significant stenosis and mild insufficiency. Mitral valve is functionally competent. The same applies for tricuspid valve. Mitral inflow pattern and tissue Doppler imaging of mitral annulus revealed grade 1 diastolic dysfunction. CONCLUSIONS: 1. The study is of fair technical quality, the patient is in sinus rhythm. 2. Normal LV size with extensive wall motion abnormality as outlined above and overall moderately severe left ventricular systolic dysfunction, estimated left ventricular ejection fraction (LVEF) 35 to 40%. Grade 1 diastolic dysfunction. 3. Normal right ventricle. 4. Aortic sclerosis with no stenosis and mild insufficiency. 5. Normal central venous pressure, but unable to estimate pulmonary artery pressure. 6. Atherosclerosis is apparent in abdominal aorta. COMMENTS: This study is indicative of likely underlying coronary artery disease, with wall motion abnormality in LAD distribution. MTDD
== END 2020-06-14 12:59 | disposition short-term general hospital (02) | DRG 280 ==
LOC: M ED 00:11 → M ED INP 05:49 → ENRESERV 07:34 → M MSPAV 09:00
PROVIDERS: ADMIT Internal Medicine; ATTEND Internal Medicine
DX: I21.4 Non-ST elevation (NSTEMI) myocardial infarction (principal); J85.2 Abscess of lung without pneumonia; I24.8 Other forms of acute ischemic heart disease; J44.9 Chronic obstructive pulmonary disease, unspecified; E11.9 Type 2 diabetes mellitus without complications; I10 Essential (primary) hypertension; G89.29 Other chronic pain; G47.00 Insomnia, unspecified; F17.210 Nicotine dependence, cigarettes, uncomplicated; Z85.048 Personal history of other malignant neoplasm of rectum, rectosigmoid junction, and anus; Z92.21 Personal history of antineoplastic chemotherapy; Z92.3 Personal history of irradiation; Z93.3 Colostomy status; Z85.818 Personal history of malignant neoplasm of other sites of lip, oral cavity, and pharynx; Z79.82 Long term (current) use of aspirin; Z79.84 Long term (current) use of oral hypoglycemic drugs; Z79.899 Other long term (current) drug therapy; Z91.041 Radiographic dye allergy status

== ENCOUNTER → 2020-08-10 | Outpatient (CLI) | payer BC, MEDICARE ==
[~2020-08-10] MED LIST changes: -traZODone 50 MG TAB PO SCH
--- NOTE | 2020-08-10 14:56 | REP ---
INDICATION: EMPYEMA COMPARISON: 06/14/2020 TECHNIQUE: Axial noncontrast images from the thoracic inlet to the upper abdomen with coronal and sagittal reformations. This CT examination was performed using the following dose reduction techniques: Automated exposure control, adjustment of mA and/or kv according to the patient's size, and use of iterative reconstruction technique. FINDINGS: Chest tube is identified within the right lower lobe pleural cavity consistent with empyema and now demonstrating small amount of residual gas and likely chronic thickened rind without significant residual pleural fluid. Adjacent chronic right lower lobe atelectasis and scarring with punctate foci of high density material suggesting residual pulmonary vascular contrast material and or calcifications appears somewhat improved. Remainder lung blanchard demonstrate emphysematous changes without further acute process. Mediastinum demonstrates extensive atherosclerotic disease to the thoracic aorta and coronary arteries. No cardiomegaly or pericardial effusion. No significant adenopathy. Thyroid gland is grossly normal. Musculoskeletal structures without acute osseous abnormality. IMPRESSION: 1. Right lower lobe empyema now demonstrates a small amount of residual gas and presumed chronic surrounding pleural thickening/rind as well as chronic right lower lobe fibroatelectatic changes. 2. No new acute mediastinal or pleuroparenchymal process. <Electronically signed by Duglas Ro > 08/10/20 [id number]
== END ==
LOC: M RAD 14:22
PROVIDERS: ATTEND Thoracic Surgery (Cardiothoracic Vascular Surgery)
DX: J86.9 Pyothorax without fistula (principal)

== ENCOUNTER → 2020-09-01 | Outpatient (CLI) | payer BC ==
--- NOTE | 2020-09-01 13:51 | REP ---
INDICATION: EMPHYSEMA. COMPARISON: Comparison chest x-ray December 29, 2019. TECHNIQUE: Two views.. FINDINGS: There is a right pleural drainage catheter chest tube in place although it is doubled back upon itself in the pleural space on the right. The previously noted large pleural based opacity has improved. There is some residual blunting of the right lateral pleural angle. No new infiltrate is seen. Left lung remains clear. IMPRESSION: Right chest tube in place. The right chest tube is kinked within the pleural space.. <Electronically signed by Cory Olsen > 09/01/20 [id number]
== END ==
LOC: M LAB 10:52
PROVIDERS: ATTEND Thoracic Surgery (Cardiothoracic Vascular Surgery)
DX: J86.9 Pyothorax without fistula (principal)

== ENCOUNTER → 2020-09-02 | Outpatient (REF) | payer BC, OTHER ==
[2020-09-02 14:05] LABS: ALBUMIN 4.2 GM/DL (3.2-5.2); ALT/SGPT 22 U/L (12-78); BILIRUBIN,TOTAL 0.4 MG/DL (0.2-1.0); BLOOD UREA NITROGEN 19 MG/DL (7-18); C REACTIVE PROTEIN QUANTITATIV 0.84 MG/DL (0.00-0.30); CALCIUM LEVEL 9.7 MG/DL (8.8-10.2); CARBON DIOXIDE LEVEL 27 MEQ/L (21-32); CHLORIDE LEVEL 99 MEQ/L (98-107); CREATININE FOR GFR 0.97 MG/DL (0.70-1.30); GLOMERULAR FILTRATION RATE > 60.0 (>42); GLUCOSE, FASTING 248 MG/DL (70-100); POTASSIUM SERUM 4.4 MEQ/L (3.5-5.1); SODIUM LEVEL 135 MEQ/L (136-145); TOTAL PROTEIN 7.5 GM/DL (6.4-8.2)
[2020-09-02 14:08] LABS: BASO % 0.6 % (0.0-1.0); EOS # 0.1 10^3/uL (0.0-0.5); EOS % 2.2 % (0.0-3.0); HEMATOCRIT 49.3 % (42.0-52.0); LYMPH # 0.9 10^3/uL (1.5-5.0); MEAN CORPUSCULAR HEMOGLOBIN 27.1 pg (27.0-33.0); MEAN CORPUSCULAR HGB CONC 32.5 g/dl (32.0-36.5); MEAN CORPUSCULAR VOLUME 83.4 fl (80.0-96.0); MONO # 0.6 10^3/uL (0.0-0.8); MONO % 9.1 % (0.0-5.0); NEUTROPHILS # 4.5 10^3/uL (1.5-8.5); NEUTROPHILS % 72.5 % (36.0-66.0); PLATELET COUNT, AUTOMATED 246 10^3/uL (150-450); RED BLOOD COUNT 5.91 10^6/uL (4.30-6.10); WHITE BLOOD COUNT 6.3 10^3/uL (4.0-10.0)
[2020-09-02 14:39] LABS: ERYTHROCYTE SEDIMENTATION RATE 4 mm/hr (0-20)
== END ==
LOC: M SFHCPLAZ 11:11
PROVIDERS: ATTEND Internal Medicine Infectious Disease
DX: A42.0 Pulmonary actinomycosis (principal)

== ENCOUNTER → 2020-09-30 | Outpatient (CLI) | payer BC, OTHER ==
--- NOTE | 2020-10-01 03:47 | REPPI ---
INDICATION: PULMONARY ACTINOMYCOSIS COMPARISON: 09/01/2020 TECHNIQUE: PA and lateral. FINDINGS: Chest tube at the right base is in stable position. Right pleural effusion with and right pleuroparenchymal changes are relatively stable although mildly improved aeration is suggested. Remainder of lung blanchard are well aerated and clear. No new acute process appreciated. Mediastinum and cardiac silhouette normal. Skeletal structures intact. IMPRESSION: Pleuroparenchymal changes at the right base including small pleural effusion are relatively unchanged. No new acute process appreciated. <Electronically signed by Duglas Ro > 10/01/20 [id number]
== END ==
LOC: M PLAIMG 10:39
PROVIDERS: ATTEND Internal Medicine Infectious Disease
DX: A42.0 Pulmonary actinomycosis (principal)

== ENCOUNTER → 2020-09-30 | Outpatient (REF) | payer BC, OTHER ==
[2020-09-30 13:45] LABS: BASO % 0.5 % (0.0-1.0); EOS # 0.1 10^3/uL (0.0-0.5); EOS % 1.1 % (0.0-3.0); HEMATOCRIT 49.2 % (42.0-52.0); HEMOGLOBIN 15.3 g/dl (13.5-17.5); LYMPH # 0.8 10^3/uL (1.5-5.0); LYMPH % 11.2 % (24.0-44.0); MEAN CORPUSCULAR HEMOGLOBIN 26.2 pg (27.0-33.0); MEAN CORPUSCULAR HGB CONC 31.1 g/dl (32.0-36.5); MEAN CORPUSCULAR VOLUME 84.1 fl (80.0-96.0); MONO # 0.5 10^3/uL (0.0-0.8); MONO % 6.9 % (0.0-5.0); NEUTROPHILS % 79.9 % (36.0-66.0); PLATELET COUNT, AUTOMATED 224 10^3/uL (150-450); RED BLOOD COUNT 5.85 10^6/uL (4.30-6.10); WHITE BLOOD COUNT 7.5 10^3/uL (4.0-10.0)
[2020-09-30 14:07] LABS: BLOOD UREA NITROGEN 23 MG/DL (7-18); C REACTIVE PROTEIN QUANTITATIV 0.49 MG/DL (0.00-0.30); CALCIUM LEVEL 9.6 MG/DL (8.8-10.2); CARBON DIOXIDE LEVEL 29 MEQ/L (21-32); CHLORIDE LEVEL 102 MEQ/L (98-107); CREATININE FOR GFR 1.06 MG/DL (0.70-1.30); GLOMERULAR FILTRATION RATE > 60.0 (>42); GLUCOSE, FASTING 271 MG/DL (70-100); POTASSIUM SERUM 4.3 MEQ/L (3.5-5.1); SODIUM LEVEL 137 MEQ/L (136-145)
[2020-09-30 15:19] LABS: ERYTHROCYTE SEDIMENTATION RATE 2 mm/hr (0-20)
== END ==
LOC: M SFHCPLAZ 10:37
PROVIDERS: ATTEND Internal Medicine Infectious Disease
DX: A42.0 Pulmonary actinomycosis (principal)

== ENCOUNTER 2020-11-29 14:03 | Emergency (ER) | payer BC, OTHER ==
[~2020-11-29] VITALS: Ht 172.7 cm; Wt 78.9 kg
--- NOTE | 2020-11-29 15:57 | REP ---
INDICATION: decreased colostomy output. COMPARISON: Comparison chest x-ray September 01, 2020.. TECHNIQUE: Upright chest radiograph is performed along with the supine and upright views of the abdomen. Three views. FINDINGS: Upright chest radiograph demonstrates a right pleural drainage catheter in place inferolaterally. The catheter appears to be folded back upon itself but this is unchanged from the September 01, 2020 prior study. There is pleural opacity in the right base and pleural thickening along the right base laterally slightly more prominent than on the prior study. The left lung appears clear. No free subdiaphragmatic air is seen. Heart size is normal. Supine and erect views of the abdomen demonstrate vascular calcification in the upper abdomen bilaterally. There is an enterostomy device in the left mid abdomen. The bowel gas pattern is unremarkable. There is some air and stool in the colon. A few loops of air-filled nondilated small bowel are seen. No air-fluid levels are seen. IMPRESSION: Left lower quadrant enterostomy. Bowel gas pattern is unremarkable. Right chest tube and pleural opacity right base. No free air or evidence of obstruction.. <Electronically signed by Cory Olsen > 11/29/20 [id number]
[2020-11-29] MEDS ORDERED: COLA100C5 PO (16:26)
[2020-11-29 16:31] VITALS: BP 151/67
== END 2020-11-29 17:10 | disposition home or self-care (01) ==
LOC: M ED 14:03
DX: K59.00 Constipation, unspecified (principal); E11.9 Type 2 diabetes mellitus without complications; I10 Essential (primary) hypertension; Z79.899 Other long term (current) drug therapy; Z79.84 Long term (current) use of oral hypoglycemic drugs; Z91.041 Radiographic dye allergy status; Z87.891 Personal history of nicotine dependence

== ENCOUNTER → 2020-12-31 | Outpatient (CLI) | payer BC ==
[~2020-12-31] MED LIST changes: +COLA100C5 PO
--- NOTE | 2020-12-31 13:02 | REP ---
INDICATION: THORACIC ACTINOMYCOSIS. COMPARISON: Multiple the latest 11/29/2020 a frontal view obtained as part of an abdominal series. TECHNIQUE: PA and lateral FINDINGS: The superior mediastinal structures are midline. The cardiac silhouette is unremarkable in size, shape, and position. The right lower lobe opacity with right CP angle blunting is unchanged. The right-sided thoracotomy tube is unchanged. There are no new abnormal opacities. The imaged osseous structures are intact. IMPRESSION: No significant change compared to the prior exam other than technique. <Electronically signed by Keagan Banegas > 12/31/20 [id number]
== END ==
LOC: M RAD 12:36
PROVIDERS: ATTEND Thoracic Surgery (Cardiothoracic Vascular Surgery)
DX: A42.0 Pulmonary actinomycosis (principal)

== ENCOUNTER → 2021-02-07 | Outpatient (CLI) | payer BC, OTHER ==
--- NOTE | 2021-02-07 11:37 | REPPI ---
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 FINDINGS: The mediastinum and cardiac silhouette are stable/normal. The lung blanchard demonstrate chronic appearing changes in the right mid to lower lung zone and left base. Correlation with auscultation is recommended as subtle superimposed acute process cannot be excluded. No discrete focal consolidation, effusion, or pneumothorax identified. The skeletal structures are intact and normal. IMPRESSION: Presumed chronic changes similar to prior examination. If the patient remains symptomatic consider chest CT for further investigation. <Electronically signed by Duglas Ro > 02/07/21 [id number]
== END ==
LOC: M PLAIMG 10:55
PROVIDERS: ATTEND Internal Medicine Infectious Disease
DX: A42.0 Pulmonary actinomycosis (principal)

== ENCOUNTER → 2021-02-07 | Outpatient (REF) | payer BC, OTHER ==
[2021-02-07 13:13] LABS: BASO % 0.5 % (0.0-1.0); EOS # 0.1 10^3/uL (0.0-0.5); EOS % 1.4 % (0.0-3.0); HEMOGLOBIN 14.9 g/dl (13.5-17.5); LYMPH # 0.9 10^3/uL (1.5-5.0); LYMPH % 14.6 % (24.0-44.0); MEAN CORPUSCULAR HEMOGLOBIN 27.6 pg (27.0-33.0); MEAN CORPUSCULAR HGB CONC 32.4 g/dl (32.0-36.5); MEAN CORPUSCULAR VOLUME 85.3 fl (80.0-96.0); MONO # 0.4 10^3/uL (0.0-0.8); MONO % 6.1 % (2.0-8.0); NEUTROPHILS # 4.9 10^3/uL (1.5-8.5); NEUTROPHILS % 76.8 % (36.0-66.0); PLATELET COUNT, AUTOMATED 217 10^3/uL (150-450); RED BLOOD COUNT 5.39 10^6/uL (4.30-6.10); WHITE BLOOD COUNT 6.4 10^3/uL (4.0-10.0)
[2021-02-07 13:41] LABS: ERYTHROCYTE SEDIMENTATION RATE 6 mm/hr (0-20)
[2021-02-07 13:42] LABS: ALBUMIN 4.1 GM/DL (3.2-5.2); ALT/SGPT 27 U/L (12-78); BILIRUBIN,TOTAL 0.6 MG/DL (0.2-1.0); BLOOD UREA NITROGEN 16 MG/DL (7-18); C REACTIVE PROTEIN QUANTITATIV 0.86 MG/DL (0.00-0.30); CALCIUM LEVEL 9.2 MG/DL (8.8-10.2); CARBON DIOXIDE LEVEL 28 MEQ/L (21-32); CHLORIDE LEVEL 102 MEQ/L (98-107); CREATININE FOR GFR 0.95 MG/DL (0.70-1.30); GLOMERULAR FILTRATION RATE > 60.0 (>42); GLUCOSE, FASTING 182 MG/DL (70-100); POTASSIUM SERUM 4.6 MEQ/L (3.5-5.1); SODIUM LEVEL 136 MEQ/L (136-145); TOTAL PROTEIN 6.8 GM/DL (6.4-8.2)
== END ==
LOC: M SFHCPLAZ 10:55
PROVIDERS: ATTEND Internal Medicine Infectious Disease
DX: A42.0 Pulmonary actinomycosis (principal)

== ENCOUNTER 2022-03-24 17:55 | Inpatient (IN) | payer MEDICARE, BC ==
[~2022-03-24] VITALS: Ht 172.7 cm; Wt 73.2 kg
[2022-03-24] MEDS ORDERED: MORPHINE 2 MG/ML 1ML VIAL IV ONE (18:30)
[2022-03-24 19:57] LABS: BASO % 0.4 % (0.0-1.0); EOS # 0.1 10^3/uL (0.0-0.5); EOS % 0.6 % (0.0-3.0); HEMATOCRIT 43.4 % (42.0-52.0); HEMOGLOBIN 13.7 g/dl (13.5-17.5); LYMPH # 0.7 10^3/uL (1.5-5.0); LYMPH % 8.5 % (24.0-44.0); MEAN CORPUSCULAR HEMOGLOBIN 24.3 pg (27.0-33.0); MEAN CORPUSCULAR HGB CONC 31.6 g/dl (32.0-36.5); MEAN CORPUSCULAR VOLUME 77.1 fl (80.0-96.0); MONO # 0.8 10^3/uL (0.0-0.8); MONO % 9.3 % (2.0-8.0); NEUTROPHILS # 6.6 10^3/uL (1.5-8.5); NEUTROPHILS % 80.5 % (36.0-66.0); PLATELET COUNT, AUTOMATED 295 10^3/uL (150-450); RED BLOOD COUNT 5.63 10^6/uL (4.30-6.10); WHITE BLOOD COUNT 8.1 10^3/uL (4.0-10.0)
[2022-03-24] MEDS ORDERED: diphenhydrAMINE 50MG/ML VIAL (J1200) IV ONE (20:20)
[2022-03-24] MEDS ORDERED: methylPREDNISolone 125MG 2ML VIAL IV ONE (20:20)
[2022-03-24 20:21] LABS: ALBUMIN 2.9 GM/DL (3.2-5.2); ALT/SGPT 14 U/L (12-78); BILIRUBIN,DIRECT < 0.1 MG/DL (0.0-0.2); BILIRUBIN,TOTAL 0.3 MG/DL (0.2-1.0); BLOOD UREA NITROGEN 12 MG/DL (7-18); CALCIUM LEVEL 12.1 MG/DL (8.8-10.2); CARBON DIOXIDE LEVEL 28 MEQ/L (21-32); CHLORIDE LEVEL 106 MEQ/L (98-107); CREATININE FOR GFR 0.86 MG/DL (0.70-1.30); GLOMERULAR FILTRATION RATE > 60.0 (>42); GLUCOSE, FASTING 226 MG/DL (70-100); LIPASE 206 U/L (73-393); POTASSIUM SERUM 4.3 MEQ/L (3.5-5.1); SODIUM LEVEL 141 MEQ/L (136-145); TOTAL PROTEIN 6.2 GM/DL (6.4-8.2)
[2022-03-24] MEDS ORDERED: ISOVUE-370 76% 100ML VIAL As Ordered ONE (20:57)
[2022-03-24] MEDS: METOPROLOL TART 50 MG TAB PO SCH (21:00)
[2022-03-24] MEDS ORDERED: ROSU40TA4 PO (23:14)
[2022-03-24] MEDS ORDERED: COEN100T PO (23:14)
[2022-03-24] MEDS ORDERED: CLOP75TA2 PO (23:14)
[2022-03-24] MEDS ORDERED: CYAN100050 PO (23:14)
[2022-03-24] MEDS ORDERED: METO50TA7 PO (23:14)
[2022-03-24] MEDS ORDERED: ISOS1TAB35 PO (23:14)
[2022-03-24] MEDS ORDERED: B-COTAB10 PO (23:14)
[2022-03-24] MEDS ORDERED: HOME MED LIST COMPLETE! XX SCH (23:15)
[2022-03-24] MEDS ORDERED: ACETAMINOPHEN TAB 650MG DOSE (2X325MG) PO PRN (23:35)
[2022-03-24] MEDS ORDERED: MAALOX 30 ML SUSP *UDC PO PRN (23:35)
[2022-03-24] MEDS ORDERED: MORPHINE 2 MG/ML 1ML VIAL IV PRN (23:35)
[2022-03-24] MEDS ORDERED: ONDANSETRON 4MG 2ML VIAL IV PRN (23:35)
[2022-03-24] MEDS ORDERED: traZODone 50 MG TAB PO PRN (23:40)
[2022-03-24] MEDS ORDERED: GLUCOSE 4GM CHEW TABLET PO PRN (23:40)
[2022-03-24] MEDS ORDERED: GLUCAGON INJ 1MG VIAL SC PRN (23:40)
[2022-03-24] MEDS ORDERED: DEXTROSE 50% 50 ML SYRINGE IV PRN (23:40)
[2022-03-25 00:15] LABS: RSV AMPLIFICATION NEGATIVE (NEGATIVE)
[2022-03-25 01:35] LABS: INR 0.95; PROTHROMBIN TIME 13.1 SECONDS (12.7-14.5)
[2022-03-25 01:36] LABS: PARTIAL THROMBOPLASTIN TIME 27.3 SECONDS (25.9-37.0)
[2022-03-25] MEDS: INSULIN LISPRO (NovoLOG) PER UNIT SC SCH ×5 (01:57→20:08)
[2022-03-25 02:18] VITALS: BP 136/63
[2022-03-25] MEDS: NS 1,000 ML IV SCH ×3 (02:26→23:43)
[2022-03-25 03:33] LABS: AMORPHOUS SEDIMENT SMALL (NEGATIVE); APPEARANCE, URINE HAZY (CLEAR); BACTERIA, URINE AUTO NEGATIVE (NEGATIVE); BILIRUBIN, URINE AUTO NEGATIVE (NEGATIVE); BLOOD, URINE BLOOD NEGATIVE (NEGATIVE); COLOR, URINE YELLOW (YELLOW); GLUCOSE, URINE (UA) AUTO 3+ mg/dL (NEGATIVE); KETONE, URINE AUTO TRACE mg/dL (NEGATIVE); LEUKOCYTE ESTERASE, URINE AUTO NEGATIVE (NEGATIVE); MUCUS, URINE SMALL (NEGATIVE); NITRITE, URINE AUTO NEGATIVE (NEGATIVE); PROTEIN, URINE AUTO NEGATIVE (NEGATIVE); RBC, URINE AUTO 2 /HPF (0-3); SPECIFIC GRAVITY URINE AUTO 1.046 (1.002-1.035); SQUAMOUS EPITHELIAL CELL UR AU 0 /HPF (0-6); UROBILINOGEN, URINE AUTO 0.2 mg/dL (0.0-2.0); WBC, URINE AUTO 1 /HPF (0-3)
[2022-03-25 06:00] VITALS: BP 135/63
[2022-03-25 06:47] LABS: HEMATOCRIT 41.6 % (42.0-52.0); HEMOGLOBIN 13.2 g/dl (13.5-17.5); MEAN CORPUSCULAR HEMOGLOBIN 24.5 pg (27.0-33.0); MEAN CORPUSCULAR HGB CONC 31.7 g/dl (32.0-36.5); MEAN CORPUSCULAR VOLUME 77.3 fl (80.0-96.0); PLATELET COUNT, AUTOMATED 266 10^3/uL (150-450); RED BLOOD COUNT 5.38 10^6/uL (4.30-6.10); WHITE BLOOD COUNT 6.4 10^3/uL (4.0-10.0)
[2022-03-25 07:21] LABS: ALBUMIN 2.8 GM/DL (3.2-5.2); ALT/SGPT 12 U/L (12-78); BILIRUBIN,TOTAL 0.3 MG/DL (0.2-1.0); BLOOD UREA NITROGEN 16 MG/DL (7-18); CALCIUM LEVEL 11.6 MG/DL (8.8-10.2); CARBON DIOXIDE LEVEL 27 MEQ/L (21-32); CHLORIDE LEVEL 104 MEQ/L (98-107); CREATININE FOR GFR 0.88 MG/DL (0.70-1.30); GLOMERULAR FILTRATION RATE > 60.0 (>42); GLUCOSE, FASTING 362 MG/DL (70-100); MAGNESIUM LEVEL 1.9 MG/DL (1.8-2.4); POTASSIUM SERUM 4.8 MEQ/L (3.5-5.1); SODIUM LEVEL 137 MEQ/L (136-145)
[2022-03-25] MEDS: METOPROLOL TART 50 MG TAB PO SCH ×2 (07:55→20:07)
[2022-03-25] MEDS: MORPHINE 4 MG/ML 1ML VIAL/SYRINGE IV PRN ×2 (07:57→13:43)
[2022-03-25] MEDS ORDERED: ENOXAPARIN 40MG/0.4ML SYRINGE (J1650 PER 10MG) SC SCH (09:00)
[2022-03-25] MEDS ORDERED: ROSUVASTATIN 10 MG TAB (CRESTOR) PO SCH (09:00)
[2022-03-25] MEDS ORDERED: CLOPIDOGREL 75 MG TAB PO SCH (09:00)
[2022-03-25] MEDS ORDERED: ISOSORBIDE MON. (IMDUR) 30MG XR TAB PO SCH (09:00)
[2022-03-25] MEDS ORDERED: MOM 30ML SUSPENSION UDC PO PRN (12:20)
[2022-03-25 14:00] VITALS: BP 132/63
[2022-03-25 19:47] VITALS: BP 129/64
[2022-03-25 20:07] VITALS: BP 129/64
[2022-03-26] MEDS ORDERED: DAPAGLIFLOZIN PROPANEDIOL 10MG TABLET (FARXIGA) PO SCH (09:00)
[2022-03-26] MEDS ORDERED: metFORMIN XR 500MG TAB *GLUCOPHAGE XR PO SCH (18:00)
== END 2022-03-26 04:45 | disposition left against medical advice (07) | DRG 948 ==
LOC: M ED 17:55 → M ED INP 23:32 → ENRESERV 03-25 00:58 → M MSPAV 03-25 02:12
PROVIDERS: ADMIT Internal Medicine; ATTEND Internal Medicine
DX: G89.3 Neoplasm related pain (acute) (chronic) (principal); C78.7 Secondary malignant neoplasm of liver and intrahepatic bile duct; J90 Pleural effusion, not elsewhere classified; Z66 Do not resuscitate; Z85.048 Personal history of other malignant neoplasm of rectum, rectosigmoid junction, and anus; Z92.3 Personal history of irradiation; Z92.21 Personal history of antineoplastic chemotherapy; Z90.49 Acquired absence of other specified parts of digestive tract; Z93.3 Colostomy status; C32.9 Malignant neoplasm of larynx, unspecified; I25.10 Atherosclerotic heart disease of native coronary artery without angina pectoris; I50.9 Heart failure, unspecified; I73.9 Peripheral vascular disease, unspecified; I11.0 Hypertensive heart disease with heart failure; E78.5 Hyperlipidemia, unspecified; E11.51 Type 2 diabetes mellitus with diabetic peripheral angiopathy without gangrene; E11.42 Type 2 diabetes mellitus with diabetic polyneuropathy; K59.09 Other constipation; E83.52 Hypercalcemia; F41.9 Anxiety disorder, unspecified; F32.A Depression, unspecified; Z20.822 Contact with and (suspected) exposure to COVID-19; Z79.84 Long term (current) use of oral hypoglycemic drugs; Z79.899 Other long term (current) drug therapy; Z91.041 Radiographic dye allergy status; Z91.19 Patient's noncompliance with other medical treatment and regimen; R64 Cachexia

== ENCOUNTER 2022-04-05 11:38 | Inpatient (IN) | payer MEDICARE, BC, OTHER ==
[~2022-04-05] VITALS: Ht 167.6 cm; Wt 66.3 kg
[~2022-04-05 11:38] MED LIST changes: +B-COTAB10 PO; +CLOP75TA2 PO; +COEN100T PO; +CYAN100050 PO; +ISOS1TAB35 PO; +METO50TA7 PO; +ROSU40TA4 PO
[2022-04-05 12:29] LABS: BASO % 0.2 % (0.0-1.0); EOS # 0.1 10^3/uL (0.0-0.5); HEMATOCRIT 38.7 % (42.0-52.0); HEMOGLOBIN 12.1 g/dl (13.5-17.5); LYMPH # 0.6 10^3/uL (1.5-5.0); LYMPH % 6.1 % (24.0-44.0); MEAN CORPUSCULAR HEMOGLOBIN 24.5 pg (27.0-33.0); MEAN CORPUSCULAR HGB CONC 31.3 g/dl (32.0-36.5); MEAN CORPUSCULAR VOLUME 78.3 fl (80.0-96.0); MONO # 0.8 10^3/uL (0.0-0.8); NEUTROPHILS # 7.8 10^3/uL (1.5-8.5); NEUTROPHILS % 83.4 % (36.0-66.0); PLATELET COUNT, AUTOMATED 282 10^3/uL (150-450); RED BLOOD COUNT 4.94 10^6/uL (4.30-6.10); WHITE BLOOD COUNT 9.4 10^3/uL (4.0-10.0)
[2022-04-05] MEDS ORDERED: NS 1,000 ML IV SCH (12:40)
[2022-04-05] MEDS ORDERED: ONDANSETRON 4MG 2ML VIAL IV ONE (12:40)
[2022-04-05] MEDS ORDERED: MORPHINE 4 MG/ML 1ML VIAL/SYRINGE IV ONE (12:40)
[2022-04-05 13:00] LABS: ALBUMIN 2.9 GM/DL (3.2-5.2); ALT/SGPT 14 U/L (12-78); BILIRUBIN,DIRECT 0.1 MG/DL (0.0-0.2); BILIRUBIN,TOTAL 0.5 MG/DL (0.2-1.0); BLOOD UREA NITROGEN 11 MG/DL (7-18); CALCIUM LEVEL 11.7 MG/DL (8.8-10.2); CARBON DIOXIDE LEVEL 20 MEQ/L (21-32); CHLORIDE LEVEL 104 MEQ/L (98-107); CREATININE FOR GFR 0.75 MG/DL (0.70-1.30); GLOMERULAR FILTRATION RATE > 60.0 (>42); GLUCOSE, FASTING 196 MG/DL (70-100); LIPASE 111 U/L (73-393); POTASSIUM SERUM 4.2 MEQ/L (3.5-5.1); SODIUM LEVEL 137 MEQ/L (136-145)
[2022-04-05] MEDS ORDERED: diphenhydrAMINE 50MG/ML VIAL (J1200) IV STA (14:41)
[2022-04-05] MEDS ORDERED: methylPREDNISolone 125MG 2ML VIAL IV ONE (14:45)
[2022-04-05] MEDS: GASTROGRAFIN SOLUTION 30ML PO SCH ×2 (15:42→16:05)
[2022-04-05] MEDS ORDERED: ISOVUE-370 76% 100ML VIAL As Ordered ONE (16:03)
[2022-04-05] MEDS ORDERED: HOME MED LIST COMPLETE! XX SCH (19:25)
[2022-04-05] MEDS ORDERED: GLUCAGON INJ 1MG VIAL SC PRN (19:40)
[2022-04-05] MEDS ORDERED: DEXTROSE 50% 50 ML SYRINGE IV PRN (19:40)
[2022-04-05] MEDS ORDERED: MORPHINE 4 MG/ML 1ML VIAL/SYRINGE IV PRN (19:40)
[2022-04-05] MEDS ORDERED: GLUCOSE 4GM CHEW TABLET PO PRN (19:40)
[2022-04-05 20:35] LABS: RSV AMPLIFICATION NEGATIVE (NEGATIVE)
[2022-04-05 20:47] LABS: INR 1.08; PROTHROMBIN TIME 14.4 SECONDS (12.7-14.5)
[2022-04-05 20:48] LABS: PARTIAL THROMBOPLASTIN TIME 34.4 SECONDS (25.9-37.0)
[2022-04-05] MEDS: traZODone 50 MG TAB PO SCH (21:00)
[2022-04-05] MEDS: NS 1,000 ML IV SCH (21:49)
[2022-04-05] MEDS: METOPROLOL TART 50 MG TAB PO SCH (21:57)
[2022-04-05] MEDS: metFORMIN XR 500MG TAB *GLUCOPHAGE XR PO SCH (21:57)
[2022-04-05] MEDS: RAMELTEON 8 MG TAB (ROZEREM) PO SCH (21:57)
[2022-04-06] VITALS: BP_SYST 133; BP_DIAS 2; BP_DIAS 62
[2022-04-06] MEDS: NS 1,000 ML IV SCH ×2 (00:21→13:29)
[2022-04-06] MEDS ORDERED: hydrOXYzine 50 MG TAB PO ONE (03:20)
[2022-04-06] MEDS: CHLORASEPTIC SPRAY MT PRN ×3 (03:27→13:28)
[2022-04-06 06:44] LABS: HEMOGLOBIN 12.5 g/dl (13.5-17.5); MEAN CORPUSCULAR HEMOGLOBIN 24.7 pg (27.0-33.0); MEAN CORPUSCULAR HGB CONC 31.3 g/dl (32.0-36.5); MEAN CORPUSCULAR VOLUME 78.9 fl (80.0-96.0); PLATELET COUNT, AUTOMATED 275 10^3/uL (150-450); RED BLOOD COUNT 5.07 10^6/uL (4.30-6.10); WHITE BLOOD COUNT 6.3 10^3/uL (4.0-10.0)
[2022-04-06 07:55] LABS: BLOOD UREA NITROGEN 15 MG/DL (7-18); CALCIUM LEVEL 11.2 MG/DL (8.8-10.2); CARBON DIOXIDE LEVEL 22 MEQ/L (21-32); CHLORIDE LEVEL 107 MEQ/L (98-107); CREATININE FOR GFR 0.64 MG/DL (0.70-1.30); GLOMERULAR FILTRATION RATE > 60.0 (>42); GLUCOSE, FASTING 204 MG/DL (70-100); MAGNESIUM LEVEL 1.9 MG/DL (1.8-2.4); POTASSIUM SERUM 5.1 MEQ/L (3.5-5.1); SODIUM LEVEL 140 MEQ/L (136-145)
[2022-04-06] MEDS: metFORMIN XR 500MG TAB *GLUCOPHAGE XR PO SCH ×2 (08:32→20:42)
[2022-04-06] MEDS: DAPAGLIFLOZIN PROPANEDIOL 10MG TABLET (FARXIGA) PO SCH (08:32)
[2022-04-06] MEDS: METOPROLOL TART 50 MG TAB PO SCH ×2 (08:33→20:43)
[2022-04-06] MEDS: ISOSORBIDE MON. (IMDUR) 30MG XR TAB PO SCH (08:33)
[2022-04-06] MEDS: ROSUVASTATIN 10 MG TAB (CRESTOR) PO SCH (08:33)
[2022-04-06] MEDS ORDERED: CLOPIDOGREL 75 MG TAB PO SCH (09:00)
[2022-04-06] MEDS: MIRALAX *UNIT DOSE* 17GM PACKET PO SCH ×3 (09:45→21:00)
[2022-04-06 14:00] VITALS: BP 147/44
[2022-04-06] MEDS ORDERED: BISACODYL 10 MG SUPP XX ONE (16:50)
[2022-04-06] MEDS: KETOROLAC 30 MG/ML 1ML VIAL IV PRN (17:26)
[2022-04-06] MEDS: RAMELTEON 8 MG TAB (ROZEREM) PO SCH (20:41)
[2022-04-06] MEDS: traZODone 50 MG TAB PO SCH (20:41)
[2022-04-06] MEDS: ENOXAPARIN 40MG/0.4ML SYRINGE (J1650 PER 10MG) SC SCH (20:43)
[2022-04-06] MEDS: ONDANSETRON 4MG 2ML VIAL IV PRN (21:07)
[2022-04-06 22:00] VITALS: BP 129/59
[2022-04-07] MEDS: NS 1,000 ML IV SCH (02:26)
[2022-04-07 06:00] VITALS: BP 130/55
[2022-04-07 06:32] LABS: HEMATOCRIT 40.2 % (42.0-52.0); HEMOGLOBIN 12.5 g/dl (13.5-17.5); MEAN CORPUSCULAR HEMOGLOBIN 24.7 pg (27.0-33.0); MEAN CORPUSCULAR HGB CONC 31.1 g/dl (32.0-36.5); MEAN CORPUSCULAR VOLUME 79.4 fl (80.0-96.0); PLATELET COUNT, AUTOMATED 312 10^3/uL (150-450); RED BLOOD COUNT 5.06 10^6/uL (4.30-6.10)
[2022-04-07] MEDS: CHLORASEPTIC SPRAY MT PRN (06:34)
[2022-04-07 07:19] LABS: BLOOD UREA NITROGEN 12 MG/DL (7-18); CALCIUM LEVEL 11.3 MG/DL (8.8-10.2); CARBON DIOXIDE LEVEL 27 MEQ/L (21-32); CHLORIDE LEVEL 110 MEQ/L (98-107); CREATININE FOR GFR 0.61 MG/DL (0.70-1.30); GLOMERULAR FILTRATION RATE > 60.0 (>42); GLUCOSE, FASTING 124 MG/DL (70-100); MAGNESIUM LEVEL 2.1 MG/DL (1.8-2.4); POTASSIUM SERUM 4.5 MEQ/L (3.5-5.1); SODIUM LEVEL 142 MEQ/L (136-145)
[2022-04-07] MEDS: MIRALAX *UNIT DOSE* 17GM PACKET PO SCH ×2 (09:03→20:45)
[2022-04-07] MEDS: DAPAGLIFLOZIN PROPANEDIOL 10MG TABLET (FARXIGA) PO SCH (09:04)
[2022-04-07] MEDS: ISOSORBIDE MON. (IMDUR) 30MG XR TAB PO SCH (09:04)
[2022-04-07] MEDS: ROSUVASTATIN 10 MG TAB (CRESTOR) PO SCH (09:04)
[2022-04-07] MEDS: metFORMIN XR 500MG TAB *GLUCOPHAGE XR PO SCH ×2 (09:04→20:45)
[2022-04-07] MEDS: METOPROLOL TART 50 MG TAB PO SCH ×2 (09:05→20:44)
[2022-04-07] MEDS: ONDANSETRON 4MG 2ML VIAL IV PRN (09:10)
[2022-04-07 14:00] VITALS: BP 130/57
[2022-04-07] MEDS: ENOXAPARIN 40MG/0.4ML SYRINGE (J1650 PER 10MG) SC SCH (20:45)
[2022-04-07] MEDS: traZODone 50 MG TAB PO SCH (20:45)
[2022-04-07] MEDS: RAMELTEON 8 MG TAB (ROZEREM) PO SCH (20:45)
[2022-04-07] MEDS: KETOROLAC 30 MG/ML 1ML VIAL IV PRN (21:01)
[2022-04-07 21:21] VITALS: BP 114/45
[2022-04-08] MEDS: CHLORASEPTIC SPRAY MT PRN (05:09)
[2022-04-08 06:00] VITALS: BP 110/58
[2022-04-08 08:03] LABS: HEMATOCRIT 39.9 % (42.0-52.0); HEMOGLOBIN 12.4 g/dl (13.5-17.5); MEAN CORPUSCULAR HEMOGLOBIN 24.7 pg (27.0-33.0); MEAN CORPUSCULAR HGB CONC 31.1 g/dl (32.0-36.5); MEAN CORPUSCULAR VOLUME 79.3 fl (80.0-96.0); PLATELET COUNT, AUTOMATED 203 10^3/uL (150-450); RED BLOOD COUNT 5.03 10^6/uL (4.30-6.10); WHITE BLOOD COUNT 7.7 10^3/uL (4.0-10.0)
[2022-04-08 08:19] LABS: BLOOD UREA NITROGEN 8 MG/DL (7-18); CARBON DIOXIDE LEVEL 24 MEQ/L (21-32); CHLORIDE LEVEL 110 MEQ/L (98-107); CREATININE FOR GFR 0.52 MG/DL (0.70-1.30); GLOMERULAR FILTRATION RATE > 60.0 (>42); GLUCOSE, FASTING 88 MG/DL (70-100); MAGNESIUM LEVEL 1.9 MG/DL (1.8-2.4); POTASSIUM SERUM 4.1 MEQ/L (3.5-5.1); SODIUM LEVEL 143 MEQ/L (136-145)
[2022-04-08] MEDS: DAPAGLIFLOZIN PROPANEDIOL 10MG TABLET (FARXIGA) PO SCH (08:49)
[2022-04-08] MEDS: METOPROLOL TART 50 MG TAB PO SCH (08:51)
[2022-04-08 08:52] VITALS: BP 140/70
[2022-04-08] MEDS: MIRALAX *UNIT DOSE* 17GM PACKET PO SCH (08:52)
[2022-04-08] MEDS: ISOSORBIDE MON. (IMDUR) 30MG XR TAB PO SCH (08:52)
[2022-04-08] MEDS: ROSUVASTATIN 10 MG TAB (CRESTOR) PO SCH (08:53)
[2022-04-08] MEDS: metFORMIN XR 500MG TAB *GLUCOPHAGE XR PO SCH (08:53)
[2022-04-08] MEDS: KETOROLAC 30 MG/ML 1ML VIAL IV PRN (14:03)
== END 2022-04-08 16:00 | disposition home or self-care (01) | DRG 389 ==
LOC: M ED 11:38 → EDBD 11:38 → M ED INP 19:38 → M MS5PR 04-06 00:06
PROVIDERS: ADMIT Family Medicine; ATTEND Student in an Organized Health Care Education/Training Program
DX: K56.50 Intestinal adhesions [bands], unspecified as to partial versus complete obstruction (principal); C78.7 Secondary malignant neoplasm of liver and intrahepatic bile duct; C21.0 Malignant neoplasm of anus, unspecified; K43.5 Parastomal hernia without obstruction or gangrene; I25.10 Atherosclerotic heart disease of native coronary artery without angina pectoris; I50.9 Heart failure, unspecified; E11.51 Type 2 diabetes mellitus with diabetic peripheral angiopathy without gangrene; I11.0 Hypertensive heart disease with heart failure; E78.5 Hyperlipidemia, unspecified; E11.40 Type 2 diabetes mellitus with diabetic neuropathy, unspecified; Z66 Do not resuscitate; Z90.49 Acquired absence of other specified parts of digestive tract; Z79.02 Long term (current) use of antithrombotics/antiplatelets; Z79.84 Long term (current) use of oral hypoglycemic drugs; Z79.899 Other long term (current) drug therapy; Z91.041 Radiographic dye allergy status; Z85.21 Personal history of malignant neoplasm of larynx

== ENCOUNTER 2022-04-18 15:48 | Inpatient (IN) | payer BC, MEDICARE, OTHER ==
[~2022-04-18] VITALS: Ht 167.6 cm; Wt 66.8 kg
[2022-04-18] MEDS ORDERED: NS 1,000 ML IV ONE (16:55)
[2022-04-18] MEDS ORDERED: MORPHINE 4 MG/ML 1ML VIAL/SYRINGE IV ONE (17:05)
[2022-04-18 18:36] LABS: BASO % 0.3 % (0.0-1.0); EOS % 0.2 % (0.0-3.0); HEMATOCRIT 43.3 % (42.0-52.0); HEMOGLOBIN 13.7 g/dl (13.5-17.5); LYMPH # 0.6 10^3/uL (1.5-5.0); LYMPH % 4.8 % (24.0-44.0); MEAN CORPUSCULAR HEMOGLOBIN 24.2 pg (27.0-33.0); MEAN CORPUSCULAR HGB CONC 31.6 g/dl (32.0-36.5); MEAN CORPUSCULAR VOLUME 76.5 fl (80.0-96.0); MONO # 0.9 10^3/uL (0.0-0.8); MONO % 7.3 % (2.0-8.0); NEUTROPHILS # 10.3 10^3/uL (1.5-8.5); NEUTROPHILS % 86.1 % (36.0-66.0); PLATELET COUNT, AUTOMATED 363 10^3/uL (150-450); RED BLOOD COUNT 5.66 10^6/uL (4.30-6.10)
[2022-04-18 19:13] LABS: ALBUMIN 2.6 GM/DL (3.2-5.2); ALT/SGPT 14 U/L (12-78); BILIRUBIN,DIRECT < 0.1 MG/DL (0.0-0.2); BILIRUBIN,TOTAL 0.3 MG/DL (0.2-1.0); BLOOD UREA NITROGEN 12 MG/DL (7-18); CALCIUM LEVEL 14.3 MG/DL (8.8-10.2); CARBON DIOXIDE LEVEL 34 MEQ/L (21-32); CHLORIDE LEVEL 95 MEQ/L (98-107); CREATININE FOR GFR 0.85 MG/DL (0.70-1.30); GLOMERULAR FILTRATION RATE > 60.0 (>42); GLUCOSE, FASTING 203 MG/DL (70-100); SODIUM LEVEL 135 MEQ/L (136-145); TOTAL PROTEIN 6.6 GM/DL (6.4-8.2)
[2022-04-18 20:18] LABS: FREE THYROXINE INDEX 3.1 % (1.4-3.8); MAGNESIUM LEVEL 1.7 MG/DL (1.8-2.4); PHOSPHORUS LEVEL 2.1 MG/DL (2.5-4.9); T UPTAKE 34 % (33-40); THYROXINE (T4) 9.2 UG/DL (4.5-12.0)
[2022-04-18] MEDS: INSULIN LISPRO (NovoLOG) PER UNIT SC SCH (21:00)
[2022-04-18] MEDS ORDERED: HOME MED LIST COMPLETE! XX SCH (21:45)
[2022-04-18] MEDS ORDERED: DEXTROSE 50% 50 ML SYRINGE IV PRN (22:00)
[2022-04-18] MEDS ORDERED: GLUCAGON INJ 1MG VIAL SC PRN (22:00)
[2022-04-18] MEDS ORDERED: GLUCOSE 4GM CHEW TABLET PO PRN (22:00)
[2022-04-18] MEDS ORDERED: NS 1,000 ML IV SCH (23:50)
[2022-04-19] MEDS ORDERED: ZOLEDRONIC ACID 4 MG in IV 1 EA IV ONE ×2
[2022-04-19] MEDS ORDERED: NS 1,000 ML IV ONE (00:10)
[2022-04-19] MEDS: CALCITONIN SALMON (MIACALCIN) 400INTERNATIONAL UNITS/2ML INJ (J0630) SQ SCH ×2 (06:17→21:42)
[2022-04-19 06:48] LABS: BLOOD UREA NITROGEN 11 MG/DL (7-18); CALCIUM LEVEL 13.1 MG/DL (8.8-10.2); CARBON DIOXIDE LEVEL 30 MEQ/L (21-32); CHLORIDE LEVEL 102 MEQ/L (98-107); GLOMERULAR FILTRATION RATE > 60.0 (>42); GLUCOSE, FASTING 166 MG/DL (70-100); POTASSIUM SERUM 3.8 MEQ/L (3.5-5.1); SODIUM LEVEL 140 MEQ/L (136-145)
[2022-04-19] MEDS: ISOSORBIDE MON. (IMDUR) 30MG XR TAB PO SCH (09:00)
[2022-04-19] MEDS: ASPIRIN 81 MG CHEW TABLET PO SCH (09:00)
[2022-04-19] MEDS: CLOPIDOGREL 75 MG TAB PO SCH (09:00)
[2022-04-19] MEDS: ROSUVASTATIN 10 MG TAB (CRESTOR) PO SCH (09:00)
[2022-04-19] MEDS: CO-ENZYME Q10 50 MG CAP PO SCH (09:00)
[2022-04-19 09:20] LABS: TOTAL 25(OH) VITAMIN D 41.6 NG/ML (30.0-100.0)
[2022-04-19] MEDS: HEPARIN SOD (PORCINE) 5000UNITS/ML 1ML VIAL/SYRINGE SC SCH ×2 (09:25→21:16)
[2022-04-19] MEDS: INSULIN LISPRO (NovoLOG) PER UNIT SC SCH ×4 (09:26→21:00)
[2022-04-19] MEDS ORDERED: GI COCKTAIL 50ML BTL(HYOSCYAMINE/MAALOX/LIDOCAINE VISCOUS)(1:3:1) PO ONE (13:05)
[2022-04-19] MEDS ORDERED: NS 2,000 ML IV SCH (13:45)
[2022-04-19 15:15] LABS: BLOOD UREA NITROGEN 8 MG/DL (7-18); CALCIUM LEVEL 11.5 MG/DL (8.8-10.2); CARBON DIOXIDE LEVEL 31 MEQ/L (21-32); CHLORIDE LEVEL 105 MEQ/L (98-107); CREATININE FOR GFR 0.58 MG/DL (0.70-1.30); GLOMERULAR FILTRATION RATE > 60.0 (>42); GLUCOSE, FASTING 150 MG/DL (70-100); POTASSIUM SERUM 3.2 MEQ/L (3.5-5.1); SODIUM LEVEL 140 MEQ/L (136-145)
[2022-04-19] MEDS ORDERED: POTASSIUM CHLORIDE 10MEQ SR TABLET PO ONE (17:45)
[2022-04-19 20:00] VITALS: BP 135/76
[2022-04-19] MEDS: traZODone 50 MG TAB PO PRN (21:09)
[2022-04-19] MEDS: METOPROLOL TART 50 MG TAB PO SCH (21:09)
[2022-04-19 22:00] VITALS: BP 129/76
[2022-04-19 22:56] LABS: BLOOD UREA NITROGEN 8 MG/DL (7-18); CALCIUM LEVEL 10.3 MG/DL (8.8-10.2); CARBON DIOXIDE LEVEL 27 MEQ/L (21-32); CHLORIDE LEVEL 105 MEQ/L (98-107); CREATININE FOR GFR 0.43 MG/DL (0.70-1.30); GLOMERULAR FILTRATION RATE > 60.0 (>42); GLUCOSE, FASTING 150 MG/DL (70-100); POTASSIUM SERUM 3.4 MEQ/L (3.5-5.1); SODIUM LEVEL 135 MEQ/L (136-145)
[2022-04-20 04:19] VITALS: BP 135/65
[2022-04-20] MEDS: HYDROMORPHONE HCL 0.5 MG/ 0.5 ML SYRINGE (J1170 PER 1) IV PRN ×2 (05:21→05:52)
[2022-04-20] MEDS: CALCITONIN SALMON (MIACALCIN) 400INTERNATIONAL UNITS/2ML INJ (J0630) SQ SCH (06:08)
[2022-04-20 06:41] LABS: BLOOD UREA NITROGEN 7 MG/DL (7-18); CARBON DIOXIDE LEVEL 27 MEQ/L (21-32); CHLORIDE LEVEL 106 MEQ/L (98-107); CREATININE FOR GFR 0.52 MG/DL (0.70-1.30); GLOMERULAR FILTRATION RATE > 60.0 (>42); GLUCOSE, FASTING 149 MG/DL (70-100); POTASSIUM SERUM 3.3 MEQ/L (3.5-5.1); SODIUM LEVEL 138 MEQ/L (136-145)
[2022-04-20 08:02] LABS: HEMATOCRIT 39.7 % (42.0-52.0); HEMOGLOBIN 12.1 g/dl (13.5-17.5); MEAN CORPUSCULAR HEMOGLOBIN 24.2 pg (27.0-33.0); MEAN CORPUSCULAR HGB CONC 30.5 g/dl (32.0-36.5); MEAN CORPUSCULAR VOLUME 79.4 fl (80.0-96.0); PLATELET COUNT, AUTOMATED 272 10^3/uL (150-450); WHITE BLOOD COUNT 9.6 10^3/uL (4.0-10.0)
[2022-04-20 08:10] VITALS: BP 142/63
[2022-04-20] MEDS: INSULIN LISPRO (NovoLOG) PER UNIT SC SCH ×4 (08:58→21:00)
[2022-04-20] MEDS: ROSUVASTATIN 10 MG TAB (CRESTOR) PO SCH (08:58)
[2022-04-20] MEDS: ISOSORBIDE MON. (IMDUR) 30MG XR TAB PO SCH (08:58)
[2022-04-20] MEDS: CLOPIDOGREL 75 MG TAB PO SCH (08:59)
[2022-04-20] MEDS: POTASSIUM CHLORIDE 10MEQ SR TABLET PO SCH ×2 (08:59→20:56)
[2022-04-20] MEDS: ASPIRIN 81 MG CHEW TABLET PO SCH (08:59)
[2022-04-20] MEDS: METOPROLOL TART 50 MG TAB PO SCH ×2 (08:59→20:55)
[2022-04-20] MEDS: HEPARIN SOD (PORCINE) 5000UNITS/ML 1ML VIAL/SYRINGE SC SCH ×2 (09:00→20:56)
[2022-04-20] MEDS: CO-ENZYME Q10 50 MG CAP PO SCH (09:00)
[2022-04-20 10:21] LABS: PTH INTACT 6.5 PG/ML (18.5-88.0)
[2022-04-20] MEDS ORDERED: IBUPROFEN 600MG TAB PO PRN (10:30)
[2022-04-20] MEDS ORDERED: SENNA 8.6 MG TAB (SENOKOT) PO PRN (10:30)
[2022-04-20 12:00] VITALS: BP 124/60
[2022-04-20] MEDS ORDERED: methylPREDNISolone 125MG 2ML VIAL IV ONE (12:00)
[2022-04-20] MEDS ORDERED: diphenhydrAMINE 50MG/ML VIAL (J1200) IV ONE (12:00)
[2022-04-20] MEDS: LIDOCAINE 5% (LIDODERM) PATCH TD SCH (14:25)
[2022-04-20] MEDS: MIRALAX *UNIT DOSE* 17GM PACKET PO SCH (14:25)
[2022-04-20] MEDS: ACETAMINOPHEN 325 MG TAB PO SCH ×2 (14:26→20:00)
[2022-04-20] MEDS: GASTROGRAFIN SOLUTION 30ML PO SCH ×2 (15:33→16:26)
[2022-04-20 16:00] VITALS: BP 128/63
[2022-04-20] MEDS ORDERED: ISOVUE-370 76% 100ML VIAL As Ordered ONE (16:35)
[2022-04-20 17:24] LABS: BLOOD UREA NITROGEN 8 MG/DL (7-18); CALCIUM LEVEL 9.6 MG/DL (8.8-10.2); CARBON DIOXIDE LEVEL 30 MEQ/L (21-32); CHLORIDE LEVEL 103 MEQ/L (98-107); CREATININE FOR GFR 0.53 MG/DL (0.70-1.30); GLOMERULAR FILTRATION RATE > 60.0 (>42); GLUCOSE, FASTING 176 MG/DL (70-100); POTASSIUM SERUM 4.2 MEQ/L (3.5-5.1); SODIUM LEVEL 137 MEQ/L (136-145)
[2022-04-20] MEDS ORDERED: OLANZapine INTRAMUSCULAR 10MG VIAL IM ONE (20:25)
[2022-04-20] MEDS: **NOTE PATIENT COMMENT** MISC XX SCH (21:00)
[2022-04-20] MEDS ORDERED: HALOPERIDOL 5MG/ML VIAL (J1630 PER 1) IV ONE (22:30)
[2022-04-20] MEDS: AMPICILLIN SOD/SULBACTAM SOD 3 GM in D5W MINI-BAG PLUS 100 ML IV SCH (22:37)
[2022-04-21] VITALS (8 sets, daily range): BP systolic 94–155; BP diastolic 51–76
[2022-04-21] MEDS: AMPICILLIN SOD/SULBACTAM SOD 3 GM in D5W MINI-BAG PLUS 100 ML IV SCH ×4 (03:57→23:25)
[2022-04-21 04:43] LABS: BLOOD UREA NITROGEN 11 MG/DL (7-18); CALCIUM LEVEL 9.4 MG/DL (8.8-10.2); CARBON DIOXIDE LEVEL 24 MEQ/L (21-32); CHLORIDE LEVEL 104 MEQ/L (98-107); CREATININE FOR GFR 0.56 MG/DL (0.70-1.30); GLOMERULAR FILTRATION RATE > 60.0 (>42); GLUCOSE, FASTING 259 MG/DL (70-100); POTASSIUM SERUM 3.9 MEQ/L (3.5-5.1); SODIUM LEVEL 136 MEQ/L (136-145)
[2022-04-21] MEDS: ACETAMINOPHEN 325 MG TAB PO SCH ×5 (06:00→23:12)
[2022-04-21] MEDS: INSULIN LISPRO (NovoLOG) PER UNIT SC SCH ×4 (08:44→21:00)
[2022-04-21] MEDS: METOPROLOL TART 50 MG TAB PO SCH ×2 (09:00→23:11)
[2022-04-21] MEDS: HEPARIN SOD (PORCINE) 5000UNITS/ML 1ML VIAL/SYRINGE SC SCH ×2 (09:00→23:24)
[2022-04-21] MEDS: MIRALAX *UNIT DOSE* 17GM PACKET PO SCH (09:00)
[2022-04-21] MEDS: ISOSORBIDE MON. (IMDUR) 30MG XR TAB PO SCH (09:00)
[2022-04-21] MEDS: CLOPIDOGREL 75 MG TAB PO SCH (11:15)
[2022-04-21] MEDS: ROSUVASTATIN 10 MG TAB (CRESTOR) PO SCH (11:15)
[2022-04-21] MEDS: POTASSIUM CHLORIDE 10MEQ SR TABLET PO SCH ×2 (11:15→23:24)
[2022-04-21] MEDS: ASPIRIN 81 MG CHEW TABLET PO SCH (11:15)
[2022-04-21] MEDS: LIDOCAINE 5% (LIDODERM) PATCH TD SCH (11:16)
[2022-04-21] MEDS: dexameTHASONE 4 MG/ML 1ML VIAL (J1100 PER 1MG) IV SCH ×2 (11:16→18:31)
[2022-04-21] MEDS: CO-ENZYME Q10 50 MG CAP PO SCH (11:16)
[2022-04-21 18:12] LABS: BLOOD UREA NITROGEN 20 MG/DL (7-18); CALCIUM LEVEL 9.3 MG/DL (8.8-10.2); CARBON DIOXIDE LEVEL 28 MEQ/L (21-32); CHLORIDE LEVEL 102 MEQ/L (98-107); CREATININE FOR GFR 1.03 MG/DL (0.70-1.30); GLOMERULAR FILTRATION RATE > 60.0 (>42); GLUCOSE, FASTING 284 MG/DL (70-100); POTASSIUM SERUM 4.5 MEQ/L (3.5-5.1); SODIUM LEVEL 137 MEQ/L (136-145)
[2022-04-22] MEDS: dexameTHASONE 4 MG/ML 1ML VIAL (J1100 PER 1MG) IV SCH (03:35)
[2022-04-22] MEDS: oxyCODONE 5MG TAB PO PRN (03:54)
[2022-04-22 04:00] VITALS: BP 105/70
[2022-04-22] MEDS: AMPICILLIN SOD/SULBACTAM SOD 3 GM in D5W MINI-BAG PLUS 100 ML IV SCH ×4 (04:05→20:09)
[2022-04-22] MEDS: ACETAMINOPHEN 325 MG TAB PO SCH ×3 (05:35→18:21)
[2022-04-22 05:48] LABS: BLOOD UREA NITROGEN 16 MG/DL (7-18); CALCIUM LEVEL 8.7 MG/DL (8.8-10.2); CARBON DIOXIDE LEVEL 30 MEQ/L (21-32); CHLORIDE LEVEL 103 MEQ/L (98-107); CREATININE FOR GFR 0.76 MG/DL (0.70-1.30); GLOMERULAR FILTRATION RATE > 60.0 (>42); GLUCOSE, FASTING 371 MG/DL (70-100); POTASSIUM SERUM 4.8 MEQ/L (3.5-5.1); SODIUM LEVEL 136 MEQ/L (136-145)
[2022-04-22 06:00] VITALS: BP 108/65
[2022-04-22 07:59] VITALS: BP 149/82
[2022-04-22] MEDS: LIDOCAINE 5% (LIDODERM) PATCH TD SCH (08:20)
[2022-04-22] MEDS: MIRALAX *UNIT DOSE* 17GM PACKET PO SCH (08:20)
[2022-04-22] MEDS: ROSUVASTATIN 10 MG TAB (CRESTOR) PO SCH (08:21)
[2022-04-22] MEDS: CO-ENZYME Q10 50 MG CAP PO SCH (08:21)
[2022-04-22] MEDS: ISOSORBIDE MON. (IMDUR) 30MG XR TAB PO SCH (08:22)
[2022-04-22] MEDS: ASPIRIN 81 MG CHEW TABLET PO SCH (08:22)
[2022-04-22] MEDS: POTASSIUM CHLORIDE 10MEQ SR TABLET PO SCH ×2 (08:23→20:10)
[2022-04-22] MEDS: HEPARIN SOD (PORCINE) 5000UNITS/ML 1ML VIAL/SYRINGE SC SCH ×2 (08:23→20:10)
[2022-04-22] MEDS: CLOPIDOGREL 75 MG TAB PO SCH (08:23)
[2022-04-22] MEDS: METOPROLOL TART 50 MG TAB PO SCH ×2 (08:23→20:12)
[2022-04-22] MEDS: INSULIN LISPRO (NovoLOG) PER UNIT SC SCH ×4 (08:24→21:00)
[2022-04-22 10:27] LABS: HEMATOCRIT 37.5 % (42.0-52.0); HEMOGLOBIN 11.5 g/dl (13.5-17.5); MEAN CORPUSCULAR HEMOGLOBIN 24.1 pg (27.0-33.0); MEAN CORPUSCULAR HGB CONC 30.7 g/dl (32.0-36.5); MEAN CORPUSCULAR VOLUME 78.6 fl (80.0-96.0); PLATELET COUNT, AUTOMATED 301 10^3/uL (150-450); RED BLOOD COUNT 4.77 10^6/uL (4.30-6.10); WHITE BLOOD COUNT 13.1 10^3/uL (4.0-10.0)
[2022-04-22] MEDS ORDERED: INSULIN LISPRO (NovoLOG) PER UNIT SC ONE (11:50)
[2022-04-22 16:18] VITALS: BP 124/59
[2022-04-22 16:43] VITALS: BP 128/61
[2022-04-22 17:44] LABS: BLOOD UREA NITROGEN 13 MG/DL (7-18); CALCIUM LEVEL 8.7 MG/DL (8.8-10.2); CARBON DIOXIDE LEVEL 29 MEQ/L (21-32); CHLORIDE LEVEL 105 MEQ/L (98-107); CREATININE FOR GFR 0.68 MG/DL (0.70-1.30); GLOMERULAR FILTRATION RATE > 60.0 (>42); GLUCOSE, FASTING 314 MG/DL (70-100); POTASSIUM SERUM 4.8 MEQ/L (3.5-5.1); SODIUM LEVEL 137 MEQ/L (136-145)
[2022-04-22 20:12] VITALS: BP 126/61
[2022-04-22] MEDS: **NOTE PATIENT COMMENT** MISC XX SCH (21:00)
[2022-04-23] MEDS: ACETAMINOPHEN 325 MG TAB PO SCH ×3 (00:08→13:43)
[2022-04-23] MEDS: AMPICILLIN SOD/SULBACTAM SOD 3 GM in D5W MINI-BAG PLUS 100 ML IV SCH ×4 (02:34→20:43)
[2022-04-23] MEDS: traZODone 50 MG TAB PO PRN (02:34)
[2022-04-23 04:59] VITALS: BP 116/55
[2022-04-23 06:22] VITALS: BP 135/61
[2022-04-23] MEDS ORDERED: NITROGLYCERIN 0.3 MG SUBL TAB SL PRN (07:00)
[2022-04-23 07:13] LABS: BLOOD UREA NITROGEN 12 MG/DL (7-18); CALCIUM LEVEL 8.9 MG/DL (8.8-10.2); CARBON DIOXIDE LEVEL 29 MEQ/L (21-32); CHLORIDE LEVEL 106 MEQ/L (98-107); CREATININE FOR GFR 0.69 MG/DL (0.70-1.30); GLOMERULAR FILTRATION RATE > 60.0 (>42); GLUCOSE, FASTING 189 MG/DL (70-100); POTASSIUM SERUM 4.5 MEQ/L (3.5-5.1); SODIUM LEVEL 138 MEQ/L (136-145)
[2022-04-23] MEDS: MIRALAX *UNIT DOSE* 17GM PACKET PO SCH (09:37)
[2022-04-23] MEDS: HEPARIN SOD (PORCINE) 5000UNITS/ML 1ML VIAL/SYRINGE SC SCH (09:37)
[2022-04-23] MEDS: INSULIN LISPRO (NovoLOG) PER UNIT SC SCH ×2 (09:37→13:42)
[2022-04-23] MEDS: LIDOCAINE 5% (LIDODERM) PATCH TD SCH (09:37)
[2022-04-23] MEDS: ASPIRIN 81 MG CHEW TABLET PO SCH (09:38)
[2022-04-23] MEDS: ROSUVASTATIN 10 MG TAB (CRESTOR) PO SCH (09:38)
[2022-04-23] MEDS: CLOPIDOGREL 75 MG TAB PO SCH (09:38)
[2022-04-23] MEDS: CO-ENZYME Q10 50 MG CAP PO SCH (09:38)
[2022-04-23] MEDS: POTASSIUM CHLORIDE 10MEQ SR TABLET PO SCH (09:38)
[2022-04-23] MEDS: ISOSORBIDE MON. (IMDUR) 30MG XR TAB PO SCH (09:38)
[2022-04-23] MEDS: METOPROLOL TART 50 MG TAB PO SCH (09:39)
[2022-04-23] MEDS ORDERED: SCOPOLAMINE 1MG TRANSDERMAL PATCH TOP PRN (14:50)
[2022-04-23] MEDS ORDERED: LIDOCAINE 5% (LIDODERM) PATCH TD PRN (15:30)
[2022-04-23] MEDS ORDERED: MIRALAX *UNIT DOSE* 17GM PACKET PO PRN (15:30)
[2022-04-23] MEDS: MORPHINE SULFATE ORAL SOLN 10 MG/5 ML UD SL PRN (15:53)
[2022-04-23] MEDS: LORazepam 1 MG TAB PO PRN ×2 (15:55→20:44)
[2022-04-23] MEDS: OLANZapine 5 MG TAB PO SCH (16:00)
[2022-04-23] MEDS: **NOTE PATIENT COMMENT** MISC XX SCH (20:44)
[2022-04-24] MEDS: LORazepam 1 MG TAB PO PRN ×2 (01:06→14:56)
[2022-04-24] MEDS: MORPHINE SULFATE ORAL SOLN 10 MG/5 ML UD SL PRN ×4 (01:06→21:09)
[2022-04-24] MEDS: AMPICILLIN SOD/SULBACTAM SOD 3 GM in D5W MINI-BAG PLUS 100 ML IV SCH ×4 (02:23→21:08)
[2022-04-24] MEDS: OLANZapine 5 MG TAB PO SCH (08:58)
[2022-04-24] MEDS ORDERED: OLANZapine 5 MG TAB PO SCH (09:00)
[2022-04-24] MEDS: **NOTE PATIENT COMMENT** MISC XX SCH (20:58)
[2022-04-24] MEDS: traZODone 50 MG TAB PO PRN (21:08)
[2022-04-24] MEDS: ONDANSETRON 4MG 2ML VIAL IV PRN (21:08)
[2022-04-25] MEDS: MORPHINE SULFATE ORAL SOLN 10 MG/5 ML UD SL PRN ×2 (00:20→15:23)
[2022-04-25] MEDS: AMPICILLIN SOD/SULBACTAM SOD 3 GM in D5W MINI-BAG PLUS 100 ML IV SCH ×4 (02:28→20:24)
[2022-04-25] MEDS: ONDANSETRON 4MG 2ML VIAL IV PRN ×2 (05:14→20:24)
[2022-04-25] MEDS: MORPHINE 2 MG/ML 1ML VIAL IV PRN ×2 (05:15→20:25)
[2022-04-25] MEDS: OLANZapine 5 MG TAB PO SCH (09:22)
[2022-04-25] MEDS: LORazepam 1 MG TAB PO PRN (15:22)
[2022-04-25] MEDS: **NOTE PATIENT COMMENT** MISC XX SCH (20:24)
[2022-04-25] MEDS: traZODone 50 MG TAB PO PRN (20:24)
[2022-04-26] MEDS: AMPICILLIN SOD/SULBACTAM SOD 3 GM in D5W MINI-BAG PLUS 100 ML IV SCH ×2 (03:06→08:44)
[2022-04-26] MEDS: MORPHINE 2 MG/ML 1ML VIAL IV PRN ×2 (03:07→20:39)
[2022-04-26] MEDS: LORazepam 1 MG TAB PO PRN ×3 (03:49→20:38)
[2022-04-26] MEDS: OLANZapine 5 MG TAB PO SCH ×2 (08:43→10:11)
[2022-04-26] MEDS: MOM 30ML SUSPENSION UDC PO SCH (09:00)
[2022-04-26] MEDS: oxyCODONE 5MG TAB PO PRN (10:10)
[2022-04-26] MEDS: **NOTE PATIENT COMMENT** MISC XX SCH (20:25)
[2022-04-26] MEDS: DOCUSATE SODIUM 100MG CAPSULE PO SCH (20:37)
[2022-04-26] MEDS: traZODone 50 MG TAB PO PRN (20:38)
[2022-04-26] MEDS: SENNA 8.6 MG TAB (SENOKOT) PO SCH (20:38)
[2022-04-26] MEDS: ONDANSETRON 4MG 2ML VIAL IV PRN (20:38)
[2022-04-27] MEDS: LORazepam 1 MG TAB PO PRN ×3 (00:32→20:56)
[2022-04-27] MEDS: MORPHINE 2 MG/ML 1ML VIAL IV PRN ×5 (00:32→20:56)
[2022-04-27] MEDS: DOCUSATE SODIUM 100MG CAPSULE PO SCH ×2 (09:00→20:01)
[2022-04-27] MEDS: MOM 30ML SUSPENSION UDC PO SCH (09:00)
[2022-04-27] MEDS ORDERED: MORP1SOL5 PO (16:54)
[2022-04-27] MEDS ORDERED: HYOS125TA PO (16:54)
[2022-04-27] MEDS ORDERED: ATIV1TAB10 PO (16:54)
[2022-04-27] MEDS: **NOTE PATIENT COMMENT** MISC XX SCH (20:01)
[2022-04-27] MEDS: SENNA 8.6 MG TAB (SENOKOT) PO SCH (20:01)
[2022-04-27] MEDS: traZODone 50 MG TAB PO PRN (20:55)
[2022-04-28] MEDS: MORPHINE 2 MG/ML 1ML VIAL IV PRN ×3 (00:50→10:11)
[2022-04-28] MEDS: MOM 30ML SUSPENSION UDC PO SCH (08:37)
[2022-04-28] MEDS: OLANZapine 5 MG TAB PO SCH (08:38)
[2022-04-28] MEDS: DOCUSATE SODIUM 100MG CAPSULE PO SCH (08:38)
[2022-04-28] MEDS: LORazepam 1 MG TAB PO PRN (10:11)
[2022-04-28 15:09] LABS: PTH RELATED PEPTIDE < 2.0 pmol/L (.); VITAMIN D 1,25 DIHYDROXY 81.3 pg/mL (24.8-81.5)
== END 2022-04-28 11:10 | disposition hospice, inpatient (51) | DRG 640 ==
LOC: M ED 15:48 → EDBD 15:48 → M PCU 21:56 → M ED INP 21:56 → ENRESERV 04-19 15:21 → M PCU 04-19 20:39 → M MSPAV 04-22 16:35
PROVIDERS: ADMIT Internal Medicine; ATTEND Internal Medicine
DX: E83.52 Hypercalcemia (principal); J85.2 Abscess of lung without pneumonia; C21.1 Malignant neoplasm of anal canal; C77.1 Secondary and unspecified malignant neoplasm of intrathoracic lymph nodes; C34.31 Malignant neoplasm of lower lobe, right bronchus or lung; I50.22 Chronic systolic (congestive) heart failure; C78.7 Secondary malignant neoplasm of liver and intrahepatic bile duct; F05 Delirium due to known physiological condition; F03.91 Unspecified dementia, unspecified severity, with behavioral disturbance; R44.3 Hallucinations, unspecified; K59.00 Constipation, unspecified; Z90.49 Acquired absence of other specified parts of digestive tract; Z92.3 Personal history of irradiation; Z66 Do not resuscitate; I25.10 Atherosclerotic heart disease of native coronary artery without angina pectoris; I11.0 Hypertensive heart disease with heart failure; E11.51 Type 2 diabetes mellitus with diabetic peripheral angiopathy without gangrene; Z20.822 Contact with and (suspected) exposure to COVID-19; Z79.84 Long term (current) use of oral hypoglycemic drugs; Z79.899 Other long term (current) drug therapy; Z91.041 Radiographic dye allergy status; Z93.3 Colostomy status; I73.9 Peripheral vascular disease, unspecified; C32.9 Malignant neoplasm of larynx, unspecified; Z74.1 Need for assistance with personal care; R07.89 Other chest pain; G89.3 Neoplasm related pain (acute) (chronic); K43.5 Parastomal hernia without obstruction or gangrene; R29.6 Repeated falls; R62.7 Adult failure to thrive; Z87.891 Personal history of nicotine dependence; S00.83XA Contusion of other part of head, initial encounter; S10.93XA Contusion of unspecified part of neck, initial encounter; W01.0XXA Fall on same level from slipping, tripping and stumbling without subsequent striking against object, initial encounter; Y92.009 Unspecified place in unspecified non-institutional (private) residence as the place of occurrence of the external cause; E78.5 Hyperlipidemia, unspecified; E11.649 Type 2 diabetes mellitus with hypoglycemia without coma